=== PATIENT | female | born 1960 | race Caucasian/White ===

== ENCOUNTER 2019-04-17 13:27 | Inpatient (IN) | payer MEDICARE, OTHER ==
[~2019-04-17] VITALS: Ht 165.1 cm; Wt 76.2 kg
[2019-04-17] MEDS ORDERED: AMITRIPTYLIN (13:36)
[2019-04-17] MEDS ORDERED: HYDROCHLOROT 25 MG (13:36)
[2019-04-17] MEDS ORDERED: GABAPENTIN CAP 300MG (13:36)
[2019-04-17] MEDS ORDERED: QUINAPRIL 10 MG (13:36)
[2019-04-17] MEDS ORDERED: METFORMIN TAB 500MG (13:36)
[2019-04-17 14:04] LABS: HEMATOCRIT 46 % (35-52); HEMOGLOBIN 15.1 G/DL (11.5-16.0); MEAN CORPUSCULAR HEMOGLOBIN 29 PG (25-34); MEAN CORPUSCULAR HGB CONC 33 G/DL (32-36); MEAN CORPUSCULAR VOLUME 89 FL (80-99); MEAN PLATELET VOLUME 11.1 FL (7.4-10.4); PLATELET COUNT 241 10^3/uL (130-400); WHITE BLOOD COUNT 20.3 10^3/uL (4.3-11.0)
[2019-04-17 14:05] LABS: BASOPHILS # (AUTO) 0.1 10^3/uL (0.0-0.1); BASOPHILS % (AUTO) 0 % (0-10); EOSINOPHILS % (AUTO) 0 % (0-10); LYMPHOCYTES # (AUTO) 2.7 X 10^3 (1.0-4.0); LYMPHOCYTES % (AUTO) 13 % (12-44); MONOCYTES # (AUTO) 2.3 X 10^3 (0.0-1.0); MONOCYTES % (AUTO) 11 % (0-12); NEUTROPHILS # (AUTO) 15.2 X 10^3 (1.8-7.8); NEUTROPHILS % (AUTO) 75 % (42-75)
--- NOTE | 2019-04-17 14:11 | NUR ---
Dr. Brewer to room at this time
--- NOTE | 2019-04-17 14:20 | Diagnostic Imaging Report ---
INDICATION: Chest pain, generalized not feeling well.. TECHNIQUE: Single view chest 1:49 PM. CORRELATION STUDY: None FINDINGS: Heart size enlarged and there is a component of central vascular congestion. Increased density left lung base is noted. This may be attributed to a cardiac enlargement with possibly superimposed infiltrate and/or atelectasis not excluded. Suspect for trace effusions. IMPRESSION: 1. Cardiac enlargement with component of pulmonary vasculature congestion and perihilar edema. 2. Superimposed infiltrate, edema at the left lung base with a small left pleural effusion suspect. Dictated by: Dictated on workstation # [id number]
[2019-04-17 14:26] LABS: POTASSIUM 3.7 MMOL/L (3.6-5.0); SODIUM 139 MMOL/L (135-145)
[2019-04-17 14:27] LABS: ALANINE AMINOTRANSFERASE 13 U/L (0-55); ALKALINE PHOSPHATASE 96 U/L (40-136); BILIRUBIN,TOTAL 0.5 MG/DL (0.1-1.0); BUN/CREATININE RATIO 13; CALCIUM 10.2 MG/DL (8.5-10.1); CARBON DIOXIDE 29 MMOL/L (21-32); CHLORIDE 95 MMOL/L (98-107); CREATININE SERUM 0.83 MG/DL (0.60-1.30); GFR ESTIMATED > 60; GLUCOSE 121 MG/DL (70-105)
[2019-04-17 14:28] LABS: ALBUMIN 4.3 GM/DL (3.2-4.5); TOTAL PROTEIN 8.3 GM/DL (6.4-8.2)
[2019-04-17] MEDS ORDERED: ASPIRIN 81 MG CHEW (CHILDREN'S ASA) ONE (14:30)
--- NOTE | 2019-04-17 14:30 | NUR ---
Troponin of 0.3 noticed on lab, Dr. Brewer notified at this time
--- NOTE | 2019-04-17 14:30 | ED Chest Pain ---
General Chief Complaint: Chest Pain Stated Complaint: CHEST PAIN Nursing Triage Note: Patient reports waking up and not feeling well this morning. patient states that it has progressed to get worse throughout the day. patient c/o R jaw and shoulder pain. denies n/v or SOA. patient c/o having generalized weakness and fatigue Nursing Sepsis Screen: No Definite Risk Source: patient Exam Limitations: no limitations History of Present Illness Date Seen by Provider: Apr 17, 2019 Time Seen by Provider: 14:25 Initial Comments The patient is a 59-year-old white female. She apparently awakened this morning and experienced chest pressure as well as pain radiating to her jaw and shoulders. She had not had a pain like this before. It seemed to come and go. She had not been physically active when this came on. She later needed to go to the drug store to mixing picker tender her pharmacy refills. Her linotype operator stated that he waited in the car while she went in. When she came out her head was down in rather hang dog. He questioned her and found that she was having chest pain and insisted that they come in for medical evaluation. She is a smoker since age 11 and smokes 2-2 and half packs of cigarettes daily. Timing/Duration: 4-6 hours Severity/Quality: mild, moderate Location: substernal, shoulder Radiation: jaw, other (also describes related facial swelling) Activities at Onset: none Prior CP/Workup: no prior chest pain Allergies and Home Medications Allergies Coded Allergies: No Known Drug Allergies (Unverified , 04/17/19) Patient Home Medication List Home Medication List Reviewed: Yes Review of Systems Review of Systems Constitutional: see HPI EENTM: No Symptoms Reported Respiratory: No Symptoms Reported Cardiovascular: See HPI Gastrointestinal: No Symptoms Reported Genitourinary: No Symptoms Reported Musculoskeletal: no symptoms reported Skin: no symptoms reported Psychiatric/Neurological: No Symptoms Reported Endocrine: No Symptoms Reported Hematologic/Lymphatic: No Symptoms Reported Past Ledzufk-Hbxjry-Jzibgy Hx Patient Social History Alcohol Use: Denies Use Recreational Drug Use: No Smoking Status: Current Everyday Smoker Type Used: Cigars, Cigarettes Recent Foreign Travel: No Contact w/Someone Who Travel: No Recent Infectious Disease Expo: No Recent Hopitalizations: No Past Medical History Respiratory: Yes COPD Cardiac: No Neurological: No Genitourinary: No Gastrointestinal: No Musculoskeletal: No Endocrine: Yes Diabetes, Non-Insulin dep HEENT: No Cancer: No Psychosocial: No Integumentary: No Physical Exam Vital Signs Vital Signs - First Documented 04/17/19 04/17/19 13:31 13:38 Temp 97.5 Pulse 102 Resp 14 B/P (MAP) 104/59 (74) Pulse Ox 88 O2 Delivery Room Air O2 Flow Rate 4.0 Capillary Refill : Less Than 3 Seconds Height, Weight, BMI Height: 5'5.00" Weight: 160lbs. oz. 72.678560mb; BMI Method:Stated General Appearance: Mild Distress HEENT: Normal ENT Inspection Neck: Normal Inspection Respiratory: Chest Non Tender, Lungs Clear, Normal Breath Sounds, No Accessory Muscle Use, No Respiratory Distress Cardiovascular: Tachycardia Gastrointestinal: Normal Bowel Sounds, No Organomegaly, No Pulsatile Mass, Non Tender Extremity: Normal Capillary Refill, Normal Inspection, Normal Range of Motion, Non Tender, No Calf Tenderness, No Pedal Edema Progress/Results/Core Measures Results/Orders Lab Results Laboratory Tests Test 04/17/19 13:35 Range/Units White Blood Count 20.3 H 4.3-11.0 10^3/uL Red Blood Count 5.22 4.35-5.85 10^6/uL Hemoglobin 15.1 11.5-16.0 G/DL Hematocrit 46 35-52 % Mean Corpuscular Volume 89 80-99 FL Mean Corpuscular Hemoglobin 29 25-34 PG Mean Corpuscular Hemoglobin Concent 33 32-36 G/DL Red Cell Distribution Width 15.0 H 10.0-14.5 % Platelet Count 241 130-400 10^3/uL Mean Platelet Volume 11.1 H 7.4-10.4 FL Neutrophils (%) (Auto) 75 42-75 % Lymphocytes (%) (Auto) 13 12-44 % Monocytes (%) (Auto) 11 0-12 % Eosinophils (%) (Auto) 0 0-10 % Basophils (%) (Auto) 0 0-10 % Neutrophils # (Auto) 15.2 H 1.8-7.8 X 10^3 Lymphocytes # (Auto) 2.7 1.0-4.0 X 10^3 Monocytes # (Auto) 2.3 H 0.0-1.0 X 10^3 Eosinophils # (Auto) 0.0 0.0-0.3 10^3/uL Basophils # (Auto) 0.1 0.0-0.1 10^3/uL Sodium Level 139 135-145 MMOL/L Potassium Level 3.7 3.6-5.0 MMOL/L Chloride Level 95 L 98-107 MMOL/L Carbon Dioxide Level 29 21-32 MMOL/L Anion Gap 15 H 5-14 MMOL/L Blood Urea Nitrogen 11 7-18 MG/DL Creatinine 0.83 0.60-1.30 MG/DL Estimat Glomerular Filtration Rate > 60 BUN/Creatinine Ratio 13 Glucose Level 121 H 70-105 MG/DL Calcium Level 10.2 H 8.5-10.1 MG/DL Corrected Calcium 10.0 8.5-10.1 MG/DL Total Bilirubin 0.5 0.1-1.0 MG/DL Aspartate Amino Transf (AST/SGOT) 15 5-34 U/L Alanine Aminotransferase (ALT/SGPT) 13 0-55 U/L Alkaline Phosphatase 96 40-136 U/L Troponin I < 0.300 *H <0.028 NG/ML Total Protein 8.3 H 6.4-8.2 GM/DL Albumin 4.3 3.2-4.5 GM/DL My Orders Orders - CRISTINA VARMA MD Ekg Tracing (04/17/19 13:46) Chest 1 View Ap/Pa Only (04/17/19 13:46) Cbc With Automated Diff (04/17/19 13:46) Comprehensive Metabolic Panel (04/17/19 13:46) Troponin I (04/17/19 13:46) Manual Differential (04/17/19 13:35) Aspirin Chewable Tablet (Baby Aspirin Ch (04/17/19 14:30) Medications Given in ED Current Medications Medications Dose Ordered Sig/Ulises Route Start Time Stop Time Status Last Admin Dose Admin Aspirin 81 mg STK-MED ONCE .ROUTE 04/17/19 14:30 04/17/19 14:36 DC 04/17/19 14:38 324 MG Vital Signs/I&O 04/17/19 04/17/19 13:31 13:38 Temp 97.5 Pulse 102 Resp 14 B/P (MAP) 104/59 (74) Pulse Ox 88 O2 Delivery Room Air Nasal Cannula O2 Flow Rate 4.0 Blood Pressure Mean: 74 Departure Communication (Admissions) Electrocardiogram shows a rather diffuse nonspecific ST abnormality with upward concavity of the ST segment. The tracing also meets the criteria for left atrial enlargement and left ventricular hypertrophy. Her troponin returned positive at 0.3 and accordingly I spoke to Drs. Reynoso and Vandana at via [facility] for transfer. Impression Primary Impression: chest pain/N STEMI Disposition: XFER SHT-TRM HOSP Condition: Stable/Unchanged Admissions Decision to Admit Reason: Admit from ER (General) Decision to Admit/Date: Apr 17, 2019 Transfer Time Spoke to Accepting Phy: 15:08 CRISTINA VARMA MD Apr 17, 2019 14:30
[2019-04-17] MEDS ORDERED: meTOprolol 5 MG/5 ML (LOPRESSOR) VIAL ONE (14:57)
[2019-04-17] MEDS ORDERED: TICAGRELOR 90 MG TABLET (BRILINTA) PO ONE ×2 (14:58→15:00)
[2019-04-17] MEDS ORDERED: meTOprolol 5 MG/5 ML (LOPRESSOR) VIAL IV ONE (15:00)
[2019-04-17 15:10] LABS: BAND NEUTROPHILS 4 %; BASOPHILS % (MANUAL) 0 %; EOSINOPHILS % (MANUAL) 0 %; LYMPHOCYTES % (MANUAL) 14 %; METAMYELOCYTES % 0 %; MONOCYTES % (MANUAL) 8 %; MYELOCYTES % 3 %; NEUTROPHILS % (MANUAL) 71 %
[2019-04-17] MEDS ORDERED: NS IV 1000 ML 1,000 ML ONE (16:39)
[2019-04-17 16:45] VITALS: BP 142/85
[2019-04-17] MEDS ORDERED: CATHETER FLUSH 10 ML SYR IV PRN (17:00)
[2019-04-17] MEDS: NS IV 1000 ML 1,000 ML IV SCH (17:27)
[2019-04-17] MEDS: morphine INJ 4 MG/ML 1 ML (VIAL/SYRINGE) IV PRN ×2 (17:41→22:06)
[2019-04-17] MEDS ORDERED: HEParin 1000 UNIT/ML (10ML VIAL) FOR BOLUS IV SCH (18:15)
[2019-04-17] MEDS ORDERED: HEParin DRIP 25000 UNIT/500ML 500 ML IV SCH (18:29)
[2019-04-17 18:41] LABS: BASOPHILS % (AUTO) 0 % (0-10); EOSINOPHILS % (AUTO) 0 % (0-10); HEMATOCRIT 47 % (35-52); HEMOGLOBIN 15.4 G/DL (11.5-16.0); LYMPHOCYTES # (AUTO) 0.9 X 10^3 (1.0-4.0); LYMPHOCYTES % (AUTO) 4 % (12-44); MEAN CORPUSCULAR HEMOGLOBIN 28 PG (25-34); MEAN CORPUSCULAR HGB CONC 33 G/DL (32-36); MEAN CORPUSCULAR VOLUME 87 FL (80-99); MEAN PLATELET VOLUME 11.2 FL (7.4-10.4); MONOCYTES # (AUTO) 2.9 X 10^3 (0.0-1.0); MONOCYTES % (AUTO) 11 % (0-12); NEUTROPHILS % (AUTO) 85 % (42-75); PLATELET COUNT 204 10^3/uL (130-400); RED CELL DISTRIBUTION WIDTH 15.5 % (10.0-14.5); WHITE BLOOD COUNT 25.9 10^3/uL (4.3-11.0)
[2019-04-17] MEDS: HEParin 1000 UNIT/ML (10ML VIAL) FOR BOLUS IV SCH (18:58)
[2019-04-17 19:00] VITALS: BP 136/71
[2019-04-17 19:46] LABS: BAND NEUTROPHILS 6 %; BASOPHILS % (MANUAL) 0 %; EOSINOPHILS % (MANUAL) 0 %; LYMPHOCYTES % (MANUAL) 3 %; MONOCYTES % (MANUAL) 4 %; NEUTROPHILS % (MANUAL) 87 %
[2019-04-17 19:47] LABS: ANISOCYTOSIS SLIGHT
[2019-04-17 20:00] VITALS: BP 131/80
--- NOTE | 2019-04-17 20:12 | NUR ---
Called Dr. Ross to notify of continuing chest pain 11/16, tachycardic in 120's, diaphoretic and SOB. New orders received at this time.
[2019-04-17] MEDS ORDERED: meTOprolol 5 MG/5 ML (LOPRESSOR) VIAL IV NR (20:15)
[2019-04-17] MEDS: NITROGLYCERIN 0.4 MG SL TABS BTL 25'S SL PRN ×3 (20:29→21:03)
[2019-04-17 21:00] VITALS: BP 116/80
[2019-04-17] MEDS ORDERED: ATORVASTATIN 40 MG (LIPITOR) TABLET PO SCH (21:00)
--- OUTSIDE RECORDS SUMMARY | 2019-04-17 21:28 | XMS REPORT | Continuity of Care Document ---
Author Organization Unknown Address Unknown Allergies There is no data. Medications There is no data. Problems There is no data. Procedures There is no data. Results Test Result Range SPECIMEN INTEGRITY COMPROMISED - 12/18/18 09:52 SPECIMEN INTEGRITY COMPROMISED NRG MICROALBUMIN/CREATININE RATIO, URINE - 03/23/19 12:38 CREATININE, RANDOM URINE 40 mg/dL 20-275 MICROALBUMIN 5.1 mg/dL See Note: MICROALBUMIN/CREATININE RATIO, RANDOM URINE 128 mcg/mg creat <30 A1C - 03/23/19 12:38 HEMOGLOBIN A1c 5.4 % of total Hgb <5.7 Encounters ACCT No. Visit Date/Time Discharge Status Pt. Type Provider Facility Loc./Unit Complaint [id number] 03/23/2019 10:45:00 03/23/2019 23:59:59 CLS Outpatient VINAY CARRILLO [facility] [id number] 03/23/2019 10:45:00 Document Registration [id number] 12/18/2018 08:40:00 Document Registration
--- OUTSIDE RECORDS SUMMARY | 2019-04-17 21:46 | XMS REPORT | Continuity of Care Document ---
[...] Status Pt. Type Provider Facility Loc./Unit Complaint [id number] 03/23/2019 10:45:00 03/23/2019 23:59:59 CLS Outpatient VINAY CARRILLO [facility] [id number] 03/23/2019 10:45:00 Document Registration [id number] 12/18/2018 08:40:00 Document Registration
[2019-04-17 22:00] VITALS: BP 135/79
[2019-04-17] MEDS: ATORVASTATIN 80 MG (LIPITOR) TABLET PO SCH (22:05)
[2019-04-17] MEDS ORDERED: BENZONATATE 100 MG (TESSALON) CAPSULE PO ONE (22:45)
[2019-04-17 23:00] VITALS: BP 136/70
[2019-04-17] MEDS: guaiFENesin/DM (ROBITUSSIN DM) 10 ML UDC PO PRN (23:15)
[2019-04-18] VITALS (24 sets, daily range): BP systolic 106–156; BP diastolic 59–94
[2019-04-18] MEDS: HEParin 1000 UNIT/ML (10ML VIAL) FOR BOLUS IV SCH
[2019-04-18] MEDS: morphine INJ 4 MG/ML 1 ML (VIAL/SYRINGE) IV PRN (00:21)
[2019-04-18 04:01] LABS: BASOPHILS % (AUTO) 0 % (0-10); EOSINOPHILS % (AUTO) 0 % (0-10); HEMATOCRIT 46 % (35-52); HEMOGLOBIN 14.8 G/DL (11.5-16.0); LYMPHOCYTES # (AUTO) 2.9 X 10^3 (1.0-4.0); LYMPHOCYTES % (AUTO) 13 % (12-44); MEAN CORPUSCULAR HEMOGLOBIN 28 PG (25-34); MEAN CORPUSCULAR HGB CONC 32 G/DL (32-36); MEAN CORPUSCULAR VOLUME 88 FL (80-99); MEAN PLATELET VOLUME 11.4 FL (7.4-10.4); MONOCYTES # (AUTO) 2.9 X 10^3 (0.0-1.0); MONOCYTES % (AUTO) 13 % (0-12); NEUTROPHILS # (AUTO) 16.6 X 10^3 (1.8-7.8); NEUTROPHILS % (AUTO) 74 % (42-75); PLATELET COUNT 200 10^3/uL (130-400); RED CELL DISTRIBUTION WIDTH 15.4 % (10.0-14.5); WHITE BLOOD COUNT 22.4 10^3/uL (4.3-11.0)
[2019-04-18 04:21] LABS: BUN/CREATININE RATIO 17; CALCIUM 10.1 MG/DL (8.5-10.1); CARBON DIOXIDE 28 MMOL/L (21-32); CHLORIDE 95 MMOL/L (98-107); CREATININE SERUM 0.86 MG/DL (0.60-1.30); GFR ESTIMATED > 60; GLUCOSE 132 MG/DL (70-105); MAGNESIUM 1.5 MG/DL (1.8-2.4); PHOSPHORUS 3.9 MG/DL (2.3-4.7); POTASSIUM 3.8 MMOL/L (3.6-5.0); SODIUM 137 MMOL/L (135-145)
[2019-04-18] MEDS ORDERED: MAGNESIUM 1 GM/100 ML IVPB 200 ML IV ONE (04:54)
[2019-04-18] MEDS: MAGNESIUM 1 GM/100 ML IVPB 100 ML IV SCH ×2 (05:03→06:00)
--- NOTE | 2019-04-18 05:21 | Pulmonary Consultation ---
History of Present Illness History of Present Illness Date of Consultation 04/18/19 05:15 Time Seen by Provider: 05:15 Date of Admission History of Present Illness 59yo with hx of tobacco use since age 11 presented to ED secondary to radiating Chest pain to jaw and shoulders, nonproductive cough, no fevers. Pt does not use oxygen at home however is now requiring 3 liters NC. Pt denies hx of CAD, COPD, and she does not use oxygen at home. I am consulted for pulmonary management. Allergies and Home Medications Allergies Coded Allergies: No Known Drug Allergies (Unverified , 04/17/19) Home Medications Amitriptyline HCl 100 Mg Tablet, 100 MG PO HS, (Reported) Aspirin 81 Mg Tablet.dr, 81 MG PO DAILY Prescribed by: CE HOBBS on 04/21/19 09 Atorvastatin Calcium 10 Mg Tablet, 10 MG PO DAILY, (Reported) Cefdinir 300 Mg Capsule, 300 MG PO BID Prescribed by: CE HOBBS on 04/21/19 09 Gabapentin 300 Mg Capsule, 300 MG PO TID, (Reported) Glyburide 1.25 Mg Tablet, 1.25 MG PO DAILY Prescribed by: CE HOBBS on 04/21/19 09 Ipratropium/Albuterol Sulfate 3 Ml Ampul.neb, 3 ML INH RTQID Prescribed by: CE HOBBS on 04/21/19 09 Metformin HCl 500 Mg Tablet, 1,000 MG PO BID, (Reported) TAKES 2 (500MG) TABLETS Metoprolol Tartrate 25 Mg Tablet, 25 MG PO BID Prescribed by: CE HOBBS on 04/21/19 09 Mv-Mn/Folic Acid/Calcium/Vit K 1 Each Tablet, 1 TAB PO DAILY, (Reported) Past Qvkjsbd-Rrdipk-Swxkzw Hx Patient Social History Alcohol Use: Denies Use Recreational Drug Use: No Smoking Status: Current Everyday Smoker Type Used: Cigars, Cigarettes Recent Foreign Travel: No Contact w/Someone Who Travel: No Recent Infectious Disease Expo: No Recent Hopitalizations: No Physical Abuse: No Sexual Abuse: No Mistreated: No Fear: No Immunizations Up To Date Date of Pneumonia Vaccine: Apr 17, 2016 Past Medical History Respiratory: Yes COPD Cardiac: No Neurological: No Genitourinary: No Gastrointestinal: No Musculoskeletal: No Endocrine: Yes Diabetes, Non-Insulin dep HEENT: No Cancer: No Psychosocial: No Integumentary: No Review of Systems Time Seen by Provider: 09:45 Sepsis Event Evaluation Height, Weight, BMI Height: 5'5.00" Weight: 173lbs. 1.0oz. 78.100707bq; 28.8 BMI Method:Stated Exam Exam Vital Signs Date Time Temp Pulse Resp B/P (MAP) Pulse Ox O2 Delivery O2 Flow Rate FiO2 04/18/19 05:00 106 26 156/85 (108) 94 Nasal Cannula 3.00 04/18/19 04:00 103 19 112/73 (86) 94 Nasal Cannula 3.00 04/18/19 03:44 97.4 04/18/19 03:00 107 22 123/75 (91) 96 Nasal Cannula 3.00 04/18/19 02:00 98 16 124/68 (86) 95 Nasal Cannula 3.00 04/18/19 01:00 95 04/18/19 01:00 91 19 128/67 (87) 95 Nasal Cannula 3.00 04/18/19 00:00 97.0 04/18/19 00:00 96 28 120/86 (97) 94 Nasal Cannula 3.00 04/17/19 23:41 Nasal Cannula 3.00 04/17/19 23:00 112 31 136/70 (92) 95 Nasal Cannula 3.00 04/17/19 22:00 123 27 135/79 (97) 95 Nasal Cannula 3.00 04/17/19 21:00 86 24 116/80 (92) 94 Nasal Cannula 3.00 04/17/19 20:59 90 Nasal Cannula 3.00 04/17/19 20:00 94 Nasal Cannula 2.00 04/17/19 20:00 112 19 131/80 (97) 94 Nasal Cannula 2.00 04/17/19 19:00 122 04/17/19 19:00 97.2 116 136/71 (92) 93 Nasal Cannula 2.00 04/17/19 17:16 Nasal Cannula 2.00 04/17/19 16:45 106 27 142/85 (104) 93 Nasal Cannula 2.00 04/17/19 16:38 87 04/17/19 15:41 104 16 108/63 (78) 97 OxyMask 4.00 04/17/19 13:38 Nasal Cannula 4.0 04/17/19 13:31 97.5 102 14 104/59 (64) 88 Room Air I & O 04/18/19 07:00 Intake Total 50 ml Output Total 700 ml Balance -650 ml Height & Weight Height: 5'5.00" Weight: 173lbs. 1.0oz. 78.892465nj; 28.8 BMI Method:Stated General Appearance: Mild Distress HEENT: Normal ENT Inspection Neck: Normal Inspection Respiratory: Chest Non Tender, Lungs Clear, Normal Breath Sounds, No Accessory Muscle Use, No Respiratory Distress Cardiovascular: Tachycardia Capillary Refill: Less Than 3 Seconds Extremity: Normal Capillary Refill, Normal Inspection, Normal Range of Motion, Non Tender, No Calf Tenderness, No Pedal Edema Neurologic/Psychiatric: Alert, Oriented x3 Skin: Normal Color, Warm/Dry Results Lab Laboratory Tests 04/17/19 13:35 04/17/19 18:35 04/18/19 03:51 Assessment/Plan Assessment/Plan SOB with hypoxia -Check CTA of chest if D Dimer is elevated Chest pain -Cardiology consulted -Probable heart cath today Leukocytosis with probable PNA -Start Zosyn -Jarvis cultures Tobacco use with probable COPD -Pt will probably need home oxygen -Education Hypomag -replace MISTY GUZMAN DO Apr 18, 2019 05:21
[2019-04-18] MEDS ORDERED: KCL 20 MEQ TAB (K-DUR) PO SCH (06:00)
[2019-04-18] MEDS ORDERED: POTASSIUM CL 10MEQ/50ML IVPB 50 ML IV SCH (06:00)
[2019-04-18] MEDS ORDERED: MAGNESIUM 1 GM/100 ML IVPB 100 ML IV SCH (06:00)
[2019-04-18] MEDS: guaiFENesin/DM (ROBITUSSIN DM) 10 ML UDC PO PRN ×2 (06:51→21:01)
[2019-04-18] MEDS: NS IV 1000 ML 1,000 ML IV SCH ×4 (06:52→21:07)
[2019-04-18 07:19] LABS: BILIRUBIN,URINE NEGATIVE (NEGATIVE); CLARITY,URINE CLEAR; COLOR,URINE YELLOW; GLUCOSE, URINE (UA) NEGATIVE (NEGATIVE); KETONES,URINE NEGATIVE (NEGATIVE); LEUKOCYTE ESTERASE ,URINE NEGATIVE (NEGATIVE); NITRITE,URINE POSITIVE (NEGATIVE); PH,URINE 6 (5-9); PROTEIN,URINE 1+ (NEGATIVE); UROBILINOGEN,URINE NORMAL (NORMAL)
[2019-04-18 07:20] LABS: ABG BASE EXCESS 4.8 MMOL/L (-2.5-2.5); ABG OXYGEN SATURATION 92 % (94-100); ABG PCO2 52 MMHG (35-45); ABG PH 7.38 (7.37-7.43); ABG PO2 62 MMHG (79-93); ABG TCO2 31.6 MMOL/L (21.0-31.0)
[2019-04-18 07:21] LABS: ALLENS TEST YES-POS; INSPIRED O2 3 L; PATIENT TEMP 97.2; VENTILATOR NO
[2019-04-18 07:32] LABS: BACTERIA,URINE TRACE /HPF
[2019-04-18] MEDS: PIPERACILLIN/TAZOBACTAM (BULK) 4.5 GM in NS (IVPB) 100 ML IV SCH ×3 (08:41→21:01)
--- NOTE | 2019-04-18 09:36 | Diagnostic Imaging Report ---
INDICATION: Shortness of breath Portable chest 3:38 AM Heart size is upper limits of normal. Pulmonary vascularity is normal. Lungs are clear. There are no effusions or pneumothoraces. IMPRESSION: No acute abnormalities in the chest Dictated by: Dictated on workstation # [id number]
[2019-04-18] MEDS ORDERED: LIDOCAINE 1% INJ 20 ML 20 ML VIAL ONE (11:06)
[2019-04-18] MEDS ORDERED: HEParin (CATH LAB) 2,000 ML IV ONE (11:06)
[2019-04-18] MEDS ORDERED: MIDAZOLAM 5 MG/5 ML (VERSED) VIAL ONE (11:15)
[2019-04-18] MEDS ORDERED: fentaNYL INJECTION 100 MCG/2 ML AMP ONE (11:15)
--- NOTE | 2019-04-18 11:39 | Consultation-Cardiology ---
HPI-Cardiology Cardiology Consultation: Date of Consultation 04/18/19 Date of Admission Attending Physician Nancy Herrera MD Admitting Physician Jose Meek MD Consulting Physician Ava ROSS MD HPI: Time Seen by a Provider: 11:39 Chief Complaint: chest pain, shortness of breath this is a 59-year-old lady who has history of active smoking, hypertension and possible hyperlipidemia. She denies family history of premature CAD. She denies diabetes. She presented with a prolonged episode of chest pain with radiated to her neck as well there was associated shortness of breath. Moderate to severe intensity. Radiation to the neck. No exacerbating or relieving factors. There was some improvement with nitroglycerin however she continued to have intermittent chest pain. Review of Systems-Cardiology Review of Systems Constitutional: As described under HPI; No As described under HPI, No no symptoms reported, No chills, No fever, No lightheadedness Eyes: No As described under HPI, No no symptoms reported, No blindness, No blurred vision, No contact lenses, No drainage, No decreased acuity, No foreign body sensation, No pain, No vision change Ears/Nose/Throat: No As described under HPI, No no symptoms reported, No chronic hearing loss, No ear discharge, No ear pain, No nasal drainage, No ulcerations Respiratory: No no symptoms reported; As described under HPI; No As described under HPI, No cough, No orthopnea; shortness of breath; No SOB with excertion Cardiovascular: No no symptoms reported; As described under HPI; No As described under HPI; chest pain; No edema, No irregular heart rate, No lightheadedness, No palpitations Gastrointestinal: No no symptoms reported, No As described under HPI, No abdomen distended, No abdominal pain, No blood streaked bowels, No constipation, No diarrhea, No nausea, No vomiting, No stool coloration changes Genitourinary: No As described under HPI, No burning, No dysuria, No discharge, No frequency, No flank pain, No hematuria, No urgency : Yes : No Skin: No rash, No skin related problems, No ulcerations Psychiatric/Neurological: No anxiety, No depression, No seizure, No focal weakness, No syncope Hematologic: No bleeding abnormalities OKQ-Lrsydr-Kssrgx Hx Patient Social History Alcohol Use: Denies Use Recreational Drug Use: No Smoking Status: Current Everyday Smoker Type Used: Cigars, Cigarettes Recent Foreign Travel: No Recent Infectious Disease Expo: No Hospitalization with Isolation: Denies Immunizations Up To Date Date of Pneumonia Vaccine: Apr 17, 2016 Past Medical History PMH As described under Assessment. Allergies and Home Medications Allergies Coded Allergies: No Known Drug Allergies (Unverified , 04/17/19) Patient Home Medication List Home Medication List Reviewed: Yes Physical Exam-Cardiology Physical Exam Vital Signs/I&O 04/18/19 04/18/19 04/18/19 04/18/19 02:00 03:00 03:44 04:00 Temp 97.4 Pulse 98 107 103 Resp 16 22 19 B/P (MAP) 124/68 (86) 123/75 (91) 112/73 (86) Pulse Ox 95 96 94 O2 Delivery Nasal Cannula Nasal Cannula Nasal Cannula O2 Flow Rate 3.00 3.00 3.00 04/18/19 04/18/19 04/18/19 04/18/19 04:00 05:00 06:00 07:00 Pulse 106 105 105 Resp 26 18 B/P (MAP) 156/85 (108) 143/86 (105) Pulse Ox 94 94 93 O2 Delivery Nasal Cannula Nasal Cannula Nasal Cannula O2 Flow Rate 2.00 3.00 3.00 04/18/19 04/18/19 04/18/19 04/18/19 07:00 08:00 08:00 08:00 Temp 98.6 Pulse 118 107 Resp 29 13 B/P (MAP) 130/94 (106) 139/83 (101) Pulse Ox 91 93 93 O2 Delivery Nasal Cannula Nasal Cannula Nasal Cannula O2 Flow Rate 3.00 3.00 3.00 04/18/19 04/18/19 04/18/19 04/18/19 08:31 09:00 10:00 11:00 Pulse 105 111 110 Resp 18 24 23 B/P (MAP) 118/62 (80) 127/68 (87) 123/72 (89) Pulse Ox 93 95 95 O2 Delivery Nasal Cannula Nasal Cannula Nasal Cannula Nasal Cannula O2 Flow Rate 3.00 3.00 3.00 3.00 04/18/19 12:37 Pulse 110 04/18/19 00:00 Intake Total 50 ml Output Total 400 ml Balance -350 ml Capillary Refill : Less Than 3 Seconds Constitutional: appears stated age, AAO x 3, apparent distress, well-developed, well-nourished HEENT: PERRL; No discharge; hearing is well preserved, oral hygience is good; No ulceration, No xanthelasmas are seen Neck: No carotid bruit; carotid pulses are 2 + bilaterally Respiratory: chest is bilaterally symmetric, lungs clear to auscultation Cardiovascular: regular rate-rhythm, tachycardia, S1 and S2 Gastrointestinal: No tender, No soft, No round, No distended, No pulsatile mass, No organomegaly, No guarding, No rebound, No tenderness, No hernia, No mass, No audible bowel sounds, No abnormal bowel sounds, No abdominal bruits, No spleenomegaly, No other Rectal: deferred Extremities: No normal range of motion, No non-tender, No normal inspection, No pedal edema, No calf tenderness, No normal capillary refill, No pelvis stable, No calf tenderness, No inflammation, No pedal edema, No slow capillary refill, No swelling, No other, No abrasion, No clubbing, No cyanosis, No ecchymosis, No laceration, No no lower extremity edema bilateral, No significant edema, No tenderness, No wound Neurologic/Psychiatric: no motor/sensory deficits, alert, normal mood/affect, oriented x 3, power is 5/5 both on sides Skin: No normal color, No warm/dry, No cyanosis, No cool, No diaphoresis, No damp, No ecchymosis, No jaundice, No mottled, No pallor, No rash, No tattoos/piercings, No ulcerations, No rash on exposed areas, No ulcerations on exposed areas, No other Data Review Labs Laboratory Tests 04/17/19 13:35: White Blood Count 20.3H, Red Blood Count 5.22, Hemoglobin 15.1, Hematocrit 46, Mean Corpuscular Volume 89, Mean Corpuscular Hemoglobin 29, Mean Corpuscular Hemoglobin Concent 33, Red Cell Distribution Width 15.0H, Platelet Count 241, Mean Platelet Volume 11.1H, Neutrophils (%) (Auto) 75, Lymphocytes (%) (Auto) 13, Monocytes (%) (Auto) 11, Eosinophils (%) (Auto) 0, Basophils (%) (Auto) 0, Neutrophils # (Auto) 15.2H, Lymphocytes # (Auto) 2.7, Monocytes # (Auto) 2.3H, Eosinophils # (Auto) 0.0, Basophils # (Auto) 0.1, Neutrophils % (Manual) 71, Lymphocytes % (Manual) 14, Monocytes % (Manual) 8, Eosinophils % (Manual) 0, Basophils % (Manual) 0, Metamyelocytes % 0, Myelocytes % 3, Band Neutrophils 4, Sodium Level 139, Potassium Level 3.7, Chloride Level 95L, Carbon Dioxide Level 29, Anion Gap 15H, Blood Urea Nitrogen 11, Creatinine 0.83, Estimat Glomerular Filtration Rate > 60, BUN/Creatinine Ratio 13, Glucose Level 121H, Calcium Level 10.2H, Corrected Calcium 10.0, Total Bilirubin 0.5, Aspartate Amino Transf (AST/SGOT) 15, Alanine Aminotransferase (ALT/SGPT) 13, Alkaline Phosphatase 96, Troponin I < 0.300*H, Total Protein 8.3H, Albumin 4.3 04/17/19 18:16: Troponin I < 0.028 04/17/19 18:35: White Blood Count 25.9H, Red Blood Count 5.42, Hemoglobin 15.4, Hematocrit 47, Mean Corpuscular Volume 87, Mean Corpuscular Hemoglobin 28, Mean Corpuscular Hemoglobin Concent 33, Red Cell Distribution Width 15.5H, Platelet Count 204, Mean Platelet Volume 11.2H, Neutrophils (%) (Auto) 85H, Lymphocytes (%) (Auto) 4L, Monocytes (%) (Auto) 11, Eosinophils (%) (Auto) 0, Basophils (%) (Auto) 0, Neutrophils # (Auto) 22.0H, Lymphocytes # (Auto) 0.9L, Monocytes # (Auto) 2.9H, Eosinophils # (Auto) 0.0, Basophils # (Auto) 0.0, Neutrophils % (Manual) 87, Lymphocytes % (Manual) 3, Monocytes % (Manual) 4, Eosinophils % (Manual) 0, Basophils % (Manual) 0, Band Neutrophils 6, Anisocytosis SLIGHT, Prothrombin Time 13.0, INR Comment 1.0, Activated Partial Thromboplast Time 31 04/17/19 23:04: Troponin I < 0.028, Activated Partial Thromboplast Time 44H 04/18/19 03:51: White Blood Count 22.4H, Red Blood Count 5.27, Hemoglobin 14.8, Hematocrit 46, Mean Corpuscular Volume 88, Mean Corpuscular Hemoglobin 28, Mean Corpuscular Hemoglobin Concent 32, Red Cell Distribution Width 15.4H, Platelet Count 200, Mean Platelet Volume 11.4H, Neutrophils (%) (Auto) 74, Lymphocytes (%) (Auto) 13, Monocytes (%) (Auto) 13H, Eosinophils (%) (Auto) 0, Basophils (%) (Auto) 0, Neutrophils # (Auto) 16.6H, Lymphocytes # (Auto) 2.9, Monocytes # (Auto) 2.9H, Eosinophils # (Auto) 0.0, Basophils # (Auto) 0.0, Activated Partial Thromboplast Time 103H, D-Dimer 1.31H, Sodium Level 137, Potassium Level 3.8, Chloride Level 95L, Carbon Dioxide Level 28, Anion Gap 14, Blood Urea Nitrogen 15, Creatinine 0.86, Estimat Glomerular Filtration Rate > 60, BUN/Creatinine Ratio 17, Glucose Level 132H, Calcium Level 10.1, Phosphorus Level 3.9, Magnesium Level 1.5L, Troponin I 0.028, B-Type Natriuretic Peptide 186.7H 04/18/19 06:32: Lactic Acid Level 0.60 04/18/19 06:55: Urine Color YELLOW, Urine Clarity CLEAR, Urine pH 6, Urine Specific [place] 1.010L, Urine Protein 1+H, Urine Glucose (UA) NEGATIVE, Urine Ketones NEGATIVE, Urine Nitrite POSITIVEH, Urine Bilirubin NEGATIVE, Urine Urobilinogen NORMAL, Urine Leukocyte Esterase NEGATIVE, Urine RBC (Auto) 2+H, Urine RBC NONE, Urine WBC NONE, Urine Crystals NONE, Urine Bacteria TRACE, Urine Casts NONE, Urine Mucus NEGATIVE, Urine Culture Indicated YES, Blood Gas Puncture Site RT RAD, Blood Gas Patient Temperature 97.2, Arterial Blood pH 7.38, Arterial Blood Partial Pressure CO2 52H, Arterial Blood Partial Pressure O2 62L, Arterial Blood HCO3 30H, Arterial Blood Total CO2 31.6H, Arterial Blood Oxygen Saturation 92L, Arterial Blood Base Excess 4.8H, Александр Test YES-POS, Blood Gas Ventilator Setting NO, Blood Gas Inspired Oxygen 3 L 04/18/19 09:22: Activated Partial Thromboplast Time 63H ECG Impression ECG Initial ECG Rhythm: S.Tach A/P-Cardiology Assessment/Admission Diagnosis chest pain, positive troponin, Sinus tachycardia, Positive D dimer, Active smoking, Hypertension, Leukocytosis, Hypercapnic respiratory failure, Acute diastolic congestive heart failure. Plan chest pain, positive troponin, aspirin, Brilinta, IV heparin, coronary angiography today. Sinus tachycardia, consider pulmonary embolism. Positive D dimer,consider pulmonary embolism. I will request chest CTA. Active smoking,cessation was strongly recommended. Hypertension, Leukocytosis,likely COPD exacerbation/pneumonia. Hypercapnic respiratory failure,defer to Dr. Castillo. Acute diastolic congestive heart failure. mildly elevated BNP. May require low- dose Lasix. Thank you for your consultation. Please call me if you have any questions. Lucius Ross MD, FACP, FACC, FSCAI, FHRS, CCDS Interventional Cardiology Cardiac Electrophysiology Vascular Medicine and Endovascular Interventions Clinical Quality Measures AMI/AHF: ASA po Prior to arrival: No DVT/VTE Risk/Contraindication: Risk Factor Score Per Nursin RFS Level Per Nursing on Admit: 3=High Ava ROSS MD Apr 18, 2019 11:39
--- NOTE | 2019-04-18 12:50 | Cardiac Procedure Note-CS/ASA ---
Pre-Procedure Note Pre-Op Procedure Note H&P Reviewed The H&P was reviewed, patient examined and no changes noted. Date H&P Reviewed: Apr 18, 2019 Time H&P Reviewed: 11:30 Conscious Sedation Pre-Proced Time 11:30 ASA Score 3 For ASA 3 and 4: Consider anesthesia and medical clearance. Also, for patients with a history of failed moderate sedation consider anesthesia. Airway Lungs Heart ASA score ASA 1: a normal healthy patient ASA 2: a patient with a mild systemic disease (mid diabetes, controlled hypertension, obesity ASA 3: a patient with a severe systemic disease that limits activity (angina, COPD, prior Myocardial infarction) ASA 4: a patient with an incapacitating disease that is a constant threat to life (CHF, renal failure) ASA 5: a moribund patient not expected to survive 24 hrs. (ruptured aneurysm) ASA 6: a declared brain- patient whose organs are being harvested. For emergent operations, add the letter E after the classification Mallampati Classification Grade 1 Sedation Plan Analgesia, Amnesia, Plan communicated to team members, Discussed options with patient/fam, Discussed risks with patient/fam The patient is an appropriate candidate to undergo the planned procedure, sedation, and anesthesia. The patient immediately re-assessed prior to indication. Ava GIFFORD MD Apr 18, 2019 12:50
[2019-04-18] MEDS ORDERED: PATIENT MAY USE OWN MEDS, ALL PO SCH (13:00)
--- NOTE | 2019-04-18 13:02 | Coronary Angiography Report ---
Coronary Angiography Report DATE OF PROCEDURE: 04/18/19 INDICATION: chest pain, positive troponin, shortness of breath, tachycardia. PREOPERATIVE DIAGNOSIS: chest pain, positive troponin, shortness of breath, tachycardia. POSTOPERATIVE DIAGNOSIS: mild CAD, elevated LVEDP HISTORY: this is a 59-year-old lady with prolonged episode of chest pain and positive troponin. She also has history of active smoking with likely COPD. She also has leukocytosis, hypoxia and sinus tachycardia with positive d- dimer.Therefore, the patient was scheduled for coronary angiography. PROCEDURES PERFORMED: 1.Coronary angiography. 2.Left heart catheterization. 3. Aortic arch angiogram done to rule out aneurysm or aortic dissection as an etiology of prolonged chest pain. COMPLICATIONS: None. SPECIMENS: None. ESTIMATED BLOOD LOSS: 10 mL ANESTHESIA: Conscious sedation ANTICOAGULATION: IV heparin CONTRAST: 80 mL. FLUOROSCOPY: 1.7 minutes. FLOUROSCOPY DOSE: 476 mgy. PROCEDURE DETAILS: The patient is a 59 female and was brought to the recyclable materials collector after informed consent was taken. All the risks and complications were explained in detail; this included the risk of bleeding, vascular damage, stroke, LA and even . The patient was draped and prepped in the usual sterile fashion. Access was gained in the right femoral artery with a 5 Faroese sheath. coronary angiography was done with a JR4 and JL4 catheter. Left heart catheterization and aortic arch angiogram was done with a JR4 catheter. FINDINGS: 1.Left main: patent. 2.LAD: mild disease in the midsegment. Mild calcification noted. 3.Left circumflex artery: patent. 4.RCA: dominant artery with no significant disease. 5.Left heart catheterization: LV pressure 103/17 mmHg, aortic pressure 107/66 mmHg LVEDP 25 mmHg. Normal LV function with no wall motion abnormalities. No gradient across the aortic valve. 6. Aortic arch angiogram: Medical necessity was to rule out aortic dissection/aneurysm as a cause of chest pain in a patient with no significant CAD. No thoracic ascending aneurysm or dissection noted. Patent proximal segments of the great arteries. CONCLUSIONS: 1. Mild CAD. Continue aspirin and statin. 2. Positive D dimer, hypoxia, sinus tachycardia. I will recommend ruling out pulmonary embolism. I will talk to Dr. Castillo as well. Lucius Ross MD, FACP, FACC, [facility] Interventional Cardiology Ava ROSS MD Apr 18, 2019 13:02
[2019-04-18] MEDS ORDERED: HOLD METFORMIN - RECEIVED CONTRAST 20 ML VIAL IV SCH (13:30)
[2019-04-18] MEDS ORDERED: IOHEXOL 350 MG/ML 100 ML (OMNIPAQUE 350) VIAL IV ONE (13:30)
[2019-04-18] MEDS ORDERED: NS 100 ML (IVPB) BAG IV ONE (13:30)
--- NOTE | 2019-04-18 13:43 | NUR ---
pt down to ct, heparin turned off at 1240. Heparin restarted at 1340 at increased 3mL than prior dose.
--- NOTE | 2019-04-18 13:52 | Diagnostic Imaging Report ---
PROCEDURE: CT angiography of the chest with contrast. TECHNIQUE: Multiple contiguous axial images were obtained through the chest after uneventful bolus administration of intravenous contrast. 2D reconstructed CTA MIP acquisitions were also performed. Auto Exposure Controls were utilized during the CT exam to meet ALARA standards for radiation dose reduction. INDICATION: Shortness of breath. COMPARISON: Chest x-ray from the same day FINDINGS: The pulmonary arteries are diagnostic to the proximal segmental level. There is mild motion artifact. No filling defects are seen to indicate a pulmonary embolus. The heart is moderately large. There is a small pericardial effusion. No mediastinal adenopathy is seen. The aorta demonstrates no evidence of dissection or aneurysm. There is dependent atelectasis in the lungs bilaterally. There is moderate emphysematous change in the lung apices. There is a trace left pleural effusion. No pneumothorax is seen. Motion artifact is again seen. No acute osseous abnormality is seen. Imaged portions of the upper abdomen demonstrate no acute abnormality. IMPRESSION: 1. Suboptimal examination due to motion artifact. 2. No pulmonary embolus is seen. 3. Cardiomegaly with a small pericardial effusion. 4. Trace left pleural effusion with dependent atelectasis bilaterally. 5. Moderate emphysematous changes in the lungs. Dictated by: Dictated on workstation # [id number]
[2019-04-18 15:02] LABS: AMPHETAMINE SCREEN, URINE NEGATIVE (NEGATIVE); BARBITURATE SCREEN URINE NEGATIVE (NEGATIVE); BENZODIAZEPINES SCREEN URINE NEGATIVE (NEGATIVE); CANNABINOID SCREEN, URINE NEGATIVE (NEGATIVE); COCAINE SCREEN URINE NEGATIVE (NEGATIVE); METHADONE STAT NEGATIVE (NEGATIVE); METHAMPHETAMINE SCREEN URINE S NEGATIVE (NEGATIVE); OPIATE SCREEN URINE POSITIVE (NEGATIVE); OXYCODONE STAT NEGATIVE (NEGATIVE); PROPOXYPHENE STAT NEGATIVE (NEGATIVE); TRICYCLIC ANTIDEPRESSANTS SCRE POSITIVE (NEGATIVE)
[2019-04-18] MEDS: ATORVASTATIN 80 MG (LIPITOR) TABLET PO SCH (21:01)
[2019-04-19] VITALS (11 sets, daily range): BP systolic 112–161; BP diastolic 56–82
[2019-04-19 03:51] LABS: BASOPHILS % (AUTO) 0 % (0-10); EOSINOPHILS # (AUTO) 0.1 10^3/uL (0.0-0.3); EOSINOPHILS % (AUTO) 1 % (0-10); HEMATOCRIT 43 % (35-52); HEMOGLOBIN 13.2 G/DL (11.5-16.0); LYMPHOCYTES # (AUTO) 1.5 X 10^3 (1.0-4.0); LYMPHOCYTES % (AUTO) 10 % (12-44); MEAN CORPUSCULAR HEMOGLOBIN 28 PG (25-34); MEAN CORPUSCULAR HGB CONC 31 G/DL (32-36); MEAN CORPUSCULAR VOLUME 89 FL (80-99); MEAN PLATELET VOLUME 11.3 FL (7.4-10.4); MONOCYTES # (AUTO) 1.8 X 10^3 (0.0-1.0); MONOCYTES % (AUTO) 11 % (0-12); NEUTROPHILS % (AUTO) 78 % (42-75); PLATELET COUNT 196 10^3/uL (130-400); RED CELL DISTRIBUTION WIDTH 15.7 % (10.0-14.5); WHITE BLOOD COUNT 15.3 10^3/uL (4.3-11.0)
[2019-04-19 04:14] LABS: BUN/CREATININE RATIO 16; CALCIUM 9.4 MG/DL (8.5-10.1); CARBON DIOXIDE 22 MMOL/L (21-32); CHLORIDE 102 MMOL/L (98-107); CREATININE SERUM 0.75 MG/DL (0.60-1.30); GFR ESTIMATED > 60; GLUCOSE 127 MG/DL (70-105); MAGNESIUM 1.6 MG/DL (1.8-2.4); PHOSPHORUS 2.9 MG/DL (2.3-4.7); SODIUM 138 MMOL/L (135-145)
[2019-04-19] MEDS: MAGNESIUM 1 GM/100 ML IVPB 100 ML IV SCH ×4 (04:47→07:44)
--- NOTE | 2019-04-19 06:13 | Pulmonary Progress Note ---
Subjective Time Seen by a Provider: 08:41 Subjective/Events-last exam Complains of SOB. Sepsis Event Evaluation Height, Weight, BMI Height: 5'5.00" Weight: 168lbs. 8.0oz. 76.927236bj; 28.8 BMI Method:Stated Focused Exam Lactate Level 04/18/19 06:32: Lactic Acid Level 0.60 Exam Exam Vital Signs Date Time Temp Pulse Resp B/P (MAP) Pulse Ox O2 Delivery O2 Flow Rate FiO2 04/19/19 06:04 117 28 161/79 (106) 90 Nasal Cannula 4.00 04/19/19 05:00 118 25 147/81 (103) 92 Nasal Cannula 4.00 04/19/19 04:00 118 18 148/82 (104) 91 Nasal Cannula 3.00 04/19/19 04:00 97.1 04/19/19 04:00 92 Nasal Cannula 3.00 04/19/19 03:00 117 21 140/81 (100) 91 Nasal Cannula 3.00 04/19/19 02:00 109 21 120/72 (88) 93 Nasal Cannula 3.00 04/19/19 01:00 105 30 126/80 (95) 94 Nasal Cannula 3.00 04/19/19 01:00 107 04/19/19 00:00 92 Nasal Cannula 3.00 04/19/19 00:00 97.2 Nasal Cannula 3.00 04/19/19 00:00 110 25 116/56 (76) 91 Nasal Cannula 3.00 04/18/19 23:00 102 22 113/65 (81) 91 Nasal Cannula 3.00 04/18/19 22:00 115 14 137/76 (96) 95 Nasal Cannula 3.00 04/18/19 21:00 110 16 120/78 (92) 91 Nasal Cannula 3.00 04/18/19 20:00 Nasal Cannula 3.00 04/18/19 20:00 92 Nasal Cannula 3.00 04/18/19 20:00 97.1 112 20 132/66 (88) 92 Nasal Cannula 3.00 04/18/19 19:00 117 16 92 Nasal Cannula 3.00 04/18/19 19:00 122 04/18/19 18:00 111 30 126/59 (81) 91 Nasal Cannula 3.00 04/18/19 17:00 97 26 136/70 (92) 92 Nasal Cannula 3.00 04/18/19 16:00 93 Nasal Cannula 3.00 04/18/19 16:00 98.2 04/18/19 16:00 114 13 139/77 (97) 95 Nasal Cannula 3.00 04/18/19 15:00 111 22 142/77 (98) 93 Nasal Cannula 3.00 04/18/19 14:15 107 28 121/71 (88) 94 Nasal Cannula 3.00 04/18/19 14:00 106 6 140/86 (104) 94 Nasal Cannula 3.00 04/18/19 13:45 103 12 118/74 (89) 93 Nasal Cannula 3.00 04/18/19 13:35 105 14 118/74 (89) Nasal Cannula 3.00 04/18/19 12:37 110 04/18/19 12:00 93 Nasal Cannula 3.00 04/18/19 12:00 97.9 04/18/19 11:00 110 23 123/72 (89) 95 Nasal Cannula 3.00 04/18/19 10:00 111 24 127/68 (87) 95 Nasal Cannula 3.00 04/18/19 09:00 105 18 118/62 (80) 93 Nasal Cannula 3.00 04/18/19 08:31 Nasal Cannula 3.00 04/18/19 08:00 107 13 139/83 (101) 93 Nasal Cannula 3.00 04/18/19 08:00 93 Nasal Cannula 3.00 04/18/19 08:00 98.6 04/18/19 07:00 118 29 130/94 (106) 91 Nasal Cannula 3.00 04/18/19 07:00 105 I & O 04/19/19 07:00 Intake Total 1270 ml Output Total 1375 ml Balance -105 ml Height & Weight Height: 5'5.00" Weight: 168lbs. 8.0oz. 76.982688iz; 28.8 BMI Method:Stated General Appearance: Mild Distress HEENT: Normal ENT Inspection Neck: Normal Inspection Respiratory: Chest Non Tender, Lungs Clear, Normal Breath Sounds, No Accessory Muscle Use, No Respiratory Distress Cardiovascular: Tachycardia Capillary Refill: Less Than 3 Seconds Extremity: Normal Capillary Refill, Normal Inspection, Normal Range of Motion, Non Tender, No Calf Tenderness, No Pedal Edema Neurologic/Psychiatric: Alert, Oriented x3 Skin: Normal Color, Warm/Dry Results Lab Laboratory Tests 04/17/19 13:35 04/17/19 18:35 04/18/19 03:51 04/19/19 03:40 Assessment/Plan Assessment/Plan SOB with hypoxia -Check CTA-- Neg for PE RLL lung mass 1.9 x 1.6cm - possible rounded atelectasis -Will need repeat CT scan in 2-3 mo HTN with Sinus tach -Will add Lopressor PO BID Chest pain -Cardiology consulted -Probable heart cath today Leukocytosis with probable PNA -Start Zosyn -Jarvis cultures Tobacco use with COPD -Pt will probably need home oxygen -Education Hypomag -replace MISTY GUZMAN DO Apr 19, 2019 06:13
[2019-04-19] MEDS: PIPERACILLIN/TAZOBACTAM (BULK) 4.5 GM in NS (IVPB) 100 ML IV SCH ×3 (06:24→21:45)
[2019-04-19] MEDS: guaiFENesin/DM (ROBITUSSIN DM) 10 ML UDC PO PRN (06:53)
[2019-04-19] MEDS: meTOprolol TARTRATE 25 MG (LOPRESSOR) TABLET PO SCH ×2 (08:56→20:33)
[2019-04-19] MEDS: ASPIRIN E.C. 81 MG (ECOTRIN) TAB PO SCH (08:56)
--- NOTE | 2019-04-19 10:33 | History & Physical ---
HPI History of Present Illness: 59 yo F that presented to ER with shortness of breath, chest pain and jaw pain. States that she was having some mild jaw pain for 2 days and it got worse as time went on. She is always short of breath but in the last 24hrs it was much worse and she was coughing more. Patient has smoked since age 12 but denies any significant medical history. Source: patient Exam Limitations: no limitations Date seen by provider: Apr 19, 2019 Time Seen by Provider: 08:00 Attending Physician Nancy Herrera MD PCP Vinay Carrillo MD Consult Date of Admission Apr 17, 2019 at 15:00 Home Medications Home Medications Reviewed patient Home Medication Reconciliation performed by pharmacy medication reconciliations clinical office technician and/or nursing. Patients Allergies have been reviewed. Allergies Coded Allergies: No Known Drug Allergies (Unverified , 04/17/19) MBB-Lmyqhp-Vedomt Hx Patient Social History Alcohol Use: Denies Use Recreational Drug Use: No Smoking Status: Current Everyday Smoker Type Used: Cigars, Cigarettes Recent Foreign Travel: No Contact w/other who traveled: No Recent Hopitalizations: No Recent Infectious Disease Expo: No Immunizations Up To Date Date of Pneumonia Vaccine: Apr 17, 2016 Past Medical History HTN Tobacco Use since age 12 Obesity Family Medical History Significant Family History: No Pertinent Family Hx Review of Systems ([facility]) Constitutional: No chills; diaphoresis; No fever; malaise EENTM: other (Jaw pain) Respiratory: cough, dyspnea on exertion; No orthopnea; short of breath Cardiovascular: chest pain (resolved now); No edema, No palpitations Gastrointestinal: no symptoms reported; No abdominal pain, No constipation, No diarrhea, No nausea, No vomiting Genitourinary: no symptoms reported; No dysuria, No frequency, No hematuria : No Musculoskeletal: no symptoms reported Skin: no symptoms reported Psychiatric/Neurological: No Symptoms Reported Reviewed Test Results Reviewed Test Results Lab Laboratory Tests Test 04/18/19 14:10 04/19/19 03:40 Range/Units Activated Partial Thromboplast Time 47 H 24-35 SEC White Blood Count 15.3 H 4.3-11.0 10^3/uL Red Blood Count 4.77 4.35-5.85 10^6/uL Hemoglobin 13.2 11.5-16.0 G/DL Hematocrit 43 35-52 % Mean Corpuscular Volume 89 80-99 FL Mean Corpuscular Hemoglobin 28 25-34 PG Mean Corpuscular Hemoglobin Concent 31 L 32-36 G/DL Red Cell Distribution Width 15.7 H 10.0-14.5 % Platelet Count 196 130-400 10^3/uL Mean Platelet Volume 11.3 H 7.4-10.4 FL Neutrophils (%) (Auto) 78 H 42-75 % Lymphocytes (%) (Auto) 10 L 12-44 % Monocytes (%) (Auto) 11 0-12 % Eosinophils (%) (Auto) 1 0-10 % Basophils (%) (Auto) 0 0-10 % Neutrophils # (Auto) 12.0 H 1.8-7.8 X 10^3 Lymphocytes # (Auto) 1.5 1.0-4.0 X 10^3 Monocytes # (Auto) 1.8 H 0.0-1.0 X 10^3 Eosinophils # (Auto) 0.1 0.0-0.3 10^3/uL Basophils # (Auto) 0.0 0.0-0.1 10^3/uL Sodium Level 138 135-145 MMOL/L Potassium Level 4.0 3.6-5.0 MMOL/L Chloride Level 102 98-107 MMOL/L Carbon Dioxide Level 22 21-32 MMOL/L Anion Gap 14 5-14 MMOL/L Blood Urea Nitrogen 12 7-18 MG/DL Creatinine 0.75 0.60-1.30 MG/DL Estimat Glomerular Filtration Rate > 60 BUN/Creatinine Ratio 16 Glucose Level 127 H 70-105 MG/DL Calcium Level 9.4 8.5-10.1 MG/DL Phosphorus Level 2.9 2.3-4.7 MG/DL Magnesium Level 1.6 L 1.8-2.4 MG/DL Physical Exam-(CHC) Physical Exam Vital Signs VS - Last 72 Hours, by Label 04/17/19 04/17/19 04/17/19 04/17/19 13:31 13:38 15:41 16:38 Temp 97.5 Pulse 102 104 87 Resp 14 16 B/P (MAP) 104/59 (74) 108/63 (78) Pulse Ox 88 97 O2 Delivery Room Air Nasal Cannula OxyMask O2 Flow Rate 4.0 4.00 04/17/19 04/17/19 04/17/19 04/17/19 16:45 17:16 19:00 19:00 Temp 97.2 Pulse 106 116 122 Resp 27 B/P (MAP) 142/85 (104) 136/71 (92) Pulse Ox 93 93 O2 Delivery Nasal Cannula Nasal Cannula Nasal Cannula O2 Flow Rate 2.00 2.00 2.00 04/17/19 04/17/19 04/17/19 04/17/19 20:00 20:00 20:59 21:00 Pulse 112 86 Resp 19 24 B/P (MAP) 131/80 (97) 116/80 (92) Pulse Ox 94 94 90 94 O2 Delivery Nasal Cannula Nasal Cannula Nasal Cannula Nasal Cannula O2 Flow Rate 2.00 2.00 3.00 3.00 04/17/19 04/17/19 04/17/19 04/18/19 22:00 23:00 23:41 00:00 Pulse 123 112 96 Resp 27 31 28 B/P (MAP) 135/79 (97) 136/70 (92) 120/86 (97) Pulse Ox 95 95 94 O2 Delivery Nasal Cannula Nasal Cannula Nasal Cannula Nasal Cannula O2 Flow Rate 3.00 3.00 3.00 3.00 04/18/19 04/18/19 04/18/19 04/18/19 00:00 00:00 01:00 01:00 Temp 97.0 Pulse 91 95 Resp 19 B/P (MAP) 128/67 (87) Pulse Ox 94 95 O2 Delivery Nasal Cannula Nasal Cannula O2 Flow Rate 2.00 3.00 04/18/19 04/18/19 04/18/19 04/18/19 02:00 03:00 03:44 04:00 Temp 97.4 Pulse 98 107 103 Resp 16 19 B/P (MAP) 124/68 (86) 123/75 (91) 112/73 (86) Pulse Ox 95 96 94 O2 Delivery Nasal Cannula Nasal Cannula Nasal Cannula O2 Flow Rate 3.00 3.00 3.00 04/18/19 04/18/19 04/18/19 04/18/19 04:00 05:00 06:00 07:00 Pulse 106 105 105 Resp 18 B/P (MAP) 156/85 (108) 143/86 (105) Pulse Ox 94 94 93 O2 Delivery Nasal Cannula Nasal Cannula Nasal Cannula O2 Flow Rate 2.00 3.00 3.00 04/18/19 04/18/19 04/18/19 04/18/19 07:00 08:00 08:00 08:00 Temp 98.6 Pulse 118 107 Resp 29 13 B/P (MAP) 130/94 (106) 139/83 (101) Pulse Ox 91 93 93 O2 Delivery Nasal Cannula Nasal Cannula Nasal Cannula O2 Flow Rate 3.00 3.00 3.00 04/18/19 04/18/19 04/18/19 04/18/19 08:31 09:00 10:00 11:00 Pulse 105 111 110 Resp 18 24 23 B/P (MAP) 118/62 (80) 127/68 (87) 123/72 (89) Pulse Ox 93 95 95 O2 Delivery Nasal Cannula Nasal Cannula Nasal Cannula Nasal Cannula O2 Flow Rate 3.00 3.00 3.00 3.00 04/18/19 04/18/19 04/18/19 04/18/19 12:00 12:00 12:37 13:35 Temp 97.9 Pulse 110 105 Resp 14 B/P (MAP) 118/74 (89) Pulse Ox 93 O2 Delivery Nasal Cannula Nasal Cannula O2 Flow Rate 3.00 3.00 04/18/19 04/18/19 04/18/19 04/18/19 13:45 14:00 14:15 15:00 Pulse 103 106 107 111 Resp 12 6 28 22 B/P (MAP) 118/74 (89) 140/86 (104) 121/71 (88) 142/77 (98) Pulse Ox 93 94 94 93 O2 Delivery Nasal Cannula Nasal Cannula Nasal Cannula Nasal Cannula O2 Flow Rate 3.00 3.00 3.00 3.00 04/18/19 04/18/19 04/18/19 04/18/19 16:00 16:00 16:00 17:00 Temp 98.2 Pulse 114 97 Resp 13 26 B/P (MAP) 139/77 (97) 136/70 (92) Pulse Ox 95 93 92 O2 Delivery Nasal Cannula Nasal Cannula Nasal Cannula O2 Flow Rate 3.00 3.00 3.00 04/18/19 04/18/19 04/18/19 04/18/19 18:00 19:00 19:00 20:00 Temp 97.1 Pulse 111 122 117 112 Resp 30 16 20 B/P (MAP) 126/59 (81) 132/66 (88) Pulse Ox 91 92 92 O2 Delivery Nasal Cannula Nasal Cannula Nasal Cannula O2 Flow Rate 3.00 3.00 3.00 04/18/19 04/18/19 04/18/19 04/18/19 20:00 20:00 21:00 22:00 Pulse 110 115 Resp 16 14 B/P (MAP) 120/78 (92) 137/76 (96) Pulse Ox 92 91 95 O2 Delivery Nasal Cannula Nasal Cannula Nasal Cannula Nasal Cannula O2 Flow Rate 3.00 3.00 3.00 3.00 04/18/19 04/19/19 04/19/19 04/19/19 23:00 00:00 00:00 00:00 Temp 97.2 Pulse 102 110 Resp 22 25 B/P (MAP) 113/65 (81) 116/56 (76) Pulse Ox 91 91 92 O2 Delivery Nasal Cannula Nasal Cannula Nasal Cannula Nasal Cannula O2 Flow Rate 3.00 3.00 3.00 3.00 04/19/19 04/19/19 04/19/19 04/19/19 01:00 01:00 02:00 03:00 Pulse 107 105 109 117 Resp 30 21 21 B/P (MAP) 126/80 (95) 120/72 (88) 140/81 (100) Pulse Ox 94 93 91 O2 Delivery Nasal Cannula Nasal Cannula Nasal Cannula O2 Flow Rate 3.00 3.00 3.00 04/19/19 04/19/19 04/19/19 04/19/19 04:00 04:00 04:00 05:00 Temp 97.1 Pulse 118 118 Resp 18 25 B/P (MAP) 148/82 (104) 147/81 (103) Pulse Ox 92 91 92 O2 Delivery Nasal Cannula Nasal Cannula Nasal Cannula O2 Flow Rate 3.00 3.00 4.00 04/19/19 04/19/19 04/19/19 04/19/19 06:04 07:00 07:49 08:00 Temp 96.4 Pulse 117 116 109 Resp 28 B/P (MAP) 161/79 (106) Pulse Ox 90 94 O2 Delivery Nasal Cannula Nasal Cannula O2 Flow Rate 4.00 5.00 04/19/19 04/19/19 04/19/19 08:00 09:00 10:00 Pulse 109 83 Resp 7 B/P (MAP) 112/77 (89) Pulse Ox 94 88 96 O2 Delivery Nasal Cannula Nasal Cannula Nasal Cannula O2 Flow Rate 5.00 5.00 5.00 Capillary Refill : Less Than 3 Seconds General Appearance: mild distress (with minimal activity) Neck: non-tender, full range of motion, supple Respiratory: chest non-tender, respiratory distress, wheezing Cardiovascular: regular rate, rhythm, no edema, no murmur Gastrointestinal: normal bowel sounds, non tender, soft, no organomegaly Back: no CVA tenderness, no vertebral tenderness Extremities: normal range of motion, no calf tenderness, normal capillary refill, other (trace edema) Neurologic/Psychiatric: dye house hand II-XII nml as tested, no motor/sensory deficits, alert, normal mood/affect, oriented x 3 Skin: normal color, warm/dry Lymphatic: no adenopathy Assessment/Plan Assessment/Plan Admission Status: Inpatient Order (span 2 midnights) Reason for Inpatient Admission: Patient needing oxygen and close monitoring (1) Atypical chest pain Status: Acute Assessment & Plan: - Patient seen by Cardiology, normal cath, will maximize medical management (2) Hypoxia Status: Acute Assessment & Plan: - Dr Castillo consulted, patient has not previous diagnosis of COPD and shows emphysematous changes on CT, Will long smoking h/o patient likely has COPD (3) HTN (hypertension) Status: Chronic Qualifiers: Qualified Codes: I10 - Essential (primary) hypertension (4) COPD (chronic obstructive pulmonary disease) Status: Chronic Assessment & Plan: - Will likely need outpatient PFTs, will need started on inhalers Qualifiers: Qualified Codes: J43.1 - Panlobular emphysema (5) Mass of lower lobe of left lung Status: Acute Assessment & Plan: - Dr Castillo monitoring (6) DVT prophylaxis Status: Acute Assessment & Plan: Lovenox Clinical Quality Measures AMI/AHF: ASA po Prior to arrival: No DVT/VTE Risk/Contraindication: Risk Factor Score Per Nursin RFS Level Per Nursing on Admit: 3=High Copy Copies To 1: VINAY CARRILLO MD, HOLLY R MD Apr 19, 2019 10:33
--- NOTE | 2019-04-19 10:48 | Diagnostic Imaging Report ---
INDICATION: Dyspnea FINDINGS: Portable chest shows cardiomegaly with mild vascular congestion. No infiltrates or effusions are seen. IMPRESSION: Stable cardiomegaly. The pulmonary vascularity has increased only slightly since 04/18/2019. Dictated by: Dictated on workstation # [id number]
[2019-04-19] MEDS: RT-ALBUTEROL/IPRATROPIUM 3 ML (DUONEB) VIAL INH SCH ×3 (11:11→19:47)
[2019-04-19] MEDS: methylPREDNISolone 40 MG/ML (Solu-MEDROL) VIAL IV SCH ×3 (11:25→23:13)
[2019-04-19] MEDS: NS IV 1000 ML 1,000 ML IV SCH (12:37)
--- NOTE | 2019-04-19 12:49 | NUR ---
OK TO TRANSFER PT TO [address]TH [address]LO[address] PER DR GUZMAN. REPORT GIVEN TO MEGHAN CHAND/ ASHLEY CHAND. PT TRANSFERRED TO [facility] VIA W/ STAFF/PERSONAL BELONGINGS.
--- NOTE | 2019-04-19 13:12 | NUR ---
Patient arrived on floor at 1255.
--- NOTE | 2019-04-19 15:19 | Cardiology Progress Note ---
Cardiology SOAP Progress Note Subjective: No further chest pain. Objective: I&O/Vital Signs 04/19/19 04/19/19 04/19/19 04/19/19 04:00 04:00 04:00 05:00 Temp 97.1 Pulse 118 118 Resp 18 25 B/P (MAP) 148/82 (104) 147/81 (103) Pulse Ox 92 91 92 O2 Delivery Nasal Cannula Nasal Cannula Nasal Cannula O2 Flow Rate 3.00 3.00 4.00 04/19/19 04/19/19 04/19/19 04/19/19 06:04 07:00 07:49 08:00 Temp 96.4 Pulse 117 116 109 Resp 28 B/P (MAP) 161/79 (106) Pulse Ox 90 94 O2 Delivery Nasal Cannula Nasal Cannula O2 Flow Rate 4.00 5.00 04/19/19 04/19/19 04/19/19 04/19/19 08:00 09:00 10:00 11:00 Pulse 109 83 92 Resp 7 28 B/P (MAP) 112/77 (89) 123/75 (91) Pulse Ox 94 88 96 98 O2 Delivery Nasal Cannula Nasal Cannula Nasal Cannula Nasal Cannula O2 Flow Rate 5.00 5.00 5.00 5.00 04/19/19 04/19/19 04/19/19 04/19/19 11:10 11:38 11:51 12:31 Temp 96.4 Pulse 105 Pulse Ox 93 95 O2 Delivery Nasal Cannula Nasal Cannula O2 Flow Rate 5.00 5.00 04/19/19 00:00 Intake Total 1120 ml Output Total 150 ml Balance 970 ml Weight (Pounds): 168 Weight (Ounces): 8.0 Weight (Calculated Kilograms): 76.257567 Constitutional: appears stated age, AAO x 3, apparent distress, well-developed, well-nourished Respiratory: chest is bilaterally symmetric, lungs clear to auscultation Cardiovascular: regular rate-rhythm, tachycardia, S1 and S2 Gastrointestional: No tender, No soft, No round, No distended, No pulsatile mass, No organomegaly, No guarding, No rebound, No tenderness, No hernia, No mass, No audible bowel sounds, No abnormal bowel sounds, No abdominal bruits, No spleenomegaly, No other Extremities: No normal range of motion, No non-tender, No normal inspection, No pedal edema, No calf tenderness, No normal capillary refill, No pelvis stable, No calf tenderness, No inflammation, No pedal edema, No slow capillary refill, No swelling, No other, No abrasion, No clubbing, No cyanosis, No ecchymosis, No laceration, No no lower extremity edema bilateral, No significant edema, No tenderness, No wound Neurologic/Psychiatric: no motor/sensory deficits, alert, normal mood/affect, oriented x 3, power is 5/5 both on sides Skin: No normal color, No warm/dry, No cyanosis, No cool, No diaphoresis, No damp, No ecchymosis, No jaundice, No mottled, No pallor, No rash, No tattoos/piercings, No ulcerations, No rash on exposed areas, No ulcerations on exposed areas, No other Results/Procedures: Labs Laboratory Tests 04/19/19 03:40: White Blood Count 15.3H, Red Blood Count 4.77, Hemoglobin 13.2, Hematocrit 43, Mean Corpuscular Volume 89, Mean Corpuscular Hemoglobin 28, Mean Corpuscular Hemoglobin Concent 31L, Red Cell Distribution Width 15.7H, Platelet Count 196, Mean Platelet Volume 11.3H, Neutrophils (%) (Auto) 78H, Lymphocytes (%) (Auto) 10L, Monocytes (%) (Auto) 11, Eosinophils (%) (Auto) 1, Basophils (%) (Auto) 0, Neutrophils # (Auto) 12.0H, Lymphocytes # (Auto) 1.5, Monocytes # (Auto) 1.8H, Eosinophils # (Auto) 0.1, Basophils # (Auto) 0.0, Sodium Level 138, Potassium Level 4.0, Chloride Level 102, Carbon Dioxide Level 22, Anion Gap 14, Blood Urea Nitrogen 12, Creatinine 0.75, Estimat Glomerular Filtration Rate > 60, BUN/Creatinine Ratio 16, Glucose Level 127H, Calcium Level 9.4, Phosphorus Level 2.9, Magnesium Level 1.6L Microbiology 04/17/19 MRSA Screen - Final, Complete MRSA not isolated A/P: Assessment/Dx: chest pain, positive troponin, Sinus tachycardia, Positive D dimer, Active smoking, Hypertension, Leukocytosis, Hypercapnic respiratory failure, Acute diastolic congestive heart failure. Plan: chest pain, positive troponin, coronary angiography did not show any obstructive CAD. DC Brilinta and IV heparin. Sinus tachycardia, consider pulmonary embolism. Positive D dimer,consider pulmonary embolism. Chest CTA did not show pulmonary embolism. Active smoking,cessation was strongly recommended. Hypertension, Leukocytosis,likely COPD exacerbation/pneumonia. Hypercapnic respiratory failure,defer to Dr. Castillo. Acute diastolic congestive heart failure. mildly elevated BNP. May require low- dose Lasix. Thank you for your consultation. Please call me if you have any questions. Lucius Ross MD, FACP, FACC, FSCAI, FHRS, CCDS Interventional Cardiology Cardiac Electrophysiology Vascular Medicine and Endovascular Interventions Focused Exam Lactate Level 04/18/19 06:32: Lactic Acid Level 0.60 Clinical Quality Measures AMI/AHF: ASA po Prior to arrival: Ava Scott MD Apr 19, 2019 3:19 pm
[2019-04-19] MEDS: ATORVASTATIN 80 MG (LIPITOR) TABLET PO SCH (20:33)
[2019-04-20 00:45] VITALS: BP 124/62
[2019-04-20 04:00] VITALS: BP 121/62
[2019-04-20] MEDS: methylPREDNISolone 40 MG/ML (Solu-MEDROL) VIAL IV SCH ×3 (05:00→18:20)
[2019-04-20] MEDS: guaiFENesin/DM (ROBITUSSIN DM) 10 ML UDC PO PRN ×2 (05:00→22:59)
[2019-04-20] MEDS: PIPERACILLIN/TAZOBACTAM (BULK) 4.5 GM in NS (IVPB) 100 ML IV SCH ×3 (05:01→21:52)
--- NOTE | 2019-04-20 05:01 | NUR ---
pt requesting prn Robitussin-pt reports that walking to the restroom has caused her to start coughing again prn Robitussin given
[2019-04-20 05:48] LABS: BASOPHILS % (AUTO) 0 % (0-10); EOSINOPHILS % (AUTO) 0 % (0-10); HEMATOCRIT 42 % (35-52); LYMPHOCYTES # (AUTO) 0.6 X 10^3 (1.0-4.0); LYMPHOCYTES % (AUTO) 4 % (12-44); MEAN CORPUSCULAR HEMOGLOBIN 28 PG (25-34); MEAN CORPUSCULAR HGB CONC 31 G/DL (32-36); MEAN CORPUSCULAR VOLUME 90 FL (80-99); MEAN PLATELET VOLUME 11.6 FL (7.4-10.4); MONOCYTES # (AUTO) 0.5 X 10^3 (0.0-1.0); MONOCYTES % (AUTO) 3 % (0-12); NEUTROPHILS # (AUTO) 15.3 X 10^3 (1.8-7.8); NEUTROPHILS % (AUTO) 93 % (42-75); PLATELET COUNT 201 10^3/uL (130-400); RED CELL DISTRIBUTION WIDTH 15.2 % (10.0-14.5); WHITE BLOOD COUNT 16.3 10^3/uL (4.3-11.0)
[2019-04-20 06:12] LABS: BUN/CREATININE RATIO 19; CALCIUM 9.9 MG/DL (8.5-10.1); CARBON DIOXIDE 24 MMOL/L (21-32); CHLORIDE 101 MMOL/L (98-107); CREATININE SERUM 0.85 MG/DL (0.60-1.30); GFR ESTIMATED > 60; GLUCOSE 268 MG/DL (70-105); PHOSPHORUS 2.7 MG/DL (2.3-4.7); POTASSIUM 3.8 MMOL/L (3.6-5.0); SODIUM 138 MMOL/L (135-145)
--- NOTE | 2019-04-20 06:26 | Diagnostic Imaging Report ---
INDICATION: Dyspnea Upright portable AP view of the chest is obtained with comparison made to the study of 04/19/2019. There is mild cardiomegaly and pulmonary venous congestion. There does appear to be mild increase in left pleural fluid. Mixed interstitial and alveolar densities in both lungs are similar. IMPRESSION: Cardiomegaly and borderline pulmonary venous congestion with increasing left pleural fluid. Findings may represent congestive heart failure although developing pneumonia or pulmonary infarct is not excluded. Dictated by: Dictated on workstation # [id number]
--- NOTE | 2019-04-20 06:57 | NUR ---
0648-this rn received call from engine monitor [employer] stating pt had a run of 9 beats of SVT but pt is back in SR. 0657-this rn called dr. marshall to inform him of this run of SVT. no new orders at this time.
[2019-04-20 08:00] VITALS: BP 122/67
[2019-04-20] MEDS: RT-ALBUTEROL/IPRATROPIUM 3 ML (DUONEB) VIAL INH SCH ×3 (08:00→19:25)
--- NOTE | 2019-04-20 08:10 | Pulmonary Progress Note ---
Subjective Time Seen by a Provider: 08:52 Subjective/Events-last exam persistent SOB Sepsis Event Evaluation Height, Weight, BMI Height: 5'5.00" Weight: 163lbs. 14.0oz. 74.136895tb; 28.8 BMI Method:Stated Focused Exam Lactate Level 04/18/19 06:32: Lactic Acid Level 0.60 Exam Exam Vital Signs Date Time Temp Pulse Resp B/P (MAP) Pulse Ox O2 Delivery O2 Flow Rate FiO2 04/20/19 06:46 120 04/20/19 06:46 120 04/20/19 05:00 97.8 04/20/19 04:00 96.2 100 21 121/62 (81) 94 Nasal Cannula 4.00 04/20/19 01:00 100 04/20/19 00:45 97.3 106 21 124/62 (82) 91 Nasal Cannula 4.00 04/19/19 20:00 Nasal Cannula 5.00 04/19/19 19:58 96.7 113 22 134/70 (91) 91 Nasal Cannula 4.00 04/19/19 19:47 90 Nasal Cannula 5.00 04/19/19 19:00 115 04/19/19 16:00 95.2 108 20 138/70 (92) 93 Nasal Cannula 4.00 04/19/19 12:31 105 04/19/19 11:51 96.4 04/19/19 11:38 95 Nasal Cannula 5.00 04/19/19 11:10 93 Nasal Cannula 5.00 04/19/19 11:00 92 28 123/75 (91) 98 Nasal Cannula 5.00 04/19/19 10:00 83 7 112/77 (89) 96 Nasal Cannula 5.00 04/19/19 09:00 109 88 Nasal Cannula 5.00 I & O 04/20/19 07:00 Intake Total 3730 ml Output Total 450 ml Balance 3280 ml Height & Weight Height: 5'5.00" Weight: 163lbs. 14.0oz. 74.422124sy; 28.8 BMI Method:Stated General Appearance: Mild Distress HEENT: Normal ENT Inspection Neck: Normal Inspection Respiratory: Chest Non Tender, Lungs Clear, Normal Breath Sounds, No Accessory Muscle Use, No Respiratory Distress Cardiovascular: Tachycardia Capillary Refill: Less Than 3 Seconds Gastrointestinal: normal bowel sounds, non tender, soft, no organomegaly Extremity: Normal Capillary Refill, Normal Inspection, Normal Range of Motion, Non Tender, No Calf Tenderness, No Pedal Edema Neurologic/Psychiatric: Alert, Oriented x3 Skin: Normal Color, Warm/Dry Results Lab Laboratory Tests 04/19/19 03:40 04/20/19 05:35 Assessment/Plan Assessment/Plan SOB with hypoxia -Check CTA-- Neg for PE Diastolic CHF --give lasix 40mg x 1 -Hep lock IVF RLL lung mass 1.9 x 1.6cm - possible rounded atelectasis -Will need repeat CT scan in 2-3 mo HTN with Sinus tach -Will add Lopressor PO BID Chest pain -Cardiology consulted -Probable heart cath today Leukocytosis with probable PNA -Zosyn -Jarvis cultures Tobacco use with COPD -Pt will probably need home oxygen -Education MISTY GUZMAN DO Apr 20, 2019 08:10
[2019-04-20] MEDS ORDERED: FUROSEMIDE 40 MG/4 ML INJ (LASIX) IVP NR (08:15)
[2019-04-20] MEDS ORDERED: KCL 20 MEQ TAB (K-DUR) PO NR (08:15)
[2019-04-20] MEDS: meTOprolol TARTRATE 25 MG (LOPRESSOR) TABLET PO SCH ×2 (08:58→19:55)
[2019-04-20] MEDS: ASPIRIN E.C. 81 MG (ECOTRIN) TAB PO SCH (08:58)
[2019-04-20] MEDS ORDERED: MELO15TA39 PO (09:14)
[2019-04-20] MEDS ORDERED: QUIN10TA14 PO (09:14)
[2019-04-20] MEDS ORDERED: HYDR25TA4 PO (09:14)
[2019-04-20] MEDS ORDERED: METF-397 PO (09:14)
[2019-04-20] MEDS ORDERED: GABA-488 PO (09:14)
[2019-04-20] MEDS ORDERED: AMIT100T2 PO (09:14)
[2019-04-20] MEDS ORDERED: ATOR10TA66 PO (09:14)
[2019-04-20] MEDS ORDERED: MV-M1TAB57 PO (09:14)
[2019-04-20] MEDS ORDERED: IBUP1TAB14 PO (09:14)
--- NOTE | 2019-04-20 09:16 | NUR ---
SPOKE WITH THE PATIENT ABOUT HER MEDICATIONS. WE WENT OVER THE EXT MED HX AND SHE VERIFIED HOW SHE TAKES THEM. SHE FILLED QUINAPRIL 10MG #90 FOR 90 DAYS 03-01-19 HOWEVER SHE STATES SHE IS NOW ONLY TAKING IT EVERY OTHER DAY. SHE FILLED GLIPIZIDE ER 2.5MG #90 02-11-19 HOWEVER SHE STATES THIS HAS BEEN DISCONTINUED. SHE TAKES A MTV DAILY AND 2 ADVIL PM HS OTC.
--- NOTE | 2019-04-20 10:45 | Progress Note - Hospitalist ---
Subjective HPI/CC On Admission Date Seen by Provider: Apr 20, 2019 Time Seen by Provider: 09:30 Subjective/Events-last exam Pt doing much better. Reviewed cardiac cath report. PT and OT will be ordered. Bowels are moving. Had a run of SVT for 9 beats so likely will require a loop recorder placement. She used to work at [employer] in [place] before Will evaluate the need for home O2 also Conferred with RN Reviewed cardiology notes Reviewed labs Review of Systems General: Fatigue Pulmonary: Dyspnea Focused Exam Lactate Level 04/18/19 06:32: Lactic Acid Level 0.60 Objective Exam Vital Signs Vital Signs Date Time Temp Pulse Resp B/P (MAP) Pulse Ox O2 Delivery O2 Flow Rate FiO2 04/20/19 19:25 86 Room Air 04/20/19 16:00 98.3 108 20 119/58 (78) 5.00 Capillary Refill : Less Than 3 Seconds General Appearance: No Apparent Distress, WD/WN, Chronically ill HEENT: PERRL/EOMI, Normal ENT Inspection Neck: Full Range of Motion, Normal Inspection, Non Tender, Supple Respiratory: Chest Non Tender, Lungs Clear, Normal Breath Sounds, No Accessory Muscle Use, No Respiratory Distress Cardiovascular: Regular Rate, Rhythm, No Edema, No Gallop, Tachycardia Gastrointestinal: Normal Bowel Sounds, No Organomegaly, No Pulsatile Mass, Non Tender Extremity: Normal Capillary Refill, Normal Inspection, Normal Range of Motion, Non Tender, No Calf Tenderness, No Pedal Edema Neurologic/Psychiatric: Alert, Oriented x3 Skin: Normal Color, Warm/Dry Results/Procedures Lab Laboratory Tests 04/20/19 05:35 Patient resulted labs reviewed. Assessment/Plan Assessment and Plan Assess & Plan/Chief Complaint Assessment: (1) Atypical chest pain (2) Hypoxia (3) HTN (hypertension) (4) COPD (chronic obstructive pulmonary disease) (5) Mass of lower lobe of left lung (6) DVT prophylaxis Plan: PT/OT Loop recorder? Home O2 eval Diagnosis/Problems Diagnosis/Problems (1) Hypoxia Status: Acute (2) Atypical chest pain Status: Acute (3) COPD (chronic obstructive pulmonary disease) Status: Chronic Qualifiers: COPD type: emphysema Emphysema type: panlobular Qualified Codes: J43.1 - Panlobular emphysema (4) HTN (hypertension) Status: Chronic Qualifiers: Hypertension type: essential hypertension Qualified Codes: I10 - Essential (primary) hypertension (5) Mass of lower lobe of left lung Status: Acute Clinical Quality Measures AMI/AHF: ASA po Prior to arrival: No DVT/VTE Risk/Contraindication: Risk Factor Score Per Nursin RFS Level Per Nursing on Admit: 3=High CE HOBBS DO Apr 20, 2019 10:45
[2019-04-20 12:00] VITALS: BP 130/69
--- NOTE | 2019-04-20 13:34 | Occupational Therapy Eval ---
OT Evaluation-General/PLF Medical Diagnosis Admission Date Apr 19, 2019 at 14:39 Medical Diagnosis: SOB with hypoxia Onset Date: Apr 20, 2019 Therapy Diagnosis Therapy Diagnosis: impaired ADLs and mobility Height/Weight Height (Feet): 5 Height (Inches): 5.00 Weight (Pounds): 163 Weight (Ounces): 14.0 Precautions Precautions/Isolations: Standard Precautions Safety Interventions: None Weight Bear Status Weight Bearing Restriction: Weight Bearing/Tolerated Referral Referral Reason: Self Care, Evaluation/Treatment, Strengthening/ROM Medical History Pertinent Medical History: Arthritis, HTN Additional Medical History HTN Tobacco Use since age 12 Obesity Current History 59 yo F that presented to ER with shortness of breath, chest pain and jaw pain. States that she was having some mild jaw pain for 2 days and it got worse as time went on. She is always short of breath but in the last 24hrs it was much worse and she was coughing more. Patient has smoked since age 12 but denies any significant medical history. Reviewed History: Yes Social History Home: Single Level Current Living Status: Other Family (brother) Entry Into Home: Stairs With Railing Steps Into Home: 4 ADL-Prior Level of Function Therapy Code Descriptions/Definitions Functional [place] Measure: 0=Not Assessed/NA 4=Minimal Assistance 1=Total Assistance 5=Supervision or Setup 2=Maximal Assistance 6=Modified [place] 3=Moderate Assistance 7=Complete [place] Therapy Quality Codes: 6 Independent with activity with or without an assistive device 5 Patient requires set up or clean up by helper. Patient completes activity by themselves 4 Supervision or touching assist (CGA). [place] provide cues , steadying assist 3 The helper provides less than half the effort to complete the activity 2 The helper provides more than half the effort to complete the activity 1 Dependent. The helper does all the effort to complete an activity 7 Patient refused to complete or attempt activity 9 The patient did not perform the activity before the current illness or injury 88 Not attempted due to Medical conditions or safety concerns Functional Abilities and Goals: Independent: Patient completed the activities by him/herself, with or without an assistive device, with no assistance from a helper. Needed Some Help: Patient needed partial assistance from another person to complete activities. Dependent: A helper completed the activities for the patient. Unknown: Not Applicable: Self Care: Independent Functional Cognition: Independent DME/Equipment: Bath Chair, Tub/Shower Drive Self: Yes OT Current Status Subjective pt laying in bed upon OT arrival. pt agreed to OT TX eval session. pt reports no pain Pain Numeric Pain Scale: 0-No Pain Mental Status/Objective Patient Orientation: Person, Place, Time, Situation, Normal For Age Attachments: IV, Oxygen (2L NC pt stated she did not wear O2 at home. ) Current Glasses/Contacts: Yes Hearing Aids: No Dentures/Partials: Yes Hand Dominance: Right Upper Extremity ROM WNL Upper Extremity Coordination WNL finger to nose and opposition test Upper Extremity Sensation WNL Upper Extremity Strength 4+/5 MMT ADL-Treatment Therapy Code Descriptions/Definitions Functional [place] Measure: 0=Not Assessed/NA 4=Minimal Assistance 1=Total Assistance 5=Supervision or Setup 2=Maximal Assistance 6=Modified [place] 3=Moderate Assistance 7=Complete [place] Therapy Quality Codes: 6 Independent with activity with or without an assistive device 5 Patient requires set up or clean up by helper. Patient completes activity by themselves 4 Supervision or touching assist (CGA). [place] provide cues , steadying assist 3 The helper provides less than half the effort to complete the activity 2 The helper provides more than half the effort to complete the activity 1 Dependent. The helper does all the effort to complete an activity 7 Patient refused to complete or attempt activity 9 The patient did not perform the activity before the current illness or injury 88 Not attempted due to Medical conditions or safety concerns pt demo independence with ADLS (grooming, LB dressing toileting, and dry shower transfer. pt also demo ability to perform functional mobility approx 100 ft MOD I using no AD with safety concerns for O2 levels. noted no signs of distress or fatigue. O2 saturation decrease to 94% during functional mobility. upon return to room O2 saturations quickly increased to 91% upon seated and pursed lip breathing. NSG is made aware of O2 saturation. pt ;laying in bed post OT session with call light within reach, all needs met. OT Short Term Goals Short Term Goals 1=Demonstrate adherence to instructed precautions during ADL tasks. 2=Patient will verbalize/demonstrate understanding of assistive devices/modifications for ADL. 3=Patient will improve strength/tolerance for activity to enable patient to perform ADL's. 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 2=Patient will verbalize/demonstrate understanding of assistive devices/modifications for ADL. 3=Patient will improve strength/tolerance for activity to enable patient to perform ADL's. OT Education/Plan Problem List/Assessment Assessment: No Skilled OT Needs ID'd pt demo independence with ADLs and functional transfers using no AD. noted safety concerns secondary to O2 saturations decreasing to 84% upon functional mobility with no signs of fatigue or SOB. NSG is made aware. OT services not ind icate secondary to pt functioning at [facility]. pt agreed she does not need OT services. Discharge Recommendations Plan/Recommendations: Discharge/Goals Met Therapy D/C Recommendations: Home w/ Family Support Treatment Plan/Plan of Care Treatment,Training & Education: Yes Treatment Duration: Apr 20, 2019 Frequency: 1 time per week (eval only) Estimated Hrs Per Day: Other (eval only) Agreement: Yes Rehab Potential: Good Time/GCodes Start Time: 13:05 Stop Time: 13:30 Billed Treatment Time EVL 25 minutes RANDI DOVE OT Apr 20, 2019 13:34
--- NOTE | 2019-04-20 14:15 | Physical Therapy Evaluation ---
PT Evaluation-General Medical Diagnosis Admission Date Apr 19, 2019 at 14:39 Medical Diagnosis: CP/Nstemi Onset Date: Apr 19, 2019 Therapy Diagnosis Therapy Diagnosis: debility Height/Weight Height (Feet): 5 Height (Inches): 5.00 Weight (Pounds): 163 Weight (Ounces): 14.0 Precautions Precautions/Isolations: Standard Precautions Referral Physician: Ramone Reason for Referral: Evaluation/Treatment Medical History Pertinent Medical History: Arthritis, HTN, Smoking (2 1/2 packs/day) Current History ER secondary to waking up and not feeling well with c/o jaw pain and shoulder pain Reviewed History: Yes Social History Home: Single Level Current Living Status: Other Family (brother) Entry Into Home: Stairs With Railing PT Steps Into Home: 4 Prior/Core FIM Prior Level of Function Therapy Code Descriptions/Definitions Functional [place] Measure: 0=Not Assessed/NA 4=Minimal Assistance 1=Total Assistance 5=Supervision or Setup 2=Maximal Assistance 6=Modified [place] 3=Moderate Assistance 7=Complete [place] Therapy Quality Codes: 6 Independent with activity with or without an assistive device 5 Patient requires set up or clean up by helper. Patient completes activity by themselves 4 Supervision or touching assist (CGA). [place] provide cues , steadying assist 3 The helper provides less than half the effort to complete the activity 2 The helper provides more than half the effort to complete the activity 1 Dependent. The helper does all the effort to complete an activity 7 Patient refused to complete or attempt activity 9 The patient did not perform the activity before the current illness or injury 88 Not attempted due to Medical conditions or safety concerns Functional Abilities and Goals: Independent: Patient completed the activities by him/herself, with or without an assistive device, with no assistance from a helper. Needed Some Help: Patient needed partial assistance from another person to complete activities. Dependent: A helper completed the activities for the patient. Unknown: Not Applicable: Bed Mobility: 7 Transfers (B,C,W/C) (FIM): 7 Gait: 7 Stairs: 7 Indoor Mobility (Ambulation): Independent Stairs: Independent Prior Devices Use: None PT Evaluation-Current Subjective Patient agrees to PT. Objective Patient Orientation: Normal For Age Problem Solving: Good Attachments: Oxygen (2L NC), IV ROM/Strength ROM Lower Extremities bilateral LE WFL Strength Lower Extremities 4/5 grossly bilaterally Integumentary/Posture Integumentary refer to nursing notes Bowel Incontinence: No Bladder Incontinence: No Posture WFL Neuromuscular (Tone, Coordination, Reflexes) grossly intact Sensory Vision: Functional Hearing: Functional Hand Dominance: Right Sensation Right Lower Extremit: Impaired Sensation Left Lower Extremity: Impaired Transfers Therapy Code Descriptions/Definitions Functional [place] Measure: 0=Not Assessed/NA 4=Minimal Assistance 1=Total Assistance 5=Supervision or Setup 2=Maximal Assistance 6=Modified [place] 3=Moderate Assistance 7=Complete [place] Transfers (B, C, W/C) (FIM): 7 Scootin Supine to/from Sit: 7 Sit to/from Stand: 7 Gait Mode of Locomotion: Walk Anticipated Mode of Locomotion: Walk Gait (FIM): 6 Distance (FIM): 1=up to 49 ft (450') Distance: 450' Gait Level of Assist: 6 Gait Assistive Device: FWW Comments/Gait Description FWW for energy conservation/O2 increased to 3L NC during activity with O2 maintaining >90% Balance Sitting Static: Normal Sitting Dynamic: Normal Standing Static: Normal Standing Dynamic: Normal Assessment/Needs 59 y.o. female, is currently at [facility] with all gross motor skills and does not require skilled therapy intervention. Thank you for this referral. Rehab Potential: Fair PT Plan Treatment/Plan Treatment Plan: Discontinue PT, goals met Treatment Plan: Other Treatment Duration: Apr 20, 2019 Frequency: 1 time per week Estimated Hrs Per Day: .5 hour per day Patient and/or Family Agrees t: Yes Discharge Recommendations Therapy D/C Recommendations: Home w/ Family Support, Home Independently Time/GCodes Time In: 1340 Time Out: 1358 Total Billed Treatment Time: 18 Total Billed Treatment 1 visit [facility] 18 min SHAMAR GREGORIO PT Apr 20, 2019 14:15
--- NOTE | 2019-04-20 14:53 | NUR ---
Home O2 qualification Intervention. Addendum: 04/21/19 at 1052 by ROBERT RAMIREZ RT Resting spo2 92% on 2lpm nasal cannula pt placed on room air for 30 minutes, spo2 87% pt placed on 1lpm nasal cannula and spo2 89%, increase O2 to 2lpm nc and spo2 increases to 90% after 1 minute. Pt ambulated previously with P.T. and Spo2 drops to 84% on 2lpm nc and spo2 increased to 3lpm and spo2 increases to 90%.
[2019-04-20 16:00] VITALS: BP 119/58
--- NOTE | 2019-04-20 16:34 | Diagnostic Imaging Report ---
INDICATION: Bilateral lower extremity swelling. COMPARISON: None. TECHNIQUE: Duplex, murphy-scale and color-flow imaging of the bilateral lower extremity venous system was performed. FINDINGS: The common femoral vein, superficial femoral vein, profunda femoris, and popliteal veins are normal. These vessels show normal compressibility, color flow, and Doppler augmentation. The deep calf veins, although not very well seen, demonstrate no distinct intraluminal thrombus. IMPRESSION: Negative venous Doppler of the bilateral lower extremities. Dictated by: Dictated on workstation # [id number]
--- NOTE | 2019-04-20 18:03 | Cardiology Progress Note ---
Cardiology SOAP Progress Note Subjective: 9 beat run of SVT overnight. Objective: I&O/Vital Signs 04/20/19 04/20/19 04/20/19 04/20/19 06:46 06:46 07:00 08:00 Temp 98.0 Pulse 120 120 112 111 Resp 20 B/P (MAP) 122/67 (85) Pulse Ox 94 O2 Delivery Nasal Cannula O2 Flow Rate 4.00 04/20/19 04/20/19 04/20/19 04/20/19 08:00 08:08 12:00 13:00 Temp 97.4 Pulse 102 104 Resp 20 B/P (MAP) 130/69 (89) Pulse Ox 98 92 O2 Delivery Nasal Cannula Nasal Cannula Nasal Cannula O2 Flow Rate 5.00 5.00 4.00 04/20/19 04/20/19 04/20/19 13:57 15:00 16:00 Temp 98.3 Pulse 108 Resp 20 B/P (MAP) 119/58 (78) Pulse Ox 93 92 93 O2 Delivery Nasal Cannula Nasal Cannula O2 Flow Rate 3.00 5.00 04/20/19 00:00 Intake Total 2420 ml Output Total 200 ml Balance 2220 ml Weight (Pounds): 163 Weight (Ounces): 14.0 Weight (Calculated Kilograms): 74.346518 Constitutional: appears stated age, AAO x 3, apparent distress, well-developed, well-nourished Respiratory: chest is bilaterally symmetric, lungs clear to auscultation Cardiovascular: regular rate-rhythm, tachycardia, S1 and S2 Gastrointestional: No tender, No soft, No round, No distended, No pulsatile mass, No organomegaly, No guarding, No rebound, No tenderness, No hernia, No mass, No audible bowel sounds, No abnormal bowel sounds, No abdominal bruits, No spleenomegaly, No other Extremities: No normal range of motion, No non-tender, No normal inspection, No pedal edema, No calf tenderness, No normal capillary refill, No pelvis stable, No calf tenderness, No inflammation, No pedal edema, No slow capillary refill, No swelling, No other, No abrasion, No clubbing, No cyanosis, No ecchymosis, No laceration, No no lower extremity edema bilateral, No significant edema, No tenderness, No wound Neurologic/Psychiatric: no motor/sensory deficits, alert, normal mood/affect, oriented x 3, power is 5/5 both on sides Skin: No normal color, No warm/dry, No cyanosis, No cool, No diaphoresis, No damp, No ecchymosis, No jaundice, No mottled, No pallor, No rash, No tattoos/piercings, No ulcerations, No rash on exposed areas, No ulcerations on exposed areas, No other Results/Procedures: Labs Laboratory Tests 04/20/19 05:35: White Blood Count 16.3H, Red Blood Count 4.62, Hemoglobin 13.0, Hematocrit 42, Mean Corpuscular Volume 90, Mean Corpuscular Hemoglobin 28, Mean Corpuscular Hemoglobin Concent 31L, Red Cell Distribution Width 15.2H, Platelet Count 201, Mean Platelet Volume 11.6H, Neutrophils (%) (Auto) 93H, Lymphocytes (%) (Auto) 4L, Monocytes (%) (Auto) 3, Eosinophils (%) (Auto) 0, Basophils (%) (Auto) 0, Neutrophils # (Auto) 15.3H, Lymphocytes # (Auto) 0.6L, Monocytes # (Auto) 0.5, Eosinophils # (Auto) 0.0, Basophils # (Auto) 0.0, Sodium Level 138, Potassium Level 3.8, Chloride Level 101, Carbon Dioxide Level 24, Anion Gap 13, Blood Urea Nitrogen 16, Creatinine 0.85, Estimat Glomerular Filtration Rate > 60, BUN/Creatinine Ratio 19, Glucose Level 268H, Calcium Level 9.9, Phosphorus Level 2.7, Magnesium Level 2.0 Microbiology 04/18/19 Blood Culture - Preliminary, Resulted No growth 04/17/19 MRSA Screen - Final, Complete MRSA not isolated 04/18/19 Gram Stain - Final, Complete 04/18/19 Sputum Culture - Final, Complete Usual upper respiratory zi 04/18/19 Urine Culture - Preliminary, Resulted Escherichia coli A/P: Assessment/Dx: chest pain, positive troponin, PSVT Sinus tachycardia, Positive D dimer, Active smoking, Hypertension, Leukocytosis, Hypercapnic respiratory failure, Acute diastolic congestive heart failure. Plan: chest pain, positive troponin, coronary angiography did not show any obstructive CAD. DC Brilinta and IV heparin. Short run of PSVT/atrial fibrillation. 30 day event monitor will be required as an outpatient. Sinus tachycardia, Positive D dimer,consider pulmonary embolism. Chest CTA did not show pulmonary embolism. Active smoking,cessation was strongly recommended. Hypertension, Leukocytosis,likely COPD exacerbation/pneumonia. Hypercapnic respiratory failure,defer to Dr. Castillo. Acute diastolic congestive heart failure. mildly elevated BNP. May require low- dose Lasix. Thank you for your consultation. Please call me if you have any questions. Lucius Ross MD, FACP, FACC, FSCAI, FHRS, CCDS Interventional Cardiology Cardiac Electrophysiology Vascular Medicine and Endovascular Interventions Focused Exam Lactate Level 04/18/19 06:32: Lactic Acid Level 0.60 Clinical Quality Measures AMI/AHF: ASA po Prior to arrival: Ava Scott MD Apr 20, 2019 6:03 pm
[2019-04-20] MEDS: ATORVASTATIN 80 MG (LIPITOR) TABLET PO SCH (19:55)
[2019-04-20 20:00] VITALS: BP 129/65
[2019-04-20] MEDS ORDERED: MELATONIN 3 MG TABLET PO PRN (20:15)
[2019-04-20] MEDS ORDERED: ONDANSETRON 4 MG/2 ML (SDV) Z0FRAN IVP PRN (20:15)
[2019-04-20] MEDS ORDERED: ONDANSETRON 4 MG (ZOFRAN) ORAL DISSOLVE TAB PO PRN (20:15)
[2019-04-20] MEDS ORDERED: ACETAMINOPHEN 500 MG TAB (TYLENOL) PO PRN (20:15)
[2019-04-20] MEDS ORDERED: LOPERAMIDE 2 MG (IMODIUM) TABLET PO PRN (20:15)
[2019-04-20] MEDS ORDERED: CALCIUM CARBONATE 500 MG (TUMS) TAB.CHEW PO PRN (20:15)
[2019-04-20] MEDS ORDERED: HYDROcodone/APAP 5 MG/325 MG (LORTAB) TAB PO PRN (20:15)
[2019-04-20] MEDS ORDERED: DOCUSATE SODIUM 100 MG (COLACE) CAP PO PRN (20:15)
[2019-04-20] MEDS ORDERED: ALPRAZolam 0.25 MG (XANAX) TAB PO PRN (20:15)
[2019-04-20] MEDS: SENNA W/DOCUSATE (SENOKOT S) TABLET PO SCH (21:55)
[2019-04-21] MEDS: methylPREDNISolone 40 MG/ML (Solu-MEDROL) VIAL IV SCH ×3 (00:06→12:51)
[2019-04-21 00:09] VITALS: BP 121/72
[2019-04-21 04:00] VITALS: BP 139/80
[2019-04-21 05:52] LABS: BASOPHILS % (AUTO) 0 % (0-10); EOSINOPHILS % (AUTO) 0 % (0-10); HEMATOCRIT 42 % (35-52); HEMOGLOBIN 12.7 G/DL (11.5-16.0); LYMPHOCYTES # (AUTO) 0.7 X 10^3 (1.0-4.0); LYMPHOCYTES % (AUTO) 4 % (12-44); MEAN CORPUSCULAR HEMOGLOBIN 27 PG (25-34); MEAN CORPUSCULAR HGB CONC 31 G/DL (32-36); MEAN CORPUSCULAR VOLUME 89 FL (80-99); MEAN PLATELET VOLUME 11.6 FL (7.4-10.4); MONOCYTES # (AUTO) 0.8 X 10^3 (0.0-1.0); MONOCYTES % (AUTO) 4 % (0-12); NEUTROPHILS # (AUTO) 17.9 X 10^3 (1.8-7.8); NEUTROPHILS % (AUTO) 92 % (42-75); PLATELET COUNT 241 10^3/uL (130-400); RED CELL DISTRIBUTION WIDTH 15.2 % (10.0-14.5); WHITE BLOOD COUNT 19.4 10^3/uL (4.3-11.0)
[2019-04-21] MEDS: PIPERACILLIN/TAZOBACTAM (BULK) 4.5 GM in NS (IVPB) 100 ML IV SCH (06:08)
[2019-04-21 06:09] LABS: ALBUMIN 3.9 GM/DL (3.2-4.5); BILIRUBIN,TOTAL 0.4 MG/DL (0.1-1.0); CALCIUM 10.1 MG/DL (8.5-10.1); POTASSIUM 5.1 MMOL/L (3.6-5.0); TOTAL PROTEIN 7.6 GM/DL (6.4-8.2)
[2019-04-21] MEDS: RT-ALBUTEROL/IPRATROPIUM 3 ML (DUONEB) VIAL INH SCH ×2 (06:29→10:43)
[2019-04-21 08:00] VITALS: BP 111/65
--- NOTE | 2019-04-21 08:26 | Pulmonary Progress Note ---
Subjective Time Seen by a Provider: 08:26 Sepsis Event Evaluation Height, Weight, BMI Height: 5'5.00" Weight: 168lbs. 14.0oz. [id number]; 28.8 BMI Method:Stated Exam Exam Vital Signs Date Time Temp Pulse Resp B/P (MAP) Pulse Ox O2 Delivery O2 Flow Rate FiO2 04/21/19 06:29 94 Nasal Cannula 3.00 04/21/19 04:00 97.0 116 20 139/80 (99) 94 Nasal Cannula 3.00 04/21/19 01:00 105 04/21/19 00:09 97.3 104 20 121/72 (88) 94 Nasal Cannula 3.00 04/20/19 20:00 98.0 113 20 129/65 (86) 93 Nasal Cannula 5.00 04/20/19 20:00 Nasal Cannula 3.00 04/20/19 19:25 86 Room Air 04/20/19 19:00 115 04/20/19 16:00 98.3 108 20 119/58 (78) 93 Nasal Cannula 5.00 04/20/19 15:00 92 04/20/19 13:57 93 Nasal Cannula 3.00 04/20/19 13:00 104 04/20/19 12:00 97.4 102 20 130/69 (89) 92 Nasal Cannula 4.00 I & O 04/21/19 07:00 Intake Total 2712 ml Balance 2712 ml Height & Weight Height: 5'5.00" Weight: 168lbs. 14.0oz. 76.690755kn; 28.8 BMI Method:Stated General Appearance: No Apparent Distress, WD/WN, Chronically ill HEENT: PERRL/EOMI, Normal ENT Inspection Neck: Full Range of Motion, Normal Inspection, Non Tender, Supple Respiratory: Chest Non Tender, Lungs Clear, Normal Breath Sounds, No Accessory Muscle Use, No Respiratory Distress Cardiovascular: Regular Rate, Rhythm, No Edema, No Gallop, Tachycardia Capillary Refill: Less Than 3 Seconds Gastrointestinal: normal bowel sounds, non tender, soft, no organomegaly Extremity: Normal Capillary Refill, Normal Inspection, Normal Range of Motion, Non Tender, No Calf Tenderness, No Pedal Edema Neurologic/Psychiatric: Alert, Oriented x3 Skin: Normal Color, Warm/Dry Results Lab Laboratory Tests 04/20/19 05:35 04/21/19 05:25 Assessment/Plan Assessment/Plan SOB with hypoxia - CTA-- Neg for PE Diastolic CHF RLL lung mass 1.9 x 1.6cm - possible rounded atelectasis -Will need repeat CT scan in 2-3 mo HTN with Sinus tach -Will add Lopressor PO BID Chest pain -Cardiology consulted -Probable heart cath today Leukocytosis with probable PNA -Zosyn -Jarvis cultures Tobacco use with COPD -Pt will probably need home oxygen -Education MISTY GUZMAN DO Apr 21, 2019 08:26
[2019-04-21] MEDS: ASPIRIN E.C. 81 MG (ECOTRIN) TAB PO SCH (08:31)
[2019-04-21] MEDS: meTOprolol TARTRATE 25 MG (LOPRESSOR) TABLET PO SCH (08:31)
[2019-04-21] MEDS: SENNA W/DOCUSATE (SENOKOT S) TABLET PO SCH (08:31)
[2019-04-21] MEDS ORDERED: METO-333 PO (09:56)
[2019-04-21] MEDS ORDERED: ASPI-983 PO (09:56)
[2019-04-21] MEDS ORDERED: IPRA3AMP31 INH (09:56)
[2019-04-21] MEDS ORDERED: CEFD300C3 PO (09:56)
[2019-04-21] MEDS ORDERED: GLYB1.253 PO (09:56)
--- NOTE | 2019-04-21 10:01 | Discharge Summary ---
Diagnosis/Chief Complaint Date of Admission Apr 19, 2019 at 14:39 Date of Discharge Discharge Date: Apr 21, 2019 Discharge Diagnosis (1) Hypoxia Status: Acute (2) Atypical chest pain Status: Acute (3) COPD (chronic obstructive pulmonary disease) Status: Chronic (4) HTN (hypertension) Status: Chronic (5) Mass of lower lobe of left lung Status: Acute (6) UTI (urinary tract infection) Status: Acute (7) Oxygen dependent Status: Acute (8) CAD (coronary artery disease) Status: Chronic (9) S/P cardiac catheterization Status: Acute Discharge Summary Discharge Physical Exam Allergies: Coded Allergies: No Known Drug Allergies (Unverified , 04/17/19) Vitals & I&Os Vital Signs Date Time Temp Pulse Resp B/P (MAP) Pulse Ox O2 Delivery O2 Flow Rate FiO2 04/21/19 13:45 110 18 119/62 94 Nasal Cannula 3.00 04/21/19 12:00 98.2 General Appearance: No Apparent Distress, WD/WN Respiratory: Chest Non Tender, Lungs Clear, Normal Breath Sounds, No Accessory Muscle Use, No Respiratory Distress Cardiovascular: Regular Rate, Rhythm, No Edema, No Gallop, No JVD, No Murmur, Normal Peripheral Pulses Neurologic/Psychiatric: Alert, Oriented x3, No Motor/Sensory Deficits, Normal Mood/Affect Hospital Course Was the Problem List Reviewed?: Yes Hospital course: Pt had an uneventful hospital course after she was admitted for chest pain. Cardiology was consulted and Dr. Castillo was consulted also. Pt underwent cardiac risk stratification by Dr. Ross and underwent cardiac catheterization without intervention. 30-day monitor will likely be required but that will be up to Dr. Ross. Pt met criteria for oxygen at 2 Liters continuous, and a nebulizer machine, all those ordered were placed. Overall she felt well enough to be discharged in stable condition and she was able to ambulate around and social work will check for other needs prior to discharge. Labs (last 24 hrs) Laboratory Tests 04/21/19 05:25: White Blood Count 19.4H, Red Blood Count 4.65, Hemoglobin 12.7, Hematocrit 42, Mean Corpuscular Volume 89, Mean Corpuscular Hemoglobin 27, Mean Corpuscular Hemoglobin Concent 31L, Red Cell Distribution Width 15.2H, Platelet Count 241, Mean Platelet Volume 11.6H, Neutrophils (%) (Auto) 92H, Lymphocytes (%) (Auto) 4L, Monocytes (%) (Auto) 4, Eosinophils (%) (Auto) 0, Basophils (%) (Auto) 0, Neutrophils # (Auto) 17.9H, Lymphocytes # (Auto) 0.7L, Monocytes # (Auto) 0.8, Eosinophils # (Auto) 0.0, Basophils # (Auto) 0.0, Sodium Level 139, Potassium Level 5.1H, Chloride Level 98, Carbon Dioxide Level 31, Anion Gap 10, Blood Urea Nitrogen 20H, Creatinine 1.00, Estimat Glomerular Filtration Rate 56, BUN/Creatinine Ratio 20, Glucose Level 282H, Calcium Level 10.1, Corrected Calcium 10.2H, Total Bilirubin 0.4, Aspartate Amino Transf (AST/SGOT) 41H, Alanine Aminotransferase (ALT/SGPT) 53, Alkaline Phosphatase 118, Total Protein 7.6, Albumin 3.9 Microbiology 04/18/19 Blood Culture - Preliminary, Resulted No growth 04/17/19 MRSA Screen - Final, Complete MRSA not isolated 04/18/19 Gram Stain - Final, Complete 04/18/19 Sputum Culture - Final, Complete Usual upper respiratory zi 04/18/19 Urine Culture - Preliminary, Resulted Escherichia coli Patient resulted labs reviewed. Pending Labs Discussion & Recommendations Discharge Planning: <30 minutes discharge planning Discharge Home Medications: Active Scripts Active Cefdinir 300 Mg Capsule 300 Mg PO BID Glyburide 1.25 Mg Tablet 1.25 Mg PO DAILY Aspirin EC (Aspirin) 81 Mg Tablet.dr 81 Mg PO DAILY Metoprolol Tartrate 25 Mg Tablet 25 Mg PO BID Iprat-Albut 0.5-3(2.5) mg/3 ml (Ipratropium/Albuterol Sulfate) 3 Ml Ampul.neb 3 Ml INH RTQID Reported Women's 50 Plus Multivit Tab (Mv-Mn/Folic Acid/Calcium/Vit K) 1 Each Tablet 1 Tab PO DAILY Atorvastatin Calcium 10 Mg Tablet 10 Mg PO DAILY Amitriptyline HCl 100 Mg Tablet 100 Mg PO HS Gabapentin 300 Mg Capsule 300 Mg PO TID Metformin HCl 500 Mg Tablet 1,000 Mg PO BID TAKES 2 (500MG) TABLETS Instructions to patient/family Please see electronic discharge instructions given to patient. Clinical Quality Measures AMI/AHF: ASA po Prior to arrival: No DVT/VTE Risk/Contraindication: Risk Factor Score Per Nursin RFS Level Per Nursing on Admit: 3=High Problem Qualifiers (1) COPD (chronic obstructive pulmonary disease): COPD type: emphysema Emphysema type: panlobular Qualified Codes: J43.1 - Pa nlobular emphysema (2) HTN (hypertension): Hypertension type: essential hypertension Qualified Codes: I10 - Essential (primary) hypertension (3) CAD (coronary artery disease): Coronary Disease-Associated Artery/Lesion type: grindstone artery [place] vs. transplanted heart: grindstone heart Associated angina: without angina Qualified Codes: I25.10 - Atherosclerotic heart disease of grindstone coronary artery without angina pectoris CE HOBBS DO Apr 21, 2019 10:01
--- NOTE | 2019-04-21 11:05 | NUR ---
CM/SS patient has a new oxygen need for discharge. Patient preference for [facility] in [facility]. The necessary information was faxed for oxygen and nebulizer. They will deliver portable oxygen this day. Patient's brother will be transportation home.
--- NOTE | 2019-04-21 11:07 | D/C HH Face to Face Order ---
D/C Face to Face Orders Instructions for Patient [facility], Patient Instructions/FollowUp: [facility] as scheduled Physician to follow Patient: [facility] Discharge Diet for Home: Cardiac Diet Patient Problems: COPD Patient Data-Allergies,Ht & Wt Patient Allergies: Coded Allergies: No Known Drug Allergies (Unverified , 04/17/19) Height (Feet): 5 Height (Inches): 5.00 Weight (Pounds): 168 Weight (Ounces): 14.0 Home Health Need/Face to Face Date of Face to Face: Apr 21, 2019 Clinical Findings: Shortness of breath I have seen Pt [id number]: Yes Discharged To: Home Diagnosis/Conditions: New O2 dependence COPD Patient is Homebound due to: Muscle weakness, Shortness of breath/distress Homebound Status Due to the above stated illness, injury or surgical procedure (medical condition or diagnosis) and associated clinical findings, the patient is homebound because of his/her inability to leave home except with aid of a supportive device and/or person AND leaving the home requires a considerable and taxing effort or is medically contraindicated. Pt req the following assistanc: Aid of another person Home Health Nursing Orders Home Health Services Order: Nursing Services, Janitorial Maintenance Worker-Evaluate & Treat, Physical Therapy-Evaluate & Treat Certify Stmt I certify that this patient is under my care and that I, a nurse practitioner or a physician; a desk assistant working with me, had a face to face encounter that - meets the physician face to face encounter requirements with this patient as dated. CE HOBBS DO Apr 21, 2019 11:07
[2019-04-21 12:00] VITALS: BP 119/62
[2019-04-21 13:45] VITALS: BP 119/62
--- NOTE | 2019-04-21 15:50 | Cardiology Progress Note ---
Cardiology SOAP Progress Note Subjective: No cardiac complaints. Objective: I&O/Vital Signs 04/21/19 04/21/19 04/21/19 04/21/19 04:00 06:29 07:00 08:00 Temp 97.0 98.7 Pulse 116 115 112 Resp 20 18 B/P (MAP) 139/80 (99) 111/65 (80) Pulse Ox 94 94 91 O2 Delivery Nasal Cannula Nasal Cannula Nasal Cannula O2 Flow Rate 3.00 3.00 3.00 04/21/19 04/21/19 04/21/19 04/21/19 08:49 10:44 12:00 13:45 Temp 98.2 Pulse 110 110 Resp 18 18 B/P (MAP) 119/62 (81) 119/62 Pulse Ox 95 94 94 O2 Delivery Nasal Cannula Nasal Cannula Nasal Cannula Nasal Cannula O2 Flow Rate 3.00 3.00 3.00 3.00 04/21/19 00:00 Intake Total 2252 ml Balance 2252 ml Weight (Pounds): 168 Weight (Ounces): 14.0 Weight (Calculated Kilograms): 76.049485 Constitutional: appears stated age, AAO x 3, apparent distress, well-developed, well-nourished Respiratory: chest is bilaterally symmetric, lungs clear to auscultation Cardiovascular: regular rate-rhythm, tachycardia, S1 and S2 Gastrointestional: No tender, No soft, No round, No distended, No pulsatile mass, No organomegaly, No guarding, No rebound, No tenderness, No hernia, No mass, No audible bowel sounds, No abnormal bowel sounds, No abdominal bruits, No spleenomegaly, No other Extremities: No normal range of motion, No non-tender, No normal inspection, No pedal edema, No calf tenderness, No normal capillary refill, No pelvis stable, No calf tenderness, No inflammation, No pedal edema, No slow capillary refill, No swelling, No other, No abrasion, No clubbing, No cyanosis, No ecchymosis, No laceration, No no lower extremity edema bilateral, No significant edema, No tenderness, No wound Neurologic/Psychiatric: no motor/sensory deficits, alert, normal mood/affect, oriented x 3, power is 5/5 both on sides Skin: No normal color, No warm/dry, No cyanosis, No cool, No diaphoresis, No damp, No ecchymosis, No jaundice, No mottled, No pallor, No rash, No tattoos/piercings, No ulcerations, No rash on exposed areas, No ulcerations on exposed areas, No other Results/Procedures: Labs Laboratory Tests 04/21/19 05:25: White Blood Count 19.4H, Red Blood Count 4.65, Hemoglobin 12.7, Hematocrit 42, Mean Corpuscular Volume 89, Mean Corpuscular Hemoglobin 27, Mean Corpuscular Hemoglobin Concent 31L, Red Cell Distribution Width 15.2H, Platelet Count 241, Mean Platelet Volume 11.6H, Neutrophils (%) (Auto) 92H, Lymphocytes (%) (Auto) 4L, Monocytes (%) (Auto) 4, Eosinophils (%) (Auto) 0, Basophils (%) (Auto) 0, Neutrophils # (Auto) 17.9H, Lymphocytes # (Auto) 0.7L, Monocytes # (Auto) 0.8, Eosinophils # (Auto) 0.0, Basophils # (Auto) 0.0, Sodium Level 139, Potassium Level 5.1H, Chloride Level 98, Carbon Dioxide Level 31, Anion Gap 10, Blood Urea Nitrogen 20H, Creatinine 1.00, Estimat Glomerular Filtration Rate 56, BUN/Creatinine Ratio 20, Glucose Level 282H, Calcium Level 10.1, Corrected Calcium 10.2H, Total Bilirubin 0.4, Aspartate Amino Transf (AST/SGOT) 41H, Alanine Aminotransferase (ALT/SGPT) 53, Alkaline Phosphatase 118, Total Protein 7.6, Albumin 3.9 Microbiology 04/18/19 Blood Culture - Preliminary, Resulted No growth 04/17/19 MRSA Screen - Final, Complete MRSA not isolated 04/18/19 Gram Stain - Final, Complete 04/18/19 Sputum Culture - Final, Complete Usual upper respiratory zi 04/18/19 Urine Culture - Preliminary, Resulted Escherichia coli A/P: Assessment/Dx: chest pain, positive troponin, PSVT Sinus tachycardia, Positive D dimer, Active smoking, Hypertension, Leukocytosis, Hypercapnic respiratory failure, Acute diastolic congestive heart failure. Plan: chest pain, positive troponin, coronary angiography did not show any obstructive CAD. DC Brilinta and IV heparin. Short run of PSVT/atrial fibrillation. 30 day event monitor will be required as an outpatient. Sinus tachycardia, Positive D dimer,consider pulmonary embolism. Chest CTA did not show pulmonary embolism. Active smoking,cessation was strongly recommended. Hypertension, Leukocytosis,likely COPD exacerbation/pneumonia. Hypercapnic respiratory failure,defer to Dr. Castillo. Acute diastolic congestive heart failure. mildly elevated BNP. May require low- dose Lasix. Follow-up in the office for cardiology visit with either me or her outpatient clam sorter. Thank you for your consultation. Please call me if you have any questions. Lucius Ross MD, FACP, FACC, FSCAI, FHRS, CCDS Interventional Cardiology Cardiac Electrophysiology Vascular Medicine and Endovascular Interventions Clinical Quality Measures AMI/AHF: ASA po Prior to arrival: Ava Scott MD Apr 21, 2019 15:50
--- NOTE | 2019-04-24 15:24 | Physician Query Clarification ---
PQ-Further Specificity Admission/Discharge Admission Date: Apr 19, 2019 at 14:39 Discharge Date: Apr 21, 2019 at 14:00 The medical record reflects the following clinical scenario: History/Risk Factors: CAD, Emphysema, smoking, HTN Clinical Findings: Troponin 0.300, radiating rt jaw and shoulder pain, EKG - diffuse nonspecific ST abnormality with upward concavity of the ST segment. LT atrial enlargement and LT venticular hypertrophy Treatment: Asprin, Lopressor, IV solumedrol, IV Lasix Question: Can you further specify the cause of the elevated troponin and chest pain per the clinical indicators above? Please document a response in the Progress Notes or Discharge Summary. 1. NSTEMI 2. Troponin type 2 (please specify the condition causing the Type 2 DE) 3. Other, with explanation of the clinical findings. 4. Clinically undetermined, no explanation for the clinical findings. PHYSICIAN RESPONSE Can you specify per above: 2 Explanation/Clinical Findings Coronary angiography showed non-obstructive disease - therefore very likely Type II myocardial infarction. Please remember a lack of response to the above will prompt a phone page by CDI/Coding staff. In responding to this query, please exercise your independent professional judg ment. The purpose of this communication is to more accurately reflect the complexity of your patients condition. The fact that a question is asked does not imply that any particular answer is desired or expected. Thank you for your timely response to this clarification. Requestors name: Evaristo THIS PHYSICIAN QUERY FORM IS A PERMANENT PART OF THE MEDICAL RECORD EVARISTO KING Apr 24, 2019 15:24 Ava GIFFORD MD Apr 26, 2019 18:25
--- OUTSIDE RECORDS SUMMARY | 2019-04-25 03:14 | XMS REPORT | Continuity of Care Document ---
[...] Status Pt. Type Provider Facility Loc./Unit Complaint [id number] 03/23/2019 10:45:00 03/23/2019 23:59:59 [facility] Outpatient VINAY CARRILLO [facility] [id number] 03/23/2019 10:45:00 Document Registration [id number] 12/18/2018 08:40:00 Document Registration
== END 2019-04-21 14:00 | disposition home or self-care (01) | DRG 280 ==
LOC: EDUNIT# 13:27 → ER FS 13:28 → UNDOADMOB 15:00 → ICU 15:00 → UNDOADMOB 16:34 → ICU 16:34 → 4TH 04-19 12:55 → ICU 04-19 12:55 → OBSVTOIN 04-19 14:39 → INTOOBSV 04-19 14:39 → UNDODISIN 04-21 14:00
PROVIDERS: ADMIT Family Medicine; ATTEND Family Medicine
PROC: 4A023N7 Measurement of Cardiac Sampling and Pressure, Left Heart, Percutaneous Approach (ICD-10-PCS; principal; 2019-04-18)
PROC: B2111ZZ Fluoroscopy of Multiple Coronary Arteries using Low Osmolar Contrast (ICD-10-PCS; 2019-04-18)
PROC: B2151ZZ Fluoroscopy of Left Heart using Low Osmolar Contrast (ICD-10-PCS; 2019-04-18)
PROC: B3101ZZ Fluoroscopy of Thoracic Aorta using Low Osmolar Contrast (ICD-10-PCS; 2019-04-18)
DX: I21.A1 Myocardial infarction type 2 (principal); I25.10 Atherosclerotic heart disease of native coronary artery without angina pectoris; J18.9 Pneumonia, unspecified organism; R09.02 Hypoxemia; R00.0 Tachycardia, unspecified; J43.1 Panlobular emphysema; F17.210 Nicotine dependence, cigarettes, uncomplicated; F17.290 Nicotine dependence, other tobacco product, uncomplicated; E11.9 Type 2 diabetes mellitus without complications; R91.8 Other nonspecific abnormal finding of lung field; I10 Essential (primary) hypertension; E83.42 Hypomagnesemia
CPT/HCPCS: 36221; 36415; 71045; 71275; 80048; 80053; 80306; 81000; 82805; 83605; 83735; 83880; 84100; 84484; 85007; 85025; 85027; 85379; 85610; 85730; 87040; 87070; 87077; 87081; 87088; 87184; 87205; 93306; 93458; 93970; 94640; 94760; 96374; G0378

== ENCOUNTER 2019-05-12 15:27 | Inpatient (IN) | payer MEDICARE ==
[~2019-05-12] VITALS: Ht 165.1 cm; Wt 71.7 kg
[~2019-05-12 15:27] MED LIST: AMIT100T2 PO; AMITRIPTYLIN; ASPI-983 PO; ATOR10TA66 PO; CEFD300C3 PO; GABA-488 PO; GABAPENTIN CAP 300MG; GLYB1.253 PO; HYDR25TA4 PO; HYDROCHLOROT 25 MG; IBUP1TAB14 PO; IPRA3AMP31 INH; MELO15TA39 PO; METF-397 PO; METFORMIN TAB 500MG; METO-333 PO; MV-M1TAB57 PO; QUIN10TA14 PO; QUINAPRIL 10 MG
--- OUTSIDE RECORDS SUMMARY | 2019-05-12 15:31 | XMS REPORT | Continuity of Care Document ---
Author Organization Unknown Address Unknown Phone Unavailable Allergies There is no data. Medications There [...] A1c 5.4 % of total Hgb <5.7 CULTURE, URINE - 04/27/19 11:10 CULTURE, URINE, ROUTINE SEE NOTE NRG Encounters ACCT No. Visit Date/Time Discharge Status Pt. Type Provider Facility Loc./Unit Complaint [id number] 04/27/2019 10:30:00 04/27/2019 23:59:59 [facility] Outpatient VINAY CARRILLO [facility] [id number] 04/27/2019 10:30:00 Document Registration [id number] 03/23/2019 10:45:00 Document Registration [id number] 12/18/2018 08:40:00 Document Registration
--- NOTE | 2019-05-12 15:56 | ED Dyspnea ---
General Stated Complaint: SOA Source of Information: Patient, Old Records, RN Notes Reviewed Exam Limitations: No Limitations History of Present Illness Date Seen by Provider: May 12, 2019 Time Seen by Provider: 15:55 Allergies and Home Medications Allergies Coded Allergies: No Known Drug Allergies (Unverified , 04/17/19) Home Medications Amitriptyline HCl 100 Mg Tablet, 100 MG PO HS, (Reported) Aspirin 81 Mg Tablet.dr, 81 MG PO DAILY Prescribed by: CE HOBBS on 04/21/19 09 Atorvastatin Calcium 10 Mg Tablet, 10 MG PO DAILY, (Reported) Cefdinir 300 Mg Capsule, 300 MG PO BID Prescribed by: CE HOBBS on 04/21/19 09 Gabapentin 300 Mg Capsule, 300 MG PO TID, (Reported) Glyburide 1.25 Mg Tablet, 1.25 MG PO DAILY Prescribed by: CE HOBBS on 04/21/19 09 Ipratropium/Albuterol Sulfate 3 Ml Ampul.neb, 3 ML INH RTQID Prescribed by: CE HOBBS on 04/21/19 09 Metformin HCl 500 Mg Tablet, 1,000 MG PO BID, (Reported) TAKES 2 (500MG) TABLETS Metoprolol Tartrate 25 Mg Tablet, 25 MG PO BID Prescribed by: CE HOBBS on 04/21/19 09 Mv-Mn/Folic Acid/Calcium/Vit K 1 Each Tablet, 1 TAB PO DAILY, (Reported) Past Wrfvsgp-[id number]-Sppite Hx Patient Social History Type Used: Cigars, Cigarettes Recent Hopitalizations: No Immunizations Up To Date Date of Pneumonia Vaccine: Apr 17, 2016 Past Medical History Respiratory: Yes COPD Cardiac: No Neurological: No Genitourinary: No Gastrointestinal: No Musculoskeletal: No Endocrine: Yes Diabetes, Non-Insulin dep HEENT: No Cancer: No Psychosocial: No Integumentary: No Family Medical History No Pertinent Family Hx Physical Exam Vital Signs Capillary Refill : Height, Weight, BMI Height: 5'5.00" Weight: 168lbs. 14.0oz. 76.975042lq; 28.8 BMI Method:Stated Progress/Results/Core Measures Results/Orders My Orders Orders - NILSON ARNOLD DO Ed Iv/Invasive Line Start (05/12/19 15:57) Ekg Tracing (05/12/19 15:57) Arterial Blood Gas (05/12/19 15:57) Cbc With Automated Diff (05/12/19 15:57) Comprehensive Metabolic Panel (05/12/19 15:57) Lactic Acid Analyzer (05/12/19 15:57) Lipase (05/12/19 15:57) Magnesium (05/12/19 15:57) Protime With Inr (05/12/19 15:57) Partial Thromboplastin Time (05/12/19 15:57) Blood Culture (05/12/19 15:57) Probnp Fs (05/12/19 15:57) Chest 1 View Ap/Pa Only (05/12/19 15:57) Initial ECG Impression Date: May 12, 2019 Initial ECG Impression Time: 15:57 Initial ECG Rate: 116 Initial ECG Rhythm: S.Tach Initial ECG Impression: Nonspecific Changes (LAE) Departure Departure-Patient Inst. Referrals: VINAY CARRILLO MD (PCP/Family) Primary Care Physician NILSON ARNOLD DO May 12, 2019 15:56
[2019-05-12 16:19] LABS: HEMATOCRIT 42 % (35-52); HEMOGLOBIN 13.1 G/DL (11.5-16.0); MEAN CORPUSCULAR HEMOGLOBIN 28 PG (25-34); MEAN CORPUSCULAR HGB CONC 32 G/DL (32-36); MEAN CORPUSCULAR VOLUME 88 FL (80-99); PLATELET COUNT 405 10^3/uL (130-400); RED CELL DISTRIBUTION WIDTH 15.4 % (10.0-14.5)
[2019-05-12 16:20] LABS: BASOPHILS # (AUTO) 0.1 10^3/uL (0.0-0.1); BASOPHILS % (AUTO) 0 % (0-10); EOSINOPHILS % (AUTO) 0 % (0-10); LYMPHOCYTES # (AUTO) 1.4 X 10^3 (1.0-4.0); LYMPHOCYTES % (AUTO) 6 % (12-44); MEAN PLATELET VOLUME 10.4 FL (7.4-10.4); MONOCYTES # (AUTO) 1.5 X 10^3 (0.0-1.0); MONOCYTES % (AUTO) 7 % (0-12); NEUTROPHILS # (AUTO) 18.8 X 10^3 (1.8-7.8); NEUTROPHILS % (AUTO) 85 % (42-75)
[2019-05-12 16:22] LABS: ABG PCO2 58 MMHG (35-45); ABG PH 7.39 (7.37-7.43)
[2019-05-12 16:23] LABS: ABG BASE EXCESS 8.3 MMOL/L (-2.5-2.5); ABG TCO2 36.9 MMOL/L (21.0-31.0)
--- NOTE | 2019-05-12 16:28 | Diagnostic Imaging Report ---
INDICATION: Shortness of breath. TIME OF EXAM: 04:09 p.m. Correlation is made with prior study from 04/20/2019. FINDINGS: The heart is enlarged. There are bibasilar pulmonary infiltrates and likely bilateral effusions. There is central congestion. Upper lung masterson appear to be clear. There is no pneumothorax. IMPRESSION: Central congestion with bibasilar infiltrates and bilateral effusions, left greater. Dictated by: Dictated on workstation # [id number]
[2019-05-12 16:29] LABS: ABG OXYGEN SATURATION 90 % (94-100); ABG PO2 60 MMHG (79-93)
[2019-05-12 16:30] LABS: INSPIRED O2 7 L 02; PATIENT TEMP 100.2; VENTILATOR NO
[2019-05-12 16:39] LABS: BAND NEUTROPHILS 0 %; BASOPHILS % (MANUAL) 0 %; EOSINOPHILS % (MANUAL) 0 %; LYMPHOCYTES % (MANUAL) 12 %; MONOCYTES % (MANUAL) 2 %; NEUTROPHILS % (MANUAL) 86 %; RBC MORPH NORMAL
[2019-05-12] MEDS ORDERED: FUROSEMIDE 40 MG/4 ML INJ (LASIX) IVP ONE (16:45)
[2019-05-12 16:52] LABS: POTASSIUM 4.1 MMOL/L (3.6-5.0); SODIUM 138 MMOL/L (135-145)
[2019-05-12 16:53] LABS: ALANINE AMINOTRANSFERASE 18 U/L (0-55); ALBUMIN 3.6 GM/DL (3.2-4.5); ALKALINE PHOSPHATASE 148 U/L (40-136); BILIRUBIN,TOTAL 0.4 MG/DL (0.1-1.0); BUN/CREATININE RATIO 14; CALCIUM 9.7 MG/DL (8.5-10.1); CARBON DIOXIDE 28 MMOL/L (21-32); CHLORIDE 94 MMOL/L (98-107); CREATININE SERUM 0.73 MG/DL (0.60-1.30); GFR ESTIMATED > 60; GLUCOSE 103 MG/DL (70-105); LIPASE 19 U/L (8-78); MAGNESIUM 1.2 MG/DL (1.8-2.4); TOTAL PROTEIN 8.1 GM/DL (6.4-8.2)
[2019-05-12 17:07] LABS: COLOR,URINE YELLOW
[2019-05-12 17:08] LABS: BACTERIA,URINE FEW /HPF; BILIRUBIN,URINE NEGATIVE (NEGATIVE); CLARITY,URINE CLEAR; GLUCOSE, URINE (UA) NEGATIVE (NEGATIVE); KETONES,URINE NEGATIVE (NEGATIVE); LEUKOCYTE ESTERASE ,URINE NEGATIVE (NEGATIVE); NITRITE,URINE NEGATIVE (NEGATIVE); PROTEIN,URINE TRACE (NEGATIVE); UROBILINOGEN,URINE 0.2 MG/DL (NORMAL); WBC,URINE 0-2 /HPF
[2019-05-12] MEDS ORDERED: PIPERACILLIN/TAZO 4.5 GM VIAL (ZOSYN) IV ONE (17:26)
[2019-05-12] MEDS ORDERED: NS (IVPB) 100 ML ONE (17:29)
[2019-05-12] MEDS ORDERED: PIPERACILLIN/TAZOBACTAM (BULK) 4.5 GM in NS (IVPB) 100 ML IV ONE (17:30)
[2019-05-12 17:51] LABS: INR 1.1 (0.8-1.4); PROTHROMBIN TIME PATIENT 14.3 SEC (12.2-14.7)
--- OUTSIDE RECORDS SUMMARY | 2019-05-12 18:16 | XMS REPORT | Continuity of Care Document ---
[...] Status Pt. Type Provider Facility Loc./Unit Complaint [id number] 04/27/2019 10:30:00 04/27/2019 23:59:59 [facility] Outpatient VINAY CARRILLO [facility] [id number] 04/27/2019 10:30:00 Document Registration [id number] 03/23/2019 10:45:00 Document Registration [id number] 12/18/2018 08:40:00 Document Registration
[2019-05-12] MEDS: MAGNESIUM 1 GM/100 ML IVPB 100 ML IV SCH ×2 (18:46→20:00)
--- NOTE | 2019-05-12 19:40 | NUR ---
KALEB STACK admitted to room 415-1, with an admitting diagnosis of dyspnea, chf, suspected pneumonia, and copd, on 05/12/19 from [facility] via cart , accompanied by [facility]. KALEB STACK introduced to surroundings, call light, bed controls, phone, TV, temperature control, lights, meal times, smoking policy, visitor policy, side rail policy, bathrooms and showers. Patient Rights given to patient in the handbook. KALEB STACK verbalizes understanding that [facility] is not responsible for the loss or damage to any personal effects or valuables that are kept in the patients posession during their hospitalization. The patient's plan of care was discussed with the patient. Patient denies any questions or concerns and agrees with the plan. KALEB STACK verbalizes understanding of Interdisciplinary Patient Education. Patient and/or family were informed about the Rapid Response Team and its purpose.
[2019-05-12 19:44] VITALS: BP 113/58
[2019-05-12] MEDS: RT-ALBUTEROL/IPRATROPIUM 3 ML (DUONEB) VIAL INH SCH ×2 (19:55→23:40)
[2019-05-12] MEDS ORDERED: LEVOFLOXACIN 750 MG TAB (LEVAQUIN) PO SCH (20:07)
[2019-05-12] MEDS ORDERED: CATHETER FLUSH 10 ML SYR IV PRN (20:15)
[2019-05-12] MEDS ORDERED: RT-ALBUTEROL/IPRATROPIUM 3 ML (DUONEB) VIAL INH SCH (21:00)
--- NOTE | 2019-05-12 21:11 | NUR ---
PT SATS ON HIFLO NC 5L-SATING 87-88% THIS RN CALLED DR. FREEDMAN TO INFORM HER OF THIS SITUATION. DR. FREEDMAN AGREED TO VAPOTHERM RT TO MANAGE MAY PLACE PT ON BIPAP, RT MANAGE, IF OXYGEN NEEDS ARE NOT MET WITH VAPOTHERM. KEEP SATS GREATER THAN 90%
[2019-05-12] MEDS: CATHETER FLUSH 10 ML SYR IV SCH (22:31)
[2019-05-12] MEDS ORDERED: LEVOFLOXACIN 750 MG/D5W 150 ML PRE-MIX IV SCH (22:45)
[2019-05-12 23:40] VITALS: BP 113/58
[2019-05-13] VITALS (28 sets, daily range): BP systolic 61–141; BP diastolic 37–76
[2019-05-13] MEDS: PIPERACILLIN/TAZO 4.5 GM/NS 100 ML IV SCH ×6 (01:37→16:39)
[2019-05-13] MEDS: RT-ALBUTEROL/IPRATROPIUM 3 ML (DUONEB) VIAL INH SCH ×11 (03:34→21:52)
--- NOTE | 2019-05-13 03:55 | NUR ---
NOTIFIED DR. FREEDMAN OF PT CONDITION. BIPAP AND BREATHING TREATMENTS X3 TOTAL YIELD LITTLE CHANGES. PT STILL SATING AT 92%. NEW ORDERS RECEIVED.
[2019-05-13 04:50] LABS: ABG BASE EXCESS 8.5 MMOL/L (-2.5-2.5); ABG OXYGEN SATURATION 91 % (94-100); ABG PCO2 58 MMHG (35-45); ABG PH 7.38 (7.37-7.43); ABG PO2 66 MMHG (79-93); ABG TCO2 35.7 MMOL/L (21.0-31.0); ALLENS TEST POSITIVE
[2019-05-13 04:51] LABS: INSPIRED O2 100%; PATIENT TEMP 97.2; VENTILATOR NO
--- NOTE | 2019-05-13 06:00 | NUR ---
PT TRANSFERED ON BIPAP FROM 4TH FLOOR TO ICU. NO COMPLICATIONS.
--- NOTE | 2019-05-13 06:17 | NUR ---
0450- DR. GUZMAN NOTIFIED OF CONSULT. 9142- RECEIVED ORDERS FROM DR. GUZMAN TO TRANSFER PATIENT TO ICU. 0610- PT TRANSFER TO ICU-10. REPORT GIVEN TO MANNIE REYES. 6608- DR. FREEDMAN INFORMED OF PT TRANSFER TO ICU.
--- NOTE | 2019-05-13 06:59 | Diagnostic Imaging Report ---
INDICATION: Short of air. FINDINGS: Upright portable chest shows cardiomegaly with normal vascularity. There is bibasilar atelectasis with bilateral pleural effusions. IMPRESSION: Since 05/12/2019, the vascularity has decreased slightly with no significant change in the bibasilar atelectasis and effusions. Dictated by: Dictated on workstation # [id number]
[2019-05-13 07:01] LABS: BASOPHILS % (AUTO) 0 % (0-10); EOSINOPHILS # (AUTO) 0.1 10^3/uL (0.0-0.3); EOSINOPHILS % (AUTO) 0 % (0-10); HEMATOCRIT 41 % (35-52); HEMOGLOBIN 12.3 G/DL (11.5-16.0); LYMPHOCYTES # (AUTO) 1.4 X 10^3 (1.0-4.0); LYMPHOCYTES % (AUTO) 8 % (12-44); MEAN CORPUSCULAR HEMOGLOBIN 27 PG (25-34); MEAN CORPUSCULAR HGB CONC 30 G/DL (32-36); MEAN CORPUSCULAR VOLUME 89 FL (80-99); MEAN PLATELET VOLUME 10.7 FL (7.4-10.4); MONOCYTES # (AUTO) 1.7 X 10^3 (0.0-1.0); MONOCYTES % (AUTO) 10 % (0-12); NEUTROPHILS # (AUTO) 13.6 X 10^3 (1.8-7.8); NEUTROPHILS % (AUTO) 81 % (42-75); PLATELET COUNT 384 10^3/uL (130-400); WHITE BLOOD COUNT 16.8 10^3/uL (4.3-11.0)
[2019-05-13] MEDS: FUROSEMIDE 40 MG/4 ML INJ (LASIX) IVP SCH ×2 (07:05→17:23)
--- NOTE | 2019-05-13 07:05 | Pulmonary Consultation ---
History of Present Illness History of Present Illness Date of Consultation 05/13/19 07:00 Time Seen by Provider: 07:19 Date of Admission History of Present Illness 59 y/o female with hx of COPD and multiple hospitalizations presented ER secondary to worsening shortness of breath over the last 2wks. recently hospitalized last month for COPD exacerbation and UTI. I am consulted for pulmonary/CC management. Allergies and Home Medications Allergies Coded Allergies: No Known Drug Allergies (Unverified , 05/13/19) Home Medications Albuterol Sulfate 2.5 Mg/3 Ml Vial.neb, 2.5 MG NEB TID PRN for SHORTNESS OF BREATH, (Reported) Amitriptyline HCl 100 Mg Tablet, 100 MG PO HS, (Reported) Aspirin 81 Mg Tablet.dr, 81 MG PO DAILY, (Reported) Atorvastatin Calcium 10 Mg Tablet, 10 MG PO DAILY, (Reported) Fluconazole 100 Mg Tablet, 100 MG PO DAILY Prescribed by: CE HOBBS on 06/01/19 1022 Furosemide 20 Mg Tablet, 20 MG PO DAILY, (Reported) Gabapentin 300 Mg Capsule, 300 MG PO TID, (Reported) Glyburide 1.25 Mg Tablet, 1.25 MG PO DAILY, (Reported) Lisinopril 5 Mg Tablet, 5 MG PO DAILY, (Reported) Metformin HCl 500 Mg Tablet, 1,000 MG PO BID, (Reported) TAKES 2 (500MG) TABLETS Metoprolol Tartrate 50 Mg Tablet, 50 MG PO BID, (Reported) Mv-Mn/Folic Acid/Calcium/Vit K 1 Each Tablet, 1 TAB PO DAILY, (Reported) Omeprazole 20 Mg Capsule.dr, 20 MG PO DAILY, (Reported) Prednisone 10 Mg Tab.ds.pk, 10 MG PO DAILY Take 4 tabs(40mg)daily,decrease by 1 tab(10mg)every other day. Prescribed by: CE HOBBS on 06/01/19 1022 Past Jrpzeyl-Wwzydd-Ysvlps Hx Patient Social History Alcohol Use: Denies Use Recreational Drug Use: No Smoking Status: Former Smoker Type Used: Cigars, Cigarettes Former Smoker, Quit: Apr 17, 2019 Recent Foreign Travel: No Contact w/Someone Who Travel: No Recent Infectious Disease Expo: No Recent Hopitalizations: No Physical Abuse: No Sexual Abuse: No Mistreated: No Fear: No Immunizations Up To Date Date of Pneumonia Vaccine: May 13, 2017 Seasonal Allergies Seasonal Allergies: No Past Medical History Surgeries: No Respiratory: Yes COPD Cardiac: Yes Chronic Edema/Swelling Neurological: No Genitourinary: No Gastrointestinal: No Musculoskeletal: No Endocrine: Yes Diabetes, Non-Insulin dep HEENT: No Cancer: No Psychosocial: No Integumentary: No Family Medical History Bone cancer 19 MOTHER Diabetes mellitus G8 BROTHER G8 BROTHER FH: lung cancer 19 FATHER No Pertinent Family Hx Review of Systems Time Seen by Provider: 07:20 Sepsis Event Evaluation Height, Weight, BMI Height: 5'5.00" Weight: 174lbs. 3.2oz. 79.355368bi; 28.3 BMI Method:Stated Exam Exam Vital Signs Date Time Temp Pulse Resp B/P (MAP) Pulse Ox O2 Delivery O2 Flow Rate FiO2 05/13/19 06:30 114 20 101/63 (76) 93 NIV Bilevel 100.00 05/13/19 06:19 112 24 106/54 (71) 93 NIV Bilevel 100.00 05/13/19 06:10 112 05/13/19 06:06 114 25 111/69 (83) 93 NIV Bilevel 100.00 05/13/19 05:33 100 22 94 100.00 05/13/19 04:52 100 24 93 100.00 05/13/19 03:46 97.6 102 22 104/60 (75) 92 Vapotherm 05/13/19 03:34 100 24 92 100.00 05/13/19 01:15 106 86 100 05/13/19 01:00 99 05/13/19 00:00 97.3 102 20 108/59 (75) 93 Vapotherm 70.00 40.00 05/12/19 23:40 101 21 86 100.00 05/12/19 22:14 106 05/12/19 21:58 86 Vapotherm 40.00 70 05/12/19 19:55 85 Nasal Cannula 4.00 05/12/19 19:44 97.7 120 26 113/58 86 High Flow N/C 4.00 15.00 05/12/19 19:40 Non Rebreather 15.00 05/12/19 18:59 99.8 117 30 104/68 (80) 92 Non Rebreather 15.00 05/12/19 15:30 100.2 117 33 124/81 (95) 89 Nasal Cannula 3.50 I & O 8/7/19 07:00 Intake Total 652 ml Output Total 550 ml Balance 102 ml Height & Weight Height: 5'5.00" Weight: 174lbs. 3.2oz. 79.527345un; 28.3 BMI Method:Stated General Appearance: WD/WN, Anxious, Chronically ill, Moderate Distress, Thin HEENT: PERRL/EOMI, Pharynx Normal Neck: Non Tender, Supple Respiratory: Accessory Muscle Use, Crackles, Decreased Breath Sounds Cardiovascular: Regular Rate, Rhythm Capillary Refill: Less Than 3 Seconds Gastrointestinal: non tender, soft Extremity: Normal Capillary Refill, Pedal Edema Neurologic/Psychiatric: Alert Skin: Normal Color, Warm/Dry Lymphatic: No Adenopathy Results Lab Laboratory Tests 05/12/19 15:50 Assessment/Plan Assessment/Plan Acute respiratory failure -Currently requiring noninvasive ventilation -ABG shows C02 of 58 -Transfer to ICU -Check stat ABG, labs, and CXR -Pt is currently a full code. May need intubation Sepsis with Pneumonia -Continue Zosyn, Stop Levaquin -Check hendrickson cultures -MRSA nasal swab Diastolic CHF -BNP is 2540 on admission -Continue Lasix for now -Check Echo MISTY GUZMAN DO May 13, 2019 07:05
[2019-05-13] MEDS: CATHETER FLUSH 10 ML SYR IV SCH ×3 (07:07→22:16)
[2019-05-13 07:20] LABS: CALCIUM 9.8 MG/DL (8.5-10.1); CREATININE SERUM 0.97 MG/DL (0.60-1.30); MAGNESIUM 1.6 MG/DL (1.8-2.4); PHOSPHORUS 4.9 MG/DL (2.3-4.7); POTASSIUM 3.8 MMOL/L (3.6-5.0)
[2019-05-13] MEDS ORDERED: MAGNESIUM 1 GM/100 ML IVPB 200 ML IV ONE (08:00)
[2019-05-13] MEDS: MAGNESIUM 1 GM/100 ML IVPB 100 ML IV SCH ×2 (08:07→12:03)
[2019-05-13 08:51] LABS: ABG BASE EXCESS 9.6 MMOL/L (-2.5-2.5); ABG OXYGEN SATURATION 88 % (94-100); ABG PCO2 60 MMHG (35-45); ABG PH 7.38 (7.37-7.43); ABG PO2 60 MMHG (79-93); ABG TCO2 36.7 MMOL/L (21.0-31.0)
[2019-05-13 08:53] LABS: ALLENS TEST YES-POS; INSPIRED O2 100%; PATIENT TEMP 98.6; VENTILATOR NO
[2019-05-13] MEDS ORDERED: NS IV 1000 ML 2,000 ML ONE (09:09)
[2019-05-13] MEDS ORDERED: proPOfol 200 MG/20 ML (DIPRIVAN) VIAL IV ONE (09:10)
[2019-05-13] MEDS: NS IV 1000 ML 1,000 ML IV SCH ×2 (10:00→12:06)
[2019-05-13] MEDS ORDERED: NS IV 1000 ML 1,000 ML ONE (10:22)
--- NOTE | 2019-05-13 10:32 | Diagnostic Imaging Report ---
INDICATION: Respiratory failure. EXAMINATION: Portable chest at 10:18 AM. FINDINGS: An ET tube projects over the trachea. An NG tube enters the stomach. A right IJ central line tip projects over the SVC. There are bilateral pleural effusions. The heart is enlarged. The pulmonary vasculature is normal. There is an apical bulla at the right lung apex. IMPRESSION: Bilateral pleural effusions. The support tubes and catheters project over appropriate structures. Dictated by: Dictated on workstation # [id number]
[2019-05-13] MEDS ORDERED: LISI-556 PO (10:57)
[2019-05-13] MEDS ORDERED: METO50TA15 PO (10:57)
[2019-05-13] MEDS ORDERED: OMEP20CA13 PO (10:57)
[2019-05-13] MEDS ORDERED: GLYB1.253 PO (10:57)
[2019-05-13] MEDS ORDERED: FURO20TA4 PO (10:57)
[2019-05-13] MEDS ORDERED: ALBU2.5V4 NEB (10:57)
--- NOTE | 2019-05-13 11:00 | NUR ---
Intubation and procedure note 0915 Dr. Castillo and 2 medical students at bedside with 3 RT 0920 20g IV started in R wrist by Laury, RN 0924 4mg Versed admin 0926 5mg propofol admin by Dr. Vu Castillo [address] Castillo with 8.0 ET tube, secured at 24 at lip, 80 of succs admin 0950 Dr. Castillo and med students at bedside for central line placement, 0955 50mg Rocc admin 0957 4mg Versed admin 1000 R triple lumen IJ inserted 1020 Levophed drip started 1025 Imaging at bedside for CXR 1050 Anesthesia at bedside, art line placed to R radius
--- NOTE | 2019-05-13 11:01 | Anesthesia-Procedure Note ---
Procedures/Interventions Procedure Start/Stop/Diagnosis Date of Procedure: May 13, 2019 Start Time: 10:35 Stop Time: 10:45 Arterial Line Arterial Line Catheter: 20G Type: Radial Location: Right Procedure: prepped, draped in sterile fashion, good wave-form was obtained, patient tolerated procedure well, no immediate complications, post procedure area cleaned, post procedure dressing applied RAHUL CARTER CRNA May 13, 2019 11:01
[2019-05-13 11:24] LABS: ABG BASE EXCESS 5.2 MMOL/L (-2.5-2.5); ABG OXYGEN SATURATION 97 % (94-100); ABG PCO2 62 MMHG (35-45); ABG PO2 107 MMHG (79-93); ABG TCO2 32.7 MMOL/L (21.0-31.0)
[2019-05-13 11:28] LABS: ABG PH 7.32 (7.37-7.43); ALLENS TEST ARTLINE; PATIENT TEMP 98.9; VENTILATOR YES
[2019-05-13 11:29] LABS: INSPIRED O2 100%
[2019-05-13] MEDS ORDERED: DEXMEDETOMIDINE INJECTION 200 MCG in NS (IVPB) 50 ML IV SCH (11:30)
--- NOTE | 2019-05-13 11:57 | NUR ---
Pt intubated, no family present., will continue to monitor.
[2019-05-13] MEDS: NOREPINEPHRINE 4 MG in NS (IVPB) 250 ML IV SCH ×2 (12:05→21:06)
[2019-05-13] MEDS ORDERED: LACTATED RINGERS 1,000 ML IV ONE (12:08)
[2019-05-13] MEDS ORDERED: PROPOFOL DRIP (ICU) 100 ML IV SCH (12:15)
[2019-05-13] MEDS: LACTATED RINGERS 1,000 ML IV SCH (12:15)
[2019-05-13] MEDS ORDERED: proPOfol (DIPRIVAN) 1000 MG/100 ML VIAL (ICU) IV ONE (12:30)
[2019-05-13] MEDS ORDERED: ASPI-983 PO (12:38)
--- NOTE | 2019-05-13 12:47 | NUR ---
UNABLE TO SPEAK WITH THE PATIENT AT THIS TIME HOWEVER HER BROTHER HAD A DETAILED LIST OF HER MEDICATIONS. HE STATES SHE NORMALLY HANDLES ALL OF HER MEDS. I COMPARED THAT LIST WITH THE EXT MED HX WELL WHAT WAS REPORTED AND CHANGED AT HER LAST ADMISSION AND DISCHARGE. HER LIST STATES SHE WAS TO STOP TAKING HCTZ, MELOXICAM, QUINAPRIL, AND ADVIL PM WHICH WERE ALL DISCONTINUED AT HER LAST DISCHARGE. I LEFT THEM ALL OFF THE MED REC. HER LIST HAD GLIPIZIDE ER 2.5MG DAILY ON IT HOWEVER AT HER LAST ADMISSION SHE REPORTED SHE WAS NO LONGER TAKING IT. IT WAS LAST FILLED 02-11-19 #90. I CALLED TO DOUBLE CHECK WITH DR. CARRILLO'S OFFICE AND THEY ALSO REPORT SHE IS NOT TAKING THE GLIPIZIDE BUT SHE IS SUPPOSED TO BE TAKING THE GLYBURIDE 1.25MG DAILY. I LEFT THE GLIPIZIDE OFF THE MED REC AND PASSED INFORMATION ONTO HER BROTHER FOR CLARIFICATION OF HER LIST WHEN SHE GOES HOME. ALSO HER LIST STATES DUONEB NEBULIZER SOLUTION WHICH WAS PRESCRIBED AT HER DISCHARGE IN APRIL TO [facility] IN [place]. HOWEVER [facility] HAS ALSO FILLED PLAIN ALBUTEROL NEBULIZER SOLUTION 04-27-19 AND AGAIN 05-11-19 - HER BROTHER STATES SHE WAS USING THE NEBULIZER FROM [facility] SO I REMOVED THE DUONEB AT THIS TIME AND UPDATED THE MED REC TO ALBUTEROL.
--- NOTE | 2019-05-13 12:59 | Occ Therapy Progress Note ---
Therapy Progress Note pt on vent and not appropriate for OT services at this time. OT will attempt to see patient 05/14/19 RANDI DOVE OT May 13, 2019 12:59
[2019-05-13] MEDS: PROPOFOL DRIP (ICU) 100 ML IV SCH ×3 (13:00→22:37)
--- NOTE | 2019-05-13 13:42 | History & Physical ---
CHARAN RODARTE MED STUDENT 05/13/19 1342: HPI History of Present Illness: The patient is a 59 y/o female who presented to the [facility] with a chief complaint of shortness of breath. She reports that she was hospitalized last month for COPD exacerbation and UTI. She states that she had been feeling better until 05/12 when she became increasingly short of breath and was brought to the ER. Imaging showed bibasilar atelectasis and effusions. This morning she is alert and oriented, reporting that her shortness of breath has neither improved or gotten worse. Her HCO3 was elevated and the teacher of gifted students advised that she may need to be intubated. She understood the risks versus benefits and was agreeable to intubation. Source: patient Time Seen by Provider: 08:10 Attending Physician Nestor Freedman MD PCP Jose Meek MD Consult Date of Admission May 12, 2019 at 18:07 Home Medications Home Medications Reviewed patient Home Medication Reconciliation performed by pharmacy medication reconciliations geology technician and/or nursing. Patients Allergies have been reviewed. Allergies Coded Allergies: No Known Drug Allergies (Unverified , 05/13/19) QZS-Ykridg-Hmjyty Hx Patient Social History Alcohol Use: Denies Use Recreational Drug Use: No Smoking Status: Former Smoker Type Used: Cigars, Cigarettes Recent Foreign Travel: No Contact w/other who traveled: No Recent Hopitalizations: No Recent Infectious Disease Expo: No Immunizations Up To Date Date of Pneumonia Vaccine: May 13, 2017 Past Medical History HTN Tobacco Use since age 12 Obesity Family Medical History Significant Family History: No Pertinent Family Hx Family History: Bone cancer 19 MOTHER Diabetes mellitus G8 BROTHER G8 BROTHER FH: lung cancer 19 FATHER Review of Systems ([facility]) Constitutional: no symptoms reported Respiratory: short of breath Cardiovascular: no symptoms reported Genitourinary: no symptoms reported Musculoskeletal: no symptoms reported Skin: no symptoms reported Psychiatric/Neurological: No Symptoms Reported Physical Exam-([facility]) Physical Exam Vital Signs VS - Last 72 Hours, by Label 05/12/19 05/12/19 05/12/19 05/12/19 15:30 18:59 19:40 19:44 Temp 100.2 99.8 97.7 Pulse 117 117 120 Resp 33 30 26 B/P (MAP) 124/81 (95) 104/68 (80) 113/58 Pulse Ox 89 92 86 O2 Delivery Nasal Cannula Non Rebreather Non Rebreather High Flow N/C O2 Flow Rate 3.50 15.00 15.00 4.00 15.00 05/12/19 05/12/19 05/12/19 05/12/19 19:55 21:58 22:14 23:40 Pulse 106 101 Resp 21 Pulse Ox 85 86 86 O2 Delivery Nasal Cannula Vapotherm O2 Flow Rate 4.00 40.00 100.00 FiO2 70 05/13/19 05/13/19 05/13/19 05/13/19 00:00 01:00 01:15 03:34 Temp 97.3 Pulse 102 99 106 100 Resp 20 24 B/P (MAP) 108/59 (75) Pulse Ox 93 86 92 O2 Delivery Vapotherm O2 Flow Rate 70.00 100.00 40.00 FiO2 100 05/13/19 05/13/19 05/13/19 05/13/19 03:46 04:52 05:33 06:06 Temp 97.6 Pulse 102 100 100 114 Resp 22 24 22 25 B/P (MAP) 104/60 (75) 111/69 (83) Pulse Ox 92 93 94 93 O2 Delivery Vapotherm NIV Bilevel O2 Flow Rate 100.00 100.00 100.00 05/13/19 05/13/19 05/13/19 05/13/19 06:10 06:15 06:19 06:30 Pulse 112 112 114 Resp 24 20 B/P (MAP) 106/54 (71) 101/63 (76) Pulse Ox 93 93 O2 Delivery NIV Bilevel NIV Bilevel NIV Bilevel O2 Flow Rate 100.00 100.00 05/13/19 05/13/19 05/13/19 05/13/19 07:00 07:00 07:05 08:00 Pulse 114 108 111 Resp 24 30 B/P (MAP) 128/76 (93) Pulse Ox 98 97 O2 Delivery NIV Bilevel NIV Bilevel O2 Flow Rate 100.00 100.00 FiO2 100 05/13/19 05/13/19 05/13/19 05/13/19 08:00 08:00 09:00 10:00 Temp 98.6 Pulse 120 118 108 Resp 26 21 17 B/P (MAP) 113/67 (82) 109/60 (76) 64/41 (49) Pulse Ox 94 93 90 O2 Delivery NIV Bilevel NIV Bilevel Mechanical Ventilator O2 Flow Rate 100.00 100.00 100.00 05/13/19 05/13/19 05/13/19 05/13/19 10:21 11:00 11:45 12:00 Pulse 109 116 114 Resp 18 29 17 B/P (MAP) 117/64 (81) 99/53 (68) Pulse Ox 95 98 95 O2 Delivery Mechanical Ventilator Mechanical Ventilator Mechanical Ventilator O2 Flow Rate 100.00 90.00 90.00 FiO2 100 05/13/19 05/13/19 05/13/19 12:00 12:18 13:00 Temp 98.1 B/P (MAP) 120/52 112/49 Capillary Refill : Less Than 3 Seconds General Appearance: moderate distress HEENT: PERRL/EOMI Cardiovascular: regular rate, rhythm, no murmur Neurologic/Psychiatric: alert, normal mood/affect, oriented x 3 Skin: normal color, warm/dry Assessment/Plan Assessment/Plan Admission Dx COPD exacerbation Admission Status: Inpatient Order (span 2 midnights) Reason for Inpatient Admission: Respiratory support Assessment & Plan Assessment: 1) Respiratory failure -elevated CO2 2) Pneumonia -pulomonary infiltrate on imaging 3) CHF -elevated BNP Plan: 1) Pulmonary consultation -intubate and monitor in ICU 2) Empiric antibiotic coverage Clinical Quality Measures DVT/VTE Risk/Contraindication: Risk Factor Score Per Nursin RFS Level Per Nursing on Admit: 4+=Very High Copy Copies To 1: NESTOR Wright MD 05/13/19 1439: HPI History of Present Illness: Agree with above HPI done by CHERELLE Lima in addition Unable to get HPI or ROS due to patient condition, info gathered from medical record and ER records Source: RN/MD, old records Exam Limitations: clinical condition Date seen by provider: May 13, 2019 Home Medications Allergies Coded Allergies: No Known Drug Allergies (Unverified , 05/13/19) KXX-Mrokkx-Pailwo Hx Past Medical History COPD Diastolic CHF Non Insulin Dependent DM Family Medical History Significant Family History: No Pertinent Family Hx Family History: Bone cancer 19 MOTHER Diabetes mellitus G8 BROTHER G8 BROTHER FH: lung cancer 19 FATHER Review of Systems ([facility]) Constitutional: other (Unable to get ROS due to intubation) Physical Exam-([facility]) Physical Exam General Appearance: other (Intubated, Moderate distress) Respiratory: accessory muscle use, crackles, wheezing Cardiovascular: normal peripheral pulses, regular rate, rhythm, no murmur Gastrointestinal: soft; No guarding, No rebound Neurologic/Psychiatric: other (Intubated) Skin: normal color, warm/dry Lymphatic: no adenopathy Assessment/Plan Assessment/Plan (1) Acute and chronic respiratory failure with hypoxia Status: Acute Assessment & Plan: - Intubated this AM, Dr Castillo consulted and managing (2) Severe sepsis Status: Acute Assessment & Plan: - Continue broad spectrum antibiotics, cultures pending, currently on pressors (3) PNA (pneumonia) Status: Acute Qualifiers: Qualified Codes: J18.9 - Pneumonia, unspecified organism (4) Acute combined systolic (congestive) and diastolic (congestive) heart failure Status: Acute Assessment & Plan: - Cardiology managing (5) DVT prophylaxis Status: Acute Assessment & Plan: - CHARAN Kang STUDENT May 13, 2019 13:42 NESTOR FREEDMAN MD May 13, 2019 14:39
[2019-05-13] MEDS ORDERED: ENOXAPARIN 40 MG/0.4 ML (LOVENOX) SYR SQ SCH (14:30)
--- NOTE | 2019-05-13 14:37 | Physical Therapy Progress Note ---
Therapy Progress Note PT orders received but patient is currently intubated and not able to participate in PT. Will check back tomorrow. LEIGH RABAGO PT May 13, 2019 14:37
[2019-05-13] MEDS ORDERED: SUCCINYLCHOLINE INJ 100 MG/5 ML SYR INJ ONE (14:38)
[2019-05-13] MEDS ORDERED: ROCURONIUM 10 MG/ML 5 ML SYRINGE IV ONE (14:38)
[2019-05-13] MEDS ORDERED: MIDAZOLAM 5 MG/5 ML (VERSED) VIAL IJ ONE (14:38)
[2019-05-13 15:59] LABS: ABG BASE EXCESS 5.3 MMOL/L (-2.5-2.5); ABG OXYGEN SATURATION 93 % (94-100); ABG PCO2 63 MMHG (35-45); ABG PO2 72 MMHG (79-93); ABG TCO2 33.2 MMOL/L (21.0-31.0)
[2019-05-13 16:01] LABS: ABG PH 7.31 (7.37-7.43); ALLENS TEST POSITIVE
[2019-05-13 16:02] LABS: INSPIRED O2 65%; PATIENT TEMP 98; VENTILATOR YES
[2019-05-13] MEDS: DEXMEDETOMIDINE 1,000 MCG/NS 250 ML IV SCH ×2 (17:06)
[2019-05-13 17:36] LABS: ABG BASE EXCESS 5.6 MMOL/L (-2.5-2.5); ABG OXYGEN SATURATION 92 % (94-100); ABG PCO2 55 MMHG (35-45); ABG PH 7.37 (7.37-7.43); ABG PO2 65 MMHG (79-93); ABG TCO2 32.4 MMOL/L (21.0-31.0); ALLENS TEST POSITIVE; INSPIRED O2 65%; VENTILATOR YES
[2019-05-13 17:37] LABS: PATIENT TEMP 98.2
[2019-05-13] MEDS: inSUlin ASPART (NovoLOG) 1 UNIT/0.01 ML (CHARGE PER UNIT) SQ SCH (18:19)
[2019-05-14] VITALS (31 sets, daily range): BP systolic 89–138; BP diastolic 42–101
[2019-05-14] MEDS: PIPERACILLIN/TAZO 4.5 GM/NS 100 ML IV SCH ×8 (01:00→23:45)
[2019-05-14] MEDS: LACTATED RINGERS 1,000 ML IV SCH ×2 (01:39→14:31)
[2019-05-14] MEDS: RT-ALBUTEROL/IPRATROPIUM 3 ML (DUONEB) VIAL INH SCH ×8 (02:34→22:38)
[2019-05-14 03:49] LABS: ABG BASE EXCESS 6.7 MMOL/L (-2.5-2.5); ABG OXYGEN SATURATION 95 % (94-100); ABG PCO2 50 MMHG (35-45); ABG PH 7.41 (7.37-7.43); ABG PO2 74 MMHG (79-93)
[2019-05-14 03:49] LABS: BASOPHILS % (AUTO) 0 % (0-10); EOSINOPHILS # (AUTO) 0.1 10^3/uL (0.0-0.3); EOSINOPHILS % (AUTO) 0 % (0-10); HEMATOCRIT 38 % (35-52); HEMOGLOBIN 11.9 G/DL (11.5-16.0); LYMPHOCYTES # (AUTO) 2.1 X 10^3 (1.0-4.0); LYMPHOCYTES % (AUTO) 11 % (12-44); MEAN CORPUSCULAR HEMOGLOBIN 28 PG (25-34); MEAN CORPUSCULAR HGB CONC 32 G/DL (32-36); MEAN CORPUSCULAR VOLUME 88 FL (80-99); MEAN PLATELET VOLUME 10.4 FL (7.4-10.4); MONOCYTES # (AUTO) 1.4 X 10^3 (0.0-1.0); MONOCYTES % (AUTO) 7 % (0-12); NEUTROPHILS # (AUTO) 15.2 X 10^3 (1.8-7.8); NEUTROPHILS % (AUTO) 81 % (42-75); PLATELET COUNT 342 10^3/uL (130-400); RED CELL DISTRIBUTION WIDTH 15.7 % (10.0-14.5); WHITE BLOOD COUNT 18.8 10^3/uL (4.3-11.0)
[2019-05-14 03:50] LABS: ALLENS TEST ART LINE
[2019-05-14 03:51] LABS: INSPIRED O2 65%; PATIENT TEMP 97.1; VENTILATOR YES
[2019-05-14] MEDS: inSUlin ASPART (NovoLOG) 1 UNIT/0.01 ML (CHARGE PER UNIT) SQ SCH ×5 (03:56→23:54)
[2019-05-14] MEDS: PROPOFOL DRIP (ICU) 100 ML IV SCH ×4 (03:57→23:42)
[2019-05-14 04:10] LABS: BUN/CREATININE RATIO 16; CALCIUM 9.1 MG/DL (8.5-10.1); CARBON DIOXIDE 26 MMOL/L (21-32); CHLORIDE 99 MMOL/L (98-107); CREATININE SERUM 0.81 MG/DL (0.60-1.30); GFR ESTIMATED > 60; GLUCOSE 127 MG/DL (70-105); MAGNESIUM 1.2 MG/DL (1.8-2.4); PHOSPHORUS 3.5 MG/DL (2.3-4.7); POTASSIUM 3.6 MMOL/L (3.6-5.0); SODIUM 139 MMOL/L (135-145)
[2019-05-14] MEDS: MAGNESIUM 1 GM/100 ML IVPB 100 ML IV SCH ×5 (05:35→08:53)
[2019-05-14] MEDS: CATHETER FLUSH 10 ML SYR IV SCH ×3 (06:00→22:29)
[2019-05-14] MEDS ORDERED: NS IV 1000 ML 1,000 ML IV SCH (06:15)
--- NOTE | 2019-05-14 06:30 | Diagnostic Imaging Report ---
INDICATION: Shortness of breath. Portable chest 4:09 AM FINDINGS: There is an ET tube projecting over the trachea. Right IJ central line tip projects over the SVC. Heart is moderately enlarged. There is increased density at the lung bases which may be from pleural effusions layering out. IMPRESSION: Suspected bilateral pleural effusions. No appreciable change from previous day. Dictated by: Dictated on workstation # [id number]
[2019-05-14] MEDS: POTASSIUM CL 10MEQ/50ML IVPB 50 ML IV SCH ×6 (06:39→09:55)
[2019-05-14] MEDS: KCL 20 MEQ TAB (K-DUR) PO SCH ×2 (06:40)
--- NOTE | 2019-05-14 07:26 | Pulmonary Progress Note ---
Subjective Time Seen by a Provider: 05:34 Subjective/Events-last exam PT sedated on vent. Sepsis Event Evaluation Height, Weight, BMI Height: 5'5.00" Weight: 173lbs. 3.0oz. 78.332364hb; 28.3 BMI Method:Stated Focused Exam Lactate Level 05/12/19 15:50: Lactic Acid Level 1.51 Exam Exam Vital Signs Date Time Temp Pulse Resp B/P (MAP) Pulse Ox O2 Delivery O2 Flow Rate FiO2 05/14/19 06:44 95 24 93 60 05/14/19 06:00 97 24 117/50 (72) 95 Mechanical Ventilator 65.00 05/14/19 05:00 98 24 117/49 (71) 95 Mechanical Ventilator 65.00 05/14/19 04:00 Mechanical Ventilator 93 05/14/19 04:00 99 24 117/52 (73) 95 Mechanical Ventilator 65.00 05/14/19 03:57 116/52 05/14/19 03:00 112 24 94/44 (61) 94 Mechanical Ventilator 65.00 05/14/19 02:34 96 38 96 65 05/14/19 02:00 103 24 111/53 (72) 95 Mechanical Ventilator 65.00 05/14/19 01:00 105 23 109/52 (71) 95 Mechanical Ventilator 65.00 05/14/19 01:00 105 05/14/19 00:00 108 23 119/50 (73) 95 Mechanical Ventilator 65.00 05/14/19 00:00 Mechanical Ventilator 93 05/14/19 00:00 96.9 05/13/19 23:00 112 24 123/51 (75) 95 Mechanical Ventilator 65.00 05/13/19 22:37 123/51 05/13/19 22:00 112 23 110/47 (68) 94 Mechanical Ventilator 65.00 05/13/19 21:52 112 28 94 65 05/13/19 21:00 114 23 141/57 (85) 95 Mechanical Ventilator 65.00 05/13/19 20:20 89/42 05/13/19 20:00 97.9 05/13/19 20:00 Mechanical Ventilator 93 05/13/19 20:00 112 23 117/51 (73) 94 Mechanical Ventilator 65.00 05/13/19 19:30 122/64 05/13/19 19:00 112 23 103/44 (63) 93 Mechanical Ventilator 65.00 05/13/19 19:00 112 05/13/19 18:29 112 24 93 65 05/13/19 18:00 112 24 96/42 (60) 92 Mechanical Ventilator 65.00 05/13/19 17:06 112/47 05/13/19 17:00 110 23 108/46 (66) 93 Mechanical Ventilator 65.00 05/13/19 16:00 Mechanical Ventilator 90 05/13/19 16:00 111 24 95/43 (60) 94 Mechanical Ventilator 65.00 05/13/19 15:41 Mechanical Ventilator 65.00 05/13/19 15:37 111 18 94 65 05/13/19 15:00 112 17 105/59 (74) 94 Mechanical Ventilator 90.00 05/13/19 14:32 112 18 94 70 05/13/19 14:30 Mechanical Ventilator 70.00 05/13/19 14:00 107 18 83/37 (52) 94 Mechanical Ventilator 90.00 05/13/19 13:00 112 19 104/48 (66) 95 Mechanical Ventilator 90.00 05/13/19 13:00 112/49 05/13/19 13:00 112 05/13/19 12:18 120/52 05/13/19 12:00 Mechanical Ventilator 90 05/13/19 12:00 98.1 05/13/19 12:00 114 17 99/53 (68) 95 Mechanical Ventilator 90.00 05/13/19 11:45 Mechanical Ventilator 90.00 05/13/19 11:00 116 29 117/64 (81) 98 Mechanical Ventilator 100.00 05/13/19 10:21 109 18 95 100 05/13/19 10:00 108 17 64/41 (49) 90 Mechanical Ventilator 100.00 05/13/19 09:00 118 21 109/60 (76) 93 NIV Bilevel 100.00 05/13/19 08:00 98.6 05/13/19 08:00 120 26 113/67 (82) 94 NIV Bilevel 100.00 05/13/19 08:00 NIV Bilevel 100 I & O 05/14/19 07:00 Intake Total 4194 ml Output Total 3150 ml Balance 1044 ml Height & Weight Height: 5'5.00" Weight: 173lbs. 3.0oz. 78.553025cj; 28.3 BMI Method:Stated General Appearance: No Apparent Distress, WD/WN, Other (Sedated on vent) HEENT: PERRL/EOMI, Normal ENT Inspection, Pharynx Normal Neck: Non Tender, Supple Respiratory: No Accessory Muscle Use, No Respiratory Distress, Decreased Breath Sounds Cardiovascular: Regular Rate, Rhythm, No Edema Capillary Refill: Less Than 3 Seconds Gastrointestinal: soft; No guarding, No rebound Extremity: Normal Capillary Refill, Normal Inspection, No Pedal Edema Skin: Normal Color, Warm/Dry Lymphatic: No Adenopathy Results Lab Laboratory Tests 05/12/19 15:50 05/13/19 05:47 05/14/19 03:39 Assessment/Plan Assessment/Plan Acute respiratory failure -Pt on ventilator. Not ready for weaning yet -Pt is currently a full code. Sepsis with Pneumonia -Continue Zosyn, -Check hendrickson cultures -MRSA nasal swab pending Hypotension -Still requiring Levophed -Add Solucortef Diastolic CHF EF 35% -BNP is 2540 on admission -Continue Lasix for now Hypokalemia, hypomag -replace MISTY GUZMAN DO May 14, 2019 07:26
[2019-05-14] MEDS: DEXMEDETOMIDINE 1,000 MCG/NS 250 ML IV SCH ×4 (07:28→15:29)
[2019-05-14] MEDS ORDERED: SODIUM PHOSPHATE INJ 30 MM in NS (IVPB) 250 ML IV NR (07:30)
[2019-05-14] MEDS: PANTOPRAZOLE 40 MG (PROTONIX) VIAL IV SCH (08:18)
--- NOTE | 2019-05-14 08:19 | Physical Therapy Progress Note ---
Therapy Progress Note Patient is currently on mechanical ventilator. PT to assess patient when medically stable and able to actively participate with skilled therapy. SHAMAR GREGORIO PT May 14, 2019 08:19
--- NOTE | 2019-05-14 12:53 | Occ Therapy Progress Note ---
Therapy Progress Note Pt. continues on vent and sedation. Will continue to monitor pt. 1253 TRISTIN PANIAGUA OT May 14, 2019 12:53
[2019-05-14] MEDS: ENOXAPARIN 40 MG/0.4 ML (LOVENOX) SYR SQ SCH (14:22)
[2019-05-14] MEDS: HYDROCORTISONE 100 MG/2 ML (Solu-CORTEF) VIAL IV SCH ×2 (14:22→23:45)
[2019-05-14] MEDS: NOREPINEPHRINE 4 MG in NS (IVPB) 250 ML IV SCH (16:47)
--- NOTE | 2019-05-14 19:58 | Progress Note ---
Subjective Subjective/Events-last exam Alert on the Vent. Answering simple questions appropriately Review of Systems Denies pain, unable to complete due to vent Focused Exam Lactate Level 05/12/19 15:50: Lactic Acid Level 1.51 Objective Exam Last Set of Vital Signs Vital Signs Date Time Temp Pulse Resp B/P (MAP) Pulse Ox O2 Delivery O2 Flow Rate FiO2 05/14/19 18:37 94 24 93 40 05/14/19 18:00 133/59 (83) Mechanical Ventilator 50.00 05/14/19 16:00 97.8 Capillary Refill : Less Than 3 Seconds I&O Intake and Output 05/14/19 00:00 Intake Total 3304 ml Output Total 2950 ml Balance 354 ml Intake Oral 60 ml IV Total 3244 ml Output Urine Total 2950 ml General: Other (Vent) HEENT: Mucous Memb Moist/[place] Lungs: Other (crackles throughout lung masterson, breathing over the vent) Heart: Regular Rate, No Murmurs Abdomen: Normal Bowel Sounds, Soft, No Tenderness, No Masses Extremities: Other (2+ pitting edema bilaterally) Skin: No Rashes, No Breakdown Results/Procedures Lab Laboratory Tests 05/14/19 01:52: Glucometer 114H 05/14/19 03:39: White Blood Count 18.8H, Red Blood Count 4.30L, Hemoglobin 11.9, Hematocrit 38, Mean Corpuscular Volume 88, Mean Corpuscular Hemoglobin 28, Mean Corpuscular Hemoglobin Concent 32, Red Cell Distribution Width 15.7H, Platelet Count 342, Mean Platelet Volume 10.4, Neutrophils (%) (Auto) 81H, Lymphocytes (%) (Auto) 11L, Monocytes (%) (Auto) 7, Eosinophils (%) (Auto) 0, Basophils (%) (Auto) 0, Neutrophils # (Auto) 15.2H, Lymphocytes # (Auto) 2.1, Monocytes # (Auto) 1.4H, Eosinophils # (Auto) 0.1, Basophils # (Auto) 0.0, Sodium Level 139, Potassium Level 3.6, Chloride Level 99, Carbon Dioxide Level 26, Anion Gap 14, Blood Urea Nitrogen 13, Creatinine 0.81, Estimat Glomerular Filtration Rate > 60, BUN/Creatinine Ratio 16, Glucose Level 127H, Calcium Level 9.1, Phosphorus Level 3.5, Magnesium Level 1.2L 05/14/19 03:41: Blood Gas Puncture Site Swetha MONIQUE, Blood Gas Patient Temperature 97.1, Arterial Blood pH 7.41, Arterial Blood Partial Pressure CO2 50H, Arterial Blood Partial Pressure O2 74L, Arterial Blood HCO3 31H, Arterial Blood Total CO2 33.0H , Arterial Blood Oxygen Saturation 95, Arterial Blood Base Excess 6.7H, Александр Test ART LINE, Blood Gas Ventilator Setting YES, Blood Gas Inspired Oxygen 65% 05/14/19 11:24: Glucometer 127H 05/14/19 18:20: Glucometer 149H Microbiology 05/12/19 Blood Culture - Preliminary, Resulted No growth 05/13/19 Gram Stain - Final, Resulted 05/13/19 Sputum Culture - Preliminary, Resulted Culture In Progress Assessment/Plan Assessment/Plan Assessment & Plan Assessment: 1) Respiratory failure -elevated CO2 2) Pneumonia -pulomonary infiltrate on imaging 3) CHF -elevated BNP Plan: 1) Pulmonary consultation -intubate and monitor in ICU 2) Empiric antibiotic coverage (1) Acute and chronic respiratory failure with hypoxia Status: Acute Assessment & Plan: - Intubated this AM, Dr Castillo consulted and managing 05/14: Breathing over vent, No improvement in CXR, Continue antibiotics and steroids (2) Severe sepsis Status: Acute Assessment & Plan: - Continue broad spectrum antibiotics, cultures pending, currently on pressors 05/14: Goal to titrate pressors as tolerated today (3) PNA (pneumonia) Status: Acute Qualifiers: Qualified Codes: J18.9 - Pneumonia, unspecified organism (4) Acute combined systolic (congestive) and diastolic (congestive) heart failure Status: Acute Assessment & Plan: - Cardiology managing (5) DVT prophylaxis Status: Acute Assessment & Plan: - lovenox Clinical Quality Measures DVT/VTE Risk/Contraindication: Risk Factor Score Per Nursin RFS Level Per Nursing on Admit: 4+=Very High NESTOR FREEDMAN MD May 14, 2019 19:58
[2019-05-15] VITALS (30 sets, daily range): BP systolic 16–146; BP diastolic 36–55
[2019-05-15] MEDS: DEXMEDETOMIDINE 1,000 MCG/NS 250 ML IV SCH ×6 (01:22→21:24)
[2019-05-15] MEDS: RT-ALBUTEROL/IPRATROPIUM 3 ML (DUONEB) VIAL INH SCH ×9 (02:33→23:18)
[2019-05-15 02:58] LABS: ABG BASE EXCESS 2.2 MMOL/L (-2.5-2.5); ABG OXYGEN SATURATION 89 % (94-100); ABG PCO2 37 MMHG (35-45); ABG PH 7.45 (7.37-7.43); ABG PO2 57 MMHG (79-93); ABG TCO2 27.2 MMOL/L (21.0-31.0); BASOPHILS % (AUTO) 0 % (0-10); EOSINOPHILS % (AUTO) 0 % (0-10); HEMATOCRIT 37 % (35-52); HEMOGLOBIN 11.7 G/DL (11.5-16.0); LYMPHOCYTES # (AUTO) 0.6 X 10^3 (1.0-4.0); LYMPHOCYTES % (AUTO) 4 % (12-44); MEAN CORPUSCULAR HEMOGLOBIN 27 PG (25-34); MEAN CORPUSCULAR HGB CONC 32 G/DL (32-36); MEAN CORPUSCULAR VOLUME 86 FL (80-99); MEAN PLATELET VOLUME 10.1 FL (7.4-10.4); MONOCYTES # (AUTO) 0.4 X 10^3 (0.0-1.0); MONOCYTES % (AUTO) 2 % (0-12); NEUTROPHILS # (AUTO) 15.4 X 10^3 (1.8-7.8); NEUTROPHILS % (AUTO) 94 % (42-75); PLATELET COUNT 373 10^3/uL (130-400); RED CELL DISTRIBUTION WIDTH 15.7 % (10.0-14.5); WHITE BLOOD COUNT 16.5 10^3/uL (4.3-11.0)
[2019-05-15 03:02] LABS: ALLENS TEST YES-POS; INSPIRED O2 40%; PATIENT TEMP 97.2; VENTILATOR YES
[2019-05-15 03:15] LABS: BUN/CREATININE RATIO 18; CALCIUM 9.6 MG/DL (8.5-10.1); CARBON DIOXIDE 23 MMOL/L (21-32); CHLORIDE 103 MMOL/L (98-107); CREATININE SERUM 0.74 MG/DL (0.60-1.30); GFR ESTIMATED > 60; GLUCOSE 171 MG/DL (70-105); MAGNESIUM 1.5 MG/DL (1.8-2.4); PHOSPHORUS 3.4 MG/DL (2.3-4.7); SODIUM 140 MMOL/L (135-145); TRIGLYCERIDES 128 MG/DL (<150)
[2019-05-15] MEDS: POTASSIUM CL 10MEQ/50ML IVPB 50 ML IV SCH ×2 (03:28)
[2019-05-15] MEDS: MAGNESIUM 1 GM/100 ML IVPB 100 ML IV SCH ×6 (03:50→07:49)
[2019-05-15] MEDS: LACTATED RINGERS 1,000 ML IV SCH (03:50)
[2019-05-15] MEDS: KCL 20 MEQ TAB (K-DUR) PO SCH ×2 (03:51)
[2019-05-15] MEDS: CATHETER FLUSH 10 ML SYR IV SCH ×3 (03:51→21:23)
[2019-05-15] MEDS: PROPOFOL DRIP (ICU) 100 ML IV SCH ×4 (04:40→21:25)
[2019-05-15] MEDS: HYDROCORTISONE 100 MG/2 ML (Solu-CORTEF) VIAL IV SCH ×3 (05:07→21:23)
[2019-05-15] MEDS: inSUlin ASPART (NovoLOG) 1 UNIT/0.01 ML (CHARGE PER UNIT) SQ SCH ×3 (05:08→17:39)
--- NOTE | 2019-05-15 05:42 | Pulmonary Progress Note ---
Subjective Time Seen by a Provider: 05:41 Subjective/Events-last exam PT is sedated on vent. Sepsis Event Evaluation Height, Weight, BMI Height: 5'5.00" Weight: 173lbs. 3.0oz. 78.983445gf; 28.3 BMI Method:Stated Focused Exam Lactate Level 05/12/19 15:50: Lactic Acid Level 1.51 Exam Exam Vital Signs Date Time Temp Pulse Resp B/P (MAP) Pulse Ox O2 Delivery O2 Flow Rate FiO2 05/15/19 04:53 Mechanical Ventilator 50.00 05/15/19 04:40 97.2 101 24 146/55 92 Mechanical Ventilator 40.00 05/15/19 04:00 92 Mechanical Ventilator 40 05/15/19 04:00 97.2 101 24 146/55 (85) 93 Mechanical Ventilator 40.00 05/15/19 03:00 96 23 140/53 (82) 92 Mechanical Ventilator 40.00 05/15/19 02:34 98 24 90 40 05/15/19 02:00 97 24 127/52 (77) 91 Mechanical Ventilator 50.00 05/15/19 01:00 101 05/15/19 01:00 101 24 124/47 (72) 90 Mechanical Ventilator 50.00 05/15/19 00:00 97.8 98 23 135/54 (81) 92 Mechanical Ventilator 50.00 05/15/19 00:00 Mechanical Ventilator 40 05/14/19 23:42 97 24 124/41 98 Mechanical Ventilator 40.00 05/14/19 23:00 95 23 132/60 (84) 93 Mechanical Ventilator 50.00 05/14/19 22:38 96 24 93 40 05/14/19 22:00 90 23 132/59 (83) 93 Mechanical Ventilator 50.00 05/14/19 21:00 96 23 138/60 (86) 92 Mechanical Ventilator 50.00 05/14/19 20:34 96.5 Mechanical Ventilator 40.00 05/14/19 20:00 Mechanical Ventilator 40 05/14/19 20:00 92 23 133/59 (83) 93 Mechanical Ventilator 50.00 05/14/19 19:00 98 23 129/61 (83) 93 Mechanical Ventilator 50.00 05/14/19 19:00 98 05/14/19 18:37 94 24 93 40 05/14/19 18:00 96 23 133/59 (83) 94 Mechanical Ventilator 50.00 05/14/19 17:00 101 23 125/57 (79) 96 Mechanical Ventilator 50.00 05/14/19 16:49 97 24 96 40 05/14/19 16:47 95 126/57 05/14/19 16:00 101 15 122/54 (76) 95 Mechanical Ventilator 50.00 05/14/19 16:00 96 Mechanical Ventilator 40 05/14/19 16:00 97.8 05/14/19 15:00 104 24 115/51 (72) 94 Mechanical Ventilator 50.00 05/14/19 14:00 101 23 105/46 (65) 94 Mechanical Ventilator 50.00 05/14/19 13:00 101 23 93/101 (98) 93 Mechanical Ventilator 50.00 05/14/19 13:00 101 05/14/19 12:00 94 Mechanical Ventilator 40 05/14/19 12:00 101 23 116/50 (72) 94 Mechanical Ventilator 50.00 05/14/19 11:00 98 23 110/52 (71) 97 Mechanical Ventilator 50.00 05/14/19 10:58 98 24 97 50 05/14/19 10:50 96 05/14/19 10:00 92 24 89/45 (60) 93 Mechanical Ventilator 50.00 05/14/19 09:00 104 24 97/49 (65) 92 Mechanical Ventilator 50.00 05/14/19 08:53 98 24 92 50 05/14/19 08:00 91 Mechanical Ventilator 50 05/14/19 08:00 92 24 117/50 (72) 91 Mechanical Ventilator 50.00 05/14/19 07:00 96 23 103/44 (63) 93 Mechanical Ventilator 50.00 05/14/19 07:00 96 05/14/19 07:00 97.3 05/14/19 06:44 95 24 93 60 05/14/19 06:00 97 24 117/50 (72) 95 Mechanical Ventilator 65.00 I & O 05/15/19 07:00 Intake Total 4570 ml Output Total 870 ml Balance 3700 ml Height & Weight Height: 5'5.00" Weight: 173lbs. 3.0oz. 78.279422fv; 28.3 BMI Method:Stated General Appearance: No Apparent Distress, WD/WN, Other (Sedated on vent) HEENT: PERRL/EOMI, Normal ENT Inspection, Pharynx Normal Neck: Non Tender, Supple Respiratory: No Accessory Muscle Use, No Respiratory Distress, Decreased Breath Sounds Cardiovascular: Regular Rate, Rhythm, No Edema Capillary Refill: Less Than 3 Seconds Gastrointestinal: soft; No guarding, No rebound Extremity: Normal Capillary Refill, Normal Inspection, No Pedal Edema Skin: Normal Color, Warm/Dry Lymphatic: No Adenopathy Results Lab Laboratory Tests 05/13/19 05:47 05/14/19 03:39 05/15/19 02:45 Assessment/Plan Assessment/Plan Acute respiratory failure -Pt on ventilator. Not ready for weaning yet -Decrease RR to 20 and repeat ABG in 1hr Sepsis with Pneumonia -Continue Zosyn, -Check hendrickson cultures -MRSA nasal swab pending Hypotension -D/C Levophed -Add Solucortef CHF EF 35% with acute pulmonary edema -Decrease IVF to 30cc/hr -Start Lasix 20mg IV BID Hypokalemia, hypomag -replace MISTY GUZMAN DO May 15, 2019 05:42
[2019-05-15 06:50] LABS: ABG BASE EXCESS 2.9 MMOL/L (-2.5-2.5); ABG OXYGEN SATURATION 87 % (94-100); ABG PCO2 41 MMHG (35-45); ABG PH 7.43 (7.37-7.43); ABG PO2 56 MMHG (79-93); ABG TCO2 28.2 MMOL/L (21.0-31.0)
[2019-05-15 06:55] LABS: INSPIRED O2 50%; VENTILATOR YES
[2019-05-15] MEDS: PANTOPRAZOLE 40 MG (PROTONIX) VIAL IV SCH ×2 (07:49→21:23)
[2019-05-15] MEDS: PIPERACILLIN/TAZO 4.5 GM/NS 100 ML IV SCH ×4 (07:49→14:30)
--- NOTE | 2019-05-15 07:49 | Diagnostic Imaging Report ---
INDICATION: Dyspnea. TECHNIQUE: Single frontal view of the chest. COMPARISON: 05/14/2019 FINDINGS: The endotracheal tube appears to be stable, below the clavicles and above the garcía. Enteric tube tip projects over the stomach. The right-sided jugular line tip projects over the upper SVC. There are bilateral airspace opacities and bilateral pleural effusions with decreased aeration compared to the prior exam. No pneumothorax is seen. The cardiac silhouette is large but stable in size. IMPRESSION: 1. Bilateral pleural effusions and airspace opacities with decreased aeration compared to prior exam. 2. Tubes and line appear stable. 3. Stable cardiomegaly. Dictated by: Dictated on workstation # [id number]
[2019-05-15] MEDS: FUROSEMIDE 40 MG/4 ML INJ (LASIX) IVP SCH ×2 (07:50→21:23)
--- NOTE | 2019-05-15 07:50 | NUR ---
MORNING DOSE OF LASIX HELD PER DR GUZMAN.
[2019-05-15] MEDS: POTASSIUM CHLORIDE INJ 20 MEQ in LACTATED RINGERS 1,000 ML IV SCH (08:01)
--- NOTE | 2019-05-15 08:09 | Physical Therapy Progress Note ---
Therapy Progress Note Patient remains on mechanical ventilator sedated. PT will assess patient when medically stable and able to actively participate with skilled therapy. SHAMAR GREGORIO PT May 15, 2019 08:09
[2019-05-15] MEDS: ONDANSETRON 4 MG/2 ML (SDV) Z0FRAN IVP PRN (09:47)
--- NOTE | 2019-05-15 13:25 | Progress Note ---
Subjective Subjective/Events-last exam Easy to arouse on vent. Breathing comfortably on vent. Titrating pressors. Review of Systems Denies pain, unable to complete due to vent Focused Exam Lactate Level 05/12/19 15:50: Lactic Acid Level 1.51 Objective Exam Last Set of Vital Signs Vital Signs Date Time Temp Pulse Resp B/P (MAP) Pulse Ox O2 Delivery O2 Flow Rate FiO2 05/15/19 12:00 91 Mechanical Ventilator 50 05/15/19 12:00 82 19 108/45 (66) 50.00 05/15/19 11:04 98.1 Capillary Refill : Less Than 3 Seconds I&O Intake and Output 05/15/19 00:00 Intake Total 4640 ml Output Total 1280 ml Balance 3360 ml Intake Oral 0 ml IV Total 4640 ml Output Urine Total 1280 ml General: Alert Lungs: Clear to Auscultation, Normal Air Movement Heart: Regular Rate, No Murmurs Abdomen: Normal Bowel Sounds, Soft, No Tenderness Extremities: No Edema, No Tenderness/Swelling Results/Procedures Lab Laboratory Tests 05/14/19 18:20: Glucometer 149H 05/14/19 23:52: Glucometer 142H 05/15/19 02:45: White Blood Count 16.5H, Red Blood Count 4.30L, Hemoglobin 11.7, Hematocrit 37, Mean Corpuscular Volume 86, Mean Corpuscular Hemoglobin 27, Mean Corpuscular Hemoglobin Concent 32, Red Cell Distribution Width 15.7H, Platelet Count 373, Mean Platelet Volume 10.1, Neutrophils (%) (Auto) 94H, Lymphocytes (%) (Auto) 4L , Monocytes (%) (Auto) 2, Eosinophils (%) (Auto) 0, Basophils (%) (Auto) 0, Neutrophils # (Auto) 15.4H, Lymphocytes # (Auto) 0.6L, Monocytes # (Auto) 0.4, Eosinophils # (Auto) 0.0, Basophils # (Auto) 0.0, Blood Gas Puncture Site RIGHT RADIAL, Blood Gas Patient Temperature 97.2, Arterial Blood pH 7.45H, Arterial Blood Partial Pressure CO2 37, Arterial Blood Partial Pressure O2 57L, Arterial Blood HCO3 26, Arterial Blood Total CO2 27.2, Arterial Blood Oxygen Saturation 89L, Arterial Blood Base Excess 2.2, Александр Test YES-POS, Blood Gas Ventilator Setting YES, Blood Gas Inspired Oxygen 40%, Sodium Level 140, Potassium Level 4.0, Chloride Level 103, Carbon Dioxide Level 23, Anion Gap 14, Blood Urea Nitrogen 13, Creatinine 0.74, Estimat Glomerular Filtration Rate > 60, BUN/Creatinine Ratio 18, Glucose Level 171H, Calcium Level 9.6, Phosphorus Level 3.4, Magnesium Level 1.5L, B-Type Natriuretic Peptide 694.8H, Triglycerides Level 128 05/15/19 06:40: Blood Gas Puncture Site RIGHT ART LINE, Blood Gas Patient Temperature 98.0, Arterial Blood pH 7.43, Arterial Blood Partial Pressure CO2 41, Arterial Blood Partial Pressure O2 56L, Arterial Blood HCO3 27, Arterial Blood Total CO2 28.2, Arterial Blood Oxygen Saturation 87L, Arterial Blood Base Excess 2.9H, Александр Test NA, Blood Gas Ventilator Setting YES, Blood Gas Inspired Oxygen 50% 05/15/19 11:04: Glucometer 202H Microbiology 05/12/19 Blood Culture - Preliminary, Resulted No growth 05/13/19 MRSA Screen - Final, Complete MRSA not isolated Assessment/Plan Assessment/Plan Assessment & Plan Assessment: 1) Respiratory failure -elevated CO2 2) Pneumonia -pulomonary infiltrate on imaging 3) CHF -elevated BNP Plan: 1) Pulmonary consultation -intubate and monitor in ICU 2) Empiric antibiotic coverage (1) Acute and chronic respiratory failure with hypoxia Status: Acute Assessment & Plan: - Intubated this AM, Dr Castillo consulted and managing 05/14: Breathing over vent, No improvement in CXR, Continue antibiotics and steroids 05/15: Wean per Dr Castillo (2) Severe sepsis Status: Acute Assessment & Plan: - Continue broad spectrum antibiotics, cultures pending, currently on pressors 05/14: Goal to titrate pressors as tolerated today 05/15: Cultures NGTD (3) PNA (pneumonia) Status: Acute Qualifiers: Qualified Codes: J18.9 - Pneumonia, unspecified organism (4) Acute combined systolic (congestive) and diastolic (congestive) heart failure Status: Acute Assessment & Plan: - Cardiology managing (5) DVT prophylaxis Status: Acute Assessment & Plan: - lovenox Clinical Quality Measures DVT/VTE Risk/Contraindication: Risk Factor Score Per Nursin RFS Level Per Nursing on Admit: 4+=Very High NESTOR FREEDMAN MD May 15, 2019 13:25
[2019-05-15] MEDS: ENOXAPARIN 40 MG/0.4 ML (LOVENOX) SYR SQ SCH (14:27)
--- NOTE | 2019-05-15 14:36 | Occ Therapy Progress Note ---
Therapy Progress Note Patient remains on mechanical ventilator sedated. OT will continue to monitor patient. RANDI DOVE OT May 15, 2019 14:36
[2019-05-16] VITALS (30 sets, daily range): BP systolic 112–143; BP diastolic 50–58
[2019-05-16] MEDS: PIPERACILLIN/TAZO 4.5 GM/NS 100 ML IV SCH ×8 (00:06→23:26)
[2019-05-16] MEDS: PROPOFOL DRIP (ICU) 100 ML IV SCH ×6 (00:15→21:03)
[2019-05-16] MEDS: inSUlin ASPART (NovoLOG) 1 UNIT/0.01 ML (CHARGE PER UNIT) SQ SCH ×4 (00:17→17:04)
[2019-05-16] MEDS: RT-ALBUTEROL/IPRATROPIUM 3 ML (DUONEB) VIAL INH SCH ×6 (02:32→22:30)
[2019-05-16 03:19] LABS: ABG BASE EXCESS 3.2 MMOL/L (-2.5-2.5); ABG OXYGEN SATURATION 90 % (94-100); ABG PCO2 44 MMHG (35-45); ABG PH 7.41 (7.37-7.43); ABG PO2 59 MMHG (79-93)
[2019-05-16 03:20] LABS: BASOPHILS % (AUTO) 0 % (0-10); EOSINOPHILS % (AUTO) 0 % (0-10); HEMATOCRIT 34 % (35-52); HEMOGLOBIN 10.7 G/DL (11.5-16.0); LYMPHOCYTES # (AUTO) 1.1 X 10^3 (1.0-4.0); LYMPHOCYTES % (AUTO) 9 % (12-44); MEAN CORPUSCULAR HEMOGLOBIN 27 PG (25-34); MEAN CORPUSCULAR HGB CONC 32 G/DL (32-36); MEAN CORPUSCULAR VOLUME 87 FL (80-99); MEAN PLATELET VOLUME 10.8 FL (7.4-10.4); MONOCYTES # (AUTO) 0.5 X 10^3 (0.0-1.0); MONOCYTES % (AUTO) 4 % (0-12); NEUTROPHILS # (AUTO) 10.7 X 10^3 (1.8-7.8); NEUTROPHILS % (AUTO) 87 % (42-75); PLATELET COUNT 326 10^3/uL (130-400); RED CELL DISTRIBUTION WIDTH 15.5 % (10.0-14.5); WHITE BLOOD COUNT 12.3 10^3/uL (4.3-11.0)
[2019-05-16 03:22] LABS: ALLENS TEST ART LINE
[2019-05-16 03:23] LABS: INSPIRED O2 50%; PATIENT TEMP 97.1; VENTILATOR YES
[2019-05-16 03:37] LABS: BUN/CREATININE RATIO 18; CALCIUM 9.4 MG/DL (8.5-10.1); CARBON DIOXIDE 25 MMOL/L (21-32); CHLORIDE 105 MMOL/L (98-107); CREATININE SERUM 0.82 MG/DL (0.60-1.30); GFR ESTIMATED > 60; GLUCOSE 146 MG/DL (70-105); MAGNESIUM 1.5 MG/DL (1.8-2.4); PHOSPHORUS 4.4 MG/DL (2.3-4.7); POTASSIUM 3.5 MMOL/L (3.6-5.0); SODIUM 143 MMOL/L (135-145)
[2019-05-16] MEDS ORDERED: POTASSIUM CL 10MEQ/50ML IVPB 50 ML IV ONE (04:00)
[2019-05-16] MEDS ORDERED: MAGNESIUM 1 GM/100 ML IVPB 100 ML IV ONE (04:00)
[2019-05-16] MEDS: MAGNESIUM 1 GM/100 ML IVPB 100 ML IV SCH ×2 (04:07→04:08)
[2019-05-16] MEDS: POTASSIUM CL 10MEQ/50ML IVPB 50 ML IV SCH ×5 (04:07→09:51)
[2019-05-16] MEDS: DEXMEDETOMIDINE 1,000 MCG/NS 250 ML IV SCH ×6 (04:23→23:26)
--- NOTE | 2019-05-16 06:51 | Pulmonary Progress Note ---
Subjective Time Seen by a Provider: 07:19 Subjective/Events-last exam Pt sedated on vent. Sepsis Event Evaluation Height, Weight, BMI Height: 5'5.00" Weight: 176lbs. 8.0oz. 80.583105ew; 28.3 BMI Method:Stated Exam Exam Vital Signs Date Time Temp Pulse Resp B/P (MAP) Pulse Ox O2 Delivery O2 Flow Rate FiO2 05/16/19 06:25 86 21 96 50 05/16/19 06:24 86 21 129/51 97 Mechanical Ventilator 50.00 05/16/19 06:00 98 25 136/58 (84) 97 Mechanical Ventilator 50.00 05/16/19 05:00 80 20 127/52 (77) 95 Mechanical Ventilator 50.00 05/16/19 04:49 97.1 05/16/19 04:26 93 Mechanical Ventilator 50 05/16/19 04:22 84 20 125/50 Mechanical Ventilator 50.00 05/16/19 04:00 84 20 143/54 (83) 95 Mechanical Ventilator 50.00 05/16/19 03:00 81 19 133/52 (79) 95 Mechanical Ventilator 50.00 05/16/19 02:32 77 20 97 50 05/16/19 02:00 80 20 134/55 (81) 96 Mechanical Ventilator 50.00 05/16/19 01:00 82 05/16/19 01:00 81 20 131/53 (79) 94 Mechanical Ventilator 50.00 05/16/19 00:44 93 Mechanical Ventilator 50 05/16/19 00:20 97.3 05/16/19 00:15 96.5 80 20 129/50 91 Mechanical Ventilator 50.00 05/16/19 00:00 81 19 130/53 (78) 91 Mechanical Ventilator 50.00 05/15/19 23:19 79 20 92 50 05/15/19 23:00 79 20 128/51 (76) 93 Mechanical Ventilator 50.00 05/15/19 22:00 78 20 121/50 (73) 93 Mechanical Ventilator 50.00 05/15/19 21:25 97.3 80 20 121/51 93 Mechanical Ventilator 50.00 05/15/19 21:00 80 20 122/52 (75) 94 Mechanical Ventilator 50.00 05/15/19 20:20 93 Mechanical Ventilator 50 05/15/19 20:02 96.3 05/15/19 20:00 82 20 120/48 (72) 92 Mechanical Ventilator 50.00 05/15/19 19:26 81 20 92 50 05/15/19 19:00 82 20 122/53 (76) 92 Mechanical Ventilator 50.00 05/15/19 19:00 83 05/15/19 18:00 98.6 84 20 111/47 (68) 91 Mechanical Ventilator 50.00 05/15/19 17:00 85 20 126/49 (74) 90 Mechanical Ventilator 50.00 05/15/19 16:00 87 20 118/48 (71) 90 Mechanical Ventilator 50.00 05/15/19 15:33 98.1 05/15/19 15:15 91 Mechanical Ventilator 50 05/15/19 15:00 115/42 05/15/19 15:00 89 12 112/45 (67) 92 Mechanical Ventilator 50.00 05/15/19 14:35 90 21 91 50 05/15/19 14:00 89 21 106/46 (66) 90 Mechanical Ventilator 50.00 05/15/19 13:00 83 20 112/44 (66) 91 Mechanical Ventilator 50.00 05/15/19 13:00 83 05/15/19 12:00 91 Mechanical Ventilator 50 05/15/19 12:00 82 19 108/45 (66) 93 Mechanical Ventilator 50.00 05/15/19 11:04 98.1 05/15/19 11:00 93 20 118/49 (72) 92 Mechanical Ventilator 50.00 05/15/19 10:25 80 20 92 50 05/15/19 10:00 85 19 116/47 (70) 91 Mechanical Ventilator 50.00 05/15/19 09:00 92 19 119/47 (71) 91 Mechanical Ventilator 50.00 05/15/19 08:39 83 114/44 05/15/19 08:27 96.8 05/15/19 08:00 84 21 112/42 (65) 91 Mechanical Ventilator 50.00 05/15/19 08:00 91 Mechanical Ventilator 50 05/15/19 07:00 88 22 110/37 (61) 90 Mechanical Ventilator 50.00 05/15/19 07:00 88 I & O 05/16/19 07:00 Intake Total 2022 ml Output Total 2200 ml Balance -178 ml Height & Weight Height: 5'5.00" Weight: 176lbs. 8.0oz. 80.885963oh; 28.3 BMI Method:Stated General Appearance: No Apparent Distress, WD/WN, Other (Sedated on vent) HEENT: PERRL/EOMI, Normal ENT Inspection, Pharynx Normal Neck: Non Tender, Supple Respiratory: No Accessory Muscle Use, No Respiratory Distress, Decreased Breath Sounds Cardiovascular: Regular Rate, Rhythm, No Edema Capillary Refill: Less Than 3 Seconds Gastrointestinal: soft; No guarding, No rebound Extremity: Normal Capillary Refill, Normal Inspection, No Pedal Edema Skin: Normal Color, Warm/Dry Lymphatic: No Adenopathy Results Lab Laboratory Tests 05/15/19 02:45 05/16/19 03:08 Assessment/Plan Assessment/Plan Acute respiratory failure -Pt on ventilator. Not ready for weaning yet -Decrease RR to 16 and repeat ABG in 1hr Sepsis with Pneumonia -Continue Zosyn, -Check hendrickson cultures -MRSA nasal swab pending Hypotension - resolved -D/C Levophed -Add Solucortef CHF EF 35% with acute pulmonary edema -Decrease IVF to 30cc/hr -Bumex 1mg IV BID Hypokalemia, hypomag -replace MISTY GUZMAN DO May 16, 2019 06:51
[2019-05-16] MEDS: CATHETER FLUSH 10 ML SYR IV SCH ×3 (07:28→22:00)
[2019-05-16] MEDS: KCL 20 MEQ TAB (K-DUR) PO SCH ×2 (07:29)
[2019-05-16] MEDS: PANTOPRAZOLE 40 MG (PROTONIX) VIAL IV SCH ×2 (07:52→21:02)
[2019-05-16] MEDS: HYDROCORTISONE 100 MG/2 ML (Solu-CORTEF) VIAL IV SCH ×3 (07:53→22:00)
[2019-05-16] MEDS: BUMETANIDE 1 MG/4 ML (BUMEX) VIAL IV SCH ×2 (07:53→21:02)
[2019-05-16] MEDS: POTASSIUM CHLORIDE INJ 20 MEQ in LACTATED RINGERS 1,000 ML IV SCH (07:53)
[2019-05-16 08:18] LABS: ABG BASE EXCESS 3.8 MMOL/L (-2.5-2.5); ABG OXYGEN SATURATION 91 % (94-100); ABG PCO2 46 MMHG (35-45); ABG PO2 64 MMHG (79-93); ABG TCO2 29.9 MMOL/L (21.0-31.0); ALLENS TEST ARTLINE; PATIENT TEMP 97.7; VENTILATOR YES
[2019-05-16 08:19] LABS: INSPIRED O2 40%
--- NOTE | 2019-05-16 08:19 | Diagnostic Imaging Report ---
INDICATION: Dyspnea. TECHNIQUE: Single view chest 3:37 AM. CORRELATION STUDY: 05/15/2019 FINDINGS: Endotracheal tube projects over the trachea with tip above the level of the garcía. Gastric tube passes below the left hemidiaphragm. Right IJ sheath tip over the SVC. Additional hair cleft type density superimposed over the superior mid chest. Heart size enlarged. There is pulmonary vascular congestion and perihilar edema but overall appears improved. Scattered combination of infiltrates and effusions at the lung masterson, right greater than left, generally stable. IMPRESSION: 1. Stable support lines and tubes. 2. Severity of pulmonary vascular congestion appears somewhat diminished and improved. Extensive combination of infiltrate along with effusions at the lung bases persisting. Dictated by: Dictated on workstation # [id number]
--- NOTE | 2019-05-16 08:29 | NUR ---
abg results given to dr morrow. no new orders received.
[2019-05-16] MEDS ORDERED: BUMETANIDE 1 MG/4 ML (BUMEX) VIAL IV SCH (09:00)
--- NOTE | 2019-05-16 09:37 | Progress Note - Hospitalist ---
Subjective HPI/CC On Admission Date Seen by Provider: May 16, 2019 Time Seen by Provider: 09:00 Subjective/Events-last exam patient is sedated on propofol and intubated. FiO2 was decreased to 40 percent this morning. Son was present this morning and all of his questions were answered. The patient is moving her feet spontaneously, but is not following commands, but is sedated Review of Systems Neurological: Other (sedated) Objective Exam Vital Signs Vital Signs Date Time Temp Pulse Resp B/P (MAP) Pulse Ox O2 Delivery O2 Flow Rate FiO2 05/16/19 09:00 79 15 117/52 (73) 100 Mechanical Ventilator 40.00 05/16/19 07:27 97.1 05/16/19 06:25 50 Capillary Refill : Less Than 3 Seconds General Appearance: Chronically ill, Obese Neck: Limited Range of Motion Respiratory: Lungs Clear, Normal Breath Sounds, No Accessory Muscle Use, No Respiratory Distress Cardiovascular: Regular Rate, Rhythm, No Gallop Gastrointestinal: Abnormal Bowel Sounds, Distended Extremity: Pedal Edema Neurologic/Psychiatric: Other Skin: Warm/Dry, Pallor Results/Procedures Lab Laboratory Tests 05/16/19 03:08 Patient resulted labs reviewed. Imaging: Reviewed Imaging Report Assessment/Plan Assessment and Plan Assess & Plan/Chief Complaint 1. Acute on chronic respiratory failure currently intubated with decreasing FiO2 not ready to wean, on Zosyn 2. Congestive heart failure with an ejection fraction of 35 percent on Bumex 3. Anemia 4. Fibro-myalgia by history 5. Hypomagnesemia-replace Diagnosis/Problems Diagnosis/Problems (1) RESPIRATORY FAILURE, UNSP, UNSP W HYPOXIA OR HYPERCAPNIA (2) CHF (congestive heart failure) Status: Chronic Qualifiers: Heart failure type: systolic (3) Pneumonia Status: Acute (4) COPD (chronic obstructive pulmonary disease) Status: Chronic Clinical Quality Measures DVT/VTE Risk/Contraindication: Risk Factor Score Per Nursin RFS Level Per Nursing on Admit: 4+=Very High PARESH CHERRY MD May 16, 2019 09:37
--- NOTE | 2019-05-16 09:44 | Physical Therapy Progress Note ---
Therapy Progress Note Patient continues to be intubated and sedated, will check back on Saturday. LEIGH RABAGO PT May 16, 2019 09:44
[2019-05-16] MEDS: ENOXAPARIN 40 MG/0.4 ML (LOVENOX) SYR SQ SCH (13:45)
[2019-05-17] VITALS (30 sets, daily range): BP systolic 93–159; BP diastolic 44–63
[2019-05-17] MEDS: inSUlin ASPART (NovoLOG) 1 UNIT/0.01 ML (CHARGE PER UNIT) SQ SCH ×5 (00:52→23:48)
[2019-05-17] MEDS: PROPOFOL DRIP (ICU) 100 ML IV SCH ×6 (01:31→20:58)
[2019-05-17] MEDS: RT-ALBUTEROL/IPRATROPIUM 3 ML (DUONEB) VIAL INH SCH ×6 (02:15→23:27)
[2019-05-17 03:14] LABS: BASOPHILS % (AUTO) 0 % (0-10); EOSINOPHILS % (AUTO) 0 % (0-10); HEMATOCRIT 34 % (35-52); HEMOGLOBIN 10.5 G/DL (11.5-16.0); LYMPHOCYTES # (AUTO) 2.8 X 10^3 (1.0-4.0); LYMPHOCYTES % (AUTO) 24 % (12-44); MEAN CORPUSCULAR HEMOGLOBIN 27 PG (25-34); MEAN CORPUSCULAR HGB CONC 31 G/DL (32-36); MEAN CORPUSCULAR VOLUME 87 FL (80-99); MEAN PLATELET VOLUME 10.2 FL (7.4-10.4); MONOCYTES % (AUTO) 8 % (0-12); NEUTROPHILS # (AUTO) 8.1 X 10^3 (1.8-7.8); NEUTROPHILS % (AUTO) 68 % (42-75); PLATELET COUNT 315 10^3/uL (130-400); RED CELL DISTRIBUTION WIDTH 15.9 % (10.0-14.5); WHITE BLOOD COUNT 11.9 10^3/uL (4.3-11.0)
[2019-05-17 03:15] LABS: ABG BASE EXCESS 4.3 MMOL/L (-2.5-2.5); ABG OXYGEN SATURATION 91 % (94-100); ABG PCO2 45 MMHG (35-45); ABG PH 7.42 (7.37-7.43); ABG PO2 60 MMHG (79-93)
[2019-05-17 03:16] LABS: ALLENS TEST ART LINE; INSPIRED O2 25%; PATIENT TEMP 98.1; VENTILATOR YES
[2019-05-17 03:37] LABS: BUN/CREATININE RATIO 25; CALCIUM 9.4 MG/DL (8.5-10.1); CARBON DIOXIDE 22 MMOL/L (21-32); CHLORIDE 107 MMOL/L (98-107); CREATININE SERUM 0.81 MG/DL (0.60-1.30); GFR ESTIMATED > 60; GLUCOSE 119 MG/DL (70-105); MAGNESIUM 1.3 MG/DL (1.8-2.4); PHOSPHORUS 2.9 MG/DL (2.3-4.7); POTASSIUM 3.7 MMOL/L (3.6-5.0); SODIUM 144 MMOL/L (135-145)
[2019-05-17] MEDS: POTASSIUM CL 10MEQ/50ML IVPB 50 ML IV SCH (04:08)
[2019-05-17] MEDS: KCL 20 MEQ TAB (K-DUR) PO SCH (04:09)
[2019-05-17] MEDS: MAGNESIUM 1 GM/100 ML IVPB 100 ML IV SCH ×5 (04:09→06:05)
[2019-05-17] MEDS: HYDROCORTISONE 100 MG/2 ML (Solu-CORTEF) VIAL IV SCH ×3 (05:53→20:58)
[2019-05-17] MEDS: POTASSIUM CHLORIDE INJ 20 MEQ in LACTATED RINGERS 1,000 ML IV SCH (05:53)
[2019-05-17] MEDS: CATHETER FLUSH 10 ML SYR IV SCH ×3 (06:05→20:58)
[2019-05-17] MEDS: PIPERACILLIN/TAZO 4.5 GM/NS 100 ML IV SCH ×6 (06:06→23:40)
--- NOTE | 2019-05-17 06:36 | Pulmonary Progress Note ---
Subjective Time Seen by a Provider: 06:36 Subjective/Events-last exam Pt is sedated on vent. Sepsis Event Evaluation Height, Weight, BMI Height: 5'5.00" Weight: 177lbs. 8.0oz. 80.025853vj; 28.3 BMI Method:Stated Exam Exam Vital Signs Date Time Temp Pulse Resp B/P (MAP) Pulse Ox O2 Delivery O2 Flow Rate FiO2 05/17/19 06:06 80 05/17/19 06:00 81 15 133/48 (76) 96 Mechanical Ventilator 25.00 05/17/19 05:00 86 19 137/47 (77) 94 Mechanical Ventilator 25.00 05/17/19 04:00 89 22 141/51 (81) 94 Mechanical Ventilator 25.00 05/17/19 04:00 Mechanical Ventilator 25 05/17/19 04:00 98.4 05/17/19 03:00 81 17 141/54 (83) 97 Mechanical Ventilator 25.00 05/17/19 02:15 79 17 98 25 05/17/19 02:00 80 15 138/56 (83) 98 Mechanical Ventilator 25.00 05/17/19 01:31 89 05/17/19 01:00 81 17 138/55 (82) 97 Mechanical Ventilator 25.00 05/17/19 01:00 82 05/17/19 00:00 97.9 05/17/19 00:00 80 23 139/53 (81) 96 Mechanical Ventilator 25.00 05/17/19 00:00 Mechanical Ventilator 25 05/16/19 23:00 80 24 128/53 (78) 97 Mechanical Ventilator 25.00 05/16/19 22:30 78 16 97 25 05/16/19 22:00 79 19 136/53 (80) 97 Mechanical Ventilator 25.00 05/16/19 21:03 80 117/50 05/16/19 21:00 82 22 119/50 (73) 96 Mechanical Ventilator 25.00 05/16/19 20:00 Mechanical Ventilator 25 05/16/19 20:00 97.4 05/16/19 20:00 84 22 133/52 (79) 96 Mechanical Ventilator 25.00 05/16/19 19:16 Mechanical Ventilator 25.00 05/16/19 19:00 84 19 134/54 (80) 97 Mechanical Ventilator 30.00 05/16/19 19:00 84 05/16/19 18:55 84 17 97 30 05/16/19 18:00 85 19 135/55 (81) 98 Mechanical Ventilator 30.00 05/16/19 17:00 84 18 126/51 (76) 96 Mechanical Ventilator 30.00 05/16/19 16:15 131/53 05/16/19 16:00 86 22 135/53 (80) 96 Mechanical Ventilator 30.00 05/16/19 15:12 98.4 05/16/19 15:03 Mechanical Ventilator 30 05/16/19 15:00 90 21 136/54 (81) 96 Mechanical Ventilator 30.00 05/16/19 14:00 85 20 130/51 (77) 95 Mechanical Ventilator 30.00 05/16/19 13:52 82 21 100 40 05/16/19 13:00 85 24 133/55 (81) 98 Mechanical Ventilator 40.00 05/16/19 12:41 82 05/16/19 12:14 95 Mechanical Ventilator 40 05/16/19 12:07 135/56 05/16/19 12:00 85 27 135/56 (82) 98 Mechanical Ventilator 40.00 05/16/19 11:37 97.7 05/16/19 11:00 86 21 130/55 (80) 97 Mechanical Ventilator 40.00 05/16/19 10:13 81 19 97 40 05/16/19 10:00 80 17 118/54 (75) 100 Mechanical Ventilator 40.00 05/16/19 09:00 79 15 117/52 (73) 100 Mechanical Ventilator 40.00 05/16/19 08:00 80 16 122/51 (74) 99 Mechanical Ventilator 40.00 05/16/19 08:00 95 Mechanical Ventilator 40 05/16/19 07:27 97.1 05/16/19 07:00 82 05/16/19 07:00 84 17 133/53 (79) 97 Mechanical Ventilator 50.00 I & O 05/17/19 07:00 Intake Total 1690 ml Output Total 2950 ml Balance -1260 ml Height & Weight Height: 5'5.00" Weight: 177lbs. 8.0oz. 80.788632lr; 28.3 BMI Method:Stated General Appearance: Chronically ill, Obese HEENT: PERRL/EOMI, Normal ENT Inspection, Pharynx Normal Neck: Limited Range of Motion Respiratory: Lungs Clear, Normal Breath Sounds, No Accessory Muscle Use, No Respiratory Distress Cardiovascular: Regular Rate, Rhythm, No Gallop Capillary Refill: Less Than 3 Seconds Gastrointestinal: soft; No guarding, No rebound Extremity: Pedal Edema Neurologic/Psychiatric: Other Skin: Warm/Dry, Pallor Lymphatic: No Adenopathy Results Lab Laboratory Tests 05/16/19 03:08 05/17/19 03:05 Assessment/Plan Assessment/Plan Acute respiratory failure -Pt on ventilator. Will start weaning tomorrow -RR to 16 and repeat ABG in 1hr -Decrease Peep to 5 Sepsis with Pneumonia -Continue Zosyn, -Check hendrickson cultures -MRSA nasal swab pending Hypotension - resolved -D/C Levophed CHF EF 35% with acute pulmonary edema -Decrease IVF to 30cc/hr -Bumex 1mg IV -- Change to Lasix 40mg daily. Hypokalemia, hypomag -replace MISTY GUZMAN DO May 17, 2019 06:36
[2019-05-17] MEDS: PANTOPRAZOLE 40 MG (PROTONIX) VIAL IV SCH ×2 (08:05→20:58)
[2019-05-17] MEDS: DEXMEDETOMIDINE 1,000 MCG/NS 250 ML IV SCH ×4 (08:13→17:54)
--- NOTE | 2019-05-17 08:49 | Diagnostic Imaging Report ---
EXAMINATION: Portable erect AP chest. INDICATION: Dyspnea The cardiomegaly, pulmonary congestion and bibasilar pneumonia/atelectasis and bilateral pleural effusions seen on the prior exam of 05/16/19 are again visualized and essentially no different. The upper lungs remain relatively clear. The mediastinum is not widened. The osseous structures are intact. The supportive tubes and lines seems similar in position to the prior exam. IMPRESSION: Stable chest. There has been no adverse change since the prior exam. A followup study would be recommended for continued evaluation. Dictated by: Dictated on workstation # [id number]
[2019-05-17] MEDS ORDERED: FUROSEMIDE 40 MG/4 ML INJ (LASIX) IVP SCH (09:00)
--- NOTE | 2019-05-17 09:42 | Progress Note - Hospitalist ---
Subjective HPI/CC On Admission Date Seen by Provider: May 17, 2019 Time Seen by Provider: 09:30 Subjective/Events-last exam patient is sedated and intubated. FiO2 is down to 25 percent. PEEP is down to 5. Heart rate is in the 80s, oxygen saturation is 94 percent on current settings- labs are all reviewed. Dr. Castillo's note indicates beginning of weaning starting tomorrow. Objective Exam Vital Signs Vital Signs Date Time Temp Pulse Resp B/P (MAP) Pulse Ox O2 Delivery O2 Flow Rate FiO2 05/17/19 09:00 85 20 123/44 (70) 92 Mechanical Ventilator 25.00 05/17/19 07:57 25 05/17/19 07:06 98.4 Capillary Refill : Less Than 3 Seconds General Appearance: Chronically ill Neck: Limited Range of Motion Respiratory: Chest Non Tender, Lungs Clear, Normal Breath Sounds, No Accessory Muscle Use, No Respiratory Distress Cardiovascular: Regular Rate, Rhythm, No Gallop, No JVD, No Murmur, Normal Peripheral Pulses Gastrointestinal: Normal Bowel Sounds, Soft Extremity: No Pedal Edema Neurologic/Psychiatric: Other (sedated) Skin: Normal Color, Warm/Dry Results/Procedures Lab Laboratory Tests 05/17/19 03:05 Patient resulted labs reviewed. Imaging: Reviewed Imaging Report Assessment/Plan Assessment and Plan Assess & Plan/Chief Complaint 1. Acute on chronic respiratory failure currently intubated with decreasing FiO2 weaning trials to begin tomorrow on Zosyn 2. Congestive heart failure with an ejection fraction of 35 percent - changed to Lasix by Dr. Castillo 3. Anemia 4. Fibro-myalgia by history 5. Hypomagnesemia-replace Diagnosis/Problems Diagnosis/Problems (1) RESPIRATORY FAILURE, UNSP, UNSP W HYPOXIA OR HYPERCAPNIA (2) CHF (congestive heart failure) Status: Chronic Qualifiers: Heart failure type: systolic (3) Pneumonia Status: Acute (4) COPD (chronic obstructive pulmonary disease) Status: Chronic Clinical Quality Measures DVT/VTE Risk/Contraindication: Risk Factor Score Per Nursin RFS Level Per Nursing on Admit: 4+=Very High PARESH CHERRY MD May 17, 2019 09:42
[2019-05-17] MEDS: ENOXAPARIN 40 MG/0.4 ML (LOVENOX) SYR SQ SCH (13:28)
--- NOTE | 2019-05-17 16:30 | NUR ---
REPORT GIVEN TO ALBERT CHAND WHO ASSUMES CARE OF PT FOR REMAINDER OF SHIFT.
[2019-05-18] VITALS (28 sets, daily range): BP systolic 89–204; BP diastolic 42–154
--- NOTE | 2019-05-18 01:14 | NUR ---
NOTIFIED [facility] OF ELEVATED SBP >170'S.
[2019-05-18] MEDS ORDERED: fentaNYL INJECTION 100 MCG/2 ML AMP ONE (01:51)
[2019-05-18] MEDS ORDERED: fentaNYL INJECTION 100 MCG/2 ML AMP IVP PRN (02:15)
[2019-05-18] MEDS: RT-ALBUTEROL/IPRATROPIUM 3 ML (DUONEB) VIAL INH SCH ×6 (02:45→22:34)
[2019-05-18] MEDS: DEXMEDETOMIDINE 1,000 MCG/NS 250 ML IV SCH ×4 (03:11→15:46)
[2019-05-18] MEDS: PROPOFOL DRIP (ICU) 100 ML IV SCH ×4 (03:12→22:26)
[2019-05-18 03:18] LABS: BASOPHILS % (AUTO) 0 % (0-10); EOSINOPHILS % (AUTO) 0 % (0-10); HEMATOCRIT 35 % (35-52); HEMOGLOBIN 11.1 G/DL (11.5-16.0); LYMPHOCYTES # (AUTO) 1.2 X 10^3 (1.0-4.0); LYMPHOCYTES % (AUTO) 10 % (12-44); MEAN CORPUSCULAR HEMOGLOBIN 27 PG (25-34); MEAN CORPUSCULAR HGB CONC 32 G/DL (32-36); MEAN CORPUSCULAR VOLUME 86 FL (80-99); MEAN PLATELET VOLUME 10.3 FL (7.4-10.4); MONOCYTES # (AUTO) 0.5 X 10^3 (0.0-1.0); MONOCYTES % (AUTO) 4 % (0-12); NEUTROPHILS # (AUTO) 10.7 X 10^3 (1.8-7.8); NEUTROPHILS % (AUTO) 86 % (42-75); PLATELET COUNT 300 10^3/uL (130-400); RED CELL DISTRIBUTION WIDTH 15.7 % (10.0-14.5); WHITE BLOOD COUNT 12.4 10^3/uL (4.3-11.0)
[2019-05-18 03:24] LABS: ABG BASE EXCESS 5.5 MMOL/L (-2.5-2.5); ABG OXYGEN SATURATION 89 % (94-100); ABG PCO2 47 MMHG (35-45); ABG PH 7.42 (7.37-7.43); ABG PO2 56 MMHG (79-93); ABG TCO2 31.5 MMOL/L (21.0-31.0)
[2019-05-18 03:30] LABS: ALLENS TEST ART LINE; INSPIRED O2 30%; PATIENT TEMP 97.1; VENTILATOR YES
[2019-05-18 03:40] LABS: MAGNESIUM 1.6 MG/DL (1.8-2.4)
[2019-05-18 03:41] LABS: BUN/CREATININE RATIO 31; CALCIUM 9.2 MG/DL (8.5-10.1); CARBON DIOXIDE 26 MMOL/L (21-32); CHLORIDE 104 MMOL/L (98-107); CREATININE SERUM 0.75 MG/DL (0.60-1.30); GFR ESTIMATED > 60; GLUCOSE 138 MG/DL (70-105); POTASSIUM 3.3 MMOL/L (3.6-5.0); SODIUM 144 MMOL/L (135-145)
--- NOTE | 2019-05-18 04:26 | NUR ---
NOTIFIED [facility] OF MORNING LAB RESULTS- POTASSIUM 3.3 AND MAGNESIUM 1.6 UNABLE TO REPLACE PER PROTOCOL DUE TO URINE OUTPUT OF 35 MLS/HR.
[2019-05-18] MEDS: POTASSIUM CL 10 MEQ/50 ML IVPB (PRE-MIX) IV SCH ×5 (05:13→10:36)
[2019-05-18] MEDS: MAGNESIUM 1 GM/100 ML IVPB IV SCH ×4 (05:14→07:00)
[2019-05-18] MEDS: HYDROCORTISONE 100 MG/2 ML (Solu-CORTEF) VIAL IV SCH ×3 (05:26→22:24)
[2019-05-18] MEDS: CATHETER FLUSH 10 ML SYR IV SCH ×3 (05:27→22:43)
[2019-05-18] MEDS: KCL 20 MEQ TAB (K-DUR) PO SCH (05:41)
[2019-05-18] MEDS: inSUlin ASPART (NovoLOG) 1 UNIT/0.01 ML (CHARGE PER UNIT) SQ SCH ×4 (05:41→23:40)
[2019-05-18] MEDS: MAGNESIUM 1 GM/100 ML IVPB 100 ML IV SCH (05:41)
[2019-05-18] MEDS: POTASSIUM CL 10MEQ/50ML IVPB 50 ML IV SCH (05:41)
[2019-05-18] MEDS: POTASSIUM CHLORIDE INJ 20 MEQ in LACTATED RINGERS 1,000 ML IV SCH ×2 (06:12→15:26)
--- NOTE | 2019-05-18 08:04 | Pulmonary Progress Note ---
Subjective Time Seen by a Provider: 08:03 Subjective/Events-last exam Pt is sedated on vent. Sepsis Event Evaluation Height, Weight, BMI Height: 5'5.00" Weight: 177lbs. 8.0oz. 80.731273yt; 28.3 BMI Method:Stated Exam Exam Vital Signs Date Time Temp Pulse Resp B/P (MAP) Pulse Ox O2 Delivery O2 Flow Rate FiO2 05/18/19 06:55 79 19 94 30 05/18/19 06:12 156/58 05/18/19 06:00 80 19 160/57 (91) 96 Mechanical Ventilator 30.00 05/18/19 05:00 75 18 159/59 (92) 97 Mechanical Ventilator 30.00 05/18/19 04:00 Mechanical Ventilator 30 05/18/19 04:00 97.1 05/18/19 04:00 77 19 165/60 (95) 97 Mechanical Ventilator 30.00 05/18/19 03:12 162/58 05/18/19 03:00 89 16 164/58 (93) 96 Mechanical Ventilator 30.00 05/18/19 02:45 78 17 95 30 05/18/19 02:00 80 16 173/60 (97) 95 Mechanical Ventilator 30.00 05/18/19 01:00 80 05/18/19 01:00 80 18 173/63 (99) 96 Mechanical Ventilator 30.00 05/18/19 00:00 Mechanical Ventilator 30 05/18/19 00:00 81 19 89/60 (70) 94 Mechanical Ventilator 30.00 05/17/19 23:44 97.4 05/17/19 23:27 80 17 92 30 05/17/19 23:00 80 18 96/62 (73) 95 Mechanical Ventilator 30.00 05/17/19 22:00 80 19 104/61 (75) 94 Mechanical Ventilator 30.00 05/17/19 21:00 83 20 137/50 (79) 93 Mechanical Ventilator 30.00 05/17/19 20:58 145/52 05/17/19 20:00 Mechanical Ventilator 30 05/17/19 20:00 81 21 159/56 (90) 92 Mechanical Ventilator 30.00 05/17/19 20:00 97.4 05/17/19 19:41 80 19 92 30 05/17/19 19:00 80 22 157/55 (89) 92 Mechanical Ventilator 30.00 05/17/19 19:00 81 05/17/19 18:00 80 19 158/55 (89) 92 Mechanical Ventilator 30.00 05/17/19 17:54 81 05/17/19 17:00 84 20 152/56 (88) 92 Mechanical Ventilator 30.00 05/17/19 16:14 Mechanical Ventilator 30 05/17/19 16:00 82 22 152/55 (87) 92 Mechanical Ventilator 30.00 05/17/19 15:00 80 17 150/54 (86) 90 Mechanical Ventilator 30.00 05/17/19 14:33 Mechanical Ventilator 30.00 05/17/19 14:27 79 20 90 30 05/17/19 14:13 137/49 05/17/19 14:00 79 17 129/46 (73) 91 Mechanical Ventilator 25.00 05/17/19 13:00 78 19 128/46 (73) 91 Mechanical Ventilator 25.00 05/17/19 12:43 77 05/17/19 12:00 79 20 130/49 (76) 93 Mechanical Ventilator 25.00 05/17/19 11:31 Mechanical Ventilator 25 05/17/19 11:05 98.0 05/17/19 11:00 80 18 124/48 (73) 93 Mechanical Ventilator 25.00 05/17/19 10:04 130/52 05/17/19 10:01 81 19 91 25 05/17/19 10:00 81 19 131/52 (78) 92 Mechanical Ventilator 25.00 05/17/19 09:00 85 20 123/44 (70) 92 Mechanical Ventilator 25.00 05/17/19 08:00 78 31 128/49 (75) 93 Mechanical Ventilator 25.00 I & O 05/18/19 07:00 Intake Total 2160 ml Output Total 3720 ml Balance -1560 ml Height & Weight Height: 5'5.00" Weight: 177lbs. 8.0oz. 80.979402kb; 28.3 BMI Method:Stated General Appearance: Chronically ill, Other (Sedated on vent) HEENT: PERRL/EOMI, Normal ENT Inspection, Pharynx Normal Neck: Limited Range of Motion Respiratory: Chest Non Tender, Lungs Clear, Normal Breath Sounds, No Accessory Muscle Use, No Respiratory Distress Cardiovascular: Regular Rate, Rhythm, No Gallop, No JVD, No Murmur, Normal Peripheral Pulses Capillary Refill: Less Than 3 Seconds Gastrointestinal: soft; No guarding, No rebound Extremity: No Pedal Edema Neurologic/Psychiatric: Other (sedated) Skin: Normal Color, Warm/Dry Lymphatic: No Adenopathy Results Lab Laboratory Tests 05/17/19 03:05 05/18/19 02:56 Assessment/Plan Assessment/Plan Acute respiratory failure -Pt on ventilator. Will start weaning vent today -D/C sedation -Repeat BNP Sepsis with Pneumonia -Continue Zosyn, -Check hendrickson cultures -MRSA nasal swab pending Hypotension - resolved -D/C Levophed CHF EF 35% with acute pulmonary edema -Decrease IVF to 30cc/hr - Lasix 40mg daily. Hypokalemia, hypomag -replace MISTY GUZMAN DO May 18, 2019 08:04
[2019-05-18] MEDS: PIPERACILLIN/TAZO 4.5 GM/NS 100 ML IV SCH ×6 (08:06→23:35)
[2019-05-18] MEDS: PANTOPRAZOLE 40 MG (PROTONIX) VIAL IV SCH ×2 (08:06→20:15)
[2019-05-18] MEDS: FUROSEMIDE 40 MG/4 ML INJ (LASIX) IVP SCH ×2 (08:07→20:15)
--- NOTE | 2019-05-18 08:18 | Physical Therapy Progress Note ---
Therapy Progress Note Patient remains on mechanical ventilator. PT will continue to monitor patient status. SHAMAR GREGORIO PT May 18, 2019 08:18
[2019-05-18 08:21] LABS: ABG BASE EXCESS 5.3 MMOL/L (-2.5-2.5); ABG OXYGEN SATURATION 83 % (94-100); ABG PCO2 47 MMHG (35-45); ABG PH 7.42 (7.37-7.43); ABG PO2 50 MMHG (79-93); ABG TCO2 31.2 MMOL/L (21.0-31.0)
[2019-05-18 08:25] LABS: ALLENS TEST POSITIVE; INSPIRED O2 30%; PATIENT TEMP 98.2; VENTILATOR YES
--- NOTE | 2019-05-18 09:00 | Diagnostic Imaging Report ---
INDICATION: Dyspnea. Comparison made with prior examination from 05/17/19. FINDINGS: There's cardiomegaly. There is mild congestive failure. There are bibasal infiltrates and bilateral pleural effusions. There is no pneumothorax. Lines and tubes are in satisfactory position. IMPRESSION: Bibasilar infiltrates and bilateral pleural effusions. Cardiomegaly and moderate congestive failure. Dictated by: Dictated on workstation # [id number]
--- NOTE | 2019-05-18 09:18 | NUR ---
PT EXTUBATED AT 0909 BY RT. PT ON 4L NC, HR 120. PT TOLERATED WELL.
--- NOTE | 2019-05-18 09:44 | Progress Note - Hospitalist ---
Subjective HPI/CC On Admission Date Seen by Provider: May 18, 2019 Time Seen by Provider: 09:15 Subjective/Events-last exam Extubated is planned for today Pt unable to find any details because of intubation status May very well require inpatient rehab or some other type of therapy in order to get back to baseline because she was critically ill and has been intubated of several days Objective Exam Vital Signs Vital Signs Date Time Temp Pulse Resp B/P (MAP) Pulse Ox O2 Delivery O2 Flow Rate FiO2 05/18/19 20:00 98.4 82 22 142/44 (76) 91 Mechanical Ventilator 50.00 05/18/19 18:18 50 Capillary Refill : Less Than 3 Seconds General Appearance: No Apparent Distress, WD/WN, Chronically ill Respiratory: Chest Non Tender, Lungs Clear, No Accessory Muscle Use, No Respiratory Distress, Decreased Breath Sounds Cardiovascular: Regular Rate, Rhythm, No Edema, No Gallop, No JVD, No Murmur, Normal Peripheral Pulses Neurologic/Psychiatric: Alert Results/Procedures Lab Laboratory Tests 05/18/19 02:56 05/18/19 10:45 Patient resulted labs reviewed. Imaging: Reviewed Imaging Report Assessment/Plan Assessment and Plan Assess & Plan/Chief Complaint Assessment: VDRF AECOPD CHF Pneumonia Plan: Extubate per DR Castillo PT/OT IRF? Diagnosis/Problems Diagnosis/Problems (1) PNA (pneumonia) Status: Acute Qualifiers: Pneumonia type: due to unspecified organism Laterality: unspecified laterality Lung location: unspecified part of lung Qualified Codes: J18.9 - Pneumonia, unspecified organism (2) CHF (congestive heart failure) Status: Chronic Qualifiers: Heart failure type: systolic (3) COPD (chronic obstructive pulmonary disease) Status: Chronic Qualifiers: COPD type: unspecified COPD Qualified Codes: J44.9 - Chronic obstructive pulmonary disease, unspecified (4) Acute and chronic respiratory failure with hypoxia Status: Acute Clinical Quality Measures DVT/VTE Risk/Contraindication: Risk Factor Score Per Nursin RFS Level Per Nursing on Admit: 4+=Very High CE HOBBS DO May 18, 2019 09:44
--- NOTE | 2019-05-18 10:05 | NUR ---
NOTIFIED BY INTEGRATION SPECIALIST THAT PT HEART RATE WAS IN 130'S-140'S BY MONITOR AND WOULD THIS NURSE PLEASE CHECK ON PT. WHEN THIS RN ARRIVED IN ROOM PT APPEARED SHORT OF AIR HOWEVER SHE DID DENY VERBALLY THAT SHE WAS SOA. BLOOD PRESSURE BY ART LINE AT THIS TIME WAS ABOVE 210 SYSTOLIC AND LOW 100'S DIASTOLIC WITH HEART RATE IN THE 150'S. PRECEDEX WAS RESTARTED TO CALM PT AND TRY TO DECREASE HEART RATE. FENTANYL WAS BROUGHT TO ROOM TO BE GIVEN BUT WHEN THIS NURSE RETURNED TO GIVE THE MED PT WAS STILL TACHYCARDIC AND BP WAS STILL IN 200'S HER EYES WHERE GLAZED AND SHE WAS LESS RESPONSIVE. DR GUZMAN WAS NOTIFIED AND ARRIVED TO INTUBATE PT. SHE WAS INTUBATED AND TAKEN TO CT.
--- NOTE | 2019-05-18 10:10 | NUR ---
DR GUZMAN HERE TO RE INTUBATE PT. 1015 4 VERSED GIVEN FOR INTUBATION 1017 8 MG ZOFRAN GIVEN 1018- 30 MG PROP GIVEN 1019- 30 MG PROP GIVEN AND 1 LITER BOLUS STARTED 1019- 8.[address] AT 24 AT UPPER LIP PLACEMENT CONFIRMED WITH CO2 DETECTOR. HR 124- RR-19- [place] [address] 1022 REPEAT LABS ORDERED 1020- OG IN AND CHEST XRAY ORDERED FOR PLACEMENT.
[2019-05-18] MEDS ORDERED: NS IV 1000 ML 1,000 ML ONE ×2 (10:11→10:26)
--- NOTE | 2019-05-18 10:28 | Speech Therapy Progress Note ---
Therapy Progress Note ST attempted to complete Bedside Dysphagia Evaluation this am after receiving orders. The patient's status had declined with a crash cart in use and reported to be intubated again. ST will follow-up tomorrow. NAKUL SANTAMARIA May 18, 2019 10:28
--- NOTE | 2019-05-18 10:50 | Diagnostic Imaging Report ---
INDICATION: Endotracheal tube placement. TIME OF EXAMINATION: 10:36 AM. COMPARISON: Correlation is made with the prior chest from earlier this same day. FINDINGS: A right IJ line has its tip overlying the SVC. The ET tube and NG tube remain in place. The heart is enlarged. Bilateral infiltrates persist. No pneumothorax is seen. There may be small bilateral pleural effusions. IMPRESSION: Continued diffuse bilateral pulmonary infiltrates and bilateral effusions, similar to the examination from earlier this same day. Dictated by: Dictated on workstation # [id number]
--- NOTE | 2019-05-18 10:50 | NUR ---
Pastoral care visit.
[2019-05-18 11:05] LABS: BASOPHILS % (AUTO) 0 % (0-10); EOSINOPHILS % (AUTO) 0 % (0-10); HEMATOCRIT 34 % (35-52); HEMOGLOBIN 10.6 G/DL (11.5-16.0); LYMPHOCYTES # (AUTO) 0.9 X 10^3 (1.0-4.0); LYMPHOCYTES % (AUTO) 8 % (12-44); MEAN CORPUSCULAR HEMOGLOBIN 28 PG (25-34); MEAN CORPUSCULAR HGB CONC 32 G/DL (32-36); MEAN CORPUSCULAR VOLUME 87 FL (80-99); MEAN PLATELET VOLUME 10.3 FL (7.4-10.4); MONOCYTES # (AUTO) 0.8 X 10^3 (0.0-1.0); MONOCYTES % (AUTO) 7 % (0-12); NEUTROPHILS # (AUTO) 10.2 X 10^3 (1.8-7.8); NEUTROPHILS % (AUTO) 86 % (42-75); PLATELET COUNT 319 10^3/uL (130-400); RED CELL DISTRIBUTION WIDTH 15.8 % (10.0-14.5); WHITE BLOOD COUNT 11.9 10^3/uL (4.3-11.0)
[2019-05-18 11:33] LABS: ALANINE AMINOTRANSFERASE 15 U/L (0-55); ALBUMIN 2.9 GM/DL (3.2-4.5); ALKALINE PHOSPHATASE 90 U/L (40-136); BILIRUBIN,TOTAL 0.2 MG/DL (0.1-1.0); BUN/CREATININE RATIO 28; CALCIUM 8.2 MG/DL (8.5-10.1); CARBON DIOXIDE 29 MMOL/L (21-32); CHLORIDE 107 MMOL/L (98-107); CREATININE SERUM 0.71 MG/DL (0.60-1.30); GFR ESTIMATED > 60; GLUCOSE 139 MG/DL (70-105); MAGNESIUM 1.8 MG/DL (1.8-2.4); PHOSPHORUS 3.6 MG/DL (2.3-4.7); POTASSIUM 3.1 MMOL/L (3.6-5.0); SODIUM 146 MMOL/L (135-145); TOTAL PROTEIN 6.2 GM/DL (6.4-8.2)
[2019-05-18] MEDS: NS IV 1000 ML 1,000 ML IV SCH ×2 (11:33→11:34)
[2019-05-18 11:35] LABS: ANISOCYTOSIS SLIGHT; BAND NEUTROPHILS 8 %; BASOPHILS % (MANUAL) 1 %; EOSINOPHILS % (MANUAL) 0 %; LYMPHOCYTES % (MANUAL) 7 %; MONOCYTES % (MANUAL) 2 %; MYELOCYTES % 1 %; NEUTROPHILS % (MANUAL) 81 %
--- NOTE | 2019-05-18 12:42 | Diagnostic Imaging Report ---
PROCEDURE: CT head with and without contrast. TECHNIQUE: Multiple contiguous axial images were obtained through the brain before and after the administration of intravenous contrast. Auto Exposure Controls were utilized during the CT exam to meet ALARA standards for radiation dose reduction. INDICATION: Altered mental status post intubation. There is no intracranial hemorrhage. There is no hydrocephalus. There were no findings of focal or generalized rugal edema. No sulcal effacement, the murphy-white matter differentiations maintained. The basilar cisterns are patent. The orbits, sinuses and calvarium appeared within normal limits. Following IV contrast no abnormal parenchymal or meningeal enhancement is found. IMPRESSION: Unremarkable pre-and post IV contrast enhanced CT head. Dictated by: Dictated on workstation # [id number]
--- NOTE | 2019-05-18 12:49 | Diagnostic Imaging Report ---
Indication: Nausea and vomiting and leg swelling. Correlation is made with prior CT scan of the chest from 04/18/2019. CT angiogram chest: Patient is intubated. ET tube tip is above the garcía. NG tube passes into the stomach. Pulmonary arterial system is without thromboembolism. No definite filling defects are seen within central, lobar or segmental branches. The thoracic aorta is normal caliber. No dissection. No pericardial fluid. There are moderate-sized bilateral pleural effusions. Centrilobular emphysematous changes are noted. Areas of peripheral consolidation bilateral upper lobes as well as specific significant degree bilateral lower lobes with air bronchograms. Impression: 1. No evidence of pulmonary embolism or thoracic aortic dissection. 2. Moderate-sized bilateral pleural effusions with areas of parenchymal consolidation involving bilateral upper and lower lobes. CT abdomen and pelvis: Liver demonstrates generalized low density suggestive of hepatic steatosis. No discrete mass is seen. The gallbladder is unremarkable. No biliary ductal dilatation is seen. The pancreas and spleen are unremarkable. No adrenal mass is identified. There is mild nodular enlargement of the left adrenal gland. The kidneys are unremarkable. Aorta is calcified but non-aneurysmal. There is short segment of dissection involving left common iliac artery. Moderate stool in the right colon and transverse colon is seen. The bowel loops appear to be fairly normal in caliber. No obstruction is identified. There is a small amount of free fluid in the pelvis. Bladder is decompressed by a Martinez catheter. No definite inflammatory changes are seen. Impression: 1. Hepatic steatosis. 2. Mild pelvic ascites. 3. No acute feature in the outer pelvis is seen. 3. 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 Dictated by: Dictated on workstation # [id number]
--- NOTE | 2019-05-18 12:54 | Occ Therapy Progress Note ---
Therapy Progress Note pt extubated this AM, decline in medical status, pt reintubated this date. OT will continue to follow. RANDI DOVE OT May 18, 2019 12:54
--- NOTE | 2019-05-18 13:32 | Physical Therapy Progress Note ---
Therapy Progress Note New orders received to begin PT due to patient extubated in a.m. Patient unable to tolerate extubation and had to be reintubated. PT will continue to monitor patient status. SHAMAR GREGORIO PT May 18, 2019 13:32
[2019-05-18] MEDS: ENOXAPARIN 40 MG/0.4 ML (LOVENOX) SYR SQ SCH (14:49)
[2019-05-18 14:56] LABS: ABG BASE EXCESS 7.2 MMOL/L (-2.5-2.5); ABG OXYGEN SATURATION 92 % (94-100); ABG PCO2 45 MMHG (35-45); ABG PH 7.46 (7.37-7.43); ABG PO2 54 MMHG (79-93); ABG TCO2 32.8 MMOL/L (21.0-31.0); ALLENS TEST POSITIVE; INSPIRED O2 60%; PATIENT TEMP 97.6; VENTILATOR YES
[2019-05-18] MEDS ORDERED: LACTULOSE SYRUP 10GM/15ML (ENULOSE) 30ML UDC PO PRN (15:45)
[2019-05-18] MEDS ORDERED: MINERAL OIL ENEMA 133 ML BTL PR PRN (15:45)
[2019-05-18] MEDS: DOCUSATE SODIUM 100 MG (COLACE) CAP PO SCH (20:15)
[2019-05-19] VITALS (30 sets, daily range): BP systolic 106–170; BP diastolic 46–58
[2019-05-19 00:36] LABS: ALANINE AMINOTRANSFERASE 18 U/L (0-55); ALBUMIN 3.2 GM/DL (3.2-4.5); ALKALINE PHOSPHATASE 107 U/L (40-136); BILIRUBIN,TOTAL 0.3 MG/DL (0.1-1.0); BUN/CREATININE RATIO 22; CARBON DIOXIDE 28 MMOL/L (21-32); CHLORIDE 98 MMOL/L (98-107); CREATININE SERUM 0.72 MG/DL (0.60-1.30); GFR ESTIMATED > 60; GLUCOSE 147 MG/DL (70-105); SODIUM 143 MMOL/L (135-145); TOTAL PROTEIN 7.1 GM/DL (6.4-8.2)
[2019-05-19 00:37] LABS: POTASSIUM 2.4 MMOL/L (3.6-5.0)
[2019-05-19] MEDS: PROPOFOL DRIP (ICU) 100 ML IV SCH ×6 (01:08→23:34)
[2019-05-19] MEDS: KCL 20 MEQ POWDER FOR ORAL SOLUTION PO SCH ×3 (02:16→07:05)
[2019-05-19] MEDS: DEXMEDETOMIDINE 1,000 MCG/NS 250 ML IV SCH ×6 (02:16→21:11)
[2019-05-19] MEDS: RT-ALBUTEROL/IPRATROPIUM 3 ML (DUONEB) VIAL INH SCH ×6 (02:21→22:34)
[2019-05-19 04:18] LABS: ABG BASE EXCESS 10.5 MMOL/L (-2.5-2.5); ABG OXYGEN SATURATION 93 % (94-100); ABG PCO2 48 MMHG (35-45); ABG PH 7.47 (7.37-7.43); ABG PO2 61 MMHG (79-93); ABG TCO2 36.2 MMOL/L (21.0-31.0); BASOPHILS % (AUTO) 0 % (0-10); EOSINOPHILS % (AUTO) 0 % (0-10); HEMATOCRIT 36 % (35-52); HEMOGLOBIN 11.1 G/DL (11.5-16.0); LYMPHOCYTES # (AUTO) 1.5 X 10^3 (1.0-4.0); LYMPHOCYTES % (AUTO) 12 % (12-44); MEAN CORPUSCULAR HEMOGLOBIN 27 PG (25-34); MEAN CORPUSCULAR HGB CONC 31 G/DL (32-36); MEAN CORPUSCULAR VOLUME 86 FL (80-99); MEAN PLATELET VOLUME 9.8 FL (7.4-10.4); MONOCYTES # (AUTO) 0.5 X 10^3 (0.0-1.0); MONOCYTES % (AUTO) 4 % (0-12); NEUTROPHILS # (AUTO) 10.9 X 10^3 (1.8-7.8); NEUTROPHILS % (AUTO) 85 % (42-75); PLATELET COUNT 312 10^3/uL (130-400); RED CELL DISTRIBUTION WIDTH 15.9 % (10.0-14.5); WHITE BLOOD COUNT 12.9 10^3/uL (4.3-11.0)
[2019-05-19 04:22] LABS: ALLENS TEST YES-POS; INSPIRED O2 50%; PATIENT TEMP 98.4; VENTILATOR YES
[2019-05-19 04:36] LABS: BUN/CREATININE RATIO 21; CALCIUM 8.9 MG/DL (8.5-10.1); CARBON DIOXIDE 27 MMOL/L (21-32); CHLORIDE 100 MMOL/L (98-107); CREATININE SERUM 0.71 MG/DL (0.60-1.30); GFR ESTIMATED > 60; GLUCOSE 128 MG/DL (70-105); POTASSIUM 3.2 MMOL/L (3.6-5.0); SODIUM 144 MMOL/L (135-145)
[2019-05-19 05:07] LABS: MAGNESIUM 1.4 MG/DL (1.8-2.4)
[2019-05-19] MEDS: POTASSIUM CL 10MEQ/50ML IVPB 50 ML IV SCH ×7 (05:11→23:35)
[2019-05-19] MEDS: KCL 20 MEQ TAB (K-DUR) PO SCH (05:11)
[2019-05-19] MEDS: MAGNESIUM 1 GM/100 ML IVPB 100 ML IV SCH ×5 (05:11→23:34)
[2019-05-19] MEDS: inSUlin ASPART (NovoLOG) 1 UNIT/0.01 ML (CHARGE PER UNIT) SQ SCH ×4 (05:12→22:44)
[2019-05-19] MEDS ORDERED: MAGNESIUM 1 GM/100 ML IVPB 100 ML IV ONE (05:45)
[2019-05-19] MEDS: HYDROCORTISONE 100 MG/2 ML (Solu-CORTEF) VIAL IV SCH ×3 (06:13→22:37)
[2019-05-19] MEDS: CATHETER FLUSH 10 ML SYR IV SCH ×3 (06:15→22:38)
--- NOTE | 2019-05-19 06:42 | Pulmonary Progress Note ---
Subjective Time Seen by a Provider: 07:26 Subjective/Events-last exam Sedated on vent Sepsis Event Evaluation Height, Weight, BMI Height: 5'5.00" Weight: 180lbs. 0.0oz. 81.495009qj; 28.3 BMI Method:Stated Exam Exam Vital Signs Date Time Temp Pulse Resp B/P (MAP) Pulse Ox O2 Delivery O2 Flow Rate FiO2 05/19/19 06:19 143/51 05/19/19 06:00 75 22 144/49 (80) 95 Mechanical Ventilator 50.00 05/19/19 05:00 72 21 148/52 (84) 95 Mechanical Ventilator 50.00 05/19/19 04:00 Mechanical Ventilator 50 05/19/19 04:00 75 21 127/48 (74) 93 Mechanical Ventilator 50.00 05/19/19 03:50 154/53 05/19/19 03:35 97.5 05/19/19 03:00 76 25 154/51 (85) 94 Mechanical Ventilator 50.00 05/19/19 02:21 68 22 93 50 05/19/19 02:00 71 22 164/50 (88) 93 Mechanical Ventilator 50.00 05/19/19 01:13 97.6 05/19/19 01:08 168/54 05/19/19 01:00 68 24 170/55 (93) 93 Mechanical Ventilator 50.00 05/19/19 01:00 68 05/19/19 00:00 62 21 155/52 (86) 92 Mechanical Ventilator 50.00 05/19/19 00:00 Mechanical Ventilator 50 05/19/19 00:00 96.0 05/18/19 23:00 64 22 148/45 (79) 91 Mechanical Ventilator 50.00 05/18/19 22:34 66 22 92 50 05/18/19 22:26 166/55 05/18/19 22:00 60 21 155/49 (84) 94 Mechanical Ventilator 50.00 05/18/19 21:00 73 22 138/45 (76) 92 Mechanical Ventilator 50.00 05/18/19 20:00 98.4 82 22 142/44 (76) 91 Mechanical Ventilator 50.00 05/18/19 20:00 Mechanical Ventilator 50 05/18/19 19:00 80 22 153/46 (81) 90 Mechanical Ventilator 50.00 05/18/19 19:00 81 05/18/19 18:18 73 22 93 50 05/18/19 18:17 71 21 162/54 Mechanical Ventilator 50.00 05/18/19 18:00 73 22 166/55 (92) 93 Mechanical Ventilator 50.00 05/18/19 17:00 76 12 170/52 (91) 93 Mechanical Ventilator 50.00 05/18/19 16:00 93 Mechanical Ventilator 50 05/18/19 16:00 79 16 157/53 (87) 92 Mechanical Ventilator 50.00 05/18/19 15:47 Mechanical Ventilator 50.00 05/18/19 15:06 Mechanical Ventilator 40.00 05/18/19 15:00 65 22 96 60 05/18/19 15:00 65 21 124/42 (69) 96 Mechanical Ventilator 60.00 05/18/19 14:00 70 25 119/43 (68) 95 Mechanical Ventilator 60.00 05/18/19 13:00 68 05/18/19 13:00 68 22 137/48 (77) 93 Mechanical Ventilator 60.00 05/18/19 12:00 95 Mechanical Ventilator 60 05/18/19 11:00 76 21 115/43 (67) 94 Mechanical Ventilator 60.00 05/18/19 10:34 Mechanical Ventilator 60.00 05/18/19 10:19 90 22 96 60 05/18/19 10:15 204/85 (124) 05/18/19 10:00 130 34 93 Nasal Cannula 3.00 05/18/19 09:19 Nasal Cannula 3.00 05/18/19 09:09 97 Nasal Cannula 4.00 05/18/19 09:00 96 19 141/54 (83) 93 Mechanical Ventilator 30.00 05/18/19 08:00 100 30 154/57 (89) 94 Mechanical Ventilator 30.00 05/18/19 08:00 Mechanical Ventilator 30 05/18/19 07:00 85 21 152/52 (85) 93 Mechanical Ventilator 30.00 05/18/19 07:00 98.2 05/18/19 07:00 85 05/18/19 06:55 79 19 94 30 I & O 05/19/19 07:00 Intake Total 2970 ml Output Total 7875 ml Balance -4905 ml Height & Weight Height: 5'5.00" Weight: 180lbs. 0.0oz. 81.944328rd; 28.3 BMI Method:Stated General Appearance: No Apparent Distress, WD/WN, Chronically ill HEENT: PERRL/EOMI, Normal ENT Inspection, Pharynx Normal Neck: Limited Range of Motion Respiratory: Chest Non Tender, Lungs Clear, No Accessory Muscle Use, No Respiratory Distress, Decreased Breath Sounds Cardiovascular: Regular Rate, Rhythm, No Edema, No Gallop, No JVD, No Murmur, Normal Peripheral Pulses Capillary Refill: Less Than 3 Seconds Gastrointestinal: soft; No guarding, No rebound Extremity: No Pedal Edema Neurologic/Psychiatric: Alert Skin: Normal Color, Warm/Dry Lymphatic: No Adenopathy Results Lab Laboratory Tests 05/18/19 02:56 05/18/19 10:45 05/19/19 00:07 05/19/19 04:05 Assessment/Plan Assessment/Plan Acute respiratory failure -Pt on ventilator. Will start weaning vent today -D/C sedation Sepsis with Pneumonia -Zosyn started on 05/12 -Resolved leukocytosis -bronchoscopy from 05/18 shows GNR cultures still pending. Will restart Zosyn that auto stopped yesterday -Check hendrickson cultures -MRSA nasal swab pending Hypotension - resolved -D/C Levophed CHF EF 35% with acute pulmonary edema -Decrease IVF to 30cc/hr - Lasix 40mg BID -Increase spironolactone to 50mg daily Hypokalemia, hypomag -replace MISTY GUZMAN DO May 19, 2019 06:42
--- NOTE | 2019-05-19 06:56 | NUR ---
0650- Bronch started at bedside performed by Dr. Castillo. Maira GARCIA present at bedside. Patient tolerated well. Will continue to monitor.
[2019-05-19 07:27] LABS: AMYLASE 105 U/L (25-125); LIPASE 22 U/L (8-78)
--- NOTE | 2019-05-19 07:53 | Physical Therapy Progress Note ---
Therapy Progress Note Patient remains on mechanical ventilator. PT will assess patient when medically stable and able to actively participate with therapy. SHAMAR GREGORIO PT May 19, 2019 07:53
[2019-05-19] MEDS: PANTOPRAZOLE 40 MG (PROTONIX) VIAL IV SCH ×2 (08:41→20:28)
[2019-05-19] MEDS: FUROSEMIDE 40 MG/4 ML INJ (LASIX) IVP SCH ×2 (08:41→20:28)
[2019-05-19] MEDS: PIPERACILLIN/TAZO 4.5 GM/NS 100 ML IV SCH ×6 (08:41→23:10)
[2019-05-19] MEDS: DOCUSATE SODIUM 100 MG (COLACE) CAP PO SCH (08:41)
[2019-05-19] MEDS ORDERED: SPIRONOLACTONE 25 MG (ALDACTONE) TAB PO SCH (09:00)
--- NOTE | 2019-05-19 10:11 | Progress Note - Hospitalist ---
Subjective HPI/CC On Admission Date Seen by Provider: May 19, 2019 Time Seen by Provider: 09:30 Subjective/Events-last exam Remains intubated after extracted for one hour and failed and had to be re- intubated. Bronchoscopy showed mucous plugging. Fluid in abdomen and she will be receiving Lasix. Long recovery expected. Objective Exam Vital Signs Vital Signs Date Time Temp Pulse Resp B/P (MAP) Pulse Ox O2 Delivery O2 Flow Rate FiO2 05/19/19 19:12 97.8 71 22 161/46 (84) 92 Mechanical Ventilator 50.00 05/19/19 18:38 50 Capillary Refill : Less Than 3 Seconds General Appearance: No Apparent Distress, WD/WN, Chronically ill, Other (intubated) Respiratory: Chest Non Tender, Lungs Clear, Normal Breath Sounds, No Accessory Muscle Use, No Respiratory Distress Results/Procedures Lab Laboratory Tests 05/19/19 00:07 05/19/19 04:05 05/19/19 20:27 Patient resulted labs reviewed. Imaging: Reviewed Imaging Report Assessment/Plan Assessment and Plan Assess & Plan/Chief Complaint Assessment: VDRF AECOPD CHF Pneumonia Plan: VDRF PT/OT IRF after recovered Diagnosis/Problems Diagnosis/Problems (1) PNA (pneumonia) Status: Acute Qualifiers: Pneumonia type: due to unspecified organism Laterality: unspecified laterality Lung location: unspecified part of lung Qualified Codes: J18.9 - Pneumonia, unspecified organism (2) CHF (congestive heart failure) Status: Chronic Qualifiers: Heart failure type: systolic (3) COPD (chronic obstructive pulmonary disease) Status: Chronic Qualifiers: COPD type: unspecified COPD Qualified Codes: J44.9 - Chronic obstructive pulmonary disease, unspecified (4) Acute and chronic respiratory failure with hypoxia Status: Acute Clinical Quality Measures DVT/VTE Risk/Contraindication: Risk Factor Score Per Nursin RFS Level Per Nursing on Admit: 4+=Very High CE HOBBS DO May 19, 2019 10:11
[2019-05-19] MEDS ORDERED: LIDOCAINE PF 1% 2 ML VIAL IJ ONE (10:19)
--- NOTE | 2019-05-19 10:41 | Diagnostic Imaging Report ---
EXAMINATION: Portable erect AP chest at 0354 hours. INDICATION: Dyspnea. FINDINGS: The prior exam of 05/18/2019 noted cardiomegaly, diffuse bilateral pulmonary infiltrates, and bilateral pleural effusions. In the interval since the prior exam, the appearance of the chest has worsened as the density in both lung bases has increased. Most likely, this is due to greater involvement of each lower lobe by pneumonia/atelectasis and fluid. The lung apices are relatively well aerated. The mediastinum is not widened. The osseous structures are intact. The supportive tubes and lines seen previously are unchanged in position. IMPRESSION: The appearance of the chest has worsened since the prior study as there is greater involvement of both lungs by pneumonia/atelectasis and fluid. A followup study would be recommended for continued evaluation. Dictated by: Dictated on workstation # [id number]
--- NOTE | 2019-05-19 11:40 | Occ Therapy Progress Note ---
Therapy Progress Note Patient remains on mechanical ventilator. OT will assess patient when medically stable and able to actively participate with therapy. RANDI DOVE OT May 19, 2019 11:40
--- NOTE | 2019-05-19 13:09 | NUR ---
Palliative Care RN in to see patient. She has been reintubated yesterday after a brief extubation. Following due to this and just want t ohave an idea if she worsens in her medical course. No family in the room at the time.
[2019-05-19] MEDS: ENOXAPARIN 40 MG/0.4 ML (LOVENOX) SYR SQ SCH (15:04)
[2019-05-19] MEDS: DOCUSATE SODIUM 10 MG/ML 10 ML UDC (COLACE) PO SCH (20:28)
[2019-05-19 20:48] LABS: BASOPHILS % (AUTO) 0 % (0-10); EOSINOPHILS % (AUTO) 0 % (0-10); HEMATOCRIT 37 % (35-52); HEMOGLOBIN 11.5 G/DL (11.5-16.0); LYMPHOCYTES # (AUTO) 1.3 X 10^3 (1.0-4.0); LYMPHOCYTES % (AUTO) 12 % (12-44); MEAN CORPUSCULAR HEMOGLOBIN 27 PG (25-34); MEAN CORPUSCULAR HGB CONC 31 G/DL (32-36); MEAN CORPUSCULAR VOLUME 86 FL (80-99); MEAN PLATELET VOLUME 10.6 FL (7.4-10.4); MONOCYTES # (AUTO) 0.5 X 10^3 (0.0-1.0); MONOCYTES % (AUTO) 4 % (0-12); NEUTROPHILS # (AUTO) 8.8 X 10^3 (1.8-7.8); NEUTROPHILS % (AUTO) 83 % (42-75); PLATELET COUNT 297 10^3/uL (130-400); RED CELL DISTRIBUTION WIDTH 15.9 % (10.0-14.5); WHITE BLOOD COUNT 10.5 10^3/uL (4.3-11.0)
[2019-05-19 21:10] LABS: BUN/CREATININE RATIO 24; CALCIUM 8.7 MG/DL (8.5-10.1); CARBON DIOXIDE 29 MMOL/L (21-32); CHLORIDE 99 MMOL/L (98-107); CREATININE SERUM 0.76 MG/DL (0.60-1.30); GFR ESTIMATED > 60; GLUCOSE 144 MG/DL (70-105); MAGNESIUM 1.7 MG/DL (1.6-2.4); PHOSPHORUS 2.9 MG/DL (2.3-4.7); POTASSIUM 3.2 MMOL/L (3.6-5.0); SODIUM 142 MMOL/L (135-145)
[2019-05-19] MEDS: POTASSIUM CHLORIDE INJ 20 MEQ in LACTATED RINGERS 1,000 ML IV SCH (22:37)
[2019-05-20] VITALS (28 sets, daily range): BP systolic 106–195; BP diastolic 46–118
[2019-05-20] MEDS: POTASSIUM CL 10MEQ/50ML IVPB 50 ML IV SCH ×13 (00:15→21:19)
[2019-05-20] MEDS: RT-ALBUTEROL/IPRATROPIUM 3 ML (DUONEB) VIAL INH SCH ×6 (02:28→22:22)
[2019-05-20] MEDS: PROPOFOL DRIP (ICU) 100 ML IV SCH (03:03)
[2019-05-20 03:43] LABS: BASOPHILS % (AUTO) 0 % (0-10); EOSINOPHILS % (AUTO) 0 % (0-10); HEMATOCRIT 37 % (35-52); HEMOGLOBIN 11.7 G/DL (11.5-16.0); LYMPHOCYTES # (AUTO) 1.1 X 10^3 (1.0-4.0); LYMPHOCYTES % (AUTO) 10 % (12-44); MEAN CORPUSCULAR HEMOGLOBIN 27 PG (25-34); MEAN CORPUSCULAR HGB CONC 32 G/DL (32-36); MEAN CORPUSCULAR VOLUME 85 FL (80-99); MEAN PLATELET VOLUME 10.1 FL (7.4-10.4); MONOCYTES # (AUTO) 0.5 X 10^3 (0.0-1.0); MONOCYTES % (AUTO) 4 % (0-12); NEUTROPHILS # (AUTO) 9.1 X 10^3 (1.8-7.8); NEUTROPHILS % (AUTO) 85 % (42-75); PLATELET COUNT 306 10^3/uL (130-400); RED CELL DISTRIBUTION WIDTH 15.8 % (10.0-14.5); WHITE BLOOD COUNT 10.7 10^3/uL (4.3-11.0)
[2019-05-20 03:48] LABS: ABG BASE EXCESS 9.4 MMOL/L (-2.5-2.5); ABG OXYGEN SATURATION 90 % (94-100); ABG PCO2 39 MMHG (35-45); ABG PH 7.54 (7.37-7.43); ABG PO2 54 MMHG (79-93); ABG TCO2 34.1 MMOL/L (21.0-31.0)
[2019-05-20 03:53] LABS: ALLENS TEST ART LINE; INSPIRED O2 50%; PATIENT TEMP 97.5; VENTILATOR YES
[2019-05-20 03:59] LABS: BUN/CREATININE RATIO 25; CALCIUM 8.8 MG/DL (8.5-10.1); CARBON DIOXIDE 29 MMOL/L (21-32); CHLORIDE 98 MMOL/L (98-107); CREATININE SERUM 0.76 MG/DL (0.60-1.30); GFR ESTIMATED > 60; GLUCOSE 149 MG/DL (70-105); MAGNESIUM 1.9 MG/DL (1.6-2.4); PHOSPHORUS 2.9 MG/DL (2.3-4.7); SODIUM 141 MMOL/L (135-145)
[2019-05-20] MEDS: KCL 20 MEQ TAB (K-DUR) PO SCH (05:14)
[2019-05-20] MEDS: MAGNESIUM 1 GM/100 ML IVPB 100 ML IV SCH (05:14)
[2019-05-20] MEDS: inSUlin ASPART (NovoLOG) 1 UNIT/0.01 ML (CHARGE PER UNIT) SQ SCH ×4 (05:16→23:43)
[2019-05-20] MEDS ORDERED: SPIRONOLACTONE 100 MG (ALDACTONE) TABLET ONE (05:44)
[2019-05-20] MEDS ORDERED: PIPERACILLIN/TAZO 4.5 GM VIAL (ZOSYN) IV ONE (05:55)
[2019-05-20] MEDS: SPIRONOLACTONE 25 MG (ALDACTONE) TAB PO SCH (05:56)
[2019-05-20] MEDS: FUROSEMIDE 40 MG/4 ML INJ (LASIX) IVP SCH ×2 (05:56→21:18)
[2019-05-20] MEDS ORDERED: NS (IVPB) 100 ML ONE (05:56)
--- NOTE | 2019-05-20 06:00 | NUR ---
Propofol was discontinued at 0454. Pt is fully awake and obeying commands at this time, Richelle RT is at bedside and changed vent to spontaneous mode PS [address] Castillo. Pt vital signs stable. Will continue to monitor.
[2019-05-20] MEDS: HYDROCORTISONE 100 MG/2 ML (Solu-CORTEF) VIAL IV SCH ×3 (06:03→22:21)
[2019-05-20] MEDS: PIPERACILLIN/TAZOBACTAM (BULK) 4.5 GM in NS (IVPB) 100 ML IV SCH ×3 (06:04→21:19)
[2019-05-20] MEDS: CATHETER FLUSH 10 ML SYR IV SCH ×3 (06:04→21:56)
--- NOTE | 2019-05-20 06:22 | NUR ---
DR GUZMAN NOTIFIED OF WEANING PARAMETERS AT THIS TIME. NIF -20, VC 850ML-1100ML RSBI 53 RR 22 VT 400-450ML
[2019-05-20 07:10] LABS: ABG BASE EXCESS 9.6 MMOL/L (-2.5-2.5); ABG OXYGEN SATURATION 90 % (94-100); ABG PCO2 44 MMHG (35-45); ABG PH 7.49 (7.37-7.43); ABG PO2 56 MMHG (79-93)
[2019-05-20 07:11] LABS: ALLENS TEST YES-POS
[2019-05-20 07:12] LABS: INSPIRED O2 40%; PATIENT TEMP 97.8; VENTILATOR YES
--- NOTE | 2019-05-20 08:21 | Diagnostic Imaging Report ---
Indication: Dyspnea. Time of exam: 3:34 AM Correlation is made with prior study one day earlier. ET tube has tip above the garcía. NG tube passes below the diaphragm. Right IJ line has tip overlying the SVC. Bilateral infiltrates and effusions do show partial clearing but persist. Upper lung masterson are clear. No pneumothorax Impression: Overall improved appearance of chest with partial clearing of bilateral infiltrates and effusions since exam one day earlier. Dictated by: Dictated on workstation # [id number]
[2019-05-20] MEDS: PANTOPRAZOLE 40 MG (PROTONIX) VIAL IV SCH ×2 (08:46→21:18)
--- NOTE | 2019-05-20 08:48 | Physical Therapy Progress Note ---
Therapy Progress Note Nurse reports patient was just extubated and would like to hold the patient for now to see how she is going to do. PT will check back this afternoon and see if we can begin treatment. LEIGH RABAGO PT May 20, 2019 08:48
--- NOTE | 2019-05-20 10:57 | Progress Note - Hospitalist ---
Subjective HPI/CC On Admission Date Seen by Provider: May 20, 2019 Time Seen by Provider: 09:30 Subjective/Events-last exam Extubated at 8:15 this morning and doing very well. Maintain on Vapotherm. Replacing potassium of 3.0 per protocol. Needs to find her glasses in order to see the TV. She remembers me taking care of her in the past. Denies any pain. Lungs are much improved. Review of Systems General: Fatigue Pulmonary: Dyspnea Objective Exam Vital Signs Vital Signs Date Time Temp Pulse Resp B/P (MAP) Pulse Ox O2 Delivery O2 Flow Rate FiO2 05/20/19 18:55 101 27 96 40.00 05/20/19 18:15 166/84 (111) 05/20/19 18:00 NIV Bilevel 05/20/19 16:00 40 05/20/19 16:00 96.8 Capillary Refill : Less Than 3 Seconds General Appearance: No Apparent Distress, WD/WN, Anxious, Chronically ill Respiratory: Chest Non Tender, Lungs Clear, Normal Breath Sounds, No Accessory Muscle Use, No Respiratory Distress, Decreased Breath Sounds Cardiovascular: Regular Rate, Rhythm, No Edema, No Gallop, No JVD, No Murmur, Normal Peripheral Pulses Neurologic/Psychiatric: Alert, Oriented x3, No Motor/Sensory Deficits, Normal Mood/Affect Results/Procedures Lab Laboratory Tests 05/20/19 03:29 05/20/19 17:30 Patient resulted labs reviewed. Imaging: Reviewed Imaging Report Assessment/Plan Assessment and Plan Assess & Plan/Chief Complaint Assessment: VDRF s/p extubation AECOPD CHF Pneumonia Plan: Extubated PT/OT IRF after recovered Diagnosis/Problems Diagnosis/Problems (1) PNA (pneumonia) Status: Acute Qualifiers: Pneumonia type: due to unspecified organism Laterality: unspecified laterality Lung location: unspecified part of lung Qualified Codes: J18.9 - Pneumonia, unspecified organism (2) CHF (congestive heart failure) Status: Chronic Qualifiers: Heart failure type: systolic (3) COPD (chronic obstructive pulmonary disease) Status: Chronic Qualifiers: COPD type: unspecified COPD Qualified Codes: J44.9 - Chronic obstructive pulmonary disease, unspecified (4) Acute and chronic respiratory failure with hypoxia Status: Acute Clinical Quality Measures DVT/VTE Risk/Contraindication: Risk Factor Score Per Nursin RFS Level Per Nursing on Admit: 4+=Very High CE HOBBS DO May 20, 2019 10:57
--- NOTE | 2019-05-20 11:05 | NUR ---
Pastoral care visit.
[2019-05-20] MEDS: DOCUSATE SODIUM 10 MG/ML 10 ML UDC (COLACE) PO SCH ×2 (11:42→21:19)
--- NOTE | 2019-05-20 13:48 | Physical Therapy Evaluation ---
PT Evaluation-General Medical Diagnosis Admission Date May 12, 2019 at 18:07 Medical Diagnosis: pneumonia Onset Date: May 12, 2019 Therapy Diagnosis Therapy Diagnosis: impaired mobility, strength, endurance, balance Height/Weight Height (Feet): 5 Height (Inches): 5.00 Weight (Pounds): 166 Weight (Ounces): 9.0 Precautions Precautions/Isolations: Aspiration, Fall Prevention, Standard Precautions, Pressure Ulcer Weight Bear Status Right Lower Extremity: Right Weight Bearing/Tolerated Left Lower Extremity: Left Weight Bearing/Tolerated Referral Physician: Anna Reason for Referral: Evaluation/Treatment Medical History Pertinent Medical History: Arthritis, HTN, Smoking Reviewed History: Yes Social History Home: Single Level Current Living Status: Other Family PT Steps Into Home: 2 Patient's brother lives with her Prior/Core FIM Prior Level of Function Therapy Code Descriptions/Definitions Functional [place] Measure: 0=Not Assessed/NA 4=Minimal Assistance 1=Total Assistance 5=Supervision or Setup 2=Maximal Assistance 6=Modified [place] 3=Moderate Assistance 7=Complete [place] Therapy Quality Codes: 6 Independent with activity with or without an assistive device 5 Patient requires set up or clean up by helper. Patient completes activity by themselves 4 Supervision or touching assist (CGA). [place] provide cues , steadying assist 3 The helper provides less than half the effort to complete the activity 2 The helper provides more than half the effort to complete the activity 1 Dependent. The helper does all the effort to complete an activity 7 Patient refused to complete or attempt activity 9 The patient did not perform the activity before the current illness or injury 88 Not attempted due to Medical conditions or safety concerns Functional Abilities and Goals: Independent: Patient completed the activities by him/herself, with or without an assistive device, with no assistance from a helper. Needed Some Help: Patient needed partial assistance from another person to complete activities. Dependent: A helper completed the activities for the patient. Unknown: Not Applicable: Bed Mobility: 7 Transfers (B,C,W/C) (FIM): 7 Gait: 7 Stairs: 7 Indoor Mobility (Ambulation): Independent Stairs: Independent PT Evaluation-Current Subjective Patient in bed pre tx, agrees to PT, has no complaints of pain. Patient agrees to get out of bed and into recliner. Nurse and PT tech are here to assist with lines of which she has many. Pt/Family Goals to be independent at home Objective Patient Orientation: Person, Place, Situation Attachments: Oxygen, Martinez Catheter, IV vapotherm ROM/Strength ROM Lower Extremities WNL Strength Lower Extremities RLE (hip flexion 3+/5, knee flexion 4/5, knee extension 4/5, dorsiflexion 4/5), LLE (hip flexion 3+/5, knee flexion 4/5, knee extension 4/5, dorsiflexion 4/5) Sensory Hearing: Functional Sensation Right Lower Extremit: Intact Sensation Left Lower Extremity: Intact Transfers Therapy Code Descriptions/Definitions Functional [place] Measure: 0=Not Assessed/NA 4=Minimal Assistance 1=Total Assistance 5=Supervision or Setup 2=Maximal Assistance 6=Modified [place] 3=Moderate Assistance 7=Complete [place] Transfers (B, C, W/C) (FIM): 3 Scootin Rollin Supine to/from Sit: 3 Sit to/from Stand: 3 bed t/f WC(FIM only if WC use): 3 Patient needs mod assist for supine to sit, she is slightly retropulsive with sitting. Mod assist for sit to stand and stand pivot transfer, she is very retropulsive during the transfer. She is able to take a few steps toward the recliner during the transfer. Balance Sitting Static: Poor Sitting Dynamic: Poor Standing Static: Poor Standing Dynamic: Poor Treatment BLE seated exercises x15 (AP, LAQ) Assessment/Needs Patient has impaired mobility, strength, endurance, balance. She is retropulsive with sitting and standing. Patient in recliner post tx with nurse call, phone, tray, all needs met. Rehab Potential: Fair PT Short Term Goals Short Term Goals Time Frame: May 27, 2019 Transfers (B,C,W/C) (FIM): 4 Gait (FIM): 1 Gait Distance Comment: 20' Gait Level of Assist: 4 Gait Assistive Device: FWW PT Plan Problem List Problem List: Activity Tolerance, Functional Strength, Safety, Balance, Gait, Transfer, Bed Mobility, ROM Treatment/Plan Treatment Plan: Continue Plan of Care Treatment Plan: Bed Mobility, Education, Functional Activity Bryant, Functional Strength, Gait, Safety, Therapeutic Exercise, Transfers Treatment Duration: May 27, 2019 Frequency: 6 times per week Estimated Hrs Per Day: .25 hour per day Patient and/or Family Agrees t: Yes Safety Risks/Education Patient Education: Gait Training, Transfer Techniques, Correct Positioning, Safety Issues Teaching Recipient: Patient Teaching Methods: Demonstration, Discussion Response to Teaching: Reinforcement Needed Discharge Recommendations Plan Patient will perform bed mobility and transfer training, balance and endurance training, functional strengthening, gait training, and education, to improve functional mobility and independence at home. Therapy D/C Recommendations: Acute Rehab, Home w/ Family Support Time/GCodes Time In: 1313 Time Out: 1334 Total Billed Treatment Time: 21 Total Billed Treatment 1 visit PRETTY 21' LEIGH RABAGO PT May 20, 2019 13:47
--- NOTE | 2019-05-20 13:51 | Pulmonary Procedures ---
Pulmonary Procedures Date of Procedure Date of Service: May 18, 2019 (late note) Intubation Method: orotracheal Tube Size: 8 Medications: Fentanyl, Propofol, Versed Positive End Tide CO2: Yes Breath Sounds after Intubation: bilateral-equal Intubation Complications: no complications Post Intubation Xray: Yes MISTY GUZMAN DO May 20, 2019 13:51
--- NOTE | 2019-05-20 13:53 | Pulmonary Procedures ---
Pulmonary Procedures Date of Procedure Date of Service: May 19, 2019 (late note) Bronch Bronchoscopy with bilateral bronchial washes to clear mucous plugs. Preop DX ILD Postop DX: same Complications: none After informed consent obtained and formal time out pt was sedated using Fentanyl and Versed. Bronchoscope was advanced through the ET tube 1% lidocaine was used to anesthetize garcía, and left/right main stem bronchus. An anatomical tour was undertaken down to the segmental bronchi bilaterally. No endobronchial lesions noted. bilateral bronchial washes to clear mucous plugs were obtained. Pt tolerated procedure well. No complications noted. Stat CXR is pending. MISTY GUZMAN DO May 20, 2019 13:53
[2019-05-20] MEDS: meTOprolol TARTRATE 50 MG (LOPRESSOR) TAB PO SCH ×2 (14:09→21:19)
[2019-05-20] MEDS: lisINopril 5 MG (PRINIVIL) TABLET PO SCH (14:09)
--- NOTE | 2019-05-20 14:09 | Occupational Therapy Eval ---
OT Evaluation-General/PLF Medical Diagnosis Admission Date May 12, 2019 at 18:07 Medical Diagnosis: pneumonia Onset Date: May 12, 2019 Therapy Diagnosis Therapy Diagnosis: impaired ADLs and mobilty Height/Weight Height (Feet): 5 Height (Inches): 5.00 Weight (Pounds): 166 Weight (Ounces): 9.0 Precautions Precautions/Isolations: Aspiration, Fall Prevention, Standard Precautions, Pressure Ulcer Safety Interventions: Bed Exit Alarm, Reorient-PRN Weight Bear Status Weight Bearing Restriction: Weight Bearing/Tolerated Referral Physician: Anna Referral Reason: Activity Tolerance, Self Care, Evaluation/Treatment Medical History Pertinent Medical History: Arthritis, HTN, Smoking Current History per H&P 05/13/19: "The patient is a 59 y/o female who presented to the [facility] with a chief complaint of shortness of breath. She reports that she was hospitalized last month for COPD exacerbation and UTI. She states that she had been feeling better until 05/12 when she became increasingly short of breath and was brought to the ER. Imaging showed bibasilar atelectasis and effusions. This morning she is alert and oriented, reporting that her shortness of breath has neither improved or gotten worse. Her HCO3 was elevated and the tree trimmer advised that she may need to be intubated. She understood the risks versus benefits and was agreeable to intubation." Reviewed History: Yes Social History Home: Single Level Current Living Status: Other Family (brother) Entry Into Home: Stairs With Railing Steps Into Home: 4 ADL-Prior Level of Function Therapy Code Descriptions/Definitions Functional [place] Measure: 0=Not Assessed/NA 4=Minimal Assistance 1=Total Assistance 5=Supervision or Setup 2=Maximal Assistance 6=Modified [place] 3=Moderate Assistance 7=Complete [place] Therapy Quality Codes: 6 Independent with activity with or without an assistive device 5 Patient requires set up or clean up by helper. Patient completes activity by themselves 4 Supervision or touching assist (CGA). [place] provide cues , steadying assist 3 The helper provides less than half the effort to complete the activity 2 The helper provides more than half the effort to complete the activity 1 Dependent. The helper does all the effort to complete an activity 7 Patient refused to complete or attempt activity 9 The patient did not perform the activity before the current illness or injury 88 Not attempted due to Medical conditions or safety concerns Functional Abilities and Goals: Independent: Patient completed the activities by him/herself, with or without an assistive device, with no assistance from a helper. Needed Some Help: Patient needed partial assistance from another person to complete activities. Dependent: A helper completed the activities for the patient. Unknown: Not Applicable: ADL PLOF Comments pt reports indep PLOF using no AD Self Care: Independent Functional Cognition: Independent DME/Equipment: Tub/Shower Drive Self: Yes OT Current Status Subjective pt sitting in recliner chair upon OT arrival in no apparent distress. pt agreed to OT evaluation session. pt reports no pain. NSG stated pt may participate in OT session. Mental Status/Objective Patient Orientation: Person, Place, Time, Situation Attachments: Central Line, Martinez Catheter, IV, Oxygen, Telemetry Current Glasses/Contacts: Yes Hearing Aids: No Dentures/Partials: Yes Hand Dominance: Right Upper Extremity ROM increased timing to complete full range. WFL Upper Extremity Coordination decrease sarita UE opposition and finger to nose test Upper Extremity Sensation light touch: WNL Upper Extremity Strength 3+/5 MMT ADL-Treatment Therapy Code Descriptions/Definitions Functional [place] Measure: 0=Not Assessed/NA 4=Minimal Assistance 1=Total Assistance 5=Supervision or Setup 2=Maximal Assistance 6=Modified [place] 3=Moderate Assistance 7=Complete [place] Therapy Quality Codes: 6 Independent with activity with or without an assistive device 5 Patient requires set up or clean up by helper. Patient completes activity by themselves 4 Supervision or touching assist (CGA). [place] provide cues , steadying assist 3 The helper provides less than half the effort to complete the activity 2 The helper provides more than half the effort to complete the activity 1 Dependent. The helper does all the effort to complete an activity 7 Patient refused to complete or attempt activity 9 The patient did not perform the activity before the current illness or injury 88 Not attempted due to Medical conditions or safety concerns Grooming (FIM): 4 (required assist to comb back of hairable to wash sarita hands, wash face) Lower Body Dressing (FIM): 2 (doff left sock. required assist with right sock and donning sarita socks. ) Transfers (B, C, W/C) (FIM): 3 (use of RW ) noted decrease activity tolerance and increase HR throughout OT session. pt HR prior to OT arrival 121BPM's NSG stated OT may continue working with patient. noted HR increase to 135 BPM with activity. Education OT Patient Education: Energy conservation, Progress toward Goal/Update tx plan, Purpose of tx/functional activities Teaching Recipient: Patient Teaching Methods: Discussion Response to Teaching: Verbalize Understanding OT Short Term Goals Short Term Goals Time Frame: May 27, 2019 Grooming(FIM): 5 Bathing(FIM): 4 Lower Body Dressing(FIM): 5 Toileting(FIM): 5 Transfers (B,C,W/C) (FIM): 4 Toilet/Commode Transfer(FIM): 4 1=Demonstrate adherence to instructed precautions during ADL tasks. 2=Patient will verbalize/demonstrate understanding of assistive devices/modifications for ADL. 3=Patient will improve strength/tolerance for activity to enable patient to perf orm ADL's. OT Machine Turner Goals Machine Turner Goals Time Frame: Jun 03, 2019 Eating (FIM): 6 Grooming(FIM): 6 Bathing(FIM): 6 Bathing Location: L Arm, R Arm, L Upper Leg, R Upper Leg, L Lower Leg (including foot), R Lower Leg (including foot), Chest, Abdomen, Buttocks, Perineal Area Upper Body Dressing(FIM): 6 Lower Body Dressing(FIM): 6 Toileting(FIM): 6 Transfers (B,C,W/C) (FIM): 6 Toilet/Commode Transfer(FIM): 6 Additional Goals: 1-Demonstrate ADL Tasks, 2-Verbalize Understanding, 3-ImproveStrength/[place] 1=Demonstrate adherence to instructed precautions during ADL tasks. 2=Patient will verbalize/demonstrate understanding of assistive devices/modifications for ADL. 3=Patient will improve strength/tolerance for activity to enable patient to perform ADL's. OT Education/Plan Problem List/Assessment Assessment: Decreased Activ Tolerance, Decreased UE Strength, Impaired Bed Mobility, Impaired Coordination, Impaired Funct Balance, Impaired I ADL's, Impaired Self-Care Skills pt presents with functional limitations affecting areas of ADLS and functional transfers with the above mention deficits. pt would benefit from OT services to increase indep with ADLS/ functional transfers. recommend inpt rehab when medical stable to continue address deficits and for safe transition to home. Discharge Recommendations Plan/Recommendations: Continue POC Therapy D/C Recommendations: Acute Rehab Treatment Plan/Plan of Care Treatment,Training & Education: Yes Patient would benefit from OT for education, treatment and training to promote independence in ADL's, mobility, safety and/or upper extremity function for ADL's. Plan of Care: ADL Retraining, Functional Mobility, Group Exercise/Act as Ind, UE Funct Exercise/Act Treatment Duration: Jun 03, 2019 Frequency: 5 times per week Estimated Hrs Per Day: .25 hour per day Agreement: Yes Rehab Potential: Fair Time/GCodes Start Time: 13:50 Stop Time: 14:05 Billed Treatment Time EVM 15 minutes RANDI DOVE OT May 20, 2019 14:09
--- NOTE | 2019-05-20 14:29 | ST Dysphagia Evaluation ---
Speech Evaluation-General Medical Diagnosis pneumonia Onset Date: May 12, 2019 Therapy Diagnosis Therapy Diagnosis: Oropharyngeal Dysphagia Precautions Precautions: Aspiration Precautions/Isolations: Aspiration, Fall Prevention, Standard Precautions, Pressure Ulcer Referral Referring Physician: Dr. Casitllo Reason for Referral: Evaluation/Treatment Medical History Pertinent Medical History: Arthritis, HTN, Smoking Arthritis, HTN, smoking Current History Pneumonia Reviewed History: Yes Social History Home: Single Level Current Living Status: Other Family (brother) Speech PLF/Current-Dysphagia Prior Level of Function The patient lived with family and was independent for her daily needs. Subjective The patient was pleasant and compliant with Bedside Dysphagia Evaluation. Oral Motor Skills Dentition: Edentalous Ability to Follow Directions: Good Patient wears dentures, however she did not have them in at the time of evaluation. Voice Voice Phonatory-Based Quality: Hoarse Voice Pitch: Normal Voice Loudness: Mildly Soft/Quiet Oral-Facial Assessment Oral-Facial Dentition: Normal Labial Seal Description: Normal Smile: Normal Puff Cheeks: Reduced Strength Lingual Protrusion: Normal Lingual ROM: Normal Lingual Strength: Normal Pharynx Velopharyngeal Move.: Normal Volitional Dry Swallow: Yes Voluntary Cough: Yes Can Clear Throat Volitionally: Yes Dysphagia Evaluation Consistencies Presented: Thin Liquid, Mechanical Soft, Pureed Patient was not presented the regular texture due to edentulous state. Oral phase is within normal range of function. Pharyngeal phase is within normal range of function. Funct. Velo/Pharyngeal Symptom: Cough After Swallow Patient cough/clear x1 Dietary Recommendations: Mechanical Soft Liquid Recommendations: Thin Swallowing Precautions: Alternate Liquids/Solids, Liquids from Straw, Small Bites and Sips, Sitting Upright 90 Degrees, Sitting 90 Degrees 30 Post Intake Dysphagia Evaluation Summary The patient is a pleasant 59 year old female who was admitted to the ICU s/p pneumonia. The patient had initially been intubated with extubation on 05/18/2019. She was re-intubated with extubation on this date, 05/20/2019. She was evaluated with the BDE for resuming oral intake as appropriate. She was presented trials of thin liquid via 1/2 tsp x2 and small sips via straw x2 without difficulty. The patient was presented 1/2 tsp trials of puree and mechanical soft with patient clearing effectively after each presentation. She exhibited cough/clear on the mechanical soft x1. Patient was given compensatory strategy training on alternating food:drink of 2:1, small sips and bites and sitting up after intake with return demonstration. The patient will be on thin liquids and Dysphagia II diet level. This information was provided to her nurse and written on the white board in her room. Barriers to Learning Patient is recovering from a decreased medical state. Speech Short Term Goals Short Term Goals Short Term Goals 1) The patient will tolerate least restrictive diet level with 90% or greater without s/s of aspiration. 2) The patient will utilize compensatory strategies as trained with 90% or greater given minimal cues. Speech [place] Mixer Operator Goals Half-Way Goals The patient will maintain adequate nutrition/hydration via safe, effective swallow function. Speech-Plan Patient/Family Goals Patient/Family Goals: The patient plans on returning to her prior home situation upon hospital discharge. Treatment Plan Speech Therapy Treatment Plan: Continue Plan of Care The patient will receive skilled dysphagia therapy services. Treatment Duration: May 22, 2019 Frequency: 4 times per week Estimated Hrs Per Day: .25 hour per day Rehab Potential: Fair Barriers to Learning: Patient is recovering from a significant decreased medical status. Pt/Family Agrees to Plan: Yes Safety Risks/Education Teaching Recipient: Patient Teaching Methods: Demonstration, Discussion Response to Teaching: Verbalize Understanding, Return Demonstration Education Topics Provided: Safety of oral intake and diet level. Time Speech Therapy Time In: 13:36 Speech Therapy Time Out: 13:49 Total Billed Time: 13 Billed Treatment Time [address] May 20, 2019 14:29
[2019-05-20] MEDS: ENOXAPARIN 40 MG/0.4 ML (LOVENOX) SYR SQ SCH (14:38)
--- NOTE | 2019-05-20 17:00 | NUR ---
PT BACK TO BED WITH ASSIST X2, RT ALSO IN ROOM. PT HAVING INCREASED SHORTNESS OF AIR AND LOWERING OXYGEN SAT. PT PLACED ON BIPAP. PT TOLERATING WELL, WILL CONTINUE TO MONITOR.
--- NOTE | 2019-05-20 17:00 | NUR ---
1700 PT PLACED ON BIPAP AT 15/5 100%, FIO2 WEANED TO 60% PRIOR TO RT LEAVING ROOM. PT FAMILY MEMBER AT BEDSIDE AND PT AND VISITOR AGREE TO REINTUBATION IF NEEDED, MANNIE ODELL IN ROOM AT THIS TIME. [address] GUZMAN AND PROVIDED UPDATE ON CHANGE IN PT STATUS. ORDERS RECEIVED FOR BIPAP TONIGHT AND RE-ASSESS IN AM, TROPONIN Q6 X3,RN TO CONSULT CARDIOLOGY IF TROPONIN ELEVATED AND EKG.
[2019-05-20 18:26] LABS: BUN/CREATININE RATIO 27; CALCIUM 9.6 MG/DL (8.5-10.1); CARBON DIOXIDE 33 MMOL/L (21-32); CHLORIDE 101 MMOL/L (98-107); CREATININE SERUM 0.77 MG/DL (0.60-1.30); GFR ESTIMATED > 60; GLUCOSE 131 MG/DL (70-105); MAGNESIUM 1.7 MG/DL (1.6-2.4); PHOSPHORUS 2.8 MG/DL (2.3-4.7); POTASSIUM 2.9 MMOL/L (3.6-5.0); SODIUM 147 MMOL/L (135-145)
[2019-05-20] MEDS: KCL 20 MEQ POWDER FOR ORAL SOLUTION PO SCH (19:18)
--- NOTE | 2019-05-20 19:31 | NUR ---
DR DIAZ NOTIFIED OF CONSULT.
[2019-05-20] MEDS ORDERED: NS IV 1000 ML 1,000 ML ONE (23:35)
[2019-05-21] VITALS (26 sets, daily range): BP systolic 135–169; BP diastolic 55–109
[2019-05-21 00:04] LABS: MAGNESIUM 1.5 MG/DL (1.6-2.4); POTASSIUM 3.5 MMOL/L (3.6-5.0)
[2019-05-21] MEDS: MAGNESIUM 1 GM/100 ML IVPB 100 ML IV SCH ×3 (00:24→05:09)
[2019-05-21] MEDS: POTASSIUM CL 10MEQ/50ML IVPB 50 ML IV SCH ×10 (00:24→09:22)
[2019-05-21] MEDS: RT-ALBUTEROL/IPRATROPIUM 3 ML (DUONEB) VIAL INH SCH ×5 (01:40→21:42)
[2019-05-21 03:32] LABS: BASOPHILS % (AUTO) 0 % (0-10); EOSINOPHILS % (AUTO) 0 % (0-10); HEMATOCRIT 45 % (35-52); LYMPHOCYTES # (AUTO) 1.3 X 10^3 (1.0-4.0); LYMPHOCYTES % (AUTO) 7 % (12-44); MEAN CORPUSCULAR HEMOGLOBIN 27 PG (25-34); MEAN CORPUSCULAR HGB CONC 31 G/DL (32-36); MEAN CORPUSCULAR VOLUME 86 FL (80-99); MEAN PLATELET VOLUME 10.7 FL (7.4-10.4); MONOCYTES # (AUTO) 0.5 X 10^3 (0.0-1.0); MONOCYTES % (AUTO) 3 % (0-12); NEUTROPHILS # (AUTO) 16.2 X 10^3 (1.8-7.8); NEUTROPHILS % (AUTO) 90 % (42-75); PLATELET COUNT 450 10^3/uL (130-400); RED CELL DISTRIBUTION WIDTH 16.8 % (10.0-14.5); WHITE BLOOD COUNT 18.1 10^3/uL (4.3-11.0)
[2019-05-21 03:55] LABS: BUN/CREATININE RATIO 31; CALCIUM 9.6 MG/DL (8.5-10.1); CARBON DIOXIDE 28 MMOL/L (21-32); CHLORIDE 99 MMOL/L (98-107); CREATININE SERUM 0.78 MG/DL (0.60-1.30); GFR ESTIMATED > 60; GLUCOSE 130 MG/DL (70-105); MAGNESIUM 2.2 MG/DL (1.6-2.4); PHOSPHORUS 2.9 MG/DL (2.3-4.7); POTASSIUM 3.4 MMOL/L (3.6-5.0); SODIUM 145 MMOL/L (135-145)
[2019-05-21 04:55] LABS: ABG BASE EXCESS 11.1 MMOL/L (-2.5-2.5); ABG OXYGEN SATURATION 96 % (94-100); ABG PCO2 51 MMHG (35-45); ABG PH 7.46 (7.37-7.43); ABG PO2 74 MMHG (79-93); ABG TCO2 37.2 MMOL/L (21.0-31.0); ALLENS TEST ART LINE; INSPIRED O2 36%; VENTILATOR YES
[2019-05-21] MEDS: PIPERACILLIN/TAZOBACTAM (BULK) 4.5 GM in NS (IVPB) 100 ML IV SCH (05:08)
[2019-05-21] MEDS: POTASSIUM CHLORIDE INJ 20 MEQ in LACTATED RINGERS 1,000 ML IV SCH (05:09)
[2019-05-21] MEDS: inSUlin ASPART (NovoLOG) 1 UNIT/0.01 ML (CHARGE PER UNIT) SQ SCH ×3 (05:10→18:33)
[2019-05-21] MEDS: KCL 20 MEQ TAB (K-DUR) PO SCH (05:10)
[2019-05-21] MEDS: CATHETER FLUSH 10 ML SYR IV SCH ×3 (05:11→22:46)
[2019-05-21] MEDS: HYDROCORTISONE 100 MG/2 ML (Solu-CORTEF) VIAL IV SCH (05:21)
--- NOTE | 2019-05-21 05:53 | Pulmonary Progress Note ---
Subjective Date Seen by a Provider: May 20, 2019 (Late note) Time Seen by a Provider: 07:12 Subjective/Events-last exam PT appears to be doing better. Currently sedated on vent. Sepsis Event Evaluation Height, Weight, BMI Height: 5'5.00" Weight: 166lbs. 9.0oz. 75.878191cw; 28.3 BMI Method:Stated Exam Exam Vital Signs Date Time Temp Pulse Resp B/P (MAP) Pulse Ox O2 Delivery O2 Flow Rate FiO2 05/21/19 05:00 100 24 164/81 (108) 97 NIV Bilevel 40.00 05/21/19 04:00 99 26 161/77 (105) 97 NIV Bilevel 40.00 05/21/19 03:50 98 21 98 40.00 05/21/19 03:00 101 28 169/79 (109) 95 NIV Bilevel 40.00 05/21/19 02:00 96 19 160/80 (106) 97 NIV Bilevel 40.00 05/21/19 01:42 93 23 98 50.00 05/21/19 01:00 93 05/21/19 01:00 93 22 156/78 (104) 98 NIV Bilevel 40.00 05/21/19 00:10 NIV Bilevel 50 05/21/19 00:09 98.9 05/21/19 00:00 91 20 161/83 (109) 100 NIV Bilevel 40.00 05/20/19 23:00 89 24 155/86 (109) 100 NIV Bilevel 40.00 05/20/19 22:22 86 23 100 60.00 05/20/19 22:00 89 18 155/89 (111) 99 NIV Bilevel 40.00 05/20/19 21:00 106 26 169/84 (112) 98 NIV Bilevel 40.00 05/20/19 20:00 NIV Bilevel 60 05/20/19 20:00 103 26 173/88 (116) 97 NIV Bilevel 40.00 05/20/19 20:00 98.2 05/20/19 19:00 98 24 171/91 (117) 97 NIV Bilevel 40.00 05/20/19 19:00 98 05/20/19 18:55 101 27 96 40.00 05/20/19 18:15 166/84 (111) 05/20/19 18:00 99 23 180/58 (98) 98 NIV Bilevel 60.00 05/20/19 17:00 111 36 175/98 (123) 95 NIV Bilevel 60.00 05/20/19 17:00 130 40 94 100.00 05/20/19 16:00 Vapotherm 20.00 40 05/20/19 16:00 96.8 05/20/19 16:00 101 43 176/87 (116) 92 Vapotherm 40.00 20.00 05/20/19 15:00 101 33 131/118 (122) 96 Vapotherm 40.00 20.00 05/20/19 14:01 96 Vapotherm 20.00 40 05/20/19 14:00 131 29 96 Vapotherm 40.00 20.00 05/20/19 13:13 99.6 05/20/19 13:00 120 18 171/84 (113) 94 Vapotherm 40.00 20.00 05/20/19 12:41 113 05/20/19 12:00 Vapotherm 20.00 40 05/20/19 12:00 112 28 195/67 (109) 95 Vapotherm 40.00 20.00 05/20/19 11:00 108 32 190/63 (105) 93 Vapotherm 40.00 20.00 05/20/19 10:21 93 Vapotherm 20.00 40 05/20/19 10:00 106 28 189/65 (106) 92 Vapotherm 40.00 20.00 05/20/19 09:00 91 32 169/48 (88) 91 Vapotherm 40.00 20.00 05/20/19 08:15 93 Vapotherm 20.00 40 05/20/19 08:14 Vapotherm 40.00 20.00 05/20/19 08:00 Mechanical Ventilator 40 05/20/19 08:00 79 21 161/54 (89) 92 Mechanical Ventilator 50.00 05/20/19 08:00 99.0 05/20/19 07:00 73 05/20/19 07:00 74 27 162/59 (93) 95 Mechanical Ventilator 50.00 05/20/19 06:00 75 23 156/55 (88) 95 Mechanical Ventilator 50.00 05/20/19 05:59 75 22 96 40 I & O 05/21/19 07:00 Intake Total 1230 ml Output Total 6070 ml Balance -4840 ml Height & Weight Height: 5'5.00" Weight: 166lbs. 9.0oz. 75.226313il; 28.3 BMI Method:Stated General Appearance: No Apparent Distress, WD/WN, Anxious, Chronically ill HEENT: PERRL/EOMI, Normal ENT Inspection, Pharynx Normal Neck: Limited Range of Motion Respiratory: Chest Non Tender, Lungs Clear, Normal Breath Sounds, No Accessory Muscle Use, No Respiratory Distress, Decreased Breath Sounds Cardiovascular: Regular Rate, Rhythm, No Edema, No Gallop, No JVD, No Murmur, Normal Peripheral Pulses Capillary Refill: Less Than 3 Seconds Gastrointestinal: soft; No guarding, No rebound Extremity: No Pedal Edema Neurologic/Psychiatric: Alert, Oriented x3, No Motor/Sensory Deficits, Normal Mood/Affect Skin: Normal Color, Warm/Dry Lymphatic: No Adenopathy Results Lab Laboratory Tests 05/19/19 20:27 05/20/19 03:29 05/20/19 17:30 05/20/19 23:40 05/21/19 02:58 Assessment/Plan Assessment/Plan Acute respiratory failure -S/p vent -Will start weaning vent. -BiPAP QHS Sepsis with Pneumonia -Zosyn started on 05/12 -Resolved leukocytosis -bronchoscopy from 05/18 shows GNR cultures still pending. Continue Zosyn -Check hendrickson cultures -MRSA nasal swab pending Hypotension - resolved -D/C Levophed CHF EF 35% with acute pulmonary edema -Decrease IVF to 30cc/hr - Lasix 40mg BID -spironolactone to 50mg daily Hypokalemia, hypomag -replace MISTY GUZMAN DO May 21, 2019 05:53
--- NOTE | 2019-05-21 06:57 | NUR ---
DR GIFFORD NOTIFIED OF CONSULT
[2019-05-21] MEDS ORDERED: hydrALAZINE (APESOLINE) 20 MG/ML VIAL IV PRN (07:00)
--- NOTE | 2019-05-21 07:15 | Diagnostic Imaging Report ---
INDICATION: Shortness of breath Portable chest 3:21 AM Right IJ central line tip projects over the SVC. There are bilateral lower lung pulmonary infiltrates. On the left, it extends up into the left upper lung region. There could be small effusions. IMPRESSION: Large bilateral pulmonary infiltrates. No appreciable change from previous day. Dictated by: Dictated on workstation # [id number]
--- NOTE | 2019-05-21 07:15 | Pulmonary Progress Note ---
Subjective Time Seen by a Provider: 07:20 Subjective/Events-last exam Pt extubated yesterday. Currently on BiPAP. Will switch over to Vapotherm this AM. Sepsis Event Evaluation Height, Weight, BMI Height: 5'5.00" Weight: 167lbs. 0.7oz. 75.501117vb; 28.3 BMI Method:Stated Exam Exam Vital Signs Date Time Temp Pulse Resp B/P (MAP) Pulse Ox O2 Delivery O2 Flow Rate FiO2 05/21/19 06:18 102 17 162/84 (110) 97 NIV Bilevel 40.00 05/21/19 06:10 100 15 97 40.00 05/21/19 05:00 100 24 164/81 (108) 97 NIV Bilevel 40.00 05/21/19 04:00 NIV Bilevel 36 05/21/19 04:00 99 26 161/77 (105) 97 NIV Bilevel 40.00 05/21/19 03:50 98 21 98 40.00 05/21/19 03:00 101 28 169/79 (109) 95 NIV Bilevel 40.00 05/21/19 02:00 96 19 160/80 (106) 97 NIV Bilevel 40.00 05/21/19 01:42 93 23 98 50.00 05/21/19 01:00 93 05/21/19 01:00 93 22 156/78 (104) 98 NIV Bilevel 40.00 05/21/19 00:10 NIV Bilevel 50 05/21/19 00:09 98.9 05/21/19 00:00 91 20 161/83 (109) 100 NIV Bilevel 40.00 05/20/19 23:00 89 24 155/86 (109) 100 NIV Bilevel 40.00 05/20/19 22:22 86 23 100 60.00 05/20/19 22:00 89 18 155/89 (111) 99 NIV Bilevel 40.00 05/20/19 21:00 106 26 169/84 (112) 98 NIV Bilevel 40.00 05/20/19 20:00 NIV Bilevel 60 05/20/19 20:00 103 26 173/88 (116) 97 NIV Bilevel 40.00 05/20/19 20:00 98.2 05/20/19 19:00 98 24 171/91 (117) 97 NIV Bilevel 40.00 05/20/19 19:00 98 05/20/19 18:55 101 27 96 40.00 05/20/19 18:15 166/84 (111) 05/20/19 18:00 99 23 180/58 (98) 98 NIV Bilevel 60.00 05/20/19 17:00 111 36 175/98 (123) 95 NIV Bilevel 60.00 05/20/19 17:00 130 40 94 100.00 05/20/19 16:00 Vapotherm 20.00 40 05/20/19 16:00 96.8 05/20/19 16:00 101 43 176/87 (116) 92 Vapotherm 40.00 20.00 05/20/19 15:00 101 33 131/118 (122) 96 Vapotherm 40.00 20.00 05/20/19 14:01 96 Vapotherm 20.00 40 05/20/19 14:00 131 29 96 Vapotherm 40.00 20.00 05/20/19 13:13 99.6 05/20/19 13:00 120 18 171/84 (113) 94 Vapotherm 40.00 20.00 05/20/19 12:41 113 05/20/19 12:00 Vapotherm 20.00 40 05/20/19 12:00 112 28 195/67 (109) 95 Vapotherm 40.00 20.00 05/20/19 11:00 108 32 190/63 (105) 93 Vapotherm 40.00 20.00 05/20/19 10:21 93 Vapotherm 20.00 40 05/20/19 10:00 106 28 189/65 (106) 92 Vapotherm 40.00 20.00 05/20/19 09:00 91 32 169/48 (88) 91 Vapotherm 40.00 20.00 05/20/19 08:15 93 Vapotherm 20.00 40 05/20/19 08:14 Vapotherm 40.00 20.00 05/20/19 08:00 Mechanical Ventilator 40 05/20/19 08:00 79 21 161/54 (89) 92 Mechanical Ventilator 50.00 05/20/19 08:00 99.0 I & O 05/21/19 07:00 Intake Total 1230 ml Output Total 7320 ml Balance -6090 ml Height & Weight Height: 5'5.00" Weight: 167lbs. 0.7oz. 75.689494va; 28.3 BMI Method:Stated General Appearance: WD/WN, Anxious, Chronically ill, Mild Distress HEENT: PERRL/EOMI, Normal ENT Inspection, Pharynx Normal Neck: Limited Range of Motion Respiratory: Chest Non Tender, Lungs Clear, Normal Breath Sounds, No Accessory Muscle Use, No Respiratory Distress, Decreased Breath Sounds Cardiovascular: Regular Rate, Rhythm, No Edema, No Gallop, No JVD, No Murmur, Normal Peripheral Pulses Capillary Refill: Less Than 3 Seconds Gastrointestinal: soft; No guarding, No rebound Extremity: No Pedal Edema Neurologic/Psychiatric: Alert, Oriented x3, No Motor/Sensory Deficits, Normal Mood/Affect Skin: Normal Color, Warm/Dry Lymphatic: No Adenopathy Results Lab Laboratory Tests 05/19/19 20:27 05/20/19 03:29 05/20/19 17:30 05/20/19 23:40 05/21/19 02:58 Assessment/Plan Assessment/Plan Acute respiratory failure -S/p vent -Currently on BiPAP -BiPAP QHS Sepsis with Pneumonia -Zosyn started on 05/12 -Resolved leukocytosis -Sputum is showing Stenotrophomonas - will switch Abx to BCTM -Check hendrickson cultures -MRSA nasal swab pending Bilateral pleural effusions -Will US chest today and do thoracentesis if possible. CHF EF 35% with acute pulmonary edema -Repeat BNP - Lasix 40mg BID -spironolactone to 50mg daily Hypokalemia, hypomag -replace MISTY GUZMAN DO May 21, 2019 07:15
[2019-05-21] MEDS: lisINopril 5 MG (PRINIVIL) TABLET PO SCH (08:05)
[2019-05-21] MEDS: meTOprolol TARTRATE 50 MG (LOPRESSOR) TAB PO SCH ×2 (08:05→20:57)
[2019-05-21] MEDS: methylPREDNISolone 40 MG/ML (Solu-MEDROL) VIAL IV SCH ×2 (08:05→20:50)
[2019-05-21] MEDS: PANTOPRAZOLE 40 MG (PROTONIX) VIAL IV SCH ×2 (08:05→20:50)
[2019-05-21] MEDS: FUROSEMIDE 40 MG/4 ML INJ (LASIX) IVP SCH ×2 (08:05→20:50)
[2019-05-21] MEDS: DOCUSATE SODIUM 10 MG/ML 10 ML UDC (COLACE) PO SCH ×2 (08:06→20:57)
[2019-05-21] MEDS: TRIM/SULFAMETH 160/800 (SEPTRA DS) TAB PO SCH ×2 (08:06→17:42)
[2019-05-21] MEDS: SPIRONOLACTONE 25 MG (ALDACTONE) TAB PO SCH (08:06)
--- NOTE | 2019-05-21 09:43 | Physical Therapy Daily Note ---
PT Daily Note-Current Subjective Patient is alert and agrees to PT. Currently on vapotherm. Pain Numeric Pain Scale: 0-No Pain Location: No Pain Reported Mental Status Patient Orientation: Normal For Age Attachments: Oxygen (vapotherm), Martinez Catheter, IV Transfers Therapy Code Descriptions/Definitions Functional [place] Measure: 0=Not Assessed/NA 4=Minimal Assistance 1=Total Assistance 5=Supervision or Setup 2=Maximal Assistance 6=Modified [place] 3=Moderate Assistance 7=Complete [place] Therapy Quality Codes: 6 Independent with activity with or without an assistive device 5 Patient requires set up or clean up by helper. Patient completes activity by themselves 4 Supervision or touching assist (CGA). [place] provide cues , steadying assist 3 The helper provides less than half the effort to complete the activity 2 The helper provides more than half the effort to complete the activity 1 Dependent. The helper does all the effort to complete an activity 7 Patient refused to complete or attempt activity 9 The patient did not perform the activity before the current illness or injury 88 Not attempted due to Medical conditions or safety concerns Transfers (B, C, W/C) (FIM): 4 Scootin Rollin Supine to/from Sit: 5 Sit to/from Stand: 4 Bed to/from Chair: 4 slightly retropulsive with sit to stand and steps to recliner, however, self corrects Weight Bearing Right Lower Extremity: Right Weight Bearing/Tolerated Left Lower Extremity: Left Weight Bearing/Tolerated Gait Training Gait (FIM): 1 Distance (FIM): 1=up to 49 ft Distance: 3 steps Gait Level of Assist: 4 Gait Persons Needed: 1 Gait Assistive Device: FWW Exercises Supine Ex: Ankle pumps, Quad Set, Heel Slides Supine Reps: 15 Seated Therapy Exercises: Long arc quads Seated Reps: 15 Standing: Marching Standing Reps: 10 Assessment Patient progressing with treatment plan. Patient is more alert and able to actively participate with therapy. PT Short Term Goals Short Term Goals Time Frame: May 27, 2019 Transfers (B,C,W/C) (FIM): 4 Gait (FIM): 1 Gait Distance Comment: 20' Gait Level of Assist: 4 Gait Assistive Device: FWW PT Plan Treatment/Plan Treatment Plan: Continue Plan of Care Treatment Plan: Bed Mobility, Education, Functional Activity [place], Functional Strength, Gait, Safety, Therapeutic Exercise, Transfers Treatment Duration: May 27, 2019 Frequency: 6 times per week Estimated Hrs Per Day: .25 hour per day Patient and/or Family Agrees t: Yes Discharge Recommendations Therapy D/C Recommendations: Acute Rehab Time/GCodes Time In: 826 Time Out: 850 Total Billed Treatment Time: 24 Total Billed Treatment 1 visit EX 14 min FA 10 min SHAMAR GREGORIO PT May 21, 2019 09:43
--- NOTE | 2019-05-21 09:52 | Consultation-Cardiology ---
HPI-Cardiology Cardiology Consultation: Date of Consultation 05/21/19 Date of Admission Attending Physician Nancy Herrera MD Admitting Physician Jose Meek MD Consulting Physician Ava ROSS MD HPI: Time Seen by a Provider: 15:00 Chief Complaint: positive cardiac enzymes this is a 59-year-old lady who presented with shortness of breath and was found to have acute respiratory failure with pneumonia and sepsis. She was intubated and transferred to the ICU. She was given broad-spectrum antibiotics. She was also hypotensive and required inotropes. An echocardiogram showed moderate LV systolic dysfunction. Elevated BNP. The patient was extubated yesterday. Positive cardiac enzymes were found. She denies any chest pain. Review of Systems-Cardiology Review of Systems Constitutional: As described under HPI; No As described under HPI, No no symptoms reported, No chills, No fever, No lightheadedness Eyes: No As described under HPI, No no symptoms reported, No blindness, No blurred vision, No contact lenses, No drainage, No decreased acuity, No foreign body sensation, No pain, No vision change Ears/Nose/Throat: No As described under HPI, No no symptoms reported, No chronic hearing loss, No ear discharge, No ear pain, No nasal drainage, No u lcerations Respiratory: No no symptoms reported; As described under HPI; No As described under HPI, No cough, No orthopnea, No shortness of breath, No SOB with excertion Cardiovascular: No no symptoms reported; As described under HPI; No As described under HPI, No chest pain, No edema, No irregular heart rate, No lightheadedness, No palpitations Gastrointestinal: No no symptoms reported, No As described under HPI, No abdomen distended, No abdominal pain, No blood streaked bowels, No constipation, No diarrhea, No nausea, No vomiting, No stool coloration changes Genitourinary: No As described under HPI, No burning, No dysuria, No discharge, No frequency, No flank pain, No hematuria, No urgency : Yes : No Skin: No rash, No skin related problems, No ulcerations Psychiatric/Neurological: No anxiety, No depression, No seizure, No focal weakness, No syncope Hematologic: No bleeding abnormalities [id number] Hx Patient Social History Alcohol Use: Denies Use Recreational Drug Use: No Smoking Status: Former Smoker Type Used: Cigars, Cigarettes Recent Foreign Travel: No Recent Infectious Disease Expo: No Hospitalization with Isolation: Denies Immunizations Up To Date Date of Pneumonia Vaccine: May 13, 2017 Past Medical History PMH As described under Assessment. Family Medical History Family History: Bone cancer 19 MOTHER Diabetes mellitus G8 BROTHER G8 BROTHER FH: lung cancer 19 FATHER Allergies and Home Medications Allergies Coded Allergies: No Known Drug Allergies (Unverified , 05/13/19) Home Medications Albuterol Sulfate 2.5 Mg/3 Ml Vial.neb, 2.5 MG NEB TID PRN for SHORTNESS OF BREATH, (Reported) Amitriptyline HCl 100 Mg Tablet, 100 MG PO HS, (Reported) Aspirin 81 Mg Tablet.dr, 81 MG PO DAILY, (Reported) Atorvastatin Calcium 10 Mg Tablet, 10 MG PO DAILY, (Reported) Furosemide 20 Mg Tablet, 20 MG PO DAILY, (Reported) Gabapentin 300 Mg Capsule, 300 MG PO TID, (Reported) Glyburide 1.25 Mg Tablet, 1.25 MG PO DAILY, (Reported) Lisinopril 5 Mg Tablet, 5 MG PO DAILY, (Reported) Metformin HCl 500 Mg Tablet, 1,000 MG PO BID, (Reported) TAKES 2 (500MG) TABLETS Metoprolol Tartrate 50 Mg Tablet, 50 MG PO BID, (Reported) Mv-Mn/Folic Acid/Calcium/Vit K 1 Each Tablet, 1 TAB PO DAILY, (Reported) Omeprazole 20 Mg Capsule.dr, 20 MG PO DAILY, (Reported) Patient Home Medication List Home Medication List Reviewed: Yes Physical Exam-Cardiology Physical Exam Vital Signs/I&O 05/21/19 05/21/19 05/21/19 05/21/19 04:00 04:00 05:00 06:10 Pulse 99 100 100 Resp 26 24 15 B/P (MAP) 161/77 (105) 164/81 (108) Pulse Ox 97 97 97 O2 Delivery NIV Bilevel NIV Bilevel NIV Bilevel O2 Flow Rate 40.00 40.00 40.00 FiO2 36 05/21/19 05/21/19 05/21/19 05/21/19 06:18 07:00 07:00 07:41 Pulse 102 101 101 Resp 17 20 B/P (MAP) 162/84 (110) 168/82 (110) Pulse Ox 97 95 97 O2 Delivery NIV Bilevel NIV Bilevel Vapotherm O2 Flow Rate 40.00 40.00 25.00 FiO2 40 05/21/19 05/21/19 05/21/19 05/21/19 08:00 08:00 09:00 10:00 Temp 96.2 Pulse 110 109 98 Resp 20 28 24 B/P (MAP) 168/81 (110) 152/55 (87) 159/82 (107) Pulse Ox 98 100 O2 Delivery Vapotherm Vapotherm Vapotherm Vapotherm O2 Flow Rate 40.00 25.00 40.00 40.00 25.00 25.00 25.00 FiO2 40 05/21/19 05/21/19 05/21/19 05/21/19 10:04 11:00 12:00 12:00 Temp 97.0 Pulse 95 93 Resp 23 21 B/P (MAP) 155/83 (107) 149/82 (104) Pulse Ox 97 99 100 O2 Delivery Vapotherm Vapotherm O2 Flow Rate 25.00 40.00 40.00 25.00 25.00 FiO2 40 05/21/19 05/21/19 05/21/19 05/21/19 12:00 12:21 13:00 14:00 Pulse 96 96 98 Resp 24 19 B/P (MAP) 154/83 (106) 149/80 (103) Pulse Ox 99 98 O2 Delivery Vapotherm Vapotherm Vapotherm O2 Flow Rate 25.00 40.00 40.00 25.00 25.00 FiO2 40 05/21/19 05/21/19 05/21/19 14:20 14:58 15:00 Pulse 100 Resp 26 B/P (MAP) 150/76 (100) Pulse Ox 98 99 O2 Delivery Vapotherm Vapotherm O2 Flow Rate 25.00 35.00 35.00 25.00 25.00 FiO2 40 05/21/19 00:00 Intake Total 880 ml Output Total 3195 ml Balance -2315 ml Capillary Refill : Less Than 3 Seconds Constitutional: appears stated age, AAO x 3; No apparent distress; well- developed, well-nourished HEENT: PERRL; No normal ENT inspection, No TMs normal, No pharynx normal, No scleral icterus (R), No scleral icterus (L), No pale conjunctivae (R), No pale conjunctivae (L), No photophobia, No TM abnormal (R), No TM abnormal (L), No pharyngeal erythema, No tonsillar exudate, No other, No discharge, No EOMI; hearing is well preserved; No hard of hearing; oral hygience is good; No ulceration, No xanthelasmas are seen Neck: No non-tender, No full range of motion, No supple, No normal inspection, No carotid bruit, No limited range of motion, No lymphadenopathy (R), No lymphadenopathy (L), No tender lateral, No tender midline, No thyromegaly, No other; carotid pulses are 2 + bilaterally; No with good upstrokes Respiratory: chest is bilaterally symmetric, lungs clear to auscultation, rhonchi Cardiovascular: regular rate-rhythm; No irregularly irregular, No extra beats, No parasternal heave is noted, No JVD, No edema, No bradycardia, No tachycardia, No point of maximal impulse, No cardiac thrills are palpable; S1 and S2; No gallop/S3, No gallop/S4, No diastolic murmur, No systolic murmur, No friction rub, No click, No other Gastrointestinal: No tender, No soft, No round, No distended, No pulsatile mass, No organomegaly, No guarding, No rebound, No tenderness, No hernia, No mass, No audible bowel sounds, No abnormal bowel sounds, No abdominal bruits, No spleenomegaly, No other Rectal: deferred Extremities: No normal range of motion, No non-tender, No normal inspection, No pedal edema, No calf tenderness, No normal capillary refill, No pelvis stable, No calf tenderness, No inflammation, No pedal edema, No slow capillary refill, No swelling, No other, No abrasion, No clubbing, No cyanosis, No ecchymosis, No laceration, No no lower extremity edema bilateral, No significant edema, No tenderness, No wound Neurologic/Psychiatric: no motor/sensory deficits, alert, normal mood/affect, oriented x 3, power is 5/5 both on sides Skin: No normal color, No warm/dry, No cyanosis, No cool, No diaphoresis, No damp, No ecchymosis, No jaundice, No mottled, No pallor, No rash, No tattoos/piercings, No ulcerations, No rash on exposed areas, No ulcerations on exposed areas, No other Lymphatic: no adenopathy Data Review Labs Laboratory Tests 05/20/19 17:30: Sodium Level 147H, Potassium Level 2.9L, Chloride Level 101, Carbon Dioxide Level 33H, Anion Gap 13, Blood Urea Nitrogen 21H, Creatinine 0.77, Estimat Glomerular Filtration Rate > 60, BUN/Creatinine Ratio 27, Glucose Level 131H, Calcium Level 9.6, Phosphorus Level 2.8, Magnesium Level 1.7, Troponin I 0.038H 05/20/19 18:02: Glucometer 113H 05/20/19 23:35: Glucometer 111H 05/20/19 23:40: Potassium Level 3.5L, Magnesium Level 1.5L, Troponin I 0.038H 05/21/19 02:58: White Blood Count 18.1H, Red Blood Count 5.21, Hemoglobin 14.0, Hematocrit 45, Mean Corpuscular Volume 86, Mean Corpuscular Hemoglobin 27, Mean Corpuscular Hemoglobin Concent 31L, Red Cell Distribution Width 16.8H, Platelet Count 450H, Mean Platelet Volume 10.7H, Neutrophils (%) (Auto) 90H, Lymphocytes (%) (Auto) 7L, Monocytes (%) (Auto) 3, Eosinophils (%) (Auto) 0, Basophils (%) (Auto) 0, Neutrophils # (Auto) 16.2H, Lymphocytes # (Auto) 1.3, Monocytes # (Auto) 0.5, Eosinophils # (Auto) 0.0, Basophils # (Auto) 0.0, Sodium Level 145, Potassium Level 3.4L, Chloride Level 99, Carbon Dioxide Level 28, Anion Gap 18H, Blood Urea Nitrogen 24H, Creatinine 0.78, Estimat Glomerular Filtration Rate > 60, BUN/Creatinine Ratio 31, Glucose Level 130H, Calcium Level 9.6, Phosphorus Level 2.9, Magnesium Level 2.2, B-Type Natriuretic Peptide 1392.9H, Triglycerides Level 258H 05/21/19 04:50: Blood Gas Puncture Site Swetha MONIQUE Blood Gas Patient Temperature 98.0, Arterial Blood pH 7.46H, Arterial Blood Partial Pressure CO2 51H, Arterial Blood Partial Pressure O2 74L, Arterial Blood HCO3 36H, Arterial Blood Total CO2 37.2H, Arterial Blood Oxygen Saturation 96, Arterial Blood Base Excess 11.1H, Александр Test ART LINE, Blood Gas Ventilator Setting YES, Blood Gas Inspired Oxygen 36%, Troponin I 0.029H 05/21/19 11:49: Glucometer 172H Microbiology 05/12/19 Blood Culture - Final, Complete No growth 05/19/19 Mycobacterial Culture - Preliminary, Resulted See Comments ECG Impression ECG Initial ECG Impression Date: May 12, 2019 Initial ECG Rhythm: Normal Sinus Initial ECG Impression: Normal A/P-Cardiology Assessment/Admission Diagnosis acute respiratory failure, Severe sepsis, Acute systolic and diastolic congestive heart failure, Positive cardiac enzymes, Plan 1. Acute respiratory failure, extubated. Doing well. On Vapotherm. Defer to Dr. GUZMAN. 2. Sepsis, on broad spectrum antibiotics. Likely source is pneumonia. 3. Positive cardiac enzymes. Coronary angiography done within the last one month did not reveal obstructive CAD. Likely type II myocardial infarction due to severe respiratory failure, sepsis with septic shock. 4. Acute systolic and diastolic congestive heart failure. Continue Lasix and Aldactone. 5. Bilateral pleural effusions, thoracentesis being planned. Thank you for your consultation. Please call me if you have any questions. Lucius Ross MD, FACP, FACC, FSCAI, FHRS, CCDS Interventional Cardiology Cardiac Electrophysiology Vascular Medicine and Endovascular Interventions Clinical Quality Measures DVT/VTE Risk/Contraindication: Risk Factor Score Per Nursin RFS Level Per Nursing on Admit: 4+=Very High Ava ROSS MD May 21, 2019 09:52
[2019-05-21] MEDS: ONDANSETRON 4 MG/2 ML (SDV) Z0FRAN IVP PRN (10:00)
--- NOTE | 2019-05-21 10:30 | Progress Note - Hospitalist ---
Subjective HPI/CC On Admission Date Seen by Provider: May 21, 2019 Time Seen by Provider: 09:00 Subjective/Events-last exam Extubated and on vapo therm off BiPAP Overall feels pretty good Denies any pain Trying to eat some breakfast Appears to be very debilitated Review of Systems General: Fatigue Pulmonary: Dyspnea Objective Exam Vital Signs Vital Signs Date Time Temp Pulse Resp B/P (MAP) Pulse Ox O2 Delivery O2 Flow Rate FiO2 05/21/19 21:00 104 17 147/73 (97) 100 Vapotherm 35.00 25.00 05/21/19 20:00 97.0 05/21/19 16:00 35 Capillary Refill : Less Than 3 Seconds General Appearance: No Apparent Distress, WD/WN, Chronically ill Respiratory: Chest Non Tender, Lungs Clear, Normal Breath Sounds, No Accessory Muscle Use, No Respiratory Distress, Decreased Breath Sounds Cardiovascular: Regular Rate, Rhythm, No Edema, No Gallop, No JVD, No Murmur, Normal Peripheral Pulses Neurologic/Psychiatric: Alert, Oriented x3, No Motor/Sensory Deficits, Normal Mood/Affect Results/Procedures Lab Laboratory Tests 05/20/19 23:40 05/21/19 02:58 Patient resulted labs reviewed. Imaging: Reviewed Imaging Report Assessment/Plan Assessment and Plan Assess & Plan/Chief Complaint Assessment: VDRF s/p extubation AECOPD CHF Pneumonia Plan: Extubated PT/OT IRF after recovered Diagnosis/Problems Diagnosis/Problems (1) PNA (pneumonia) Status: Acute Qualifiers: Pneumonia type: due to unspecified organism Laterality: unspecified laterality Lung location: unspecified part of lung Qualified Codes: J18.9 - Pneumonia, unspecified organism (2) CHF (congestive heart failure) Status: Chronic Qualifiers: Heart failure type: systolic (3) COPD (chronic obstructive pulmonary disease) Status: Chronic Qualifiers: COPD type: unspecified COPD Qualified Codes: J44.9 - Chronic obstructive pulmonary disease, unspecified (4) Acute and chronic respiratory failure with hypoxia Status: Acute Clinical Quality Measures DVT/VTE Risk/Contraindication: Risk Factor Score Per Nursin RFS Level Per Nursing on Admit: 4+=Very High CE HOBBS DO May 21, 2019 10:29
--- NOTE | 2019-05-21 10:45 | NUR ---
Pastoral care visit.
--- NOTE | 2019-05-21 11:00 | NUR ---
PALLIATIVE CARE RN in to see patient this morning. She is up sitting in chair and is this morning on Vapotherm. She reports feeling better now that she is extubated. We discussed intubation and how she had to be reintubated immediately after her last extubation attempt...she remembered this as being painful. I asked her if she would ever want that again and she initially responded "NO". After discussing this a little further she admitted that it was hard to say yes or no to the question. I suggested that she consider this question talking about it with her loved ones. SHe agreed to do this. She reports being on Oxygen at home at 2 L NC. SHe has no needs at this time.
--- NOTE | 2019-05-21 11:14 | Occupational Ther Daily Note ---
OT Current Status-Daily Note Subjective pt sitting in recliner chair upon OT arrival. pt agreed to OT TX Session with focus on increasing independence with ADLS. pt reports no pain. NSG stated pt may participate in session Mental Status/Objective Therapy Code Descriptions/Definitions Functional [place] Measure: 0=Not Assessed/NA 4=Minimal Assistance 1=Total Assistance 5=Supervision or Setup 2=Maximal Assistance 6=Modified [place] 3=Moderate Assistance 7=Complete [place] Attachments: Central Line, Martinez Catheter, IV, Oxygen, Telemetry ADL-Treatment Grooming (FIM): 2 (brush hair, wash hair, wash hands, wash face. pt required assist secodary to limited activity tolernace. ) Bathing Location: L Arm, R Arm noted pt easily fatigue during session. pt did attempt each task asked but only able to tolerant task for short period of time. increase timing noted secondary to SOB. O2 saturations remained above 90% during session. post OT session, pt sitting in recliner chair, call light within reach, all needs met. NSG aware of pt progress and position. Education OT Patient Education: Modified ADL techniques, Progress toward Goal/Update tx plan, Purpose of tx/functional activities Teaching Recipient: Patient Teaching Methods: Demonstration, Discussion Response to Teaching: Verbalize Understanding, Return Demonstration OT Short Term Goals Short Term Goals Time Frame: May 27, 2019 Grooming(FIM): 5 Bathing(FIM): 4 Lower Body Dressing(FIM): 5 Toileting(FIM): 5 Transfers (B,C,W/C) (FIM): 4 Toilet/Commode Transfer(FIM): 4 1=Demonstrate adherence to instructed precautions during ADL tasks. 2=Patient will verbalize/demonstrate understanding of assistive devices/modifications for ADL. 3=Patient will improve strength/tolerance for activity to enable patient to perform ADL's. OT Longterm Goals Longterm Goals Time Frame: Jun 03, 2019 Eating (FIM): 6 Grooming(FIM): 6 Bathing(FIM): 6 Bathing Location: L Arm, R Arm, L Upper Leg, R Upper Leg, L Lower Leg (including foot), R Lower Leg (including foot), Chest, Abdomen, Buttocks, Perineal Area Upper Body Dressing(FIM): 6 Lower Body Dressing(FIM): 6 Toileting(FIM): 6 Transfers (B,C,W/C) (FIM): 6 Toilet/Commode Transfer(FIM): 6 Additional Goals: 1-Demonstrate ADL Tasks, 2-Verbalize Understanding, 3- ImproveStrength/[place] 1=Demonstrate adherence to instructed precautions during ADL tasks. 2=Patient will verbalize/demonstrate understanding of assistive devices/modifications for ADL. 3=Patient will improve strength/tolerance for activity to enable patient to perform ADL's. OT Education/Plan Problem List/Assessment Assessment: Decreased Activ Tolerance, Decreased Safety Aware, Decreased UE S trength, Impaired I ADL's, Impaired Self-Care Skills pt presents with functional limitations affecting areas of ADLS and functional transfers with the above mention deficits. pt would benefit from OT services to increase indep with ADLS/ functional transfers. recommend inpt rehab when medical stable to continue address deficits and for safe transition to home. Discharge Recommendations Plan/Recommendations: Continue POC Treatment Plan/Plan of Care Treatment,Training & Education: Yes Patient would benefit from OT for education, treatment and training to promote independence in ADL's, mobility, safety and/or upper extremity function for ADL's. Plan of Care: ADL Retraining, Functional Mobility, Group Exercise/Act as Ind, UE Funct Exercise/Act Treatment Duration: Jun 03, 2019 Frequency: 5 times per week Estimated Hrs Per Day: .25 hour per day Agreement: Yes Rehab Potential: Fair Time/GCodes Start Time: 10:44 Stop Time: 11:08 Billed Treatment Time ADL 24 minutes, 2 units RANDI DOVE OT May 21, 2019 11:14
[2019-05-21] MEDS: ENOXAPARIN 40 MG/0.4 ML (LOVENOX) SYR SQ SCH (15:53)
[2019-05-21] MEDS: KCL 20 MEQ POWDER FOR ORAL SOLUTION PO SCH (17:42)
[2019-05-22] VITALS (12 sets, daily range): BP systolic 130–154; BP diastolic 62–78
[2019-05-22] MEDS: inSUlin ASPART (NovoLOG) 1 UNIT/0.01 ML (CHARGE PER UNIT) SQ SCH ×5 (00:33→23:42)
[2019-05-22] MEDS: RT-ALBUTEROL/IPRATROPIUM 3 ML (DUONEB) VIAL INH SCH ×6 (02:46→22:26)
[2019-05-22 04:16] LABS: BASOPHILS % (AUTO) 0 % (0-10); EOSINOPHILS % (AUTO) 0 % (0-10); HEMATOCRIT 45 % (35-52); HEMOGLOBIN 13.5 G/DL (11.5-16.0); LYMPHOCYTES # (AUTO) 1.5 X 10^3 (1.0-4.0); LYMPHOCYTES % (AUTO) 9 % (12-44); MEAN CORPUSCULAR HEMOGLOBIN 27 PG (25-34); MEAN CORPUSCULAR HGB CONC 30 G/DL (32-36); MEAN CORPUSCULAR VOLUME 88 FL (80-99); MEAN PLATELET VOLUME 10.9 FL (7.4-10.4); MONOCYTES # (AUTO) 0.8 X 10^3 (0.0-1.0); MONOCYTES % (AUTO) 5 % (0-12); NEUTROPHILS # (AUTO) 13.8 X 10^3 (1.8-7.8); NEUTROPHILS % (AUTO) 86 % (42-75); PLATELET COUNT 343 10^3/uL (130-400); RED CELL DISTRIBUTION WIDTH 16.7 % (10.0-14.5)
[2019-05-22 04:34] LABS: BUN/CREATININE RATIO 41; CALCIUM 9.9 MG/DL (8.5-10.1); CARBON DIOXIDE 33 MMOL/L (21-32); CHLORIDE 97 MMOL/L (98-107); CREATININE SERUM 0.82 MG/DL (0.60-1.30); GFR ESTIMATED > 60; GLUCOSE 123 MG/DL (70-105); POTASSIUM 3.8 MMOL/L (3.6-5.0); SODIUM 145 MMOL/L (135-145)
[2019-05-22 04:44] LABS: ABG BASE EXCESS 13.4 MMOL/L (-2.5-2.5); ABG OXYGEN SATURATION 89 % (94-100); ABG PCO2 55 MMHG (35-45); ABG PH 7.45 (7.37-7.43); ABG PO2 56 MMHG (79-93); ABG TCO2 40.2 MMOL/L (21.0-31.0); ALLENS TEST ARTLINE; INSPIRED O2 32; PATIENT TEMP 96.8; VENTILATOR NO
--- NOTE | 2019-05-22 06:57 | Pulmonary Progress Note ---
Subjective Time Seen by a Provider: 07:50 Subjective/Events-last exam Pt is doing well off vent. Sepsis Event Evaluation Height, Weight, BMI Height: 5'5.00" Weight: 167lbs. 0.7oz. [id number]; 28.3 BMI Method:Stated Exam Exam Vital Signs Date Time Temp Pulse Resp B/P (MAP) Pulse Ox O2 Delivery O2 Flow Rate FiO2 05/22/19 06:00 96 20 138/65 (89) 92 Vapotherm 45.00 32.00 05/22/19 05:00 93 21 130/63 (85) 90 Vapotherm 45.00 32.00 05/22/19 04:00 96 20 133/62 (85) 91 Vapotherm 45.00 32.00 05/22/19 04:00 Vapotherm 32.00 45 05/22/19 03:00 94 15 139/70 (93) 92 Vapotherm 45.00 32.00 05/22/19 02:46 92 32.00 42 05/22/19 02:00 90 19 131/65 (87) 93 Vapotherm 42.00 32.00 05/22/19 01:06 Vapotherm 42.00 32.00 05/22/19 01:00 96 05/22/19 01:00 99 45 154/78 (103) 87 Vapotherm 30.00 25.00 05/22/19 00:31 96.9 05/22/19 00:00 Vapotherm 25.00 35 05/22/19 00:00 96 13 141/68 (92) 91 Vapotherm 30.00 25.00 05/21/19 23:00 88 20 135/66 (89) 95 Vapotherm 30.00 25.00 05/21/19 22:04 Vapotherm 30.00 25.00 05/21/19 22:00 86 22 136/64 (88) 95 Vapotherm 35.00 25.00 05/21/19 21:42 97 25.00 30 05/21/19 21:42 98 25.00 35 05/21/19 21:00 104 17 147/73 (97) 100 Vapotherm 35.00 25.00 05/21/19 20:00 97.0 05/21/19 20:00 Vapotherm 25.00 35 05/21/19 20:00 108 29 152/79 (103) 97 Vapotherm 35.00 25.00 05/21/19 19:00 105 21 149/81 (103) 98 Vapotherm 35.00 25.00 05/21/19 19:00 106 05/21/19 17:00 99 20 145/76 (99) 97 Vapotherm 35.00 25.00 05/21/19 16:00 100 36 152/85 (107) 98 Vapotherm 35.00 25.00 05/21/19 16:00 Vapotherm 25.00 35 05/21/19 16:00 97.0 05/21/19 15:00 100 26 150/76 (100) 99 Vapotherm 35.00 25.00 05/21/19 14:58 Vapotherm 35.00 25.00 05/21/19 14:20 98 25.00 40 05/21/19 14:00 98 19 149/80 (103) 98 Vapotherm 40.00 25.00 05/21/19 13:00 96 24 154/83 (106) 99 Vapotherm 40.00 25.00 05/21/19 12:21 96 05/21/19 12:00 Vapotherm 25.00 40 05/21/19 12:00 97.0 05/21/19 12:00 93 21 149/82 (104) 100 Vapotherm 40.00 25.00 05/21/19 11:00 95 23 155/83 (107) 99 Vapotherm 40.00 25.00 05/21/19 10:04 97 25.00 40 05/21/19 10:00 98 24 159/82 (107) 100 Vapotherm 40.00 25.00 05/21/19 09:00 109 28 152/55 (87) Vapotherm 40.00 25.00 05/21/19 08:00 Vapotherm 25.00 40 05/21/19 08:00 96.2 110 20 168/81 (110) 98 Vapotherm 40.00 25.00 05/21/19 07:41 97 Vapotherm 25.00 40 05/21/19 07:00 101 20 168/82 (110) 95 NIV Bilevel 40.00 05/21/19 07:00 101 I & O 05/22/19 07:00 Intake Total 828 ml Output Total 2700 ml Balance -1872 ml Height & Weight Height: 5'5.00" Weight: 167lbs. 0.7oz. 75.888970by; 28.3 BMI Method:Stated General Appearance: No Apparent Distress, WD/WN, Chronically ill HEENT: PERRL/EOMI, Normal ENT Inspection, Pharynx Normal Neck: Limited Range of Motion Respiratory: Chest Non Tender, Lungs Clear, Normal Breath Sounds, No Accessory Muscle Use, No Respiratory Distress, Decreased Breath Sounds Cardiovascular: Regular Rate, Rhythm, No Edema, No Gallop, No JVD, No Murmur, Normal Peripheral Pulses Capillary Refill: Less Than 3 Seconds Gastrointestinal: soft; No guarding, No rebound Extremity: Pedal Edema Neurologic/Psychiatric: Alert, Oriented x3, No Motor/Sensory Deficits, Normal Mood/Affect Skin: Warm/Dry, Pallor Lymphatic: No Adenopathy Results Lab Laboratory Tests 05/20/19 17:30 05/20/19 23:40 05/21/19 02:58 05/22/19 04:05 Assessment/Plan Assessment/Plan Acute respiratory failure -S/p vent -Currently on Vapotherm -BiPAP QHS Sepsis with Pneumonia -Zosyn started on 05/12 -Resolved leukocytosis -Sputum is showing Stenotrophomonas -BCTM -MRSA nasal swab Bilateral pleural effusions -US chest today and their is not enough fluid for thoracentesis -Will decrease Lasix to 40mg daily and Spironolactone to 25mg PO daily CHF EF 35% with acute pulmonary edema MISTY GUZMAN DO May 22, 2019 06:56
[2019-05-22] MEDS: POTASSIUM CL 10MEQ/50ML IVPB 50 ML IV SCH (07:06)
[2019-05-22] MEDS: CATHETER FLUSH 10 ML SYR IV SCH ×3 (07:06→20:50)
[2019-05-22] MEDS: MAGNESIUM 1 GM/100 ML IVPB 100 ML IV SCH ×4 (07:08→09:20)
[2019-05-22] MEDS: KCL 20 MEQ TAB (K-DUR) PO SCH (07:10)
[2019-05-22 07:20] LABS: MAGNESIUM 1.3 MG/DL (1.6-2.4); PHOSPHORUS 3.2 MG/DL (2.3-4.7)
[2019-05-22 07:42] LABS: BAND NEUTROPHILS 0 %; BASOPHILS % (MANUAL) 0 %; EOSINOPHILS % (MANUAL) 0 %; LYMPHOCYTES % (MANUAL) 13 %; MONOCYTES % (MANUAL) 4 %; NEUTROPHILS % (MANUAL) 83 %
[2019-05-22 07:43] LABS: RBC MORPH NORMAL
--- NOTE | 2019-05-22 07:45 | NUR ---
PATIENTS VAPOTHERM WAS DECREASED TO 30 L AND 40% BUT THEN SHE DESATTED TO 89% SO RT INCREASED O2 BACK UP TO PREVIOUS 45%
--- NOTE | 2019-05-22 08:05 | Diagnostic Imaging Report ---
INDICATION: Shortness of air, ICU care management. TECHNIQUE: Single view chest 3:14 AM. CORRELATION STUDY: 05/21/2019 FINDINGS: A right IJ central line unchanged. Heart size enlarged. There is presence of pulmonary vascular congestion, perihilar edema but overall appears slightly diminished and improved from prior study. Combination of effusions along with atelectasis or infiltrate both lung bases persisting but also appears slightly improved. Small bleb right lung apex. Old healed left posterior lateral rib fracture. Multiple overlying monitor leads are present. IMPRESSION: 1. Findings of congestive failure persisting but overall improved. 2. There has also been some improvement but continued bilateral pleural effusion along with atelectasis or infiltrate at both lung bases. Dictated by: Dictated on workstation # [id number]
[2019-05-22] MEDS: PANTOPRAZOLE 40 MG (PROTONIX) VIAL IV SCH (09:03)
[2019-05-22] MEDS: methylPREDNISolone 40 MG/ML (Solu-MEDROL) VIAL IV SCH ×2 (09:03→20:49)
[2019-05-22] MEDS: FUROSEMIDE 40 MG/4 ML INJ (LASIX) IVP SCH (09:03)
[2019-05-22] MEDS: meTOprolol TARTRATE 50 MG (LOPRESSOR) TAB PO SCH ×2 (09:04→20:49)
[2019-05-22] MEDS: lisINopril 5 MG (PRINIVIL) TABLET PO SCH (09:04)
[2019-05-22] MEDS: SPIRONOLACTONE 25 MG (ALDACTONE) TAB PO SCH (09:04)
[2019-05-22] MEDS: TRIM/SULFAMETH 160/800 (SEPTRA DS) TAB PO SCH ×2 (09:04→16:54)
--- NOTE | 2019-05-22 09:38 | Physical Therapy Daily Note ---
PT Daily Note-Current Subjective Patient agrees to PT. No c/o Pain Numeric Pain Scale: 0-No Pain Location: No Pain Reported Mental Status Patient Orientation: Normal For Age Attachments: Oxygen (vapotherm 30/45), Martinez Catheter Transfers Therapy Code Descriptions/Definitions Functional [place] Measure: 0=Not Assessed/NA 4=Minimal Assistance 1=Total Assistance 5=Supervision or Setup 2=Maximal Assistance 6=Modified [place] 3=Moderate Assistance 7=Complete [place] Therapy Quality Codes: 6 Independent with activity with or without an assistive device 5 Patient requires set up or clean up by helper. Patient completes activity by themselves 4 Supervision or touching assist (CGA). [place] provide cues , steadying assist 3 The helper provides less than half the effort to complete the activity 2 The helper provides more than half the effort to complete the activity 1 Dependent. The helper does all the effort to complete an activity 7 Patient refused to complete or attempt activity 9 The patient did not perform the activity before the current illness or injury 88 Not attempted due to Medical conditions or safety concerns Transfers (B, C, W/C) (FIM): 4 Scootin Rollin Supine to/from Sit: 5 Sit to/from Stand: 4 Bed to/from Chair: 4 CGA for safety Weight Bearing Right Lower Extremity: Right Weight Bearing/Tolerated Left Lower Extremity: Left Weight Bearing/Tolerated Exercises Supine Ex: Ankle pumps, Quad Set, Heel Slides, Straight leg raise Supine Reps: 10 Seated Therapy Exercises: Long arc quads Seated Reps: 15 Standing: Marching Standing Reps: 10 (2 sets) Assessment Patient SAO2 decreased to 84% on vapotherm 30/45 and fluctuated from 84%-88% x 10 min with deep breathing and coughing exercises. PT notified RN who contacted RT and increase vapotherm 40/50. SAO2 increased to 90% after 3 min. PT Short Term Goals Short Term Goals Time Frame: May 27, 2019 Transfers (B,C,W/C) (FIM): 4 Gait (FIM): 1 Gait Distance Comment: 20' Gait Level of Assist: 4 Gait Assistive Device: FWW PT Plan Treatment/Plan Treatment Plan: Continue Plan of Care Treatment Plan: Bed Mobility, Education, Functional Activity Bryant, Functional Strength, Gait, Safety, Therapeutic Exercise, Transfers Treatment Duration: May 27, 2019 Frequency: 6 times per week Estimated Hrs Per Day: .25 hour per day Patient and/or Family Agrees t: Yes Time/GCodes Time In: 820 Time Out: 843 Total Billed Treatment Time: 23 Total Billed Treatment 1 visit EX 15 min FA 8 min SHAMAR GREGORIO PT May 22, 2019 09:38
[2019-05-22] MEDS: DOCUSATE SODIUM 10 MG/ML 10 ML UDC (COLACE) PO SCH ×2 (09:48→20:50)
--- NOTE | 2019-05-22 09:54 | Cardiology Progress Note ---
Cardiology SOAP Progress Note Subjective: No chest pain. Objective: I&O/Vital Signs 05/21/19 05/21/19 05/21/19 05/22/19 22:00 22:04 23:00 00:00 Pulse 86 88 96 Resp 22 20 13 B/P (MAP) 136/64 (88) 135/66 (89) 141/68 (92) Pulse Ox 95 95 91 O2 Delivery Vapotherm Vapotherm Vapotherm Vapotherm O2 Flow Rate 35.00 30.00 30.00 30.00 25.00 25.00 25.00 25.00 05/22/19 05/22/19 05/22/19 05/22/19 00:00 00:31 01:00 01:00 Temp 96.9 Pulse 99 96 Resp 45 B/P (MAP) 154/78 (103) Pulse Ox 87 O2 Delivery Vapotherm Vapotherm O2 Flow Rate 25.00 30.00 25.00 FiO2 35 05/22/19 05/22/19 05/22/19 05/22/19 01:06 02:00 02:46 03:00 Pulse 90 94 Resp 19 15 B/P (MAP) 131/65 (87) 139/70 (93) Pulse Ox 93 92 92 O2 Delivery Vapotherm Vapotherm Vapotherm O2 Flow Rate 42.00 42.00 32.00 45.00 32.00 32.00 32.00 FiO2 42 05/22/19 05/22/19 05/22/19 05/22/19 04:00 04:00 05:00 06:00 Pulse 96 93 96 Resp 20 21 20 B/P (MAP) 133/62 (85) 130/63 (85) 138/65 (89) Pulse Ox 91 90 92 O2 Delivery Vapotherm Vapotherm Vapotherm Vapotherm O2 Flow Rate 32.00 45.00 45.00 45.00 32.00 32.00 32.00 FiO2 45 05/22/19 05/22/19 05/22/19 05/22/19 07:00 07:00 07:35 08:00 Pulse 98 98 Resp 16 B/P (MAP) 147/67 (93) Pulse Ox 91 92 O2 Delivery Vapotherm Vapotherm O2 Flow Rate 35.00 40.00 40.00 20.00 FiO2 45 50 05/22/19 05/22/19 05/22/19 08:00 08:51 09:00 Pulse 102 106 Resp 23 22 B/P (MAP) 153/62 (92) Pulse Ox 90 93 O2 Delivery Vapotherm Vapotherm Vapotherm O2 Flow Rate 35.00 50.00 50.00 20.00 40.00 40.00 05/22/19 00:00 Intake Total 658 ml Output Total 1600 ml Balance -942 ml Weight (Pounds): 150 Weight (Ounces): 4.0 Weight (Calculated Kilograms): 68.384531 Constitutional: appears stated age, AAO x 3; No apparent distress; well- developed, well-nourished Respiratory: chest is bilaterally symmetric, lungs clear to auscultation, rhonchi Cardiovascular: regular rate-rhythm; No irregularly irregular, No extra beats, No parasternal heave is noted, No JVD, No edema, No bradycardia, No tachycardia, No point of maximal impulse, No cardiac thrills are palpable; S1 and S2; No gallop/S3, No gallop/S4, No diastolic murmur, No systolic murmur, No friction rub, No click, No other Gastrointestional: No tender, No soft, No round, No distended, No pulsatile mass, No organomegaly, No guarding, No rebound, No tenderness, No hernia, No mass, No audible bowel sounds, No abnormal bowel sounds, No abdominal bruits, No spleenomegaly, No other Extremities: No normal range of motion, No non-tender, No normal inspection, No pedal edema, No calf tenderness, No normal capillary refill, No pelvis stable, No calf tenderness, No inflammation, No pedal edema, No slow capillary refill, No swelling, No other, No abrasion, No clubbing, No cyanosis, No ecchymosis, No laceration, No no lower extremity edema bilateral, No significant edema, No tenderness, No wound Neurologic/Psychiatric: no motor/sensory deficits, alert, normal mood/affect, oriented x 3, power is 5/5 both on sides Skin: No normal color, No warm/dry, No cyanosis, No cool, No diaphoresis, No damp, No ecchymosis, No jaundice, No mottled, No pallor, No rash, No tattoos/piercings, No ulcerations, No rash on exposed areas, No ulcerations on exposed areas, No other Results/Procedures: Labs Laboratory Tests 05/21/19 11:49: Glucometer 172H 05/21/19 17:57: Glucometer 111H 05/22/19 00:32: Glucometer 149H 05/22/19 04:05: White Blood Count 16.0H, Red Blood Count 5.06, Hemoglobin 13.5, Hematocrit 45, Mean Corpuscular Volume 88, Mean Corpuscular Hemoglobin 27, Mean Corpuscular Hemoglobin Concent 30L, Red Cell Distribution Width 16.7H, Platelet Count 343, Mean Platelet Volume 10.9H, Neutrophils (%) (Auto) 86H, Lymphocytes (%) (Auto) 9L, Monocytes (%) (Auto) 5, Eosinophils (%) (Auto) 0, Basophils (%) (Auto) 0, Neutrophils # (Auto) 13.8H, Lymphocytes # (Auto) 1.5, Monocytes # (Auto) 0.8, Eosinophils # (Auto) 0.0, Basophils # (Auto) 0.0, Neutrophils % (Manual) 83, Lymphocytes % (Manual) 13, Monocytes % (Manual) 4, Eosinophils % (Manual) 0, Basophils % (Manual) 0, Band Neutrophils 0, Blood Morphology Comment NORMAL, Sodium Level 145, Potassium Level 3.8, Chloride Level 97L, Carbon Dioxide Level 33H, Anion Gap 15H, Blood Urea Nitrogen 34H, Creatinine 0.82, Estimat Glomerular Filtration Rate > 60, BUN/Creatinine Ratio 41, Glucose Level 123H, Calcium Level 9.9, Phosphorus Level 3.2, Magnesium Level 1.3L, B-Type Natriuretic Peptide 457.5H 05/22/19 04:08: Blood Gas Puncture Site RIGHT RAD ART LINE, Blood Gas Patient Temperature 96.8, Arterial Blood pH 7.45H, Arterial Blood Partial Pressure CO2 55H, Arterial Blood Partial Pressure O2 56L, Arterial Blood HCO3 38H, Arterial Blood Total CO2 40.2H , Arterial Blood Oxygen Saturation 89L, Arterial Blood Base Excess 13.4H, Александр Test ARTLINE, Blood Gas Ventilator Setting NO, Blood Gas Inspired Oxygen 32 Microbiology 05/12/19 Blood Culture - Final, Complete No growth 05/19/19 Mycobacterial Culture - Preliminary, Resulted See Comments A/P: Assessment/Dx: acute respiratory failure, Severe sepsis, Acute systolic and diastolic congestive heart failure, Positive cardiac enzymes, Plan: 1. Acute respiratory failure, extubated. Doing well. On Vapotherm. Defer to Dr. GUZMNA. 2. Sepsis, on broad spectrum antibiotics. Likely source is pneumonia. 3. Positive cardiac enzymes. Coronary angiography done within the last one month did not reveal obstructive CAD. Likely type II myocardial infarction due to severe respiratory failure, sepsis with septic shock. No chest pain. Repeat EKG. No planned for either nuclear imaging or coronary angiography at this point in time. Once respiratory status improves, we will consider at that point in time. 4. Acute systolic and diastolic congestive heart failure. Continue Lasix and Aldactone. 5. Bilateral pleural effusions, thoracentesis being planned. Thank you for your consultation. Please call me if you have any questions. Lucius Ross MD, FACP, FACC, FSCAI, FHRS, CCDS Interventional Cardiology Cardiac Electrophysiology Vascular Medicine and Endovascular Interventions Ava ROSS MD May 22, 2019 9:54 am
--- NOTE | 2019-05-22 10:17 | Occupational Ther Daily Note ---
OT Current Status-Daily Note Subjective pt sitting in recliner chair upon OT arrival. pt agreed to OT TX session with focus on increasing indep with bathing. NSG stated pt is able to participate in TX session this date. Mental Status/Objective Therapy Code Descriptions/Definitions Functional [place] Measure: 0=Not Assessed/NA 4=Minimal Assistance 1=Total Assistance 5=Supervision or Setup 2=Maximal Assistance 6=Modified [place] 3=Moderate Assistance 7=Complete [place] Attachments: Martinez Catheter, IV, Oxygen (vapo), Telemetry ADL-Treatment Bathing (FIM): 3 (pt requried increase timing secodnary to limtated activity tolerance. ) Bathing Location: L Arm, R Arm, L Upper Leg, R Upper Leg, Chest, Abdomen pt required increase timing secondary to limited activity tolerance for bathing. vital monitor during session. pt O2 to 89% during standing while washing buttock. skilled cuing for energy conservation techniques during b athing. pt perform 1 sit to stand and maintain static standing balance with MIN A. noted slight retropulsive. pt education on pursed lip breathing. pt demo understanding and O2 increase to 94%. post OT session, pt sitting in recliner chair, call light within reach, all needs met. Education OT Patient Education: Energy conservation, Modified ADL techniques, Progress toward Goal/Update tx plan, Purpose of tx/functional activities Teaching Recipient: Patient Teaching Methods: Demonstration, Discussion Response to Teaching: Verbalize Understanding, Return Demonstration OT Short Term Goals Short Term Goals Time Frame: May 27, 2019 Grooming(FIM): 5 Bathing(FIM): 4 Lower Body Dressing(FIM): 5 Toileting(FIM): 5 Transfers (B,C,W/C) (FIM): 4 Toilet/Commode Transfer(FIM): 4 1=Demonstrate adherence to instructed precautions during ADL tasks. 2=Patient will verbalize/demonstrate understanding of assistive devices/modifications for ADL. 3=Patient will improve strength/tolerance for activity to enable patient to perform ADL's. OT Dairy Technician Goals Dairy Technician Goals Time Frame: Jun 03, 2019 Eating (FIM): 6 Grooming(FIM): 6 Bathing(FIM): 6 Bathing Location: L Arm, R Arm, L Upper Leg, R Upper Leg, L Lower Leg (including foot), R Lower Leg (including foot), Chest, Abdomen, Buttocks, Perineal Area Upper Body Dressing(FIM): 6 Lower Body Dressing(FIM): 6 Toileting(FIM): 6 Transfers (B,C,W/C) (FIM): 6 Toilet/Commode Transfer(FIM): 6 Additional Goals: 1-Demonstrate ADL Tasks, 2-Verbalize Understanding, 3-Im proveStrength/[place] 1=Demonstrate adherence to instructed precautions during ADL tasks. 2=Patient will verbalize/demonstrate understanding of assistive devices/modifications for ADL. 3=Patient will improve strength/tolerance for activity to enable patient to perform ADL's. OT Education/Plan Problem List/Assessment Assessment: Decreased Activ Tolerance, Decreased Safety Aware, Decreased UE Strength, Impaired Coordination, Impaired Funct Balance, Impaired I ADL's, Impaired Self-Care Skills pt presents with functional limitations affecting areas of ADLS and functional transfers with the above mention deficits. pt would benefit from OT services to increase indep with ADLS/ functional transfers. recommend inpt rehab when medical stable to continue address deficits and for safe transition to home. Discharge Recommendations Plan/Recommendations: Continue POC Treatment Plan/Plan of Care Treatment,Training & Education: Yes Patient would benefit from OT for education, treatment and training to promote independence in ADL's, mobility, safety and/or upper extremity function for ADL's. Plan of Care: ADL Retraining, Functional Mobility, Group Exercise/Act as Ind, UE Funct Exercise/Act Treatment Duration: Jun 03, 2019 Frequency: 5 times per week Estimated Hrs Per Day: .25 hour per day Agreement: Yes Rehab Potential: Fair Time/GCodes Start Time: 09:40 Stop Time: 10:05 Billed Treatment Time ADL 25 minutes, 2 units RANDI DOVE OT May 22, 2019 10:17
--- NOTE | 2019-05-22 10:27 | Progress Note - Hospitalist ---
Subjective HPI/CC On Admission Date Seen by Provider: May 22, 2019 Time Seen by Provider: 10:00 Subjective/Events-last exam Patient doing well since extubated 2 days ago Transferred to fourth floor Patient has a long recovery ahead of her May need inpatient rehab No bowel movement yet Check meds and labs Restarted most home medications Review of Systems General: Fatigue Pulmonary: Dyspnea Objective Exam Vital Signs Vital Signs Date Time Temp Pulse Resp B/P (MAP) Pulse Ox O2 Delivery O2 Flow Rate FiO2 05/22/19 16:15 98.5 89 22 133/77 (95) 92 NIV Bilevel 90.00 05/22/19 12:00 50 Capillary Refill : Less Than 3 Seconds General Appearance: No Apparent Distress, WD/WN, Chronically ill, Thin Respiratory: Chest Non Tender, Lungs Clear, No Accessory Muscle Use, No Respiratory Distress, Decreased Breath Sounds Cardiovascular: Regular Rate, Rhythm, No Edema, No Gallop, No JVD, No Murmur, Normal Peripheral Pulses Neurologic/Psychiatric: Alert, Oriented x3, No Motor/Sensory Deficits, Normal Mood/Affect Results/Procedures Lab Laboratory Tests 05/22/19 04:05 Patient resulted labs reviewed. Imaging: Reviewed Imaging Report Assessment/Plan Assessment and Plan Assess & Plan/Chief Complaint Assessment: VDRF s/p extubation AECOPD CHF Pneumonia Plan: Extubated PT/OT IRF after recovered Diagnosis/Problems Diagnosis/Problems (1) PNA (pneumonia) Status: Acute Qualifiers: Pneumonia type: due to unspecified organism Laterality: unspecified laterality Lung location: unspecified part of lung Qualified Codes: J18.9 - Pneumonia, unspecified organism (2) CHF (congestive heart failure) Status: Chronic Qualifiers: Heart failure type: systolic (3) COPD (chronic obstructive pulmonary disease) Status: Chronic Qualifiers: COPD type: unspecified COPD Qualified Codes: J44.9 - Chronic obstructive pulmonary disease, unspecified (4) Acute and chronic respiratory failure with hypoxia Status: Acute Clinical Quality Measures DVT/VTE Risk/Contraindication: Risk Factor Score Per Nursin RFS Level Per Nursing on Admit: 4+=Very High CE HOBBS DO May 22, 2019 10:27
--- NOTE | 2019-05-22 13:18 | NUR ---
THIS CALLED REPORT TO DANETTE ON 4TH FLOOR.
[2019-05-22] MEDS ORDERED: FUROSEMIDE 40 MG/4 ML INJ (LASIX) IVP ONE (14:15)
--- NOTE | 2019-05-22 14:20 | NUR ---
Patient transferred to [id number] per accompanied by RT AND ICU Gabriel. Patient and family notified and understand transfer. Personal belongings with patient. Report given to THIS RN FROM [facility] -- NOTE THAT RT PUT PT ON O2 PER VAPOR SATING 89% -- RT IS AWARE -- AND CALLED THEM AGAIN
--- NOTE | 2019-05-22 14:32 | Speech Therapy Daily Note ---
Speech Daily Progress Note Subjective Date Seen by Provider: May 22, 2019 Time Seen by Provider: 00:15 The patient has made good progress and is being prepared to transfer to the 4th floor. Objective Patient is utilizing compensatory strategies as trained for all oral intake at 80% with minimal cuing. Assessment Assessment Current Status: Good Progress Treatment Plan Continue Plan of Care Speech Short Term Goals Short Term Goals Short Term Goals 1) The patient will tolerate least restrictive diet level with 90% or greater without s/s of aspiration. 2) The patient will utilize compensatory strategies as trained with 90% or greater given minimal cues. Speech Human Resources Advisor Goals Human Resources Advisor Goals The patient will maintain adequate nutrition/hydration via safe, effective swallow function. Speech-Plan Patient/Family Goals Patient/Family Goals: The patient plans on returning home upon hospital discharge. Treatment Plan Speech Therapy Treatment Plan: Continue Plan of Care Patient is progressing well with skilled therapy. Treatment Duration: May 22, 2019 Frequency: 4 times per week Estimated Hrs Per Day: .25 hour per day Rehab Potential: Fair Barriers to Learning: The patient has had a complex medical status which is resolving. Pt/Family Agrees to Plan: Yes Safety Risks/Education Teaching Recipient: Patient Teaching Methods: Demonstration, Discussion Response to Teaching: Verbalize Understanding, Return Demonstration Education Topics Provided: Continued safety of oral intake. Time Speech Therapy Time In: 13:30 Speech Therapy Time Out: 13:45 Total Billed Time: 15 Billed Treatment Time 1ELE[address] May 22, 2019 14:32
--- NOTE | 2019-05-22 14:33 | NUR ---
SCANNER IN ROM NOT WORKING
[2019-05-22] MEDS: ENOXAPARIN 40 MG/0.4 ML (LOVENOX) SYR SQ SCH (14:47)
--- NOTE | 2019-05-22 15:30 | NUR ---
NOTE THAT SL IN L WRIST WAS OCCULTED AND WAS REMOVED DR HOBBS WAS CALLED AND SHE ORDERED THAT THE IJ C.L. STAY IN --
[2019-05-22] MEDS: KCL 20 MEQ POWDER FOR ORAL SOLUTION PO SCH (16:55)
[2019-05-22] MEDS: PANTOPRAZOLE 40 MG (PROTONIX) TAB PO SCH (20:49)
[2019-05-22] MEDS: ONDANSETRON 4 MG/2 ML (SDV) Z0FRAN IVP PRN (23:54)
[2019-05-23] VITALS (7 sets, daily range): BP systolic 119–143; BP diastolic 57–78
[2019-05-23] MEDS: RT-ALBUTEROL/IPRATROPIUM 3 ML (DUONEB) VIAL INH SCH ×6 (03:24→22:25)
[2019-05-23] MEDS: CATHETER FLUSH 10 ML SYR IV SCH ×3 (05:28→21:29)
[2019-05-23] MEDS: inSUlin ASPART (NovoLOG) 1 UNIT/0.01 ML (CHARGE PER UNIT) SQ SCH ×3 (05:29→18:07)
[2019-05-23] MEDS: MAGNESIUM 1 GM/100 ML IVPB 100 ML IV SCH (05:42)
[2019-05-23] MEDS: POTASSIUM CL 10MEQ/50ML IVPB 50 ML IV SCH (05:42)
[2019-05-23] MEDS: KCL 20 MEQ TAB (K-DUR) PO SCH (05:42)
[2019-05-23 05:52] LABS: BASOPHILS % (AUTO) 0 % (0-10); EOSINOPHILS % (AUTO) 0 % (0-10); HEMATOCRIT 44 % (35-52); HEMOGLOBIN 13.3 G/DL (11.5-16.0); LYMPHOCYTES # (AUTO) 1.3 X 10^3 (1.0-4.0); LYMPHOCYTES % (AUTO) 6 % (12-44); MEAN CORPUSCULAR HEMOGLOBIN 27 PG (25-34); MEAN CORPUSCULAR HGB CONC 30 G/DL (32-36); MEAN CORPUSCULAR VOLUME 89 FL (80-99); MEAN PLATELET VOLUME 11.5 FL (7.4-10.4); MONOCYTES # (AUTO) 0.8 X 10^3 (0.0-1.0); MONOCYTES % (AUTO) 3 % (0-12); NEUTROPHILS # (AUTO) 21.2 X 10^3 (1.8-7.8); NEUTROPHILS % (AUTO) 91 % (42-75); PLATELET COUNT 326 10^3/uL (130-400); RED CELL DISTRIBUTION WIDTH 17.1 % (10.0-14.5); WHITE BLOOD COUNT 23.3 10^3/uL (4.3-11.0)
[2019-05-23 06:13] LABS: BUN/CREATININE RATIO 47; CALCIUM 10.4 MG/DL (8.5-10.1); CARBON DIOXIDE 35 MMOL/L (21-32); CHLORIDE 98 MMOL/L (98-107); CREATININE SERUM 0.86 MG/DL (0.60-1.30); GFR ESTIMATED > 60; GLUCOSE 138 MG/DL (70-105); MAGNESIUM 1.7 MG/DL (1.6-2.4); PHOSPHORUS 3.8 MG/DL (2.3-4.7); POTASSIUM 4.3 MMOL/L (3.6-5.0); SODIUM 145 MMOL/L (135-145); TRIGLYCERIDES 251 MG/DL (<150)
[2019-05-23] MEDS: TRIM/SULFAMETH 160/800 (SEPTRA DS) TAB PO SCH ×2 (06:30→18:07)
[2019-05-23 07:00] LABS: LYMPHOCYTES % (MANUAL) 9 %; MONOCYTES % (MANUAL) 2 %; NEUTROPHILS % (MANUAL) 89 %
[2019-05-23] MEDS ORDERED: OMEPRAZOLE 20 MG (PriLOSEC) CAP NON-FORMULARY PO SCH (09:00)
[2019-05-23] MEDS ORDERED: BUMETANIDE 1 MG/4 ML (BUMEX) VIAL IV NR (09:15)
--- NOTE | 2019-05-23 09:26 | Pulmonary Progress Note ---
Subjective Time Seen by a Provider: 09:34 Subjective/Events-last exam PT is currently requiring 80% oxygen via Vapotherm. Sepsis Event Evaluation Height, Weight, BMI Height: 5'5.00" Weight: 150lbs. 4.0oz. 68.680750rl; 28.3 BMI Method:Stated Exam Exam Vital Signs Date Time Temp Pulse Resp B/P (MAP) Pulse Ox O2 Delivery O2 Flow Rate FiO2 05/23/19 08:00 96.0 104 20 126/59 (81) 94 Vapotherm 80.00 40.00 05/23/19 07:26 91 Vapotherm 40.00 80 05/23/19 04:00 96.8 88 20 121/78 (92) 98 NIV Bilevel 05/23/19 03:25 76 16 97 90.00 05/23/19 00:00 98.2 80 24 143/69 (93) NIV Bilevel 05/22/19 22:38 78 16 97 90.00 05/22/19 20:05 97.7 93 19 133/65 (87) 96 NIV Bilevel 90.00 05/22/19 20:00 NIV Bilevel 05/22/19 16:15 98.5 89 22 133/77 (95) 92 NIV Bilevel 90.00 05/22/19 15:38 NIV CPAP 05/22/19 14:57 92 21 94 100.00 05/22/19 14:00 97.6 94 18 149/71 (97) Vapotherm 75.00 40.00 05/22/19 13:00 98 05/22/19 12:38 Vapotherm 75.00 40.00 05/22/19 12:30 NIV Bilevel 60.00 05/22/19 12:00 Vapotherm 75.00 50 05/22/19 12:00 96.8 05/22/19 12:00 89 17 90 Vapotherm 50.00 40.00 05/22/19 10:45 92 40.00 50 I & O 05/23/19 07:00 Intake Total 1530 ml Output Total 3375 ml Balance -1845 ml Height & Weight Height: 5'5.00" Weight: 150lbs. 4.0oz. 68.514207ev; 28.3 BMI Method:Stated General Appearance: WD/WN, Chronically ill, Mild Distress, Thin HEENT: PERRL/EOMI, Normal ENT Inspection, Pharynx Normal Neck: Limited Range of Motion Respiratory: Chest Non Tender, Accessory Muscle Use, Crackles, Decreased Breath Sounds Cardiovascular: Regular Rate, Rhythm, No Edema, No Gallop, No JVD, No Murmur, Normal Peripheral Pulses Capillary Refill: Less Than 3 Seconds Gastrointestinal: soft; No guarding, No rebound Extremity: Pedal Edema Neurologic/Psychiatric: Alert, Oriented x3, No Motor/Sensory Deficits, Normal Mood/Affect Skin: Warm/Dry, Pallor Lymphatic: No Adenopathy Results Lab Laboratory Tests 05/22/19 04:05 05/23/19 05:20 Assessment/Plan Assessment/Plan Acute respiratory failure -Currently on Vapotherm -Will give 2mg of IV Bumex x 1 -BiPAP QHS Sepsis with Pneumonia -Sputum is showing Stenotrophomonas -BCTM -MRSA nasal swab Bilateral pleural effusions - Lasix to 40mg daily and Spironolactone to 25mg PO daily CHF EF 35% with acute pulmonary edema MISTY GUZMAN DO May 23, 2019 09:26
[2019-05-23] MEDS: FUROSEMIDE 40 MG/4 ML INJ (LASIX) IVP SCH ×2 (09:54→21:25)
[2019-05-23] MEDS: DOCUSATE SODIUM 10 MG/ML 10 ML UDC (COLACE) PO SCH ×2 (09:59→21:25)
[2019-05-23] MEDS: methylPREDNISolone 40 MG/ML (Solu-MEDROL) VIAL IV SCH ×2 (09:59→21:25)
[2019-05-23] MEDS: SPIRONOLACTONE 25 MG (ALDACTONE) TAB PO SCH (09:59)
[2019-05-23] MEDS: ASPIRIN E.C. 81 MG (ECOTRIN) TAB PO SCH (09:59)
[2019-05-23] MEDS: GABAPENTIN 300 MG (NEURONTIN) CAP PO SCH ×3 (10:00→21:25)
[2019-05-23] MEDS: PANTOPRAZOLE 40 MG (PROTONIX) TAB PO SCH ×2 (10:00→21:23)
[2019-05-23] MEDS: meTOprolol TARTRATE 50 MG (LOPRESSOR) TAB PO SCH ×2 (10:00→21:23)
[2019-05-23] MEDS: ATORVASTATIN 10 MG (LIPITOR) TABLET PO SCH (10:00)
[2019-05-23] MEDS: lisINopril 5 MG (PRINIVIL) TABLET PO SCH (10:01)
--- NOTE | 2019-05-23 11:20 | NUR ---
DR. GUZMAN NOTIFIED THAT RT HAD TO INCREASE VAPOTHERM TO 40L AND 85%. PT DENIES DISTRESS AND APPEARS COMFORTABLE. SATS 90%.
--- NOTE | 2019-05-23 11:32 | Progress Note - Hospitalist ---
Subjective HPI/CC On Admission Date Seen by Provider: May 23, 2019 Time Seen by Provider: 11:30 Subjective/Events-last exam Patient breathing is labored but not severe Dr Castillo gave Bumex in hopes of improved oxygenation but may very well need to move back upstairs and undergo repeat intubation Checked meds and labs BM+ Catheter in place but will remain for diuresis and patient with increased work of breathing Eating a bit more Small BM this morning WBC 20k Review of Systems General: Fatigue Pulmonary: Dyspnea Objective Exam Vital Signs Vital Signs Date Time Temp Pulse Resp B/P (MAP) Pulse Ox O2 Delivery O2 Flow Rate FiO2 05/23/19 14:37 90 Vapotherm 40.00 85 05/23/19 13:07 92 05/23/19 12:00 98.4 21 119/57 (77) Capillary Refill : Less Than 3 Seconds General Appearance: WD/WN, Anxious, Chronically ill, Moderate Distress Respiratory: Chest Non Tender, Accessory Muscle Use, Decreased Breath Sounds, Respiratory Distress, Wheezing Neurologic/Psychiatric: Alert, Oriented x3, No Motor/Sensory Deficits, Normal Mood/Affect Skin: Normal Color, Warm/Dry Results/Procedures Lab Laboratory Tests 05/23/19 05:20 Patient resulted labs reviewed. Imaging: Reviewed Imaging Report Assessment/Plan Assessment and Plan Assess & Plan/Chief Complaint Assessment: VDRF s/p extubation AECOPD CHF Pneumonia Volume overload Plan: Extubated but may need to return to ICU for reintubation PT/OT IRF after recovered Diagnosis/Problems Diagnosis/Problems (1) PNA (pneumonia) Status: Acute Qualifiers: Pneumonia type: due to unspecified organism Laterality: unspecified laterality Lung location: unspecified part of lung Qualified Codes: J18.9 - Pneumonia, unspecified organism (2) CHF (congestive heart failure) Status: Chronic Qualifiers: Heart failure type: systolic (3) COPD (chronic obstructive pulmonary disease) Status: Chronic Qualifiers: COPD type: unspecified COPD Qualified Codes: J44.9 - Chronic obstructive pulmonary disease, unspecified (4) Acute and chronic respiratory failure with hypoxia Status: Acute Clinical Quality Measures DVT/VTE Risk/Contraindication: Risk Factor Score Per Nursin RFS Level Per Nursing on Admit: 4+=Very High CE HOBBS DO May 23, 2019 11:32
[2019-05-23 12:55] LABS: ABG BASE EXCESS 14.6 MMOL/L (-2.5-2.5); ABG OXYGEN SATURATION 94 % (94-100); ABG PCO2 58 MMHG (35-45); ABG PH 7.44 (7.37-7.43); ABG PO2 65 MMHG (79-93); ABG TCO2 41.7 MMOL/L (21.0-31.0)
--- NOTE | 2019-05-23 12:57 | Physical Therapy Progress Note ---
Therapy Progress Note Pt in bed, declined to get OOB with PT. Pt reports "They are going to take my catheter out in a bit so I will get up then". Agreeable to up to chair with nursing later this date. ROBERTO BUSTAMANTE DPT May 23, 2019 12:57
[2019-05-23 12:58] LABS: ALLENS TEST YES-POS; INSPIRED O2 85%; PATIENT TEMP 96.7; VENTILATOR NO
--- NOTE | 2019-05-23 13:04 | NUR ---
DR. GUZMAN NOTIFIED OF STAT ABG'S.
--- NOTE | 2019-05-23 13:41 | Cardiology Progress Note ---
Cardiology SOAP Progress Note Subjective: No chest pain. Objective: I&O/Vital Signs 05/23/19 05/23/19 05/23/19 05/23/19 03:25 04:00 07:26 08:00 Temp 96.8 96.0 Pulse 76 88 104 Resp 16 20 20 B/P (MAP) 121/78 (92) 126/59 (81) Pulse Ox 97 98 91 94 O2 Delivery NIV Bilevel Vapotherm Vapotherm O2 Flow Rate 90.00 40.00 80.00 40.00 FiO2 80 05/23/19 05/23/19 05/23/19 05/23/19 09:00 10:19 11:09 13:07 Pulse 101 92 Pulse Ox 90 88 O2 Delivery Vapotherm Vapotherm O2 Flow Rate 40.00 40.00 FiO2 80 80 05/23/19 00:00 Intake Total 880 ml Output Total 1375 ml Balance -495 ml Weight (Pounds): 150 Weight (Ounces): 4.0 Weight (Calculated Kilograms): 68.297702 Constitutional: appears stated age, AAO x 3; No apparent distress; well- developed, well-nourished Respiratory: chest is bilaterally symmetric, lungs clear to auscultation, rhonchi Cardiovascular: regular rate-rhythm; No irregularly irregular, No extra beats, No parasternal heave is noted, No JVD, No edema, No bradycardia, No tachycardia, No point of maximal impulse, No cardiac thrills are palpable; S1 and S2; No gallop/S3, No gallop/S4, No diastolic murmur, No systolic murmur, No friction rub, No click, No other Gastrointestional: No tender, No soft, No round, No distended, No pulsatile mas s, No organomegaly, No guarding, No rebound, No tenderness, No hernia, No mass, No audible bowel sounds, No abnormal bowel sounds, No abdominal bruits, No spleenomegaly, No other Extremities: No normal range of motion, No non-tender, No normal inspection, No pedal edema, No calf tenderness, No normal capillary refill, No pelvis stable, No calf tenderness, No inflammation, No pedal edema, No slow capillary refill, No swelling, No other, No abrasion, No clubbing, No cyanosis, No ecchymosis, No laceration, No no lower extremity edema bilateral, No significant edema, No tenderness, No wound Neurologic/Psychiatric: no motor/sensory deficits, alert, normal mood/affect, oriented x 3, power is 5/5 both on sides Skin: No normal color, No warm/dry, No cyanosis, No cool, No diaphoresis, No damp, No ecchymosis, No jaundice, No mottled, No pallor, No rash, No tattoos/piercings, No ulcerations, No rash on exposed areas, No ulcerations on exposed areas, No other Results/Procedures: Labs Laboratory Tests 05/22/19 18:01: Glucometer 172H 05/22/19 23:42: Glucometer 133H 05/23/19 05:20: White Blood Count 23.3H, Red Blood Count 4.95, Hemoglobin 13.3, Hematocrit 44, Mean Corpuscular Volume 89, Mean Corpuscular Hemoglobin 27, Mean Corpuscular Hemoglobin Concent 30L, Red Cell Distribution Width 17.1H, Platelet Count 326, Mean Platelet Volume 11.5H, Neutrophils (%) (Auto) 91H, Lymphocytes (%) (Auto) 6L, Monocytes (%) (Auto) 3, Eosinophils (%) (Auto) 0, Basophils (%) (Auto) 0, Neutrophils # (Auto) 21.2H, Lymphocytes # (Auto) 1.3, Monocytes # (Auto) 0.8, Eosinophils # (Auto) 0.0, Basophils # (Auto) 0.0, Neutrophils % (Manual) 89, Lymphocytes % (Manual) 9, Monocytes % (Manual) 2, Sodium Level 145, Potassium Level 4.3, Chloride Level 98, Carbon Dioxide Level 35H, Anion Gap 12, Blood Urea Nitrogen 40H, Creatinine 0.86, Estimat Glomerular Filtration Rate > 60, BUN/Creatinine Ratio 47, Glucose Level 138H, Calcium Level 10.4H, Phosphorus Level 3.8, Magnesium Level 1.7, B-Type Natriuretic Peptide 208.4H, Triglycerides Level 251H 05/23/19 05:25: Glucometer 127H 05/23/19 11:02: Glucometer 178H 05/23/19 12:46: Blood Gas Puncture Site LT RADIAL, Blood Gas Patient Temperature 96.7, Arterial Blood pH 7.44H, Arterial Blood Partial Pressure CO2 58H, Arterial Blood Partial Pressure O2 65L, Arterial Blood HCO3 40H, Arterial Blood Total CO2 41.7H, Arterial Blood Oxygen Saturation 94, Arterial Blood Base Excess 14.6H, Александр Test YES-POS, Blood Gas Ventilator Setting NO, Blood Gas Inspired Oxygen 85% Microbiology 05/12/19 Blood Culture - Final, Complete No growth 05/19/19 Mycobacterial Culture - Preliminary, Resulted See Comments A/P: Assessment/Dx: acute respiratory failure, Severe sepsis, Acute systolic and diastolic congestive heart failure, Positive cardiac enzymes, Plan: 1. Acute respiratory failure, extubated. Doing well. On Vapotherm. Defer to Dr. GUZMAN. 2. Sepsis, on broad spectrum antibiotics. Likely source is pneumonia. 3. Positive cardiac enzymes. Coronary angiography done within the last one month did not reveal obstructive CAD. Likely type II myocardial infarction due to severe respiratory failure, sepsis with septic shock. No chest pain. Repeat EKG. No planned for either nuclear imaging or coronary angiography at this point in time. Once respiratory status improves, we will consider at that point in time. 4. Acute systolic and diastolic congestive heart failure. Continue Lasix and Aldactone. 5. Bilateral pleural effusions, Thank you for your consultation. Please call me if you have any questions. Lucius Ross MD, FACP, FACC, FSCAI, FHRS, CCDS Interventional Cardiology Cardiac Electrophysiology Vascular Medicine and Endovascular Interventions Ava ROSS MD May 23, 2019 1:41 pm
[2019-05-23] MEDS: ENOXAPARIN 40 MG/0.4 ML (LOVENOX) SYR SQ SCH (14:35)
[2019-05-23] MEDS ORDERED: RT-ALBUTEROL/IPRATROPIUM 3 ML (DUONEB) VIAL INH PRN (16:00)
[2019-05-23] MEDS ORDERED: FUROSEMIDE 40 MG/4 ML INJ (LASIX) IVP SCH (17:00)
[2019-05-23] MEDS: KCL 20 MEQ POWDER FOR ORAL SOLUTION PO SCH (18:07)
[2019-05-23] MEDS ORDERED: NON-FORMULARY MEDICATION 1 EA EA (Amitriptyline HCl 100 MG) PO SCH (21:00)
[2019-05-23] MEDS: AMITRIPTYLINE 50 MG (ELAVIL) TAB PO SCH (21:24)
[2019-05-24] VITALS (22 sets, daily range): BP systolic 98–149; BP diastolic 40–72
[2019-05-24] MEDS: inSUlin ASPART (NovoLOG) 1 UNIT/0.01 ML (CHARGE PER UNIT) SQ SCH ×5 (01:03→23:59)
[2019-05-24] MEDS: RT-ALBUTEROL/IPRATROPIUM 3 ML (DUONEB) VIAL INH SCH ×6 (01:56→21:53)
[2019-05-24] MEDS: TRIM/SULFAMETH 160/800 (SEPTRA DS) TAB PO SCH ×2 (06:13→17:03)
[2019-05-24] MEDS: CATHETER FLUSH 10 ML SYR IV SCH ×3 (06:14→19:58)
[2019-05-24 06:27] LABS: BASOPHILS % (AUTO) 0 % (0-10); EOSINOPHILS % (AUTO) 0 % (0-10); HEMATOCRIT 44 % (35-52); HEMOGLOBIN 13.1 G/DL (11.5-16.0); LYMPHOCYTES # (AUTO) 1.2 X 10^3 (1.0-4.0); LYMPHOCYTES % (AUTO) 8 % (12-44); MEAN CORPUSCULAR HEMOGLOBIN 27 PG (25-34); MEAN CORPUSCULAR HGB CONC 30 G/DL (32-36); MEAN CORPUSCULAR VOLUME 90 FL (80-99); MEAN PLATELET VOLUME 11.3 FL (7.4-10.4); MONOCYTES # (AUTO) 0.7 X 10^3 (0.0-1.0); MONOCYTES % (AUTO) 4 % (0-12); NEUTROPHILS # (AUTO) 14.3 X 10^3 (1.8-7.8); NEUTROPHILS % (AUTO) 88 % (42-75); PLATELET COUNT 266 10^3/uL (130-400); RED CELL DISTRIBUTION WIDTH 16.6 % (10.0-14.5); WHITE BLOOD COUNT 16.2 10^3/uL (4.3-11.0)
--- NOTE | 2019-05-24 06:30 | Pulmonary Progress Note ---
Subjective Time Seen by a Provider: 06:30 Subjective/Events-last exam Pt is on BiPAP currently Sepsis Event Evaluation Height, Weight, BMI Height: 5'5.00" Weight: 160lbs. 2.6oz. 72.868283gt; 28.3 BMI Method:Stated Exam Exam Vital Signs Date Time Temp Pulse Resp B/P (MAP) Pulse Ox O2 Delivery O2 Flow Rate FiO2 05/24/19 04:00 97.1 87 22 122/70 (87) 96 Vapotherm 85.00 40.00 05/24/19 01:56 76 16 97 90.00 05/24/19 01:00 74 05/24/19 00:00 97.6 75 20 104/63 (77) 93 Vapotherm 85.00 40.00 05/23/19 23:26 78 22 92 90.00 05/23/19 22:25 92 Vapotherm 40.00 85 05/23/19 21:00 92 Vapotherm 40.00 80 05/23/19 19:56 97.0 94 18 121/58 (79) 92 Vapotherm 85.00 40.00 05/23/19 19:00 89 05/23/19 18:47 91 Vapotherm 40.00 85 05/23/19 15:41 97.9 89 22 135/61 (85) 92 Vapotherm 85.00 40.00 05/23/19 14:37 90 Vapotherm 40.00 85 05/23/19 13:07 92 05/23/19 12:00 98.4 70 21 119/57 (77) 92 Vapotherm 85.00 40.00 05/23/19 11:09 103 92 85 05/23/19 11:09 88 Vapotherm 40.00 80 05/23/19 10:19 101 05/23/19 09:00 90 Vapotherm 40.00 80 05/23/19 08:00 96.0 104 20 126/59 (81) 94 Vapotherm 80.00 40.00 05/23/19 07:26 91 Vapotherm 40.00 80 I & O 05/24/19 07:00 Intake Total 1250 ml Output Total 1300 ml Balance -50 ml Height & Weight Height: 5'5.00" Weight: 160lbs. 2.6oz. 72.461707ej; 28.3 BMI Method:Stated General Appearance: WD/WN, Anxious, Chronically ill, Moderate Distress HEENT: PERRL/EOMI, Normal ENT Inspection, Pharynx Normal Neck: Limited Range of Motion Respiratory: Chest Non Tender, Accessory Muscle Use, Decreased Breath Sounds, Respiratory Distress, Wheezing Cardiovascular: Regular Rate, Rhythm, No Edema, No Gallop, No JVD, No Murmur, Normal Peripheral Pulses Capillary Refill: Less Than 3 Seconds Gastrointestinal: soft; No guarding, No rebound Extremity: Pedal Edema Neurologic/Psychiatric: Alert, Oriented x3, No Motor/Sensory Deficits, Normal Mood/Affect Skin: Normal Color, Warm/Dry Lymphatic: No Adenopathy Results Lab Laboratory Tests 05/23/19 05:20 Assessment/Plan Assessment/Plan Acute respiratory failure -Currently on BipPAP switch back to Vapotherm during day -Monitor close today may need to go to ICU if still requiring BiPAP or high Fi02 -Titrate oxygen for Sp02 90-92% -Lasix 40mg IV BID -Spironolactone 50mg PO daily -BiPAP QHS Sepsis with Pneumonia -Sputum is showing Stenotrophomonas -BCTM -MRSA nasal swab Bilateral pleural effusions -Monitor CHF EF 35% with acute pulmonary edema MISTY GUZMAN DO May 24, 2019 06:30
[2019-05-24 06:42] LABS: CALCIUM 10.4 MG/DL (8.5-10.1); CREATININE SERUM 1.12 MG/DL (0.60-1.30); POTASSIUM 4.9 MMOL/L (3.6-5.0)
--- NOTE | 2019-05-24 06:45 | NUR ---
Verbal order rec from Dr. Castillo to transfer pt to ICU. Machinery Mechanic notified.
--- NOTE | 2019-05-24 07:20 | NUR ---
Pt transferred to [facility] via bed accompanied by respiratory therapist (Tabatha) and RN's Abril & Angelique per Dr. Castillo. Bedside report given by MANNIE Samuels to MANNIE Walker.
[2019-05-24 07:30] LABS: MAGNESIUM 1.8 MG/DL (1.6-2.4); PHOSPHORUS 3.9 MG/DL (2.3-4.7)
[2019-05-24] MEDS: FUROSEMIDE 40 MG/4 ML INJ (LASIX) IVP SCH ×2 (08:54→19:58)
[2019-05-24] MEDS: DOCUSATE SODIUM 10 MG/ML 10 ML UDC (COLACE) PO SCH ×2 (08:54→19:59)
[2019-05-24] MEDS: meTOprolol TARTRATE 50 MG (LOPRESSOR) TAB PO SCH ×2 (08:55→19:59)
[2019-05-24] MEDS: lisINopril 5 MG (PRINIVIL) TABLET PO SCH (08:55)
[2019-05-24] MEDS: methylPREDNISolone 40 MG/ML (Solu-MEDROL) VIAL IV SCH ×2 (08:55→19:58)
[2019-05-24] MEDS: ASPIRIN E.C. 81 MG (ECOTRIN) TAB PO SCH (08:55)
[2019-05-24] MEDS: ATORVASTATIN 10 MG (LIPITOR) TABLET PO SCH (08:55)
[2019-05-24] MEDS: PANTOPRAZOLE 40 MG (PROTONIX) TAB PO SCH ×2 (08:55→19:59)
[2019-05-24] MEDS: GABAPENTIN 300 MG (NEURONTIN) CAP PO SCH ×3 (08:58→19:59)
[2019-05-24] MEDS ORDERED: SPIRONOLACTONE 25 MG (ALDACTONE) TAB PO SCH (09:00)
--- NOTE | 2019-05-24 09:20 | Diagnostic Imaging Report ---
Indication: Followup shortness of air. Findings: Bilateral lower lobe infiltrate improved in the interim particularly at the level of the right lower lobe. No adverse development. No pneumothorax. Right IJ at the lower SVC. Impression: Improvements in bibasilar infiltrates with no adverse change. Dictated by: Dictated on workstation # [id number]
--- NOTE | 2019-05-24 12:06 | Progress Note - Hospitalist ---
Subjective HPI/CC On Admission Date Seen by Provider: May 24, 2019 Time Seen by Provider: 11:30 Subjective/Events-last exam Patient transferred to the ICU this morning Remains on BiPAP and it appears that she has better air expansion Denies any pain Overall doing okay but still very severe COPD precludes anything but a poor prognosis Review of Systems General: Fatigue Pulmonary: Dyspnea Objective Exam Vital Signs Vital Signs Date Time Temp Pulse Resp B/P (MAP) Pulse Ox O2 Delivery O2 Flow Rate FiO2 05/24/19 15:53 92 NIV Bilevel 40 05/24/19 15:00 109/59 (76) 40.00 40.00 05/24/19 14:21 98 22 05/24/19 08:00 98.2 Capillary Refill : Less Than 3 SecondsLess Than 3 Seconds General Appearance: No Apparent Distress, WD/WN, Chronically ill, Thin, Other (on biPAP) Respiratory: Chest Non Tender, Lungs Clear, Normal Breath Sounds, No Accessory Muscle Use, No Respiratory Distress Cardiovascular: Regular Rate, Rhythm, No Edema, No Gallop, No JVD, No Murmur, Normal Peripheral Pulses Neurologic/Psychiatric: Alert, Oriented x3, No Motor/Sensory Deficits, Normal Mood/Affect Results/Procedures Lab Laboratory Tests 05/24/19 06:20 Patient resulted labs reviewed. Imaging: Reviewed Imaging Report Assessment/Plan Assessment and Plan Assess & Plan/Chief Complaint Assessment: VDRF s/p extubation now on biPAP and back in ICU AECOPD CHF Pneumonia Volume overload Plan: Extubated but back in ICU on biPAP PT/OT IRF after recovered Diagnosis/Problems Diagnosis/Problems (1) PNA (pneumonia) Status: Acute Qualifiers: Pneumonia type: due to unspecified organism Laterality: unspecified laterality Lung location: unspecified part of lung Qualified Codes: J18.9 - Pneumonia, unspecified organism (2) CHF (congestive heart failure) Status: Chronic Qualifiers: Heart failure type: systolic (3) COPD (chronic obstructive pulmonary disease) Status: Chronic Qualifiers: COPD type: unspecified COPD Qualified Codes: J44.9 - Chronic obstructive pulmonary disease, unspecified (4) Acute and chronic respiratory failure with hypoxia Status: Acute Clinical Quality Measures DVT/VTE Risk/Contraindication: Risk Factor Score Per Nursin RFS Level Per Nursing on Admit: 4+=Very High CE HOBBS DO May 24, 2019 12:06
--- NOTE | 2019-05-24 12:44 | Cardiology Progress Note ---
Cardiology SOAP Progress Note Subjective: worsening shortness of breath and oxygen requirement resulted in transfer to the ICU. Objective: I&O/Vital Signs 05/24/19 05/24/19 05/24/19 05/24/19 01:56 04:00 06:35 07:00 Temp 97.1 Pulse 76 87 97 Resp 16 22 B/P (MAP) 122/70 (87) Pulse Ox 97 96 90 O2 Delivery Vapotherm Vapotherm O2 Flow Rate 90.00 85.00 40.00 40.00 FiO2 80 05/24/19 05/24/19 05/24/19 05/24/19 08:00 08:00 08:00 09:00 Temp 98.2 B/P (MAP) 117/59 (78) 126/72 (90) Pulse Ox 92 94 95 O2 Delivery Vapotherm Vapotherm Vapotherm O2 Flow Rate 40.00 80.00 80.00 40.00 40.00 FiO2 80 05/24/19 05/24/19 05/24/19 05/24/19 10:00 10:27 11:00 12:00 Pulse 78 Resp 19 B/P (MAP) 118/53 (74) 106/58 (74) Pulse Ox 96 97 96 92 O2 Delivery Vapotherm Vapotherm Vapotherm O2 Flow Rate 50.00 60.00 50.00 40.00 40.00 40.00 FiO2 80 05/24/19 12:00 B/P (MAP) 98/40 (59) Pulse Ox 94 O2 Delivery Vapotherm O2 Flow Rate 50.00 40.00 05/24/19 00:00 Intake Total 1250 ml Output Total 1300 ml Balance -50 ml Weight (Pounds): 160 Weight (Ounces): 2.6 Weight (Calculated Kilograms): 72.588609 Constitutional: appears stated age, AAO x 3, apparent distress, well-developed, well-nourished Respiratory: chest is bilaterally symmetric, lungs clear to auscultation, rhonchi Cardiovascular: regular rate-rhythm; No irregularly irregular, No extra beats, No parasternal heave is noted, No JVD, No edema, No bradycardia, No tachycardia, No point of maximal impulse, No cardiac thrills are palpable; S1 and S2; No gallop/S3, No gallop/S4, No diastolic murmur, No systolic murmur, No friction rub, No click, No other Gastrointestional: No tender, No soft, No round, No distended, No pulsatile mass, No organomegaly, No guarding, No rebound, No tenderness, No hernia, No mass, No audible bowel sounds, No abnormal bowel sounds, No abdominal bruits, No spleenomegaly, No other Extremities: No normal range of motion, No non-tender, No normal inspection, No pedal edema, No calf tenderness, No normal capillary refill, No pelvis stable, No calf tenderness, No inflammation, No pedal edema, No slow capillary refill, No swelling, No other, No abrasion, No clubbing, No cyanosis, No ecchymosis, No laceration, No no lower extremity edema bilateral, No significant edema, No tenderness, No wound Neurologic/Psychiatric: no motor/sensory deficits, alert, normal mood/affect, oriented x 3, power is 5/5 both on sides Skin: No normal color, No warm/dry, No cyanosis, No cool, No diaphoresis, No damp, No ecchymosis, No jaundice, No mottled, No pallor, No rash, No tattoos/piercings, No ulcerations, No rash on exposed areas, No ulcerations on exposed areas, No other Results/Procedures: Labs Laboratory Tests 05/23/19 17:56: Glucometer 196H 05/23/19 23:51: Glucometer 179H 05/24/19 06:20: White Blood Count 16.2H, Red Blood Count 4.84, Hemoglobin 13.1, Hematocrit 44, Mean Corpuscular Volume 90, Mean Corpuscular Hemoglobin 27, Mean Corpuscular Hemoglobin Concent 30L, Red Cell Distribution Width 16.6H, Platelet Count 266, Mean Platelet Volume 11.3H, Neutrophils (%) (Auto) 88H, Lymphocytes (%) (Auto) 8L, Monocytes (%) (Auto) 4, Eosinophils (%) (Auto) 0, Basophils (%) (Auto) 0, Neutrophils # (Auto) 14.3H, Lymphocytes # (Auto) 1.2, Monocytes # (Auto) 0.7, Eosinophils # (Auto) 0.0, Basophils # (Auto) 0.0, Sodium Level 142, Potassium Level 4.9, Chloride Level 96L, Carbon Dioxide Level 34H, Anion Gap 12, Blood Urea Nitrogen 45H, Creatinine 1.12, Estimat Glomerular Filtration Rate 49, BUN/Creatinine Ratio 40, Glucose Level 134H, Calcium Level 10.4H, Phosphorus Level 3.9, Magnesium Level 1.8, B-Type Natriuretic Peptide 125.7H 05/24/19 12:23: Glucometer 180H Microbiology 05/12/19 Blood Culture - Final, Complete No growth 05/19/19 Mycobacterial Culture - Preliminary, Resulted See Comments A/P: Assessment/Dx: acute respiratory failure, Severe sepsis, 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 Acute respiratory failure, extubated. worsening shortness of breath requiring transfer to the ICU. Defer to Dr. CASTILLO. 2. Sepsis, on broad spectrum antibiotics. Likely source is pneumonia. 3. Positive cardiac enzymes. Coronary angiography done within the last one month did not reveal obstructive CAD. Likely type II myocardial infarction due to severe respiratory failure, sepsis with septic shock. No chest pain. Repeat EKG. No planned for either nuclear imaging or coronary angiography at this point in time. Once respiratory status improves, we will consider at that point in time. 4. Acute systolic and diastolic congestive heart failure. improving BNP. On admission BNP was over 1000. BNP in the last 24 hours is 100. Significant improvement in congestive heart failure on diuretics. Worsening BUN, suggest intravascular volume depletion. Worsening respiratory failure is more likely pulmonary in origin. Defer to Dr. Castillo. Continue Lasix and Aldactone. 5. Bilateral pleural effusions, Thank you for your consultation. Please call me if you have any questions. Lucius Ross MD, FACP, FACC, FSCAI, FHRS, CCDS Interventional Cardiology Cardiac Electrophysiology Vascular Medicine and Endovascular Interventions Ava ROSS MD May 24, 2019 12:44
[2019-05-24] MEDS: ENOXAPARIN 40 MG/0.4 ML (LOVENOX) SYR SQ SCH (14:25)
[2019-05-24] MEDS: KCL 20 MEQ POWDER FOR ORAL SOLUTION PO SCH (18:25)
[2019-05-24] MEDS: AMITRIPTYLINE 50 MG (ELAVIL) TAB PO SCH (19:59)
[2019-05-25] VITALS (28 sets, daily range): BP systolic 81–135; BP diastolic 43–72
[2019-05-25] MEDS: RT-ALBUTEROL/IPRATROPIUM 3 ML (DUONEB) VIAL INH SCH ×6 (01:49→22:23)
[2019-05-25 03:03] LABS: ABG BASE EXCESS 12.4 MMOL/L (-2.5-2.5); ABG OXYGEN SATURATION 94 % (94-100); ABG PCO2 67 MMHG (35-45); ABG PH 7.37 (7.37-7.43); ABG PO2 73 MMHG (79-93); ABG TCO2 40.2 MMOL/L (21.0-31.0); ALLENS TEST POSITIVE; INSPIRED O2 40%; PATIENT TEMP 97.8; VENTILATOR NO
[2019-05-25 04:07] LABS: BASOPHILS % (AUTO) 0 % (0-10); EOSINOPHILS % (AUTO) 0 % (0-10); HEMATOCRIT 43 % (35-52); HEMOGLOBIN 12.8 G/DL (11.5-16.0); LYMPHOCYTES # (AUTO) 0.9 X 10^3 (1.0-4.0); LYMPHOCYTES % (AUTO) 4 % (12-44); MEAN CORPUSCULAR HEMOGLOBIN 27 PG (25-34); MEAN CORPUSCULAR HGB CONC 30 G/DL (32-36); MEAN CORPUSCULAR VOLUME 89 FL (80-99); MEAN PLATELET VOLUME 11.5 FL (7.4-10.4); MONOCYTES % (AUTO) 4 % (0-12); NEUTROPHILS # (AUTO) 21.7 X 10^3 (1.8-7.8); NEUTROPHILS % (AUTO) 92 % (42-75); PLATELET COUNT 283 10^3/uL (130-400); RED CELL DISTRIBUTION WIDTH 16.6 % (10.0-14.5); WHITE BLOOD COUNT 23.6 10^3/uL (4.3-11.0)
[2019-05-25 04:21] LABS: CALCIUM 9.9 MG/DL (8.5-10.1); CREATININE SERUM 1.55 MG/DL (0.60-1.30); MAGNESIUM 1.3 MG/DL (1.6-2.4); PHOSPHORUS 3.1 MG/DL (2.3-4.7); POTASSIUM 5.3 MMOL/L (3.6-5.0)
[2019-05-25] MEDS: CATHETER FLUSH 10 ML SYR IV SCH ×3 (04:25→20:33)
[2019-05-25] MEDS: inSUlin ASPART (NovoLOG) 1 UNIT/0.01 ML (CHARGE PER UNIT) SQ SCH ×3 (04:25→18:05)
[2019-05-25] MEDS: TRIM/SULFAMETH 160/800 (SEPTRA DS) TAB PO SCH ×2 (06:45→16:51)
--- NOTE | 2019-05-25 06:56 | Pulmonary Progress Note ---
Subjective Time Seen by a Provider: 11:03 Subjective/Events-last exam Transferred to ICU yesterday secondary to worsening hypoxia and respiratory distress. Sepsis Event Evaluation Height, Weight, BMI Height: 5'5.00" Weight: 160lbs. 2.6oz. 72.611436fw; 28.3 BMI Method:Stated Exam Exam Vital Signs Date Time Temp Pulse Resp B/P (MAP) Pulse Ox O2 Delivery O2 Flow Rate FiO2 05/25/19 06:37 Vapotherm 50.00 40.00 05/25/19 06:00 93 124/52 (76) 96 NIV Bilevel 45.00 05/25/19 05:00 81 17 117/48 (71) 98 NIV Bilevel 45.00 05/25/19 04:00 82 15 121/59 (79) 98 NIV Bilevel 40.00 05/25/19 03:00 87 24 106/49 (68) 97 NIV Bilevel 40.00 05/25/19 02:00 79 23 102/48 (66) 93 NIV Bilevel 40.00 05/25/19 01:49 77 20 92 40.00 05/25/19 01:00 80 05/25/19 01:00 81 13 90/45 (60) 93 NIV Bilevel 45.00 05/25/19 00:00 93 NIV Bilevel 45 05/25/19 00:00 81 21 96/43 (60) 95 NIV Bilevel 45.00 05/25/19 00:00 96.9 05/24/19 23:00 92 22 120/54 (76) 96 NIV Bilevel 45.00 05/24/19 22:54 NIV Bilevel 45.00 05/24/19 22:00 101 35 135/61 (85) 90 NIV Bilevel 30.00 05/24/19 21:54 98 30 90 30.00 05/24/19 21:09 NIV Bilevel 30.00 05/24/19 21:00 105 14 137/53 (81) 91 Vapotherm 30.00 40.00 05/24/19 20:00 92 Vapotherm 40.00 50 05/24/19 20:00 107 138/62 (87) Vapotherm 30.00 40.00 05/24/19 19:40 97.3 112 22 149/69 (95) 95 Vapotherm 50.00 40.00 05/24/19 19:00 109 149/69 (95) Vapotherm 30.00 40.00 05/24/19 19:00 109 05/24/19 18:30 Vapotherm 30.00 40.00 05/24/19 18:19 106 23 95 40.00 05/24/19 18:00 107/46 (66) 95 Vapotherm 40.00 40.00 05/24/19 17:00 105/50 (68) 91 Vapotherm 40.00 40.00 05/24/19 16:00 129/63 (85) 93 Vapotherm 40.00 40.00 05/24/19 15:53 92 NIV Bilevel 40 05/24/19 15:00 109/59 (76) 93 Vapotherm 40.00 40.00 05/24/19 14:25 Vapotherm 40.00 40.00 05/24/19 14:21 98 22 93 50.00 05/24/19 14:00 116/55 (75) 92 Vapotherm 50.00 40.00 05/24/19 13:00 95 05/24/19 13:00 118/62 (80) 93 Vapotherm 50.00 40.00 05/24/19 12:00 98/40 (59) 94 Vapotherm 50.00 40.00 05/24/19 12:00 92 Vapotherm 40.00 80 05/24/19 11:00 106/58 (74) 96 Vapotherm 50.00 40.00 05/24/19 10:27 78 19 97 60.00 05/24/19 10:00 118/53 (74) 96 Vapotherm 50.00 40.00 05/24/19 09:00 126/72 (90) 95 Vapotherm 80.00 40.00 05/24/19 08:00 117/59 (78) 94 Vapotherm 80.00 40.00 05/24/19 08:00 98.2 05/24/19 08:00 92 Vapotherm 40.00 80 05/24/19 07:00 97 I & O 05/25/19 07:00 Intake Total 1420 ml Output Total 2400 ml Balance -980 ml Height & Weight Height: 5'5.00" Weight: 160lbs. 2.6oz. 72.363658nt; 28.3 BMI Method:Stated General Appearance: WD/WN, Chronically ill, Mild Distress, Thin, Other (on biPAP) HEENT: PERRL/EOMI, Normal ENT Inspection, Pharynx Normal Neck: Limited Range of Motion Respiratory: Chest Non Tender, No Accessory Muscle Use, No Respiratory Distres s, Crackles, Decreased Breath Sounds Cardiovascular: Regular Rate, Rhythm, No Edema, No Gallop, No JVD, No Murmur, Normal Peripheral Pulses Capillary Refill: Less Than 3 Seconds Gastrointestinal: soft; No guarding, No rebound Extremity: Pedal Edema Neurologic/Psychiatric: Alert, Oriented x3, No Motor/Sensory Deficits, Normal Mood/Affect Skin: Normal Color, Warm/Dry Lymphatic: No Adenopathy Results Lab Laboratory Tests 05/24/19 06:20 05/25/19 04:00 Assessment/Plan Assessment/Plan Acute respiratory failure -Currently on BipPAP switch back to Vapotherm during day -Check CT of chest without contrast and bilateral doppers LE -Monitor close today may need to go to ICU if still requiring BiPAP or high Fi02 -Titrate oxygen for Sp02 90-92% -Lasix 40mg IV BID-- decrease to daily secondary to renal function -Spironolactone-- hold secondary to hyperkalmia -BiPAP QHS Sepsis with Pneumonia -Sputum is showing Stenotrophomonas -BCTM -Add Zosyn secondary to worsening respiratory failure and leukocytosis -MRSA nasal swab Acute renal failure -Hold spironolactone -Decrease lasix to daily Bilateral pleural effusions -Monitor CHF EF 35% with acute pulmonary edema MISTY GUZMAN DO May 25, 2019 06:56
--- NOTE | 2019-05-25 07:09 | Diagnostic Imaging Report ---
INDICATION: Shortness of air. COMPARISON: 05/24/2019 FINDINGS: Single frontal radiographic view of the chest was obtained and demonstrates persistent moderate cardiomegaly. Pulmonary vasculature is within normal limits. Lungs continue to show bibasilar airspace disease suspicious for effusions with associated atelectasis and/or infiltrate. Overall, aeration is not significantly changed. No pneumothorax is seen. Right internal jugular central venous catheter is noted. IMPRESSION: 1. Essentially stable exam of the chest showing cardiomegaly and bibasilar effusions with associated atelectasis and/or infiltrate. Dictated by: Dictated on workstation # [id number]
[2019-05-25] MEDS: methylPREDNISolone 40 MG/ML (Solu-MEDROL) VIAL IV SCH ×2 (07:49→20:30)
[2019-05-25] MEDS: meTOprolol TARTRATE 50 MG (LOPRESSOR) TAB PO SCH ×2 (07:50→20:33)
[2019-05-25] MEDS: ASPIRIN E.C. 81 MG (ECOTRIN) TAB PO SCH (07:50)
[2019-05-25] MEDS: DOCUSATE SODIUM 10 MG/ML 10 ML UDC (COLACE) PO SCH ×2 (07:50→20:33)
[2019-05-25] MEDS: GABAPENTIN 300 MG (NEURONTIN) CAP PO SCH ×3 (07:50→20:31)
[2019-05-25] MEDS: PANTOPRAZOLE 40 MG (PROTONIX) TAB PO SCH ×2 (07:50→20:31)
[2019-05-25] MEDS: lisINopril 5 MG (PRINIVIL) TABLET PO SCH (07:50)
[2019-05-25] MEDS: ATORVASTATIN 10 MG (LIPITOR) TABLET PO SCH (07:53)
[2019-05-25] MEDS: MAGNESIUM 1 GM/100 ML IVPB 100 ML IV SCH ×3 (07:53→09:02)
[2019-05-25 08:21] LABS: BILIRUBIN,URINE NEGATIVE (NEGATIVE); CLARITY,URINE CLEAR; COLOR,URINE YELLOW; GLUCOSE, URINE (UA) NEGATIVE (NEGATIVE); KETONES,URINE NEGATIVE (NEGATIVE); LEUKOCYTE ESTERASE ,URINE 2+ (NEGATIVE); NITRITE,URINE NEGATIVE (NEGATIVE); PH,URINE 6.5 (5-9); PROTEIN,URINE 2+ (NEGATIVE); UROBILINOGEN,URINE 1 MG/DL (NORMAL)
[2019-05-25 08:27] LABS: BACTERIA,URINE NEGATIVE /HPF; RBC,URINE 0-2 /HPF; WBC,URINE 0-2 /HPF; YEAST,URINE MODERATE /HPF
[2019-05-25] MEDS ORDERED: FUROSEMIDE 40 MG/4 ML INJ (LASIX) IVP SCH (09:00)
--- NOTE | 2019-05-25 09:19 | Diagnostic Imaging Report ---
PROCEDURE: US Venous Lower Ext Rishabh. TECHNIQUE: Multiple Real-time grayscale images were obtained over the lower extremities in various projections bilaterally. Additional duplex Doppler and color Doppler images were also obtained. INDICATION: Shortness of breath. FINDINGS: There is no evidence of a right or left lower extremity DVT. Both lower extremity deep venous systems demonstrate normal compressibility with normal response to augmentation and Valsalva. No fluid collection or mass is seen. IMPRESSION: No evidence of right or left lower extremity DVT. Dictated by: Dictated on workstation # [id number]
--- NOTE | 2019-05-25 09:43 | Physical Therapy Progress Note ---
Therapy Progress Note Patient transferred to ICU from [address] [place] [address]. RN notified of PT requiring new orders to continue. SHAMAR GREGORIO PT May 25, 2019 09:43
[2019-05-25] MEDS: PIPERACILLIN/TAZOBACTAM (BULK) 4.5 GM in NS (IVPB) 100 ML IV SCH ×2 (10:04→18:03)
--- NOTE | 2019-05-25 10:05 | Occ Therapy Progress Note ---
Therapy Progress Note Patient transferred to ICU from [address] [place] [address]. OT will require new orders to continue secondary to change in status. RANDI DOVE OT May 25, 2019 10:05
[2019-05-25 13:09] LABS: BASOPHILS % (AUTO) 0 % (0-10); EOSINOPHILS % (AUTO) 0 % (0-10); HEMATOCRIT 43 % (35-52); LYMPHOCYTES # (AUTO) 0.5 X 10^3 (1.0-4.0); LYMPHOCYTES % (AUTO) 3 % (12-44); MEAN CORPUSCULAR HEMOGLOBIN 27 PG (25-34); MEAN CORPUSCULAR HGB CONC 30 G/DL (32-36); MEAN CORPUSCULAR VOLUME 88 FL (80-99); MEAN PLATELET VOLUME 11.6 FL (7.4-10.4); MONOCYTES # (AUTO) 0.2 X 10^3 (0.0-1.0); MONOCYTES % (AUTO) 1 % (0-12); NEUTROPHILS # (AUTO) 19.5 X 10^3 (1.8-7.8); NEUTROPHILS % (AUTO) 97 % (42-75); PLATELET COUNT 286 10^3/uL (130-400); WHITE BLOOD COUNT 20.2 10^3/uL (4.3-11.0)
--- NOTE | 2019-05-25 13:27 | Progress Note ---
Subjective Subjective/Events-last exam Afebrile, on bipap and reports feeling okay but bothered by her mask. Objective Exam Last Set of Vital Signs Vital Signs Date Time Temp Pulse Resp B/P (MAP) Pulse Ox O2 Delivery O2 Flow Rate FiO2 05/25/19 13:00 91 21 130/64 (86) 94 NIV Bilevel 45.00 05/25/19 12:00 45 05/25/19 07:55 97.7 Capillary Refill : Less Than 3 SecondsLess Than 3 Seconds I&O Intake and Output 05/25/19 00:00 Intake Total 1420 ml Output Total 2450 ml Balance -1030 ml Intake Oral 1420 ml Output Urine Total 2450 ml General: Alert, Mild Distress Lungs: Other (decreased air movement bilaterally) Heart: Regular Rate, No Murmurs Abdomen: Normal Bowel Sounds Extremities: No Edema Neuro: Normal Speech Results/Procedures Lab Laboratory Tests 05/24/19 17:45: Glucometer 163H 05/25/19 02:52: Blood Gas Puncture Site RIGHT RADIAL, Blood Gas Patient Temperature 97.8, Arterial Blood pH 7.37, Arterial Blood Partial Pressure CO2 67H, Arterial Blood Partial Pressure O2 73L, Arterial Blood HCO3 38H, Arterial Blood Total CO2 40.2H , Arterial Blood Oxygen Saturation 94, Arterial Blood Base Excess 12.4H, Александр Test POSITIVE, Blood Gas Ventilator Setting NO, Blood Gas Inspired Oxygen 40% 05/25/19 04:00: White Blood Count 23.6H, Red Blood Count 4.80, Hemoglobin 12.8, Hematocrit 43, Mean Corpuscular Volume 89, Mean Corpuscular Hemoglobin 27, Mean Corpuscular Hemoglobin Concent 30L, Red Cell Distribution Width 16.6H, Platelet Count 283, Mean Platelet Volume 11.5H, Neutrophils (%) (Auto) 92H, Lymphocytes (%) (Auto) 4L, Monocytes (%) (Auto) 4, Eosinophils (%) (Auto) 0, Basophils (%) (Auto) 0, Neutrophils # (Auto) 21.7H, Lymphocytes # (Auto) 0.9L, Monocytes # (Auto) 1.0, Eosinophils # (Auto) 0.0, Basophils # (Auto) 0.0, Sodium Level 140, Potassium Level 5.3H, Chloride Level 96L, Carbon Dioxide Level 33H, Anion Gap 11, Blood Urea Nitrogen 50H, Creatinine 1.55H, Estimat Glomerular Filtration Rate 34, BUN/Creatinine Ratio 32, Glucose Level 176H, Calcium Level 9.9, Phosphorus Level 3.1, Magnesium Level 1.3L, B-Type Natriuretic Peptide 103.0H 05/25/19 07:45: Urine Color YELLOW, Urine Clarity CLEAR, Urine pH 6.5, Urine Specific Dunn 1.010L, Urine Protein 2+H, Urine Glucose (UA) NEGATIVE, Urine Ketones NEGATIVE, Urine Nitrite NEGATIVE, Urine Bilirubin NEGATIVE, Urine Urobilinogen 1, Urine Leukocyte Esterase 2+H, Urine RBC (Auto) 2+H, Urine RBC 0-2, Urine WBC 0-2, Urine Crystals NONE, Urine Bacteria NEGATIVE, Urine Casts NONE, Urine Mucus NEGATIVE, Urine Yeast MODERATEH, Urine Culture Indicated NO 05/25/19 12:02: Glucometer 303H 05/25/19 13:02: White Blood Count 20.2H, Red Blood Count 4.88, Hemoglobin 13.0, Hematocrit 43, Mean Corpuscular Volume 88, Mean Corpuscular Hemoglobin 27, Mean Corpuscular Hemoglobin Concent 30L, Red Cell Distribution Width 17.0H, Platelet Count 286, Mean Platelet Volume 11.6H, Neutrophils (%) (Auto) 97H, Lymphocytes (%) (Auto) 3L, Monocytes (%) (Auto) 1, Eosinophils (%) (Auto) 0, Basophils (%) (Auto) 0, Neutrophils # (Auto) 19.5H, Lymphocytes # (Auto) 0.5L, Monocytes # (Auto) 0.2, Eosinophils # (Auto) 0.0, Basophils # (Auto) 0.0 Microbiology 05/12/19 Blood Culture - Final, Complete No growth 05/19/19 Mycobacterial Culture - Preliminary, Resulted See Comments Assessment/Plan Assessment/Plan (1) Acute and chronic respiratory failure with hypoxia Status: Acute Assessment & Plan: 05/13: Intubated 05/14: Breathing over vent, No improvement in CXR, Continue antibiotics and steroids 05/15: Wean per Dr Castillo 05/25- on bipap, continue to wean support as tolerated, on solumedrol [address] 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
[2019-05-25 13:29] LABS: ALBUMIN 4.1 GM/DL (3.2-4.5); BILIRUBIN,TOTAL 0.5 MG/DL (0.1-1.0); CALCIUM 10.3 MG/DL (8.5-10.1); CREATININE SERUM 1.26 MG/DL (0.60-1.30); POTASSIUM 5.4 MMOL/L (3.6-5.0); TOTAL PROTEIN 8.1 GM/DL (6.4-8.2)
--- NOTE | 2019-05-25 13:36 | NUR ---
Palliative Care RN in to se patient. She reports that she was transferred to 4th floor fr"about 10 minutes" and then she came back to the ICU having something to due with the BiPAP in someway . I She is currently on Vapotherm and feeling "pretty good". Sh ehas not needs at this time.
[2019-05-25] MEDS: ENOXAPARIN 40 MG/0.4 ML (LOVENOX) SYR SQ SCH (14:11)
[2019-05-25] MEDS ORDERED: SODIUM BICARB 8.4% 50 MEQ/50 ML VIAL IV ONE (15:00)
[2019-05-25] MEDS ORDERED: inSUlin (REGULAR) HUMAN 1 UNIT/0.01 ML (CHARGE PER UNIT) IV ONE (15:00)
[2019-05-25] MEDS ORDERED: DEXTROSE 50% 50 ML (IMS) SYR IV ONE (15:00)
--- NOTE | 2019-05-25 15:35 | NUR ---
PT TO CT AT THIS TIME VIA BED ACCOMPANIED BY RT AND LETICIA RN.
--- NOTE | 2019-05-25 15:44 | Cardiology Progress Note ---
Cardiology SOAP Progress Note Subjective: Still has shortness of breath. Objective: I&O/Vital Signs 05/25/19 05/25/19 05/25/19 05/25/19 04:00 05:00 06:00 06:37 Pulse 82 81 93 Resp 15 17 B/P (MAP) 121/59 (79) 117/48 (71) 124/52 (76) Pulse Ox 98 98 96 O2 Delivery NIV Bilevel NIV Bilevel NIV Bilevel Vapotherm O2 Flow Rate 40.00 45.00 45.00 50.00 40.00 05/25/19 05/25/19 05/25/19 05/25/19 06:48 07:00 07:00 07:55 Temp 97.7 Pulse 103 108 Resp 19 B/P (MAP) 81/43 (56) Pulse Ox 90 91 O2 Delivery Vapotherm Vapotherm O2 Flow Rate 40.00 50.00 40.00 FiO2 50 05/25/19 05/25/19 05/25/19 05/25/19 08:00 08:00 09:00 09:54 Pulse 108 100 88 Resp 13 32 21 B/P (MAP) 131/68 (89) 135/72 (93) Pulse Ox 93 97 97 97 O2 Delivery NIV Bilevel NIV Bilevel NIV Bilevel O2 Flow Rate 45.00 45.00 40.00 FiO2 45 05/25/19 05/25/19 05/25/19 05/25/19 10:00 11:00 12:00 12:00 Pulse 85 81 85 Resp 21 17 B/P (MAP) 126/70 (88) 105/54 (71) 130/63 (85) Pulse Ox 96 95 93 95 O2 Delivery NIV Bilevel NIV Bilevel NIV Bilevel NIV Bilevel O2 Flow Rate 45.00 45.00 45.00 FiO2 45 05/25/19 05/25/19 05/25/19 05/25/19 12:35 13:00 14:00 14:13 Pulse 84 91 93 Resp 21 18 B/P (MAP) 130/64 (86) 131/66 (87) Pulse Ox 94 94 98 O2 Delivery NIV Bilevel NIV Bilevel Vapotherm O2 Flow Rate 45.00 45.00 40.00 FiO2 50 05/25/19 15:00 Pulse 99 Resp 23 B/P (MAP) 125/62 (83) Pulse Ox 94 O2 Delivery NIV Bilevel O2 Flow Rate 45.00 05/25/19 00:00 Intake Total 940 ml Output Total 1450 ml Balance -510 ml Weight (Pounds): 160 Weight (Ounces): 2.6 Weight (Calculated Kilograms): 72.456070 Constitutional: appears stated age, AAO x 3, apparent distress, well-developed, well-nourished Respiratory: chest is bilaterally symmetric, lungs clear to auscultation, rhonchi Cardiovascular: regular rate-rhythm; No irregularly irregular, No extra beats, No parasternal heave is noted, No JVD, No edema, No bradycardia, No tachycardia, No point of maximal impulse, No cardiac thrills are palpable; S1 and S2; No gallop/S3, No gallop/S4, No diastolic murmur, No systolic murmur, No friction rub, No click, No other Gastrointestional: No tender, No soft, No round, No distended, No pulsatile mass, No organomegaly, No guarding, No rebound, No tenderness, No hernia, No mass, No audible bowel sounds, No abnormal bowel sounds, No abdominal bruits, No spleenomegaly, No other Extremities: No normal range of motion, No non-tender, No normal inspection, No pedal edema, No calf tenderness, No normal capillary refill, No pelvis stable, No calf tenderness, No inflammation, No pedal edema, No slow capillary refill, No swelling, No other, No abrasion, No clubbing, No cyanosis, No ecchymosis, No laceration, No no lower extremity edema bilateral, No significant edema, No tenderness, No wound Neurologic/Psychiatric: no motor/sensory deficits, alert, normal mood/affect, oriented x 3, power is 5/5 both on sides Skin: No normal color, No warm/dry, No cyanosis, No cool, No diaphoresis, No damp, No ecchymosis, No jaundice, No mottled, No pallor, No rash, No tattoos/piercings, No ulcerations, No rash on exposed areas, No ulcerations on exposed areas, No other Results/Procedures: Labs Laboratory Tests 05/24/19 17:45: Glucometer 163H 05/25/19 02:52: Blood Gas Puncture Site RIGHT RADIAL, Blood Gas Patient Temperature 97.8, Arterial Blood pH 7.37, Arterial Blood Partial Pressure CO2 67H, Arterial Blood Partial Pressure O2 73L, Arterial Blood HCO3 38H, Arterial Blood Total CO2 40.2H , Arterial Blood Oxygen Saturation 94, Arterial Blood Base Excess 12.4H, Александр Test POSITIVE, Blood Gas Ventilator Setting NO, Blood Gas Inspired Oxygen 40% 05/25/19 04:00: White Blood Count 23.6H, Red Blood Count 4.80, Hemoglobin 12.8, Hematocrit 43, Mean Corpuscular Volume 89, Mean Corpuscular Hemoglobin 27, Mean Corpuscular Hemoglobin Concent 30L, Red Cell Distribution Width 16.6H, Platelet Count 283, Mean Platelet Volume 11.5H, Neutrophils (%) (Auto) 92H, Lymphocytes (%) (Auto) 4L, Monocytes (%) (Auto) 4, Eosinophils (%) (Auto) 0, Basophils (%) (Auto) 0, Neutrophils # (Auto) 21.7H, Lymphocytes # (Auto) 0.9L, Monocytes # (Auto) 1.0, Eosinophils # (Auto) 0.0, Basophils # (Auto) 0.0, Sodium Level 140, Potassium Level 5.3H, Chloride Level 96L, Carbon Dioxide Level 33H, Anion Gap 11, Blood Urea Nitrogen 50H, Creatinine 1.55H, Estimat Glomerular Filtration Rate 34, BUN/Creatinine Ratio 32, Glucose Level 176H, Calcium Level 9.9, Phosphorus Level 3.1, Magnesium Level 1.3L, B-Type Natriuretic Peptide 103.0H 05/25/19 07:45: Urine Color YELLOW, Urine Clarity CLEAR, Urine pH 6.5, Urine Specific Miller 1.010L, Urine Protein 2+H, Urine Glucose (UA) NEGATIVE, Urine Ketones NEGATIVE, Urine Nitrite NEGATIVE, Urine Bilirubin NEGATIVE, Urine Urobilinogen 1, Urine Leukocyte Esterase 2+H, Urine RBC (Auto) 2+H, Urine RBC 0-2, Urine WBC 0-2, Urine Crystals NONE, Urine Bacteria NEGATIVE, Urine Casts NONE, Urine Mucus NEGATIVE, Urine Yeast MODERATEH, Urine Culture Indicated NO 05/25/19 12:02: Glucometer 303H 05/25/19 13:02: White Blood Count 20.2H, Red Blood Count 4.88, Hemoglobin 13.0, Hematocrit 43, Mean Corpuscular Volume 88, Mean Corpuscular Hemoglobin 27, Mean Corpuscular Hemoglobin Concent 30L, Red Cell Distribution Width 17.0H, Platelet Count 286, Mean Platelet Volume 11.6H, Neutrophils (%) (Auto) 97H, Lymphocytes (%) (Auto) 3L, Monocytes (%) (Auto) 1, Eosinophils (%) (Auto) 0, Basophils (%) (Auto) 0, Neutrophils # (Auto) 19.5H, Lymphocytes # (Auto) 0.5L, Monocytes # (Auto) 0.2, Eosinophils # (Auto) 0.0, Basophils # (Auto) 0.0, Sodium Level 137, Potassium Level 5.4H, Chloride Level 94L, Carbon Dioxide Level 35H, Anion Gap 8, Blood Urea Nitrogen 51H, Creatinine 1.26, Estimat Glomerular Filtration Rate 43, BUN/Creatinine Ratio 40, Glucose Level 222H, Calcium Level 10.3H, Corrected Calcium 10.2H, Total Bilirubin 0.5, Aspartate Amino Transf (AST/SGOT) 17, Alanine Aminotransferase (ALT/SGPT) 24, Alkaline Phosphatase 125, Total Protein 8.1, Albumin 4.1 Microbiology 05/12/19 Blood Culture - Final, Complete No growth 05/19/19 Mycobacterial Culture - Preliminary, Resulted See Comments A/P: Assessment/Dx: acute respiratory failure, Severe sepsis, 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 Acute respiratory failure, extubated. worsening shortness of breath requiring transfer to the ICU. Defer to Dr. CASTILLO. 2. Sepsis, on broad spectrum antibiotics. Likely source is pneumonia. 3. Positive cardiac enzymes. Coronary angiography done within the last one month did not reveal obstructive CAD. Likely type II myocardial infarction due to severe respiratory failure, sepsis with septic shock. No chest pain. Repeat EKG. No planned for either nuclear imaging or coronary angiography at this point in time. Once respiratory status improves, we will consider at that point in time. 4. Acute systolic and diastolic congestive heart failure. improving BNP. On admission BNP was over 1000. BNP in the last 24 hours is 100. Significant improvement in congestive heart failure on diuretics. Worsening BUN, suggest intravascular volume depletion. Worsening respiratory failure is more likely pulmonary in origin. Defer to Dr. Castillo. Continue Lasix and Aldactone. 5. Bilateral pleural effusions, Thank you for your consultation. Please call me if you have any questions. Lucius Ross MD, FACP, FACC, FSCAI, FHRS, CCDS Interventional Cardiology Cardiac Electrophysiology Vascular Medicine and Endovascular Interventions Ava ROSS MD May 25, 2019 3:44 pm
--- NOTE | 2019-05-25 16:47 | Diagnostic Imaging Report ---
INDICATION: Shortness of breath. TECHNIQUE: The CT chest was obtained without IV contrast. COMPARISON: CTA chest of 05/18/2019. FINDINGS: There is a small left pleural effusion and a minimal trace of pleural fluid on the right side. The pleural effusions are much smaller than were seen on 05/18/2019. There is some bibasilar atelectasis and/or consolidation although it appears much improved compared to the previous study. There is fairly extensive emphysematous change. There is calcified parenchymal scarring in the right upper lobe which is stable. There is cardiomegaly. There is no discrete adenopathy in the mediastinum. There are no enlarged axillary nodes. The visualized portions of the upper abdomen show no significant findings. The right IJ catheter tip is in the upper SVC. IMPRESSION: There is a small left pleural effusion and a minimal right pleural effusion although the pleural effusions have shown significant improvement compared to 05/18/2019. There is some bibasilar atelectatic change versus airspace disease which has also improved compared to the prior study but not entirely resolved. There is extensive emphysematous change. There is cardiomegaly. There is no change in the calcified parenchymal scarring in the right apex. Dictated by: Dictated on workstation # [id number]
[2019-05-25] MEDS: AMITRIPTYLINE 50 MG (ELAVIL) TAB PO SCH (20:31)
[2019-05-26] VITALS (26 sets, daily range): BP systolic 89–142; BP diastolic 43–84
[2019-05-26] MEDS: PIPERACILLIN/TAZOBACTAM (BULK) 4.5 GM in NS (IVPB) 100 ML IV SCH (01:04)
[2019-05-26] MEDS: inSUlin ASPART (NovoLOG) 1 UNIT/0.01 ML (CHARGE PER UNIT) SQ SCH ×5 (01:04→20:41)
[2019-05-26] MEDS: RT-ALBUTEROL/IPRATROPIUM 3 ML (DUONEB) VIAL INH SCH ×6 (02:26→21:22)
[2019-05-26 03:45] LABS: BASOPHILS % (AUTO) 0 % (0-10); EOSINOPHILS % (AUTO) 0 % (0-10); HEMATOCRIT 40 % (35-52); HEMOGLOBIN 12.5 G/DL (11.5-16.0); LYMPHOCYTES # (AUTO) 0.7 X 10^3 (1.0-4.0); LYMPHOCYTES % (AUTO) 4 % (12-44); MEAN CORPUSCULAR HEMOGLOBIN 28 PG (25-34); MEAN CORPUSCULAR HGB CONC 31 G/DL (32-36); MEAN CORPUSCULAR VOLUME 89 FL (80-99); MEAN PLATELET VOLUME 11.8 FL (7.4-10.4); MONOCYTES # (AUTO) 0.7 X 10^3 (0.0-1.0); MONOCYTES % (AUTO) 4 % (0-12); NEUTROPHILS # (AUTO) 14.3 X 10^3 (1.8-7.8); NEUTROPHILS % (AUTO) 91 % (42-75); PLATELET COUNT 240 10^3/uL (130-400); RED CELL DISTRIBUTION WIDTH 16.6 % (10.0-14.5); WHITE BLOOD COUNT 15.6 10^3/uL (4.3-11.0)
[2019-05-26 03:45] LABS: ABG BASE EXCESS 9.1 MMOL/L (-2.5-2.5); ABG OXYGEN SATURATION 93 % (94-100); ABG PCO2 59 MMHG (35-45); ABG PH 7.38 (7.37-7.43); ABG PO2 64 MMHG (79-93); ABG TCO2 36.5 MMOL/L (21.0-31.0)
[2019-05-26 03:48] LABS: ALLENS TEST POSITIVE; INSPIRED O2 40% BIPAP; PATIENT TEMP 96.5; VENTILATOR NO
[2019-05-26 04:00] LABS: MAGNESIUM 2.2 MG/DL (1.6-2.4); PHOSPHORUS 3.5 MG/DL (2.3-4.7)
[2019-05-26 04:03] LABS: ALBUMIN 3.8 GM/DL (3.2-4.5); BILIRUBIN,TOTAL 0.3 MG/DL (0.1-1.0); CALCIUM 10.1 MG/DL (8.5-10.1); CREATININE SERUM 1.28 MG/DL (0.60-1.30); POTASSIUM 5.1 MMOL/L (3.6-5.0); TOTAL PROTEIN 7.5 GM/DL (6.4-8.2)
--- NOTE | 2019-05-26 05:59 | Pulmonary Progress Note ---
Subjective Time Seen by a Provider: 07:34 Subjective/Events-last exam Pt is currently on BiPAP. Sepsis Event Evaluation Height, Weight, BMI Height: 5'5.00" Weight: 160lbs. 2.6oz. 72.054519ci; 28.3 BMI Method:Stated Exam Exam Vital Signs Date Time Temp Pulse Resp B/P (MAP) Pulse Ox O2 Delivery O2 Flow Rate FiO2 05/26/19 05:00 84 19 91/55 (67) 97 NIV Bilevel 40.00 05/26/19 04:33 96.5 05/26/19 04:00 90 12 113/63 (80) 97 NIV Bilevel 40.00 05/26/19 03:00 86 16 92/46 (61) 97 NIV Bilevel 40.00 05/26/19 02:26 77 17 96 30.00 05/26/19 02:00 80 11 94/43 (60) 96 NIV Bilevel 40.00 05/26/19 01:00 78 05/26/19 01:00 78 5 103/53 (70) 91 NIV Bilevel 40.00 05/26/19 00:40 NIV/Bilevel 40 05/26/19 00:00 81 18 103/54 (70) 97 NIV Bilevel 40.00 05/26/19 00:00 97.0 05/25/19 23:00 92 17 95/49 (64) 96 NIV Bilevel 40.00 05/25/19 22:23 92 19 99 40.00 05/25/19 22:00 84 18 94/49 (64) 100 NIV Bilevel 40.00 05/25/19 21:00 106 23 111/43 (65) 95 NIV Bilevel 40.00 05/25/19 20:50 97.1 05/25/19 20:40 NIV Bilevel 40.00 05/25/19 20:10 NIV/Bilevel 40 05/25/19 20:00 108 24 108/49 (68) 90 Vapotherm 60.00 30.00 05/25/19 19:42 Vapotherm 60.00 30.00 05/25/19 19:00 103 05/25/19 19:00 103 21 99/62 (74) 98 NIV Bilevel 45.00 05/25/19 18:00 104 32 120/71 (87) 97 NIV Bilevel 45.00 05/25/19 17:58 105 26 98 40.00 05/25/19 17:00 99 22 114/58 (76) 97 NIV Bilevel 45.00 05/25/19 16:00 100 27 115/71 (86) 95 NIV Bilevel 45.00 05/25/19 15:00 99 23 125/62 (83) 94 NIV Bilevel 45.00 05/25/19 14:13 98 Vapotherm 40.00 50 05/25/19 14:00 93 18 131/66 (87) 94 NIV Bilevel 45.00 05/25/19 13:00 91 21 130/64 (86) 94 NIV Bilevel 45.00 05/25/19 12:35 84 05/25/19 12:00 85 17 130/63 (85) 95 NIV Bilevel 45.00 05/25/19 12:00 93 NIV Bilevel 45 05/25/19 11:00 81 21 105/54 (71) 95 NIV Bilevel 45.00 05/25/19 10:00 85 126/70 (88) 96 NIV Bilevel 45.00 05/25/19 09:54 88 21 97 40.00 05/25/19 09:00 100 32 135/72 (93) 97 NIV Bilevel 45.00 05/25/19 08:00 108 13 131/68 (89) 97 NIV Bilevel 45.00 05/25/19 08:00 93 NIV Bilevel 45 05/25/19 07:55 97.7 05/25/19 07:00 108 05/25/19 07:00 103 19 81/43 (56) 91 Vapotherm 50.00 40.00 05/25/19 06:48 90 Vapotherm 40.00 50 05/25/19 06:37 Vapotherm 50.00 40.00 05/25/19 06:00 93 124/52 (76) 96 NIV Bilevel 45.00 I & O 05/26/19 07:00 Intake Total 2932 ml Output Total 2250 ml Balance 682 ml Height & Weight Height: 5'5.00" Weight: 160lbs. 2.6oz. 72.776473nt; 28.3 BMI Method:Stated General Appearance: WD/WN, Chronically ill, Mild Distress, Thin, Other (on biPAP) HEENT: PERRL/EOMI, Normal ENT Inspection, Pharynx Normal Neck: Limited Range of Motion Respiratory: Chest Non Tender, No Accessory Muscle Use, No Respiratory Distress, Crackles, Decreased Breath Sounds Cardiovascular: Regular Rate, Rhythm, No Edema, No Gallop, No JVD, No Murmur, Normal Peripheral Pulses Capillary Refill: Less Than 3 Seconds Gastrointestinal: soft; No guarding, No rebound Extremity: Pedal Edema Neurologic/Psychiatric: Alert, Oriented x3, No Motor/Sensory Deficits, Normal Mood/Affect Skin: Normal Color, Warm/Dry Lymphatic: No Adenopathy Results Lab Laboratory Tests 05/24/19 06:20 05/25/19 04:00 05/25/19 13:02 05/26/19 03:31 Assessment/Plan Assessment/Plan Acute respiratory failure -Currently on BipPAP switch back to Vapotherm during day -CT of chest without contrast - reviewed -Monitor close today may need to go to ICU if still requiring BiPAP or high Fi02 -Titrate oxygen for Sp02 90-92% -Lasix 40mg IV BID -Spironolactone-- hold secondary to hyperkalemia -BiPAP QHS Sepsis with Pneumonia -Sputum is showing Stenotrophomonas -BCTM -Levaquin -MRSA nasal swab Acute renal failure -Hold spironolactone -Decrease lasix to daily Bilateral pleural effusions -Monitor CHF EF 35% with acute pulmonary edema MISTY GUZMAN DO May 26, 2019 05:59
[2019-05-26] MEDS: TRIM/SULFAMETH 160/800 (SEPTRA DS) TAB PO SCH ×2 (06:35→16:15)
[2019-05-26] MEDS: CATHETER FLUSH 10 ML SYR IV SCH ×2 (06:35→14:08)
[2019-05-26] MEDS: methylPREDNISolone 40 MG/ML (Solu-MEDROL) VIAL IV SCH ×3 (06:37→17:55)
[2019-05-26] MEDS: FUROSEMIDE 40 MG/4 ML INJ (LASIX) IVP SCH ×2 (07:46→20:27)
[2019-05-26] MEDS: PANTOPRAZOLE 40 MG (PROTONIX) TAB PO SCH ×2 (07:47→20:27)
[2019-05-26] MEDS: ASPIRIN E.C. 81 MG (ECOTRIN) TAB PO SCH (07:47)
[2019-05-26] MEDS: DOCUSATE SODIUM 100 MG (COLACE) CAP PO SCH ×2 (07:47→20:27)
[2019-05-26] MEDS: meTOprolol TARTRATE 50 MG (LOPRESSOR) TAB PO SCH ×2 (07:47→20:27)
[2019-05-26] MEDS: GABAPENTIN 300 MG (NEURONTIN) CAP PO SCH ×3 (07:47→20:28)
[2019-05-26] MEDS: ATORVASTATIN 10 MG (LIPITOR) TABLET PO SCH (07:47)
--- NOTE | 2019-05-26 07:53 | Physical Therapy Progress Note ---
Therapy Progress Note Due to transfer to ICU, PT will require new orders to continue with skilled therapy. Nursing is aware. SHAMAR GREGORIO PT May 26, 2019 07:53
[2019-05-26] MEDS ORDERED: LEVOFLOXACIN 750 MG/150 ML IV 150 ML IV SCH (09:00)
--- NOTE | 2019-05-26 09:42 | Diagnostic Imaging Report ---
INDICATION: Respiratory distress. FINDINGS: The upright portable chest shows normal heart size and vascularity. There is bibasilar atelectasis with small effusions. The upper lungs are clear. The IJ line tip is in the SVC. These findings are similar to the CT from 05/25/2019. IMPRESSION: Stable chest. Dictated by: Dictated on workstation # [id number]
--- NOTE | 2019-05-26 11:33 | Progress Note ---
Subjective Subjective/Events-last exam Improving, is on vapotherm this morning and feeling better. Afebrile. Objective Exam Last Set of Vital Signs Vital Signs Date Time Temp Pulse Resp B/P (MAP) Pulse Ox O2 Delivery O2 Flow Rate FiO2 05/26/19 11:00 98 46 89/75 (80) 92 Vapotherm 60.00 30.00 05/26/19 10:32 60 05/26/19 04:33 96.5 Capillary Refill : Less Than 3 SecondsLess Than 3 Seconds I&O Intake and Output 05/26/19 00:00 Intake Total 2820 ml Output Total 2650 ml Balance 170 ml Intake Oral 2520 ml IV Total 300 ml Output Urine Total 2650 ml General: Alert, No Acute Distress Lungs: Other (nml air movement in RUL, otherwise decreased air movement) Heart: Regular Rate, No Murmurs Abdomen: Normal Bowel Sounds, Soft Psych/Mental Status: Mental Status NL Results/Procedures Lab Laboratory Tests 05/25/19 12:02: Glucometer 303H 05/25/19 13:02: White Blood Count 20.2H, Red Blood Count 4.88, Hemoglobin 13.0, Hematocrit 43, Mean Corpuscular Volume 88, Mean Corpuscular Hemoglobin 27, Mean Corpuscular Hemoglobin Concent 30L, Red Cell Distribution Width 17.0H, Platelet Count 286, Mean Platelet Volume 11.6H, Neutrophils (%) (Auto) 97H, Lymphocytes (%) (Auto) 3L, Monocytes (%) (Auto) 1, Eosinophils (%) (Auto) 0, Basophils (%) (Auto) 0, Neutrophils # (Auto) 19.5H, Lymphocytes # (Auto) 0.5L, Monocytes # (Auto) 0.2, Eosinophils # (Auto) 0.0, Basophils # (Auto) 0.0, Sodium Level 137, Potassium Level 5.4H, Chloride Level 94L, Carbon Dioxide Level 35H, Anion Gap 8, Blood Urea Nitrogen 51H, Creatinine 1.26, Estimat Glomerular Filtration Rate 43, BUN/Creatinine Ratio 40, Glucose Level 222H, Calcium Level 10.3H, Corrected Calcium 10.2H, Total Bilirubin 0.5, Aspartate Amino Transf (AST/SGOT) 17, Alanine Aminotransferase (ALT/SGPT) 24, Alkaline Phosphatase 125, Total Protein 8.1, Albumin 4.1 05/25/19 18:02: Glucometer 159H 05/26/19 00:41: Glucometer 326H 05/26/19 03:31: White Blood Count 15.6H, Red Blood Count 4.54, Hemoglobin 12.5, Hematocrit 40, Mean Corpuscular Volume 89, Mean Corpuscular Hemoglobin 28, Mean Corpuscular Hemoglobin Concent 31L, Red Cell Distribution Width 16.6H, Platelet Count 240, Mean Platelet Volume 11.8H, Neutrophils (%) (Auto) 91H, Lymphocytes (%) (Auto) 4L, Monocytes (%) (Auto) 4, Eosinophils (%) (Auto) 0, Basophils (%) (Auto) 0, Neutrophils # (Auto) 14.3H, Lymphocytes # (Auto) 0.7L, Monocytes # (Auto) 0.7, Eosinophils # (Auto) 0.0, Basophils # (Auto) 0.0, Sodium Level 140, Potassium Level 5.1H, Chloride Level 96L, Carbon Dioxide Level 31, Anion Gap 13, Blood Urea Nitrogen 53H, Creatinine 1.28, Estimat Glomerular Filtration Rate 42, BUN/Creatinine Ratio 41, Glucose Level 161H, Calcium Level 10.1, Corrected Calcium 10.3H, Phosphorus Level 3.5, Magnesium Level 2.2, Total Bilirubin 0.3, Aspartate Amino Transf (AST/SGOT) 17, Alanine Aminotransferase (ALT/SGPT) 31, Al kaline Phosphatase 121, Total Protein 7.5, Albumin 3.8 05/26/19 03:34: Blood Gas Puncture Site RIGHT RADIAL, Blood Gas Patient Temperature 96.5, Arterial Blood pH 7.38, Arterial Blood Partial Pressure CO2 59H, Arterial Blood Partial Pressure O2 64L, Arterial Blood HCO3 35H, Arterial Blood Total CO2 36.5H , Arterial Blood Oxygen Saturation 93L, Arterial Blood Base Excess 9.1H, Александр Test POSITIVE, Blood Gas Ventilator Setting NO, Blood Gas Inspired Oxygen 40% BIPAP 05/26/19 06:21: Glucometer 118H 05/26/19 10:48: Glucometer 174H Microbiology 05/12/19 Blood Culture - Final, Complete No growth 05/19/19 Mycobacterial Culture - Preliminary, Resulted See Comments Assessment/Plan Assessment/Plan (1) Acute and chronic respiratory failure with hypoxia Status: Acute Assessment & Plan: 05/13: Intubated 05/14: Breathing over vent, No improvement in CXR, Continue antibiotics and steroids 05/15: Wean per Dr Castillo 05/25- on bipap, continue to wean support as tolerated, on solumedrol 40 mg q6 pe r Dr. Castillo 05/26 on vapotherm this am, continuing to improve (2) Severe sepsis Status: Acute Assessment & Plan: - Continue broad spectrum antibiotics, cultures pending, currently on pressors 05/14: Goal to titrate pressors as tolerated today 05/15: Cultures NGTD 05/25- remains on bactrim BID and Zosyn, sputum culture positive for stenotrophomonas 05/26 on Bactrim and levofloxacin (3) PNA (pneumonia) Status: Acute Qualifiers: Qualified Codes: J18.9 - Pneumonia, unspecified organism (4) Acute combined systolic (congestive) and diastolic (congestive) heart failure Status: Acute Assessment & Plan: - Cardiology managing - Echo 05/13 with EF 35-40% 05/25- remains on IV lasix (5) Acute renal insufficiency Status: Acute Assessment & Plan: Possibly related to diuresis, monitor closely 05/26 improving, monitor (6) Hyperkalemia Status: Acute Assessment & Plan: Secondary to ESHA, monitor closely, kayexalate if rising 05/26 improving but persistent, continue to follow potassium (7) DVT prophylaxis Status: Acute Assessment & Plan: - lovenox Clinical Quality Measures DVT/VTE Risk/Contraindication: Risk Factor Score Per Nursin RFS Level Per Nursing on Admit: 4+=Very High GIRISH BINGHAM MD May 26, 2019 11:33
--- NOTE | 2019-05-26 11:49 | Occupational Therapy Eval ---
OT Evaluation-General/PLF Medical Diagnosis Admission Date May 12, 2019 at 18:07 Medical Diagnosis: pneumonia Onset Date: May 12, 2019 Therapy Diagnosis Therapy Diagnosis: impaired ADLs and mobility Height/Weight Height (Feet): 5 Height (Inches): 5.00 Weight (Pounds): 157 Weight (Ounces): 9.0 Precautions Precautions/Isolations: Fall Prevention, Standard Precautions Safety Interventions: Bed Exit Alarm Weight Bear Status Weight Bearing Restriction: Weight Bearing/Tolerated Referral Physician: Anna Referral Reason: Activity Tolerance, Self Care, Evaluation/Treatment Medical History Pertinent Medical History: Arthritis, HTN, Smoking Current History Pt re-evaled secondary to transfer back to ICU Reviewed History: Yes Social History Home: Single Level Current Living Status: Other Family (brother) Entry Into Home: Stairs With Railing Steps Into Home: 4 Pt stated she is having a ramp installed to enter her home. ADL-Prior Level of Function Therapy Code Descriptions/Definitions Functional [place] Measure: 0=Not Assessed/NA 4=Minimal Assistance 1=Total Assistance 5=Supervision or Setup 2=Maximal Assistance 6=Modified [place] 3=Moderate Assistance 7=Complete [place] Therapy Quality Codes: 6 Independent with activity with or without an assistive device 5 Patient requires set up or clean up by helper. Patient completes activity by themselves 4 Supervision or touching assist (CGA). [place] provide cues , steadying assist 3 The helper provides less than half the effort to complete the activity 2 The helper provides more than half the effort to complete the activity 1 Dependent. The helper does all the effort to complete an activity 7 Patient refused to complete or attempt activity 9 The patient did not perform the activity before the current illness or injury 88 Not attempted due to Medical conditions or safety concerns Functional Abilities and Goals: Independent: Patient completed the activities by him/herself, with or without an assistive device, with no assistance from a helper. Needed Some Help: Patient needed partial assistance from another person to complete activities. Dependent: A helper completed the activities for the patient. Unknown: Not Applicable: Self Care: Independent Functional Cognition: Independent DME/Equipment: Tub/Shower DME/Equipment Comments occasionally uses cane Drive Self: Yes OT Current Status Subjective Pt sitting in recliner at start of session, agreed to OT re-evaluation secondary to change in medical status and being transferred back to ICU. OT communicated with nursing prior to tx, nursing stated pt could be seen by OT. Pain Numeric Pain Scale: 0-No Pain Mental Status/Objective Patient Orientation: Person, Place, Time, Situation Attachments: Martinez Catheter, IV, Oxygen (vapotherm), Telemetry Current Glasses/Contacts: Yes Hearing Aids: No Dentures/Partials: Yes Hand Dominance: Right Upper Extremity ROM WFL BUE, pt able to reach back of head with hands. Upper Extremity Coordination WNL finger to nose test and thumb opposition to each finger. Upper Extremity Sensation WNL to light touch BUE Upper Extremity Strength 3+/5 MMT BUE ADL-Treatment Therapy Code Descriptions/Definitions Functional [place] Measure: 0=Not Assessed/NA 4=Minimal Assistance 1=Total Assistance 5=Supervision or Setup 2=Maximal Assistance 6=Modified [place] 3=Moderate Assistance 7=Complete [place] Therapy Quality Codes: 6 Independent with activity with or without an assistive device 5 Patient requires set up or clean up by helper. Patient completes activity by themselves 4 Supervision or touching assist (CGA). [place] provide cues , steadying assist 3 The helper provides less than half the effort to complete the activity 2 The helper provides more than half the effort to complete the activity 1 Dependent. The helper does all the effort to complete an activity 7 Patient refused to complete or attempt activity 9 The patient did not perform the activity before the current illness or injury 88 Not attempted due to Medical conditions or safety concerns Eating (FIM): 6 Grooming (FIM): 5 (with set up pt able to wash face and hands and brush hair.) Lower Body Dressing (FIM): 5 (SBA for safety, pt able to doff/agust[place] BLE socks without AE using figure 4 method) Transfers (B, C, W/C) (FIM): 4 (CGA during sit to stand with RW) Pt able to transfer sit to stand with CGA at RW, and she took 2 steps forward/backward with CGA. Other Treatments At end of eval, pt seated in recliner, call light in reach and needs met. Nursing notified of pt's position. Education OT Patient Education: Correct positioning, Energy conservation, Modified ADL techniques, Progress toward Goal/Update tx plan, Transfer techniques Teaching Recipient: Patient Teaching Methods: Demonstration, Discussion Response to Teaching: Verbalize Understanding, Return Demonstration OT Short Term Goals Short Term Goals Time Frame: May 27, 2019 Grooming(FIM): 5 Bathing(FIM): 4 Lower Body Dressing(FIM): 5 Toileting(FIM): 5 Transfers (B,C,W/C) (FIM): 4 Toilet/Commode Transfer(FIM): 4 1=Demonstrate adherence to instructed precautions during ADL tasks. 2=Patient will verbalize/demonstrate understanding of assistive devices/modifications for ADL. 3=Patient will improve strength/tolerance for activity to enable patient to perform ADL's. OT Coordinate Measuring Machine Operator Goals Skilled Nursing Goals Time Frame: Jun 03, 2019 Eating (FIM): 6 Grooming(FIM): 6 Bathing(FIM): 6 Bathing Location: L Arm, R Arm, L Upper Leg, R Upper Leg, L Lower Leg (including foot), R Lower Leg (including foot), Chest, Abdomen, Buttocks, Perineal Area Upper Body Dressing(FIM): 6 Lower Body Dressing(FIM): 6 Toileting(FIM): 6 Transfers (B,C,W/C) (FIM): 6 Toilet/Commode Transfer(FIM): 6 Additional Goals: 1-Demonstrate ADL Tasks, 2-Verbalize Understanding, 3- ImproveStrength/[place] 1=Demonstrate adherence to instructed precautions during ADL tasks. 2=Patient will verbalize/demonstrate understanding of assistive devices/modifications for ADL. 3=Patient will improve strength/tolerance for activity to enable patient to perform ADL's. OT Education/Plan Problem List/Assessment Assessment: Decreased Activ Tolerance, Decreased UE Strength, Impaired I ADL's, Impaired Self-Care Skills pt presents with functional limitations affecting areas of ADLS and functional transfers with the above mention deficits. pt would benefit from OT services to increase indep with ADLS/ functional transfers. recommend inpt rehab when medical stable to continue address deficits and for safe transition to home. Discharge Recommendations Plan/Recommendations: Continue POC Therapy D/C Recommendations: Acute Rehab Treatment Plan/Plan of Care Treatment,Training & Education: Yes Patient would benefit from OT for education, treatment and training to promote independence in ADL's, mobility, safety and/or upper extremity function for ADL's. Plan of Care: ADL Retraining, Functional Mobility, Group Exercise/Act as Ind, UE Funct Exercise/Act Treatment Duration: Jun 09, 2019 Frequency: 5 times per week Estimated Hrs Per Day: .25 hour per day Agreement: Yes Rehab Potential: Fair Time/GCodes Start Time: 11:27 Stop Time: 11:37 Billed Treatment Time EVM, 10 min OG FORDE OT May 26, 2019 11:49
--- NOTE | 2019-05-26 11:58 | Physical Therapy Evaluation ---
PT Evaluation-General Medical Diagnosis Admission Date May 12, 2019 at 18:07 Medical Diagnosis: pneumonia/SOA Onset Date: May 12, 2019 Therapy Diagnosis Therapy Diagnosis: debility Height/Weight Height (Feet): 5 Height (Inches): 5.00 Weight (Pounds): 157 Weight (Ounces): 9.0 Precautions Precautions/Isolations: Fall Prevention, Standard Precautions Weight Bear Status Right Lower Extremity: Right Weight Bearing/Tolerated Left Lower Extremity: Left Weight Bearing/Tolerated Referral Physician: Anna Reason for Referral: Evaluation/Treatment Medical History Pertinent Medical History: Arthritis, HTN, Smoking Current History transfer from [address] [place] [address] to ICU secondary to respiratory distress and is currently on vapotherm Reviewed History: Yes Social History Home: Single Level Current Living Status: Other Family (brother) Entry Into Home: Stairs With Railing PT Steps Into Home: 4 Prior/Core FIM Prior Level of Function Therapy Code Descriptions/Definitions Functional [place] Measure: 0=Not Assessed/NA 4=Minimal Assistance 1=Total Assistance 5=Supervision or Setup 2=Maximal Assistance 6=Modified [place] 3=Moderate Assistance 7=Complete [place] Therapy Quality Codes: 6 Independent with activity with or without an assistive device 5 Patient requires set up or clean up by helper. Patient completes activity by themselves 4 Supervision or touching assist (CGA). [place] provide cues , steadying assist 3 The helper provides less than half the effort to complete the activity 2 The helper provides more than half the effort to complete the activity 1 Dependent. The helper does all the effort to complete an activity 7 Patient refused to complete or attempt activity 9 The patient did not perform the activity before the current illness or injury 88 Not attempted due to Medical conditions or safety concerns Functional Abilities and Goals: Independent: Patient completed the activities by him/herself, with or without an assistive device, with no assistance from a helper. Needed Some Help: Patient needed partial assistance from another person to complete activities. Dependent: A helper completed the activities for the patient. Unknown: Not Applicable: Bed Mobility: 7 Transfers (B,C,W/C) (FIM): 7 Gait: 7 Stairs: 7 Indoor Mobility (Ambulation): Independent Stairs: Independent Prior Devices Use: None PT Evaluation-Current Subjective Patient is very ready to participate with therapy. She reports she is feeling better and stronger. Pain Numeric Pain Scale: 0-No Pain Location: No Pain Reported Objective Patient Orientation: Normal For Age Problem Solving: Fair Attachments: Oxygen (vapotherm 30/60), Martinez Catheter, IV ROM/Strength ROM Lower Extremities bilateral LE WFL Strength Lower Extremities 4/5 grossly bilateral LE Integumentary/Posture Integumentary refer to nursing notes Bladder Incontinence: Martinez Cath Posture WFL Neuromuscular (Tone, Coordination, Reflexes) grossly intact Sensory Vision: Wears Glasses Hearing: Functional Hand Dominance: Right Sensation Right Lower Extremit: Intact Sensation Left Lower Extremity: Intact Transfers Therapy Code Descriptions/Definitions Functional [place] Measure: 0=Not Assessed/NA 4=Minimal Assistance 1=Total Assistance 5=Supervision or Setup 2=Maximal Assistance 6=Modified [place] 3=Moderate Assistance 7=Complete [place] Transfers (B, C, W/C) (FIM): 5 Scootin Rollin Supine to/from Sit: 7 Sit to/from Stand: 5 Gait Mode of Locomotion: Walk Anticipated Mode of Locomotion: Walk Gait (FIM): 1 Distance (FIM): 1=up to 49 ft Distance: 5' Gait Level of Assist: 5 Gait Assistive Device: FWW Comments/Gait Description limited by vapotherm attachment Balance Sitting Static: Normal Sitting Dynamic: Normal Standing Static: Normal Standing Dynamic: Normal Treatment bilateral LE exercises 20 reps x 3 sets seated LAQ, AP, hip flexion/standing marching with FWW use Assessment/Needs 59 y.o. female, will benefit from skilled PT to address pulmonary functional with functional mobility and strengthening. Patient is currently limited only by vapotherm. SAO2 maintained >95% during treatment with seated and standing exercises. Rehab Potential: Fair PT Short Term Goals Short Term Goals Time Frame: May 28, 2019 Transfers (B,C,W/C) (FIM): 4 Gait (FIM): 2 Gait Distance Comment: 50' Gait Level of Assist: 4 Gait Assistive Device: FWW PT Auto Repair Technician Goals Auto Repair Technician Goals PT Jail Goals Time Frame: Jun 20, 2019 Transfers (B,C,W/C) (FIM): 7 Gait (FIM): 7 Gait distance (FIM): 3=150 ft Distance: >300' Gait Level of Assist: 7 Gait Assistive Device: None Stairs (FIM): 7 # of Steps: 12 Stairs Level Of Assist: 7 PT Plan Treatment/Plan Treatment Plan: Continue Plan of Care Treatment Plan: Bed Mobility, Education, Functional Activity [place], Functional Strength, Gait, Safety, Therapeutic Exercise, Transfers Treatment Duration: Jun 20, 2019 Frequency: 6 times per week Estimated Hrs Per Day: .25 hour per day Patient and/or Family Agrees t: Yes Discharge Recommendations Therapy D/C Recommendations: Acute Rehab (when off vapotherm and on NC) Time/GCodes Time In: 1040 Time Out: 1107 Total Billed Treatment Time: 27 Total Billed Treatment 1 visit EVModC 15 min EX 12 min SHAMAR GREGORIO PT May 26, 2019 11:58
--- NOTE | 2019-05-26 13:27 | Cardiology Progress Note ---
Cardiology SOAP Progress Note Subjective: Improved shortness of breath. Objective: I&O/Vital Signs 05/26/19 05/26/19 05/26/19 05/26/19 02:00 02:26 03:00 04:00 Pulse 80 77 86 90 Resp 11 17 16 12 B/P (MAP) 94/43 (60) 92/46 (61) 113/63 (80) Pulse Ox 96 96 97 97 O2 Delivery NIV Bilevel NIV Bilevel NIV Bilevel O2 Flow Rate 40.00 30.00 40.00 40.00 05/26/19 05/26/19 05/26/19 05/26/19 04:33 05:00 06:00 06:45 Temp 96.5 Pulse 84 81 Resp 19 18 B/P (MAP) 91/55 (67) 93/45 (61) Pulse Ox 97 95 O2 Delivery NIV Bilevel NIV Bilevel Vapotherm O2 Flow Rate 40.00 40.00 30.00 FiO2 60 05/26/19 05/26/19 05/26/19 05/26/19 07:00 07:00 07:35 08:00 Pulse 103 99 99 Resp 18 B/P (MAP) 130/70 (90) Pulse Ox 99 99 92 O2 Delivery Vapotherm O2 Flow Rate 60.00 30.00 30.00 FiO2 60 05/26/19 05/26/19 05/26/19 05/26/19 08:00 09:00 10:00 10:32 Pulse 103 90 84 Resp 20 18 20 B/P (MAP) 142/80 (100) 130/62 (84) 123/68 (86) Pulse Ox 98 97 97 95 O2 Delivery Vapotherm Vapotherm Vapotherm Vapotherm O2 Flow Rate 60.00 60.00 60.00 30.00 30.00 30.00 30.00 FiO2 60 05/26/19 05/26/19 05/26/19 05/26/19 11:00 12:00 12:00 12:10 Pulse 98 102 101 Resp 46 9 B/P (MAP) 89/75 (80) 100/84 (89) Pulse Ox 92 99 93 O2 Delivery Vapotherm Vapotherm Vapotherm O2 Flow Rate 60.00 60.00 30.00 30.00 30.00 FiO2 60 05/26/19 00:00 Intake Total 1560 ml Output Total 1050 ml Balance 510 ml Weight (Pounds): 157 Weight (Ounces): 9.0 Weight (Calculated Kilograms): 71.864967 Constitutional: appears stated age, AAO x 3, apparent distress, well-developed, well-nourished Respiratory: chest is bilaterally symmetric, lungs clear to auscultation, rhonchi Cardiovascular: regular rate-rhythm; No irregularly irregular, No extra beats, No parasternal heave is noted, No JVD, No edema, No bradycardia, No tachycardia, No point of maximal impulse, No cardiac thrills are palpable; S1 and S2; No gallop/S3, No gallop/S4, No diastolic murmur, No systolic murmur, No friction rub, No click, No other Gastrointestional: No tender, No soft, No round, No distended, No pulsatile mass, No organomegaly, No guarding, No rebound, No tenderness, No hernia, No mass, No audible bowel sounds, No abnormal bowel sounds, No abdominal bruits, No spleenomegaly, No other Extremities: No normal range of motion, No non-tender, No normal inspection, No pedal edema, No calf tenderness, No normal capillary refill, No pelvis stable, No calf tenderness, No inflammation, No pedal edema, No slow capillary refill, No swelling, No other, No abrasion, No clubbing, No cyanosis, No ecchymosis, No laceration, No no lower extremity edema bilateral, No significant edema, No tenderness, No wound Neurologic/Psychiatric: no motor/sensory deficits, alert, normal mood/affect, oriented x 3, power is 5/5 both on sides Skin: No normal color, No warm/dry, No cyanosis, No cool, No diaphoresis, No damp, No ecchymosis, No jaundice, No mottled, No pallor, No rash, No tattoos/piercings, No ulcerations, No rash on exposed areas, No ulcerations on exposed areas, No other Results/Procedures: Labs Laboratory Tests 05/25/19 18:02: Glucometer 159H 05/26/19 00:41: Glucometer 326H 05/26/19 03:31: White Blood Count 15.6H, Red Blood Count 4.54, Hemoglobin 12.5, Hematocrit 40, Mean Corpuscular Volume 89, Mean Corpuscular Hemoglobin 28, Mean Corpuscular Hemoglobin Concent 31L, Red Cell Distribution Width 16.6H, Platelet Count 240, Mean Platelet Volume 11.8H, Neutrophils (%) (Auto) 91H, Lymphocytes (%) (Auto) 4L, Monocytes (%) (Auto) 4, Eosinophils (%) (Auto) 0, Basophils (%) (Auto) 0, Neutrophils # (Auto) 14.3H, Lymphocytes # (Auto) 0.7L, Monocytes # (Auto) 0.7, Eosinophils # (Auto) 0.0, Basophils # (Auto) 0.0, Sodium Level 140, Potassium Level 5.1H, Chloride Level 96L, Carbon Dioxide Level 31, Anion Gap 13, Blood Urea Nitrogen 53H, Creatinine 1.28, Estimat Glomerular Filtration Rate 42, BUN/C reatinine Ratio 41, Glucose Level 161H, Calcium Level 10.1, Corrected Calcium 10.3H, Phosphorus Level 3.5, Magnesium Level 2.2, Total Bilirubin 0.3, Aspartate Amino Transf (AST/SGOT) 17, Alanine Aminotransferase (ALT/SGPT) 31, Alkaline Phosphatase 121, Total Protein 7.5, Albumin 3.8 05/26/19 03:34: Blood Gas Puncture Site RIGHT RADIAL, Blood Gas Patient Temperature 96.5, Arterial Blood pH 7.38, Arterial Blood Partial Pressure CO2 59H, Arterial Blood Partial Pressure O2 64L, Arterial Blood HCO3 35H, Arterial Blood Total CO2 36.5H , Arterial Blood Oxygen Saturation 93L, Arterial Blood Base Excess 9.1H, Александр Test POSITIVE, Blood Gas Ventilator Setting NO, Blood Gas Inspired Oxygen 40% BIPAP 05/26/19 06:21: Glucometer 118H 05/26/19 10:48: Glucometer 174H Microbiology 05/12/19 Blood Culture - Final, Complete No growth 05/19/19 Mycobacterial Culture - Preliminary, Resulted See Comments A/P: Assessment/Dx: acute respiratory failure, Severe sepsis, 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 Acute respiratory failure, extubated. Currently in the ICU. Improved shortness of breath. Defer to Dr. CASTILLO. 2. Sepsis, on broad spectrum antibiotics. Likely source is pneumonia. 3. Positive cardiac enzymes. Coronary angiography done within the last one month did not reveal obstructive CAD. Likely type II myocardial infarction due to severe respiratory failure, sepsis with septic shock. No chest pain. No planned for either nuclear imaging or coronary angiography at this point in time. Once respiratory status improves, we will consider at that point in time. 4. Acute systolic and diastolic congestive heart failure. improving BNP. On admission BNP was over 1000. BNP in the last 24 hours is 100. Significant improvement in congestive heart failure on diuretics. Worsening BUN, suggest intravascular volume depletion. Worsening respiratory failure is more likely pulmonary in origin. Defer to Dr. Castillo. Continue Lasix and Aldactone. 5. Bilateral pleural effusions, Thank you for your consultation. Please call me if you have any questions. Lucius Ross MD, FACP, FACC, FSCAI, FHRS, CCDS Interventional Cardiology Cardiac Electrophysiology Vascular Medicine and Endovascular Interventions Ava ROSS MD May 26, 2019 13:27
[2019-05-26] MEDS: ENOXAPARIN 40 MG/0.4 ML (LOVENOX) SYR SQ SCH (16:15)
[2019-05-26] MEDS: AMITRIPTYLINE 50 MG (ELAVIL) TAB PO SCH (20:27)
[2019-05-27] VITALS (20 sets, daily range): BP systolic 95–152; BP diastolic 47–120
[2019-05-27] MEDS: CATHETER FLUSH 10 ML SYR IV SCH ×4 (00:20→21:07)
[2019-05-27] MEDS: methylPREDNISolone 40 MG/ML (Solu-MEDROL) VIAL IV SCH ×4 (00:20→17:34)
[2019-05-27] MEDS: RT-ALBUTEROL/IPRATROPIUM 3 ML (DUONEB) VIAL INH SCH ×6 (02:47→22:15)
[2019-05-27 03:22] LABS: BASOPHILS % (AUTO) 0 % (0-10); EOSINOPHILS % (AUTO) 0 % (0-10); HEMATOCRIT 40 % (35-52); HEMOGLOBIN 12.2 G/DL (11.5-16.0); LYMPHOCYTES # (AUTO) 2.5 X 10^3 (1.0-4.0); LYMPHOCYTES % (AUTO) 15 % (12-44); MEAN CORPUSCULAR HEMOGLOBIN 27 PG (25-34); MEAN CORPUSCULAR HGB CONC 31 G/DL (32-36); MEAN CORPUSCULAR VOLUME 87 FL (80-99); MEAN PLATELET VOLUME 11.7 FL (7.4-10.4); MONOCYTES # (AUTO) 1.3 X 10^3 (0.0-1.0); MONOCYTES % (AUTO) 8 % (0-12); NEUTROPHILS # (AUTO) 13.4 X 10^3 (1.8-7.8); NEUTROPHILS % (AUTO) 78 % (42-75); PLATELET COUNT 271 10^3/uL (130-400); RED CELL DISTRIBUTION WIDTH 16.8 % (10.0-14.5); WHITE BLOOD COUNT 17.2 10^3/uL (4.3-11.0)
[2019-05-27 03:22] LABS: ABG BASE EXCESS 10.6 MMOL/L (-2.5-2.5); ABG OXYGEN SATURATION 92 % (94-100); ABG PCO2 61 MMHG (35-45); ABG PH 7.38 (7.37-7.43); ABG PO2 63 MMHG (79-93); ABG TCO2 38.1 MMOL/L (21.0-31.0)
[2019-05-27 03:23] LABS: ALLENS TEST POSTIVIE 40% BIPAP; INSPIRED O2 N; PATIENT TEMP 97.2; VENTILATOR NO
[2019-05-27 03:50] LABS: ALBUMIN 3.9 GM/DL (3.2-4.5); BILIRUBIN,TOTAL 0.4 MG/DL (0.1-1.0); CREATININE SERUM 1.05 MG/DL (0.60-1.30); MAGNESIUM 1.3 MG/DL (1.6-2.4); PHOSPHORUS 3.3 MG/DL (2.3-4.7); POTASSIUM 4.8 MMOL/L (3.6-5.0); TOTAL PROTEIN 7.5 GM/DL (6.4-8.2)
[2019-05-27] MEDS: POTASSIUM CL 10MEQ/50ML IVPB 50 ML IV SCH (04:01)
[2019-05-27] MEDS: KCL 20 MEQ TAB (K-DUR) PO SCH (04:01)
[2019-05-27] MEDS ORDERED: MAGNESIUM 1 GM/100 ML IVPB 100 ML IV ONE (04:15)
[2019-05-27] MEDS: MAGNESIUM 1 GM/100 ML IVPB 100 ML IV SCH (05:13)
[2019-05-27] MEDS: inSUlin ASPART (NovoLOG) 1 UNIT/0.01 ML (CHARGE PER UNIT) SQ SCH ×4 (05:18→20:05)
--- NOTE | 2019-05-27 06:29 | Pulmonary Progress Note ---
Subjective Time Seen by a Provider: 09:57 Sepsis Event Evaluation Height, Weight, BMI Height: 5'5.00" Weight: 157lbs. 9.0oz. [id number]; 28.3 BMI Method:Stated Exam Exam Vital Signs Date Time Temp Pulse Resp B/P (MAP) Pulse Ox O2 Delivery O2 Flow Rate FiO2 05/27/19 04:03 97.2 05/27/19 02:47 70 16 97 30.00 05/27/19 01:00 92 05/27/19 00:30 93 Vapotherm 30.00 60 05/27/19 00:30 96.9 05/26/19 23:40 5 18 97 30.00 05/26/19 21:22 93 Vapotherm 30.00 60 05/26/19 20:20 97.8 05/26/19 20:08 93 Vapotherm 30.00 60 05/26/19 19:00 112 05/26/19 18:50 94 Vapotherm 30.00 60 05/26/19 18:00 112 18 130/62 (84) 96 Vapotherm 60.00 30.00 05/26/19 17:00 117 21 141/76 (97) 98 Vapotherm 60.00 30.00 05/26/19 16:00 93 Vapotherm 30.00 60 05/26/19 16:00 97.9 05/26/19 16:00 110 15 128/66 (86) 95 Vapotherm 60.00 30.00 05/26/19 15:00 105 23 124/64 (84) 92 Vapotherm 60.00 30.00 05/26/19 14:06 95 Vapotherm 30.00 60 05/26/19 14:00 98 7 122/56 (78) 95 Vapotherm 60.00 30.00 05/26/19 13:00 99 21 114/47 (69) 96 Vapotherm 60.00 30.00 05/26/19 12:10 101 05/26/19 12:00 93 Vapotherm 30.00 60 05/26/19 12:00 98.3 05/26/19 12:00 102 9 100/84 (89) 99 Vapotherm 60.00 30.00 05/26/19 11:00 98 46 89/75 (80) 92 Vapotherm 60.00 30.00 05/26/19 10:32 95 Vapotherm 30.00 60 05/26/19 10:00 84 20 123/68 (86) 97 Vapotherm 60.00 30.00 05/26/19 09:00 90 18 130/62 (84) 97 Vapotherm 60.00 30.00 05/26/19 08:00 103 20 142/80 (100) 98 Vapotherm 60.00 30.00 05/26/19 08:00 92 30.00 60 05/26/19 07:35 99 99 05/26/19 07:00 99 18 130/70 (90) 99 Vapotherm 60.00 30.00 05/26/19 07:00 103 05/26/19 06:45 Vapotherm 30.00 60 I & O 05/27/19 07:00 Intake Total 1770 ml Output Total 3350 ml Balance -1580 ml Height & Weight Height: 5'5.00" Weight: 157lbs. 9.0oz. 71.240686ap; 28.3 BMI Method:Stated General Appearance: WD/WN, Anxious, Chronically ill, Moderate Distress HEENT: PERRL/EOMI, Normal ENT Inspection, Pharynx Normal Neck: Limited Range of Motion Respiratory: Chest Non Tender, Accessory Muscle Use, Decreased Breath Sounds, Respiratory Distress, Wheezing Cardiovascular: Regular Rate, Rhythm, No Edema, No Gallop, No JVD, No Murmur, Normal Peripheral Pulses Capillary Refill: Less Than 3 Seconds Gastrointestinal: soft; No guarding, No rebound Extremity: Pedal Edema Neurologic/Psychiatric: Alert, Oriented x3, No Motor/Sensory Deficits, Normal Mood/Affect Skin: Normal Color, Warm/Dry Lymphatic: No Adenopathy Results Lab Laboratory Tests 05/25/19 13:02 05/26/19 03:31 05/27/19 03:10 Assessment/Plan Assessment/Plan Acute respiratory failure -Currently on BipPAP switch back to Vapotherm during day -CT of chest without contrast - reviewed -Monitor close today may need to go to ICU if still requiring BiPAP or high Fi02 -Titrate oxygen for Sp02 90-92% -Lasix 40mg IV BID -Spironolactone-- hold secondary to hyperkalemia -BiPAP QHS Sepsis with Pneumonia -Sputum is showing Stenotrophomonas -BCTM -Levaquin -MRSA nasal swab Acute renal failure -Hold spironolactone -Decrease lasix to daily Bilateral pleural effusions -Monitor CHF EF 35% with acute pulmonary edema MISTY GUZMAN DO May 27, 2019 06:29
--- NOTE | 2019-05-27 07:42 | Diagnostic Imaging Report ---
EXAM: CHEST 1 VIEW, AP/PA ONLY INDICATION: Respiratory distress. COMPARISON: Chest radiograph 05/26/2019. FINDINGS: Low lung volumes accentuate heart size. Normal central pulmonary vascularity. Persistent bibasilar atelectasis or infiltrate, greater on the right. No definite pleural effusion or pneumothorax. Right IJ CVC tip mid SVC. IMPRESSION: 1. Low lung volumes with persistent bibasilar atelectasis or infiltrate, greater on the right. Dictated by: Dictated on workstation # [id number]
[2019-05-27] MEDS: ATORVASTATIN 10 MG (LIPITOR) TABLET PO SCH (08:02)
[2019-05-27] MEDS: GABAPENTIN 300 MG (NEURONTIN) CAP PO SCH ×3 (08:03→20:05)
[2019-05-27] MEDS: FUROSEMIDE 40 MG/4 ML INJ (LASIX) IVP SCH ×2 (08:03→20:05)
[2019-05-27] MEDS: TRIM/SULFAMETH 160/800 (SEPTRA DS) TAB PO SCH ×2 (08:03→17:34)
[2019-05-27] MEDS: DOCUSATE SODIUM 100 MG (COLACE) CAP PO SCH ×2 (08:03→20:06)
[2019-05-27] MEDS: meTOprolol TARTRATE 50 MG (LOPRESSOR) TAB PO SCH ×2 (08:03→20:06)
[2019-05-27] MEDS: ASPIRIN E.C. 81 MG (ECOTRIN) TAB PO SCH (08:03)
[2019-05-27] MEDS: PANTOPRAZOLE 40 MG (PROTONIX) TAB PO SCH ×2 (08:03→20:06)
--- NOTE | 2019-05-27 10:05 | Occupational Ther Daily Note ---
OT Current Status-Daily Note Subjective OT communicated with nursing who said pt could be seen for tx. Pt laying in bed at start of sesson, agreeing to OT tx focusing on ADLs. Mental Status/Objective Patient Orientation: Normal For Age Therapy Code Descriptions/Definitions Functional [place] Measure: 0=Not Assessed/NA 4=Minimal Assistance 1=Total Assistance 5=Supervision or Setup 2=Maximal Assistance 6=Modified [place] 3=Moderate Assistance 7=Complete [place] Attachments: Martinez Catheter, IV, Oxygen (vapotherm), Telemetry ADL-Treatment Grooming (FIM): 4 (Pt able to wash face, hands, hair with set up. Pt could brush the top and sides of hair but required slight assistance reaching the very back of her head.) Bathing (FIM): 5 (Pt completed sponge bath at EOB, pt able to wash areas with SBA for assistance with lines. ) Bathing Location: L Arm, R Arm, L Upper Leg, R Upper Leg, L Lower Leg (including foot), R Lower Leg (including foot), Chest, Abdomen, Buttocks, Perineal Area Upper Body (FIM): 4 (Pt doffed/donned hospital gown with assistance with threading around wires/cords, and assist with tying gown) Lower Body Dressing (FIM): 5 (SBA for safety, pt able to doff/agustín BLE socks) Transfers (B, C, W/C) (FIM): 5 (Pt transfered supine to sitting EOB with SBA) Other Treatment Pt laying in bed at start of session, completed ADLs laying in bed/sitting EOB. Pt laying in bed at end of session, call light in reach and needs met. Nursing notified of pt's position post OT tx. Education OT Patient Education: Correct positioning, Energy conservation, Progress toward Goal/Update tx plan, Purpose of tx/functional activities Teaching Recipient: Patient Teaching Methods: Demonstration, Discussion Response to Teaching: Verbalize Understanding, Return Demonstration OT Short Term Goals Short Term Goals Time Frame: May 27, 2019 Grooming(FIM): 5 Bathing(FIM): 4 Lower Body Dressing(FIM): 5 Toileting(FIM): 5 Transfers (B,C,W/C) (FIM): 4 Toilet/Commode Transfer(FIM): 4 1=Demonstrate adherence to instructed precautions during ADL tasks. 2=Patient will verbalize/demonstrate understanding of assistive devices/modifications for ADL. 3=Patient will improve strength/tolerance for activity to enable patient to perform ADL's. OT [facility] Goals Senior Clinician Goals Time Frame: Jun 03, 2019 Eating (FIM): 6 Grooming(FIM): 6 Bathing(FIM): 6 Bathing Location: L Arm, R Arm, L Upper Leg, R Upper Leg, L Lower Leg (including foot), R Lower Leg (including foot), Chest, Abdomen, Buttocks, Perineal Area Upper Body Dressing(FIM): 6 Lower Body Dressing(FIM): 6 Toileting(FIM): 6 Transfers (B,C,W/C) (FIM): 6 Toilet/Commode Transfer(FIM): 6 Additional Goals: 1-Demonstrate ADL Tasks, 2-Verbalize Understanding, 3- ImproveStrength/[place] 1=Demonstrate adherence to instructed precautions during ADL tasks. 2=Patient will verbalize/demonstrate understanding of assistive devices/modifications for ADL. 3=Patient will improve strength/tolerance for activity to enable patient to perform ADL's. OT Education/Plan Problem List/Assessment Assessment: Decreased Activ Tolerance, Decreased UE Strength, Impaired I ADL's, Impaired Self-Care Skills pt presents with functional limitations affecting areas of ADLS and functional transfers with the above mention deficits. pt would benefit from OT services to increase indep with ADLS/ functional transfers. Discharge Recommendations Plan/Recommendations: Continue POC Therapy D/C Recommendations: Home w/ Family Support, Occupational Therapy Home Care Comment pt will need walker Treatment Plan/Plan of Care Treatment,Training & Education: Yes Patient would benefit from OT for education, treatment and training to promote independence in ADL's, mobility, safety and/or upper extremity function for ADL's. Plan of Care: ADL Retraining, Functional Mobility, Group Exercise/Act as Ind, UE Funct Exercise/Act Treatment Duration: Jun 09, 2019 Frequency: 5 times per week Estimated Hrs Per Day: .25 hour per day Agreement: Yes Rehab Potential: Fair Time/GCodes Start Time: 09:35 Stop Time: 09:53 Total Time Billed (hr/min): 18 Billed Treatment Time 1, ADL X18 min OG FORDE OT May 27, 2019 10:04
--- NOTE | 2019-05-27 10:34 | NUR ---
PALLIATIVE CARE RN to ICU to see patient. She is sitting up in bed and wishing she could get up and walk. She is currently still on VAPOTHERM and is hoping to be able to wean off of this to a regular canula. Spoke to Dr. Castillo about the above. He is possibly going to wean VAPOTHERM over the next couple days and transition t the floor maybe tomorrow. Palliative Care RN is following patient for support.
--- NOTE | 2019-05-27 13:20 | Cardiology Progress Note ---
Cardiology SOAP Progress Note Subjective: Improved shortness of breath. Objective: I&O/Vital Signs 05/27/19 05/27/19 05/27/19 05/27/19 02:47 03:00 04:00 04:03 Temp 97.2 Pulse 70 85 87 Resp 16 30 16 B/P (MAP) 95/47 (63) 108/55 (72) Pulse Ox 97 96 93 O2 Delivery Vapotherm Vapotherm O2 Flow Rate 30.00 60.00 60.00 30.00 30.00 05/27/19 05/27/19 05/27/19 05/27/19 05:00 06:00 06:36 07:00 Pulse 88 90 89 Resp 16 20 B/P (MAP) 112/58 (76) 126/60 (82) Pulse Ox 91 91 95 O2 Delivery Vapotherm Vapotherm Vapotherm O2 Flow Rate 60.00 60.00 30.00 30.00 30.00 FiO2 60 05/27/19 05/27/19 05/27/19 05/27/19 07:00 07:30 08:00 08:00 Temp 97.7 Pulse 90 97 Resp 16 19 B/P (MAP) 128/54 (78) 129/58 (81) Pulse Ox 97 97 94 O2 Delivery Vapotherm High Flow N/C Vapotherm O2 Flow Rate 60.00 10.00 60.00 30.00 30.00 05/27/19 05/27/19 05/27/19 05/27/19 09:00 10:00 10:23 10:32 Pulse 85 88 Resp 17 21 B/P (MAP) 125/63 (83) 126/59 (81) Pulse Ox 98 97 95 O2 Delivery Vapotherm Vapotherm Vapotherm High Flow N/C O2 Flow Rate 60.00 60.00 20.00 10.00 30.00 30.00 FiO2 60 05/27/19 05/27/19 05/27/19 10:32 11:00 13:55 Pulse 90 Resp 20 B/P (MAP) 136/65 (88) Pulse Ox 97 96 92 O2 Delivery High Flow N/C High Flow N/C High Flow N/C O2 Flow Rate 10.00 10.00 6.00 05/27/19 00:00 Intake Total 820 ml Output Total 1950 ml Balance -1130 ml Weight (Pounds): 159 Weight (Ounces): 2.0 Weight (Calculated Kilograms): 72.359972 Constitutional: appears stated age, AAO x 3, apparent distress, well-developed, well-nourished Respiratory: chest is bilaterally symmetric, lungs clear to auscultation, rhonchi Cardiovascular: regular rate-rhythm; No irregularly irregular, No extra beats, No parasternal heave is noted, No JVD, No edema, No bradycardia, No tachycardia, No point of maximal impulse, No cardiac thrills are palpable; S1 and S2; No gallop/S3, No gallop/S4, No diastolic murmur, No systolic murmur, No friction rub, No click, No other Gastrointestional: No tender, No soft, No round, No distended, No pulsatile mass, No organomegaly, No guarding, No rebound, No tenderness, No hernia, No mass, No audible bowel sounds, No abnormal bowel sounds, No abdominal bruits, No spleenomegaly, No other Extremities: No normal range of motion, No non-tender, No normal inspection, No pedal edema, No calf tenderness, No normal capillary refill, No pelvis stable, No calf tenderness, No inflammation, No pedal edema, No slow capillary refill, No swelling, No other, No abrasion, No clubbing, No cyanosis, No ecchymosis, No laceration, No no lower extremity edema bilateral, No significant edema, No tenderness, No wound Neurologic/Psychiatric: no motor/sensory deficits, alert, normal mood/affect, oriented x 3, power is 5/5 both on sides Skin: No normal color, No warm/dry, No cyanosis, No cool, No diaphoresis, No damp, No ecchymosis, No jaundice, No mottled, No pallor, No rash, No tattoos/piercings, No ulcerations, No rash on exposed areas, No ulcerations on exposed areas, No other Results/Procedures: Labs Laboratory Tests 05/26/19 16:15: Glucometer 200H 05/26/19 20:38: Glucometer 221H 05/27/19 03:10: White Blood Count 17.2H, Red Blood Count 4.55, Hemoglobin 12.2, Hematocrit 40, Mean Corpuscular Volume 87, Mean Corpuscular Hemoglobin 27, Mean Corpuscular Hemoglobin Concent 31L, Red Cell Distribution Width 16.8H, Platelet Count 271, Mean Platelet Volume 11.7H, Neutrophils (%) (Auto) 78H, Lymphocytes (%) (Auto) 15, Monocytes (%) (Auto) 8, Eosinophils (%) (Auto) 0, Basophils (%) (Auto) 0, Neutrophils # (Auto) 13.4H, Lymphocytes # (Auto) 2.5, Monocytes # (Auto) 1.3H, Eosinophils # (Auto) 0.0, Basophils # (Auto) 0.0, Sodium Level 136, Potassium Le neri 4.8, Chloride Level 93L, Carbon Dioxide Level 32, Anion Gap 11, Blood Urea Nitrogen 37H, Creatinine 1.05, Estimat Glomerular Filtration Rate 53, BUN/Creatinine Ratio 35, Glucose Level 113H, Calcium Level 10.0, Corrected Calcium 10.1, Phosphorus Level 3.3, Magnesium Level 1.3L, Total Bilirubin 0.4, Aspartate Amino Transf (AST/SGOT) 16, Alanine Aminotransferase (ALT/SGPT) 27, Alkaline Phosphatase 106, Total Protein 7.5, Albumin 3.9 05/27/19 03:12: Blood Gas Puncture Site RIGHT RADIAL, Blood Gas Patient Temperature 97.2, Arterial Blood pH 7.38, Arterial Blood Partial Pressure CO2 61H, Arterial Blood Partial Pressure O2 63L, Arterial Blood HCO3 36H, Arterial Blood Total CO2 38.1H , Arterial Blood Oxygen Saturation 92L, Arterial Blood Base Excess 10.6H, Александр Test POSTIVIE 40% BIPAP, Blood Gas Ventilator Setting NO, Blood Gas Inspired Oxygen N 05/27/19 05:12: Glucometer 174H 05/27/19 11:05: Glucometer 289H Microbiology 05/25/19 Blood Culture - Preliminary, Resulted Staphylococcus epidermidis 05/25/19 Gram Stain - Final, Complete 05/25/19 Sputum Culture - Final, Complete Usual upper respiratory zi YEAST A/P: Assessment/Dx: acute respiratory failure, Severe sepsis, 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 Acute respiratory failure, extubated. Currently in the ICU. Improved shortness of breath. Defer to Dr. CASTILLO. 2. Sepsis, on broad spectrum antibiotics. Likely source is pneumonia. 3. Positive cardiac enzymes. Coronary angiography done within the last one month did not reveal obstructive CAD. Likely type II myocardial infarction due to severe respiratory failure, sepsis with septic shock. No chest pain. No plan for either nuclear imaging or coronary angiography at this point in time. Once respiratory status improves, we will consider at that point in time. 4. Acute systolic and diastolic congestive heart failure. improving BNP. On admission BNP was over 1000. BNP in the last 24 hours is 100. Significant improvement in congestive heart failure on diuretics. Worsening BUN, suggest intravascular volume depletion. Worsening respiratory failure is more likely pulmonary in origin. Defer to Dr. Castillo. Continue Lasix and Aldactone. 5. Bilateral pleural effusions, Thank you for your consultation. Please call me if you have any questions. Lucius Ross MD, FACP, FACC, FSCAI, FHRS, CCDS Interventional Cardiology Cardiac Electrophysiology Vascular Medicine and Endovascular Interventions Ava ROSS MD May 27, 2019 13:20
--- NOTE | 2019-05-27 13:54 | Progress Note ---
Subjective Subjective/Events-last exam Afebrile, feeling improved. Is on 10 lpm nasal cannula currently. Objective Exam Last Set of Vital Signs Vital Signs Date Time Temp Pulse Resp B/P (MAP) Pulse Ox O2 Delivery O2 Flow Rate FiO2 05/27/19 11:00 90 20 136/65 (88) 96 High Flow N/C 10.00 05/27/19 10:23 60 05/27/19 07:30 97.7 Capillary Refill : Less Than 3 SecondsLess Than 3 Seconds I&O Intake and Output 05/27/19 00:00 Intake Total 1462 ml Output Total 3350 ml Balance -1888 ml Intake Oral 1180 ml IV Total 282 ml Output Urine Total 3350 ml General: Alert, No Acute Distress Lungs: Clear to Auscultation, Normal Air Movement Heart: Regular Rate, No Murmurs Neuro: Normal Speech Psych/Mental Status: Mental Status NL Results/Procedures Lab Laboratory Tests 05/26/19 16:15: Glucometer 200H 05/26/19 20:38: Glucometer 221H 05/27/19 03:10: White Blood Count 17.2H, Red Blood Count 4.55, Hemoglobin 12.2, Hematocrit 40, Mean Corpuscular Volume 87, Mean Corpuscular Hemoglobin 27, Mean Corpuscular Hemoglobin Concent 31L, Red Cell Distribution Width 16.8H, Platelet Count 271, Mean Platelet Volume 11.7H, Neutrophils (%) (Auto) 78H, Lymphocytes (%) (Auto) 15, Monocytes (%) (Auto) 8, Eosinophils (%) (Auto) 0, Basophils (%) (Auto) 0, Neutrophils # (Auto) 13.4H, Lymphocytes # (Auto) 2.5, Monocytes # (Auto) 1.3H, Eosinophils # (Auto) 0.0, Basophils # (Auto) 0.0, Sodium Level 136, Potassium Level 4.8, Chloride Level 93L, Carbon Dioxide Level 32, Anion Gap 11, Blood Urea Nitrogen 37H, Creatinine 1.05, Estimat Glomerular Filtration Rate 53, BUN/Creatinine Ratio 35, Glucose Level 113H, Calcium Level 10.0, Corrected Calcium 10.1, Phosphorus Level 3.3, Magnesium Level 1.3L, Total Bilirubin 0.4, Aspartate Amino Transf (AST/SGOT) 16, Alanine Aminotransferase (ALT/SGPT) 27, Alkaline Phosphatase 106, Total Protein 7.5, Albumin 3.9 05/27/19 03:12: Blood Gas Puncture Site RIGHT RADIAL, Blood Gas Patient Temperature 97.2, Arterial Blood pH 7.38, Arterial Blood Partial Pressure CO2 61H, Arterial Blood Partial Pressure O2 63L, Arterial Blood HCO3 36H, Arterial Blood Total CO2 38.1H , Arterial Blood Oxygen Saturation 92L, Arterial Blood Base Excess 10.6H, Александр Test POSTIVIE 40% BIPAP, Blood Gas Ventilator Setting NO, Blood Gas Inspired Oxygen N 05/27/19 05:12: Glucometer 174H 05/27/19 11:05: Glucometer 289H Microbiology 05/25/19 Blood Culture - Preliminary, Resulted Staphylococcus epidermidis 05/25/19 Gram Stain - Final, Complete 05/25/19 Sputum Culture - Final, Complete Usual upper respiratory zi YEAST Assessment/Plan Assessment/Plan (1) Acute and chronic respiratory failure with hypoxia Status: Acute Assessment & Plan: 05/13: Intubated 05/14: Breathing over vent, No improvement in CXR, Continue antibiotics and steroids 05/15: Wean per Dr Castillo 05/25- on bipap, continue to wean support as tolerated, on solumedrol [address] Castillo 05/26 on vapotherm this am, continuing to improve 05/27- transitioning to nasal cannula, may be able to transfer to floor later today (2) Severe sepsis Status: Acute Assessment & Plan: - Continue broad spectrum antibiotics, cultures pending, currently on pressors 05/14: Goal to titrate pressors as tolerated today 05/15: Cultures NGTD 05/25- remains on bactrim BID and Zosyn, sputum culture positive for stenotrophomonas 05/27 on Bactrim and levofloxacin (3) PNA (pneumonia) Status: Acute Qualifiers: Qualified Codes: J18.9 - Pneumonia, unspecified organism (4) Acute combined systolic (congestive) and diastolic (congestive) heart failure Status: Acute Assessment & Plan: - Cardiology managing - Echo 05/13 with EF 35-40% 05/27- remains on IV lasix (5) Acute renal insufficiency Status: Resolved Assessment & Plan: Possibly related to diuresis, monitor closely 05/26 improving, monitor (6) Hyperkalemia Status: Resolved Assessment & Plan: Secondary to ESHA, monitor closely, kayexalate if rising 05/26 improving but persistent, continue to follow potassium (7) DVT prophylaxis Status: Acute Assessment & Plan: - lovenox Clinical Quality Measures DVT/VTE Risk/Contraindication: Risk Factor Score Per Nursin RFS Level Per Nursing on Admit: 4+=Very High GIRISH BINGHAM MD May 27, 2019 13:54
--- NOTE | 2019-05-27 14:21 | Physical Therapy Daily Note ---
PT Daily Note-Current Subjective Patient in bed pre tx, agrees to PT, has no complaints of pain. Patient is now on nasal canula at 6L. Appearance Patient in bed post tx with nurse call, phone, tray, all needs met. Mental Status Patient Orientation: Normal For Age Attachments: Oxygen, Martinez Catheter Transfers Therapy Code Descriptions/Definitions Functional [place] Measure: 0=Not Assessed/NA 4=Minimal Assistance 1=Total Assistance 5=Supervision or Setup 2=Maximal Assistance 6=Modified [place] 3=Moderate Assistance 7=Complete [place] Therapy Quality Codes: 6 Independent with activity with or without an assistive device 5 Patient requires set up or clean up by helper. Patient completes activity by themselves 4 Supervision or touching assist (CGA). Mccrory provide cues , steadying assist 3 The helper provides less than half the effort to complete the activity 2 The helper provides more than half the effort to complete the activity 1 Dependent. The helper does all the effort to complete an activity 7 Patient refused to complete or attempt activity 9 The patient did not perform the activity before the current illness or injury 88 Not attempted due to Medical conditions or safety concerns Transfers (B, C, W/C) (FIM): 5 Scootin Rollin Supine to/from Sit: 5 Sit to/from Stand: 5 Weight Bearing Right Lower Extremity: Right Weight Bearing/Tolerated Left Lower Extremity: Left Weight Bearing/Tolerated Gait Training Gait (FIM): 4 Distance: 150' Gait Level of Assist: 4 Gait Assistive Device: FWW Patient has unsteady moments but no sharon LOB. Needs cues to ambulate slowly and carefully. O2 was 97% after getting back to her room. Cues for purse lip breathing. Treatments bed mobility, ambulation Assessment Current Status: Fair Progress improving ambulation and endurance PT Short Term Goals Short Term Goals Time Frame: May 28, 2019 Transfers (B,C,W/C) (FIM): 4 Gait (FIM): 2 Gait Distance Comment: 50' Gait Level of Assist: 4 Gait Assistive Device: FWW PT Wellness Coordinator Goals Wellness Coordinator Goals PT Wellness Coordinator Goals Time Frame: Jun 20, 2019 Transfers (B,C,W/C) (FIM): 7 Gait (FIM): 7 Gait distance (FIM): 3=150 ft Distance: >300' Gait Level of Assist: 7 Gait Assistive Device: None Stairs (FIM): 7 # of Steps: 12 Stairs Level Of Assist: 7 PT Plan Problem List Problem List: Activity Tolerance, Functional Strength, Safety, Balance, Gait, Transfer, Bed Mobility, ROM Treatment/Plan Treatment Plan: Continue Plan of Care Treatment Plan: Bed Mobility, Education, Functional Activity Bryant, Functional Strength, Gait, Safety, Therapeutic Exercise, Transfers Treatment Duration: Jun 20, 2019 Frequency: 6 times per week Estimated Hrs Per Day: .25 hour per day Patient and/or Family Agrees t: Yes Safety Risks/Education Patient Education: Gait Training, Transfer Techniques, Correct Positioning, Safety Issues Teaching Recipient: Patient Teaching Methods: Demonstration, Discussion Response to Teaching: Reinforcement Needed Time/GCodes Time In: 1400 Time Out: 1415 Total Billed Treatment Time: 15 Total Billed Treatment 1 visit GT 15' LEIGH RABAGO PT May 27, 2019 14:21
[2019-05-27] MEDS: ENOXAPARIN 40 MG/0.4 ML (LOVENOX) SYR SQ SCH (16:02)
[2019-05-27] MEDS: AMITRIPTYLINE 50 MG (ELAVIL) TAB PO SCH (20:06)
[2019-05-28] VITALS (13 sets, daily range): BP systolic 89–139; BP diastolic 46–77
[2019-05-28] MEDS: methylPREDNISolone 40 MG/ML (Solu-MEDROL) VIAL IV SCH ×3 (00:16→17:45)
[2019-05-28] MEDS: RT-ALBUTEROL/IPRATROPIUM 3 ML (DUONEB) VIAL INH SCH ×6 (02:28→21:45)
[2019-05-28 03:27] LABS: BASOPHILS % (AUTO) 0 % (0-10); EOSINOPHILS % (AUTO) 0 % (0-10); HEMATOCRIT 40 % (35-52); HEMOGLOBIN 12.4 G/DL (11.5-16.0); LYMPHOCYTES # (AUTO) 0.4 X 10^3 (1.0-4.0); LYMPHOCYTES % (AUTO) 3 % (12-44); MEAN CORPUSCULAR HEMOGLOBIN 27 PG (25-34); MEAN CORPUSCULAR HGB CONC 31 G/DL (32-36); MEAN CORPUSCULAR VOLUME 87 FL (80-99); MEAN PLATELET VOLUME 11.8 FL (7.4-10.4); MONOCYTES # (AUTO) 0.3 X 10^3 (0.0-1.0); MONOCYTES % (AUTO) 2 % (0-12); NEUTROPHILS # (AUTO) 13.9 X 10^3 (1.8-7.8); NEUTROPHILS % (AUTO) 95 % (42-75); PLATELET COUNT 260 10^3/uL (130-400); RED CELL DISTRIBUTION WIDTH 16.4 % (10.0-14.5); WHITE BLOOD COUNT 14.6 10^3/uL (4.3-11.0)
[2019-05-28 04:06] LABS: ALBUMIN 3.9 GM/DL (3.2-4.5); BILIRUBIN,TOTAL 0.4 MG/DL (0.1-1.0); CALCIUM 9.9 MG/DL (8.5-10.1); CREATININE SERUM 1.09 MG/DL (0.60-1.30); PHOSPHORUS 3.7 MG/DL (2.3-4.7); POTASSIUM 4.7 MMOL/L (3.6-5.0); TOTAL PROTEIN 7.4 GM/DL (6.4-8.2)
--- NOTE | 2019-05-28 04:44 | Pulmonary Progress Note ---
Subjective Time Seen by a Provider: 05:00 Subjective/Events-last exam Currently on BiPAP. Sepsis Event Evaluation Height, Weight, BMI Height: 5'5.00" Weight: 159lbs. 2.0oz. 72.328004dx; 28.3 BMI Method:Stated Exam Exam Vital Signs Date Time Temp Pulse Resp B/P (MAP) Pulse Ox O2 Delivery O2 Flow Rate FiO2 05/28/19 03:00 86 15 89/46 (60) 95 High Flow N/C 10.00 05/28/19 02:28 90 26 95 30.00 05/28/19 02:00 91 19 122/58 (79) 93 High Flow N/C 10.00 05/28/19 01:00 90 05/28/19 01:00 90 21 106/51 (69) 96 High Flow N/C 10.00 05/28/19 00:18 80 15 110/58 (75) 96 High Flow N/C 10.00 05/27/19 22:22 86 28 96 30.00 05/27/19 22:14 97 High Flow N/C 6.00 05/27/19 20:00 97.7 05/27/19 20:00 95 High Flow N/C 6.00 05/27/19 20:00 113 20 139/72 (94) 94 High Flow N/C 10.00 05/27/19 19:00 111 05/27/19 18:37 95 High Flow N/C 6.00 05/27/19 18:00 111 20 136/66 (89) 94 High Flow N/C 10.00 05/27/19 17:00 118 28 152/120 (131) 94 High Flow N/C 10.00 05/27/19 16:00 106 21 140/70 (93) 93 High Flow N/C 10.00 05/27/19 16:00 93 High Flow N/C 6.00 05/27/19 15:00 102 27 128/56 (80) 94 High Flow N/C 10.00 05/27/19 14:00 99 10 123/55 (77) 96 High Flow N/C 10.00 05/27/19 13:55 92 High Flow N/C 6.00 05/27/19 13:00 98 05/27/19 13:00 98 24 117/59 (78) 92 High Flow N/C 10.00 05/27/19 12:00 98 28 114/69 (84) 93 High Flow N/C 10.00 05/27/19 12:00 93 High Flow N/C 6.00 05/27/19 11:00 90 20 136/65 (88) 96 High Flow N/C 10.00 05/27/19 10:32 97 High Flow N/C 10.00 05/27/19 10:32 High Flow N/C 10.00 05/27/19 10:23 95 Vapotherm 20.00 60 05/27/19 10:00 88 21 126/59 (81) 97 Vapotherm 60.00 30.00 05/27/19 09:00 85 17 125/63 (83) 98 Vapotherm 60.00 30.00 05/27/19 08:00 97 19 129/58 (81) 94 Vapotherm 60.00 30.00 05/27/19 08:00 97 High Flow N/C 10.00 05/27/19 07:30 97.7 05/27/19 07:00 90 16 128/54 (78) 97 Vapotherm 60.00 30.00 05/27/19 07:00 89 05/27/19 06:36 95 Vapotherm 30.00 60 05/27/19 06:00 90 20 126/60 (82) 91 Vapotherm 60.00 30.00 05/27/19 05:00 88 16 112/58 (76) 91 Vapotherm 60.00 30.00 I & O 05/28/19 07:00 Intake Total 3550 ml Output Total 3900 ml Balance -350 ml Height & Weight Height: 5'5.00" Weight: 159lbs. 2.0oz. 72.168576qt; 28.3 BMI Method:Stated General Appearance: WD/WN, Anxious, Chronically ill, Mild Distress HEENT: PERRL/EOMI, Normal ENT Inspection, Pharynx Normal Neck: Limited Range of Motion Respiratory: Chest Non Tender, Accessory Muscle Use, Decreased Breath Sounds, Respiratory Distress, Wheezing Cardiovascular: Regular Rate, Rhythm, No Edema, No Gallop, No JVD, No Murmur, Normal Peripheral Pulses Capillary Refill: Less Than 3 Seconds Gastrointestinal: soft; No guarding, No rebound Extremity: Pedal Edema Neurologic/Psychiatric: Alert, Oriented x3, No Motor/Sensory Deficits, Normal Mood/Affect Skin: Normal Color, Warm/Dry Lymphatic: No Adenopathy Results Lab Laboratory Tests 05/27/19 03:10 05/28/19 03:15 Assessment/Plan Assessment/Plan Acute respiratory failure -Currently on BipPAP switch back to Vapotherm during day -CT of chest without contrast - reviewed -Monitor close today may need to go to ICU if still requiring BiPAP or high Fi02 -Titrate oxygen for Sp02 90-92% -Lasix 40mg IV BID -Spironolactone-- hold secondary to hyperkalemia -BiPAP QHS Sepsis with Pneumonia -Sputum is showing Stenotrophomonas -BCTM -Levaquin -MRSA nasal swab Acute renal failure -Hold spironolactone -Decrease lasix to daily Bilateral pleural effusions -Monitor CHF EF 35% with acute pulmonary edema MISTY GUZMAN DO May 28, 2019 04:44
[2019-05-28] MEDS: MAGNESIUM 1 GM/100 ML IVPB 100 ML IV SCH (04:47)
[2019-05-28] MEDS: POTASSIUM CL 10MEQ/50ML IVPB 50 ML IV SCH (04:47)
[2019-05-28] MEDS: KCL 20 MEQ TAB (K-DUR) PO SCH (04:47)
[2019-05-28] MEDS: inSUlin ASPART (NovoLOG) 1 UNIT/0.01 ML (CHARGE PER UNIT) SQ SCH ×4 (06:14→21:14)
[2019-05-28] MEDS: CATHETER FLUSH 10 ML SYR IV SCH ×3 (06:14→21:15)
[2019-05-28] MEDS: TRIM/SULFAMETH 160/800 (SEPTRA DS) TAB PO SCH ×2 (06:14→17:45)
--- NOTE | 2019-05-28 07:44 | Diagnostic Imaging Report ---
INDICATION: Respiratory distress. Portable chest 3:56 AM FINDINGS: Right IJ central line tip projects over the SVC. There is some right basilar atelectasis. Lungs otherwise clear. There are no effusions or pneumothoraces. IMPRESSION: Right basilar atelectasis. No significant change from previous day. Dictated by: Dictated on workstation # [id number]
[2019-05-28] MEDS: GABAPENTIN 300 MG (NEURONTIN) CAP PO SCH ×3 (08:55→21:15)
[2019-05-28] MEDS: meTOprolol TARTRATE 50 MG (LOPRESSOR) TAB PO SCH ×2 (08:55→21:15)
[2019-05-28] MEDS: DOCUSATE SODIUM 100 MG (COLACE) CAP PO SCH ×2 (08:55→21:15)
[2019-05-28] MEDS: FUROSEMIDE 40 MG/4 ML INJ (LASIX) IVP SCH (08:55)
[2019-05-28] MEDS: ASPIRIN E.C. 81 MG (ECOTRIN) TAB PO SCH (08:55)
[2019-05-28] MEDS: ATORVASTATIN 10 MG (LIPITOR) TABLET PO SCH (08:55)
[2019-05-28] MEDS: PANTOPRAZOLE 40 MG (PROTONIX) TAB PO SCH ×2 (08:55→21:15)
[2019-05-28] MEDS ORDERED: LEVOFLOXACIN 750 MG/150 ML IV 150 ML IV SCH (09:00)
--- NOTE | 2019-05-28 10:50 | NUR ---
Pastoral care visit.
--- NOTE | 2019-05-28 11:37 | Progress Note ---
Subjective Subjective/Events-last exam Afebrile, continuing to improve, is on 5 lpm nasal cannula at time of my exam. Reports she got up to bedside commode without difficulty yesterday. Objective Exam Last Set of Vital Signs Vital Signs Date Time Temp Pulse Resp B/P (MAP) Pulse Ox O2 Delivery O2 Flow Rate FiO2 05/28/19 10:50 High Flow N/C 4.00 05/28/19 10:43 93 05/28/19 10:12 98.6 05/28/19 08:00 21 128/65 (86) 05/28/19 07:00 101 05/27/19 10:23 60 Capillary Refill : Less Than 3 SecondsLess Than 3 Seconds I&O Intake and Output 05/28/19 00:00 Intake Total 4070 ml Output Total 3500 ml Balance 570 ml Intake Oral 3550 ml IV Total 520 ml Output Urine Total 3500 ml General: Alert, No Acute Distress Lungs: Clear to Auscultation, Normal Air Movement Heart: Regular Rate, No Murmurs Extremities: No Edema Neuro: Normal Speech Psych/Mental Status: Mental Status NL Results/Procedures Lab Laboratory Tests 05/27/19 16:03: Glucometer 261H 05/27/19 19:56: Glucometer 282H 05/28/19 03:15: White Blood Count 14.6H, Red Blood Count 4.58, Hemoglobin 12.4, Hematocrit 40, Mean Corpuscular Volume 87, Mean Corpuscular Hemoglobin 27, Mean Corpuscular Hemoglobin Concent 31L, Red Cell Distribution Width 16.4H, Platelet Count 260, Mean Platelet Volume 11.8H, Neutrophils (%) (Auto) 95H, Lymphocytes (%) (Auto) 3L, Monocytes (%) (Auto) 2, Eosinophils (%) (Auto) 0, Basophils (%) (Auto) 0, Neutrophils # (Auto) 13.9H, Lymphocytes # (Auto) 0.4L, Monocytes # (Auto) 0.3, Eosinophils # (Auto) 0.0, Basophils # (Auto) 0.0, Sodium Level 135, Potassium Level 4.7, Chloride Level 92L, Carbon Dioxide Level 30, Anion Gap 13, Blood Urea Nitrogen 38H, Creatinine 1.09, Estimat Glomerular Filtration Rate 51, BUN/Creatinine Ratio 35, Glucose Level 207H, Calcium Level 9.9, Corrected Calcium 10.0, Phosphorus Level 3.7, Magnesium Level 2.0, Total Bilirubin 0.4, Aspartate Amino Transf (AST/SGOT) 14, Alanine Aminotransferase (ALT/SGPT) 33, Alkaline Phosphatase 114, Total Protein 7.4, Albumin 3.9 Microbiology 05/25/19 Blood Culture - Final, Complete Staphylococcus epidermidis 05/25/19 Gram Stain - Final, Complete 05/25/19 Sputum Culture - Final, Complete Usual upper respiratory zi YEAST Assessment/Plan Assessment/Plan (1) Acute and chronic respiratory failure with hypoxia Status: Acute Assessment & Plan: 05/13: Intubated 05/14: Breathing over vent, No improvement in CXR, Continue antibiotics and steroids 05/15: Wean per Dr Castillo 05/25- on bipap, continue to wean support as tolerated, on solumedrol [address] 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 of 2 lpm), will transfer to floor, consult rehab (2) Severe sepsis Status: Acute Assessment & Plan: - Continue broad spectrum antibiotics, cultures pending, currently on pressors 05/14: Goal to titrate pressors as tolerated today 05/15: Cultures NGTD 05/25- remains on bactrim BID and Zosyn, sputum culture positive for stenotrophomonas 05/27 on Bactrim (day 8, scheduled to d/c Saturday) and levofloxacin (day 12/11) (3) PNA (pneumonia) Status: Acute Qualifiers: Qualified Codes: J18.9 - Pneumonia, unspecified organism (4) Acute combined systolic (congestive) and diastolic (congestive) heart failure Status: Acute Assessment & Plan: - Cardiology managing - Echo 05/13 with EF 35-40% 05/27- remains on IV lasix 05/28 decrease IV lasix to daily (5) Acute renal insufficiency Status: Resolved Assessment & Plan: Possibly related to diuresis, monitor closely 05/26 improving, monitor (6) Hyperkalemia Status: Resolved Assessment & Plan: Secondary to ESHA, monitor closely, kayexalate if rising 05/26 improving but persistent, continue to follow potassium (7) DVT prophylaxis Status: Acute Assessment & Plan: - lovenox Clinical Quality Measures DVT/VTE Risk/Contraindication: Risk Factor Score Per Nursin RFS Level Per Nursing on Admit: 4+=Very High GIRISH BINGHAM MD May 28, 2019 11:37
--- NOTE | 2019-05-28 11:38 | Physical Therapy Daily Note ---
PT Daily Note-Current Subjective Patient reports she is feeling much better and agrees to PT. Mental Status Patient Orientation: Normal For Age Attachments: Oxygen (5L HF NC), Martinez Catheter Transfers Therapy Code Descriptions/Definitions Functional [place] Measure: 0=Not Assessed/NA 4=Minimal Assistance 1=Total Assistance 5=Supervision or Setup 2=Maximal Assistance 6=Modified [place] 3=Moderate Assistance 7=Complete [place] Therapy Quality Codes: 6 Independent with activity with or without an assistive device 5 Patient requires set up or clean up by helper. Patient completes activity by themselves 4 Supervision or touching assist (CGA). [place] provide cues , steadying assist 3 The helper provides less than half the effort to complete the activity 2 The helper provides more than half the effort to complete the activity 1 Dependent. The helper does all the effort to complete an activity 7 Patient refused to complete or attempt activity 9 The patient did not perform the activity before the current illness or injury 88 Not attempted due to Medical conditions or safety concerns Transfers (B, C, W/C) (FIM): 7 Scootin Rollin Supine to/from Sit: 7 Sit to/from Stand: 7 Bed to/from Chair: 7 Weight Bearing Right Lower Extremity: Right Weight Bearing/Tolerated Left Lower Extremity: Left Weight Bearing/Tolerated Gait Training Gait (FIM): 4 Distance (FIM): 3=150 ft Distance: 225' Gait Level of Assist: 4 Gait Persons Needed: 1 Gait Assistive Device: FWW multiple standing recovery periods due to SOA with activity. Patient gait sequence in NBOS and slight shuffle gait sequence/CGA for safety Exercises Supine Ex: Ankle pumps, Quad Set, Heel Slides, Straight leg raise Supine Reps: 12 Seated Therapy Exercises: Long arc quads Seated Reps: 15 Assessment Patient HR elevated to 130's during treatment. Patient up in recliner with needs met. PT Short Term Goals Short Term Goals Time Frame: May 28, 2019 Transfers (B,C,W/C) (FIM): 4 Gait (FIM): 2 Gait Distance Comment: 50' Gait Level of Assist: 4 Gait Assistive Device: FWW PT Research Manager Goals Research Manager Goals PT Research Manager Goals Time Frame: Jun 20, 2019 Transfers (B,C,W/C) (FIM): 7 Gait (FIM): 7 Gait distance (FIM): 3=150 ft Distance: >300' Gait Level of Assist: 7 Gait Assistive Device: None Stairs (FIM): 7 # of Steps: 12 Stairs Level Of Assist: 7 PT Plan Treatment/Plan Treatment Plan: Continue Plan of Care Treatment Plan: Bed Mobility, Education, Functional Activity Bryant, Functional Strength, Gait, Safety, Therapeutic Exercise, Transfers Treatment Duration: Jun 20, 2019 Frequency: 6 times per week Estimated Hrs Per Day: .25 hour per day Patient and/or Family Agrees t: Yes Time/GCodes Time In: 1048 Time Out: 1111 Total Billed Treatment Time: 23 Total Billed Treatment 1 visit GT 15 min EX 8 min SHAMAR GREGORIO PT May 28, 2019 11:38
--- NOTE | 2019-05-28 12:05 | NUR ---
Report received from Mariluz CHAND, patient transferred into 407, patient sitting up in chair, call light within reach, voices no complaints at this time. Will assume care of patient at this time.
--- NOTE | 2019-05-28 12:10 | NUR ---
PT TRANSFERRED BY THIS RN TO ROOM 407. BEDSIDE REPORT GIVEN TO MANNIE HOBBS. PT TRANSFERRED WITH ALL PERSONAL BELONGINGS, VIA W/C.
--- NOTE | 2019-05-28 12:50 | Occupational Ther Daily Note ---
OT Current Status-Daily Note Subjective Pt alert, sitting in recliner. Pt agrees to therapy. No c/o pain. Mental Status/Objective Patient Orientation: Person, Place, Time, Situation Therapy Code Descriptions/Definitions Functional [place] Measure: 0=Not Assessed/NA 4=Minimal Assistance 1=Total Assistance 5=Supervision or Setup 2=Maximal Assistance 6=Modified [place] 3=Moderate Assistance 7=Complete [place] Attachments: IV, Oxygen, Telemetry ADL-Treatment Pt completed sponge bath with supervision after set up while sitting in recliner. CGA in standing while pt cleanses buttocks. Pt able to don/doff socks by self. After therapy, pt sitting in recliner with call light/phone in reach. Nrsg and physician in room. Bathing (FIM): 4 Bathing Location: L Arm, R Arm, L Upper Leg, R Upper Leg, L Lower Leg (including foot), R Lower Leg (including foot), Chest, Abdomen, Buttocks, Perineal Area Lower Body Dressing (FIM): 4 OT Short Term Goals Short Term Goals Time Frame: May 27, 2019 Grooming(FIM): 5 Bathing(FIM): 4 Lower Body Dressing(FIM): 5 Toileting(FIM): 5 Transfers (B,C,W/C) (FIM): 4 Toilet/Commode Transfer(FIM): 4 1=Demonstrate adherence to instructed precautions during ADL tasks. 2=Patient will verbalize/demonstrate understanding of assistive devices/modifications for ADL. 3=Patient will improve strength/tolerance for activity to enable patient to perform ADL's. OT Alf Goals Still Pump Operator Goals Time Frame: Jun 03, 2019 Eating (FIM): 6 Grooming(FIM): 6 Bathing(FIM): 6 Bathing Location: L Arm, R Arm, L Upper Leg, R Upper Leg, L Lower Leg (including foot), R Lower Leg (including foot), Chest, Abdomen, Buttocks, Perineal Area Upper Body Dressing(FIM): 6 Lower Body Dressing(FIM): 6 Toileting(FIM): 6 Transfers (B,C,W/C) (FIM): 6 Toilet/Commode Transfer(FIM): 6 Additional Goals: 1-Demonstrate ADL Tasks, 2-Verbalize Understanding, 3- ImproveStrength/[place] 1=Demonstrate adherence to instructed precautions during ADL tasks. 2=Patient will verbalize/demonstrate understanding of assistive devices/modifications for ADL. 3=Patient will improve strength/tolerance for activity to enable patient to perform ADL's. OT Education/Plan Problem List/Assessment Assessment: Decreased Activ Tolerance, Decreased UE Strength, Impaired Self- Care Skills pt presents with functional limitations affecting areas of ADLS and functional transfers with the above mention deficits. pt would benefit from OT services to increase indep with ADLS/ functional transfers. Discharge Recommendations Plan/Recommendations: Continue POC Treatment Plan/Plan of Care Patient would benefit from OT for education, treatment and training to promote i ndependence in ADL's, mobility, safety and/or upper extremity function for ADL's. Plan of Care: ADL Retraining, Functional Mobility, Group Exercise/Act as Ind, UE Funct Exercise/Act Treatment Duration: Jun 09, 2019 Frequency: 5 times per week Estimated Hrs Per Day: .25 hour per day Agreement: Yes Rehab Potential: Fair Time/GCodes Start Time: 11:15 Stop Time: 11:30 Total Time Billed (hr/min): 15 Billed Treatment Time 1 visit-ADL 1 (15 min) DEVORAH MORELOS May 28, 2019 12:50
[2019-05-28] MEDS: ENOXAPARIN 40 MG/0.4 ML (LOVENOX) SYR SQ SCH (14:20)
--- NOTE | 2019-05-28 14:42 | NUR ---
IRF Evaluation Order received to evaluate patient for the ARU. Chart review complete and findings discussed with Dr. Pack - patient accepted for admission. It is noted patient's primary insurance provider is [employer] [place]; therefore, a prior authorization will need to be obtained prior to admission. Prior authorization process initiated. Will continue to follow. Thank you for this referral.
--- NOTE | 2019-05-28 19:16 | Cardiology Progress Note ---
Cardiology SOAP Progress Note Subjective: improving shortness of breath. Objective: I&O/Vital Signs 05/28/19 05/28/19 05/28/19 05/28/19 07:22 07:33 08:00 08:00 Resp 21 B/P (MAP) 128/65 (86) Pulse Ox 93 93 95 O2 Delivery High Flow N/C High Flow N/C High Flow N/C High Flow N/C O2 Flow Rate 6.00 5.00 5.00 5.50 05/28/19 05/28/19 05/28/19 05/28/19 10:12 10:43 10:50 12:00 Temp 98.6 98.4 Pulse 110 Resp 18 B/P (MAP) 135/65 (88) Pulse Ox 93 91 O2 Delivery High Flow N/C High Flow N/C High Flow N/C O2 Flow Rate 5.00 4.00 4.00 05/28/19 05/28/19 05/28/19 15:48 16:00 18:28 Temp 98.3 Pulse 102 Resp 18 B/P (MAP) 120/68 (85) Pulse Ox 90 94 88 O2 Delivery High Flow N/C High Flow N/C High Flow N/C O2 Flow Rate 5.00 4.00 4.00 05/28/19 00:00 Intake Total 2550 ml Output Total 2200 ml Balance 350 ml Weight (Pounds): 158 Weight (Ounces): 0.2 Weight (Calculated Kilograms): 71.727974 Constitutional: appears stated age, AAO x 3, apparent distress, well-developed, well-nourished Respiratory: chest is bilaterally symmetric, lungs clear to auscultation, rhonchi Cardiovascular: regular rate-rhythm; No irregularly irregular, No extra beats, No parasternal heave is noted, No JVD, No edema, No bradycardia, No tachycardia, No point of maximal impulse, No cardiac thrills are palpable; S1 and S2; No gallop/S3, No gallop/S4, No diastolic murmur, No systolic murmur, No friction rub, No click, No other Gastrointestional: No tender, No soft, No round, No distended, No pulsatile mass, No organomegaly, No guarding, No rebound, No tenderness, No hernia, No mass, No audible bowel sounds, No abnormal bowel sounds, No abdominal bruits, No spleenomegaly, No other Extremities: No normal range of motion, No non-tender, No normal inspection, No pedal edema, No calf tenderness, No normal capillary refill, No pelvis stable, No calf tenderness, No inflammation, No pedal edema, No slow capillary refill, No swelling, No other, No abrasion, No clubbing, No cyanosis, No ecchymosis, No laceration, No no lower extremity edema bilateral, No significant edema, No tenderness, No wound Neurologic/Psychiatric: no motor/sensory deficits, alert, normal mood/affect, oriented x 3, power is 5/5 both on sides Skin: No normal color, No warm/dry, No cyanosis, No cool, No diaphoresis, No damp, No ecchymosis, No jaundice, No mottled, No pallor, No rash, No tattoos/piercings, No ulcerations, No rash on exposed areas, No ulcerations on exposed areas, No other Results/Procedures: Labs Laboratory Tests 05/27/19 19:56: Glucometer 282H 05/28/19 03:15: White Blood Count 14.6H, Red Blood Count 4.58, Hemoglobin 12.4, Hematocrit 40, Mean Corpuscular Volume 87, Mean Corpuscular Hemoglobin 27, Mean Corpuscular Hemoglobin Concent 31L, Red Cell Distribution Width 16.4H, Platelet Count 260, Mean Platelet Volume 11.8H, Neutrophils (%) (Auto) 95H, Lymphocytes (%) (Auto) 3L, Monocytes (%) (Auto) 2, Eosinophils (%) (Auto) 0, Basophils (%) (Auto) 0, Neutrophils # (Auto) 13.9H, Lymphocytes # (Auto) 0.4L, Monocytes # (Auto) 0.3, Eosinophils # (Auto) 0.0, Basophils # (Auto) 0.0, Sodium Level 135, Potassium Level 4.7, Chloride Level 92L, Carbon Dioxide Level 30, Anion Gap 13, Blood Urea Nitrogen 38H, Creatinine 1.09, Estimat Glomerular Filtration Rate 51, BUN/Creatinine Ratio 35, Glucose Level 207H, Calcium Level 9.9, Corrected Calcium 10.0, Phosphorus Level 3.7, Magnesium Level 2.0, Total Bilirubin 0.4, Aspartate Amino Transf (AST/SGOT) 14, Alanine Aminotransferase (ALT/SGPT) 33, Alkaline Phosphatase 114, Total Protein 7.4, Albumin 3.9 05/28/19 11:31: Glucometer 389H 05/28/19 15:59: Glucometer 138H Microbiology 05/25/19 Blood Culture - Final, Complete Staphylococcus epidermidis 05/25/19 Gram Stain - Final, Complete 05/25/19 Sputum Culture - Final, Complete Usual upper respiratory zi YEAST A/P: Assessment/Dx: acute respiratory failure, Severe sepsis, 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 Acute respiratory failure, extubated. Currently in the ICU. Improved shortness of breath. Defer to Dr. CASTILLO. 2. Sepsis, on broad spectrum antibiotics. Likely source is pneumonia. 3. Positive cardiac enzymes. Coronary angiography done within the last one month did not reveal obstructive CAD. Likely type II myocardial infarction due to severe respiratory failure, sepsis with septic shock. No chest pain. No plan for either nuclear imaging or coronary angiography at this point in time. Once respiratory status improves, we will consider at that point in time. 4. Acute systolic and diastolic congestive heart failure. improving BNP. On admission BNP was over 1000. BNP in the last 24 hours is 100. Significant improvement in congestive heart failure on diuretics. Worsening BUN, suggest intravascular volume depletion. Worsening respiratory failure is more likely pulmonary in origin. Defer to Dr. Castillo. Continue Lasix and Aldactone. 5. Bilateral pleural effusions, Thank you for your consultation. Please call me if you have any questions. Lucius Ross MD, FACP, FACC, FSCAI, FHRS, CCDS Interventional Cardiology Cardiac Electrophysiology Vascular Medicine and Endovascular Interventions Ava ROSS MD May 28, 2019 19:16
--- NOTE | 2019-05-28 21:10 | NUR ---
SPOKE WITH DR. BINGHAM AT THIS TIME AND INFORMED HER THAT PTS BLOOD SUGAR WAS 495. TELEPHONE ORDERS RECEIVED TO GIVE PT 18 UNITS OF NOVOLOG. WILL CARRY OUT ORDERS AND CONTINUE TO MONITOR PT.
[2019-05-28] MEDS: AMITRIPTYLINE 50 MG (ELAVIL) TAB PO SCH (21:15)
--- NOTE | 2019-05-28 22:35 | NUR ---
221-BLOOD SUGAR RECHECKED AND WAS 416. 2235-SPOKE WITH DR. BINGHAM AND INFORMED HER OF PTS CONDITION. TELEPHONE ORDERS RECEIVED FOR 1X DOSE OF NOVOLOG 15 UNITS. WILL CARRY OUT ORDERS AND CONTINUE TO MONITOR PT.
[2019-05-28] MEDS ORDERED: inSUlin ASPART (NovoLOG) 1 UNIT/0.01 ML (CHARGE PER UNIT) SC ONE (22:45)
[2019-05-29] MEDS: RT-ALBUTEROL/IPRATROPIUM 3 ML (DUONEB) VIAL INH SCH ×5 (02:15→21:32)
[2019-05-29 04:01] VITALS: BP 123/73
--- NOTE | 2019-05-29 05:52 | Pulmonary Progress Note ---
Subjective Time Seen by a Provider: 09:58 Sepsis Event Evaluation Height, Weight, BMI Height: 5'5.00" Weight: 160lbs. 1.6oz. 72.374126vv; 28.3 BMI Method:Stated Exam Exam Vital Signs Date Time Temp Pulse Resp B/P (MAP) Pulse Ox O2 Delivery O2 Flow Rate FiO2 05/29/19 04:01 96.7 94 21 123/73 (90) 94 NIV Bilevel 30.00 05/29/19 02:17 94 26 94 30.00 05/29/19 01:00 110 05/28/19 23:21 98.1 119 16 113/64 (80) 92 High Flow N/C 5.50 05/28/19 21:45 86 High Flow N/C 7.00 05/28/19 20:00 98.3 110 16 116/70 (85) 92 High Flow N/C 5.50 05/28/19 20:00 High Flow N/C 6.00 05/28/19 19:00 108 05/28/19 18:28 88 High Flow N/C 4.00 05/28/19 16:00 98.3 102 18 120/68 (85) 94 High Flow N/C 4.00 05/28/19 15:48 90 High Flow N/C 5.00 05/28/19 12:00 98.4 110 18 135/65 (88) 91 High Flow N/C 4.00 05/28/19 10:50 High Flow N/C 4.00 05/28/19 10:43 93 High Flow N/C 5.00 05/28/19 10:12 98.6 05/28/19 08:00 95 High Flow N/C 5.50 05/28/19 08:00 21 128/65 (86) 93 High Flow N/C 5.00 05/28/19 07:33 High Flow N/C 5.00 05/28/19 07:22 93 High Flow N/C 6.00 05/28/19 07:00 101 19 138/68 (91) 95 High Flow N/C 5.50 05/28/19 07:00 101 05/28/19 06:00 94 24 93/51 (65) 96 High Flow N/C 5.50 I & O 05/29/19 07:00 Intake Total 2080 ml Output Total 500 ml Balance 1580 ml Height & Weight Height: 5'5.00" Weight: 160lbs. 1.6oz. 72.361331dx; 28.3 BMI Method:Stated General Appearance: WD/WN, Anxious, Chronically ill, Mild Distress HEENT: PERRL/EOMI, Normal ENT Inspection, Pharynx Normal Neck: Limited Range of Motion Respiratory: Chest Non Tender, Accessory Muscle Use, Decreased Breath Sounds, Respiratory Distress, Wheezing Cardiovascular: Regular Rate, Rhythm, No Edema, No Gallop, No JVD, No Murmur, Normal Peripheral Pulses Capillary Refill: Less Than 3 Seconds Gastrointestinal: soft; No guarding, No rebound Extremity: Pedal Edema Neurologic/Psychiatric: Alert, Oriented x3, No Motor/Sensory Deficits, Normal Mood/Affect Skin: Normal Color, Warm/Dry Lymphatic: No Adenopathy Results Lab Laboratory Tests 05/28/19 03:15 Assessment/Plan Assessment/Plan Acute respiratory failure -Currently on BipPAP switch back to Vapotherm during day -CT of chest without contrast - reviewed -Monitor close today may need to go to ICU if still requiring BiPAP or high Fi02 -Titrate oxygen for Sp02 90-92% -Lasix 40mg IV BID -Spironolactone-- hold secondary to hyperkalemia -BiPAP QHS Sepsis with Pneumonia -Sputum is showing Stenotrophomonas -BCTM -Levaquin -Add eraxis -MRSA nasal swab Acute renal failure Bilateral pleural effusions -Monitor CHF EF 35% with acute pulmonary edema MISTY GUZMAN DO May 29, 2019 05:52
[2019-05-29] MEDS: inSUlin ASPART (NovoLOG) 1 UNIT/0.01 ML (CHARGE PER UNIT) SQ SCH ×4 (06:05→20:20)
[2019-05-29] MEDS: methylPREDNISolone 40 MG/ML (Solu-MEDROL) VIAL IV SCH (06:11)
[2019-05-29] MEDS: CATHETER FLUSH 10 ML SYR IV SCH ×3 (06:11→20:20)
[2019-05-29] MEDS: TRIM/SULFAMETH 160/800 (SEPTRA DS) TAB PO SCH ×2 (06:11→17:13)
[2019-05-29 06:23] LABS: BASOPHILS % (AUTO) 0 % (0-10); EOSINOPHILS % (AUTO) 0 % (0-10); HEMATOCRIT 39 % (35-52); LYMPHOCYTES # (AUTO) 1.8 X 10^3 (1.0-4.0); LYMPHOCYTES % (AUTO) 10 % (12-44); MEAN CORPUSCULAR HEMOGLOBIN 27 PG (25-34); MEAN CORPUSCULAR HGB CONC 31 G/DL (32-36); MEAN CORPUSCULAR VOLUME 87 FL (80-99); MEAN PLATELET VOLUME 11.9 FL (7.4-10.4); MONOCYTES # (AUTO) 1.4 X 10^3 (0.0-1.0); MONOCYTES % (AUTO) 8 % (0-12); NEUTROPHILS % (AUTO) 82 % (42-75); PLATELET COUNT 264 10^3/uL (130-400); WHITE BLOOD COUNT 17.1 10^3/uL (4.3-11.0)
[2019-05-29 06:40] LABS: ALANINE AMINOTRANSFERASE 30 U/L (0-55); ALBUMIN 3.8 GM/DL (3.2-4.5); ALKALINE PHOSPHATASE 151 U/L (40-136); BILIRUBIN,TOTAL 0.3 MG/DL (0.1-1.0); BUN/CREATININE RATIO 41; CALCIUM 9.8 MG/DL (8.5-10.1); CARBON DIOXIDE 29 MMOL/L (21-32); CHLORIDE 97 MMOL/L (98-107); CREATININE SERUM 0.91 MG/DL (0.60-1.30); GFR ESTIMATED > 60; GLUCOSE 115 MG/DL (70-105); MAGNESIUM 1.3 MG/DL (1.6-2.4); PHOSPHORUS 2.9 MG/DL (2.3-4.7); POTASSIUM 4.5 MMOL/L (3.6-5.0); SODIUM 137 MMOL/L (135-145); TOTAL PROTEIN 7.1 GM/DL (6.4-8.2)
[2019-05-29] MEDS: POTASSIUM CL 10MEQ/50ML IVPB 50 ML IV SCH (06:43)
[2019-05-29] MEDS: KCL 20 MEQ TAB (K-DUR) PO SCH (06:43)
[2019-05-29] MEDS ORDERED: ANIDULAFUNGIN INJECTION 200 MG in NS (IVPB) 250 ML IV NR (06:58)
--- NOTE | 2019-05-29 07:20 | NUR ---
PTS POT/MAG PROTOCOL CALLS FOR 4GMS MAG SULFATE BUT PTS BUN IS 37. SPOKE WITH DR. GUZMAN AND RECEIVED THE OKAY TO GO AHEAD AND GIVE THE MAG SULFATE ANYWAYS. WILL CARRY OUT ORDERS.
[2019-05-29] MEDS: MAGNESIUM 1 GM/100 ML IVPB 100 ML IV SCH ×5 (07:23→13:19)
[2019-05-29 08:00] VITALS: BP 139/63
[2019-05-29] MEDS: PANTOPRAZOLE 40 MG (PROTONIX) TAB PO SCH ×2 (08:53→20:20)
[2019-05-29] MEDS: ASPIRIN E.C. 81 MG (ECOTRIN) TAB PO SCH (08:53)
[2019-05-29] MEDS: ATORVASTATIN 10 MG (LIPITOR) TABLET PO SCH (08:53)
[2019-05-29] MEDS: DOCUSATE SODIUM 100 MG (COLACE) CAP PO SCH ×2 (08:53→20:19)
[2019-05-29] MEDS: FUROSEMIDE 40 MG/4 ML INJ (LASIX) IVP SCH (08:53)
[2019-05-29] MEDS: GABAPENTIN 300 MG (NEURONTIN) CAP PO SCH ×3 (08:53→20:19)
[2019-05-29] MEDS: meTOprolol TARTRATE 50 MG (LOPRESSOR) TAB PO SCH ×2 (08:53→20:19)
--- NOTE | 2019-05-29 09:52 | Occupational Ther Daily Note ---
OT Current Status-Daily Note Subjective Pt alert, sitting EOB. Pt agrees to therapy. No c/o pain at this time. Mental Status/Objective Patient Orientation: Person, Place, Time, Situation Therapy Code Descriptions/Definitions Functional [place] Measure: 0=Not Assessed/NA 4=Minimal Assistance 1=Total Assistance 5=Supervision or Setup 2=Maximal Assistance 6=Modified [place] 3=Moderate Assistance 7=Complete [place] Attachments: IV (midline), Oxygen (6L), Telemetry ADL-Treatment Mod I for bed mobility. Lengthened O2 tubing so it could reach to bathroom. Pt able to manipulate O2 tubing, assist only to manipulate IV tubing and pole while ambulating to bathroom using FWW. Pt transferred to toilet with assist only to manipulate IV tubing and pole. Manipulated clothing and cleanse self using FWW and grabbars. Ambulated to sink to complete hand washing and washing face. Pt then ambulated back to bed and completed own bed mobility. Pt takes increased time due to decreased activity tolerance and SOA. After therapy, pt sitting EOB with call light/phone in reach. All needs met in room. Grooming (FIM): 5 Toileting (FIM): 5 OT Short Term Goals Short Term Goals Time Frame: May 27, 2019 Grooming(FIM): 5 Bathing(FIM): 4 Lower Body Dressing(FIM): 5 Toileting(FIM): 5 Transfers (B,C,W/C) (FIM): 4 Toilet/Commode Transfer(FIM): 4 1=Demonstrate adherence to instructed precautions during ADL tasks. 2=Patient will verbalize/demonstrate understanding of assistive devices/modifications for ADL. 3=Patient will improve strength/tolerance for activity to enable patient to perform ADL's. OT [facility] Goals Bi Lead Goals Time Frame: Jun 03, 2019 Eating (FIM): 6 Grooming(FIM): 6 Bathing(FIM): 6 Bathing Location: L Arm, R Arm, L Upper Leg, R Upper Leg, L Lower Leg (including foot), R Lower Leg (including foot), Chest, Abdomen, Buttocks, Perineal Area Upper Body Dressing(FIM): 6 Lower Body Dressing(FIM): 6 Toileting(FIM): 6 Transfers (B,C,W/C) (FIM): 6 Toilet/Commode Transfer(FIM): 6 Additional Goals: 1-Demonstrate ADL Tasks, 2-Verbalize Understanding, 3- ImproveStrength/[place] 1=Demonstrate adherence to instructed precautions during ADL tasks. 2=Patient will verbalize/demonstrate understanding of assistive devices/modifications for ADL. 3=Patient will improve strength/tolerance for activity to enable patient to perform ADL's. OT Education/Plan Problem List/Assessment Assessment: Decreased Activ Tolerance pt presents with functional limitations affecting areas of ADLS and functional transfers with the above mention deficits. pt would benefit from OT services to increase indep with ADLS/ functional transfers. Discharge Recommendations Plan/Recommendations: Continue POC Treatment Plan/Plan of Care Patient would benefit from OT for education, treatment and training to promote independence in ADL's, mobility, safety and/or upper extremity function for ADL's. Plan of Care: ADL Retraining, Functional Mobility, Group Exercise/Act as Ind, UE Funct Exercise/Act Treatment Duration: Jun 09, 2019 Frequency: 5 times per week Estimated Hrs Per Day: .25 hour per day Agreement: Yes Rehab Potential: Fair Time/GCodes Start Time: 09:00 Stop Time: 09:15 Total Time Billed (hr/min): 15 Billed Treatment Time 1 visit-ADL 1 (15 min) DEVORAH MORELOS May 29, 2019 09:52
--- NOTE | 2019-05-29 11:10 | Physical Therapy Daily Note ---
PT Daily Note-Current Subjective Patient is up independently in room. Agrees to PT. Mental Status Patient Orientation: Normal For Age Attachments: Oxygen, IV Transfers Therapy Code Descriptions/Definitions Functional [place] Measure: 0=Not Assessed/NA 4=Minimal Assistance 1=Total Assistance 5=Supervision or Setup 2=Maximal Assistance 6=Modified [place] 3=Moderate Assistance 7=Complete [place] Therapy Quality Codes: 6 Independent with activity with or without an assistive device 5 Patient requires set up or clean up by helper. Patient completes activity by themselves 4 Supervision or touching assist (CGA). Central provide cues , steadying assist 3 The helper provides less than half the effort to complete the activity 2 The helper provides more than half the effort to complete the activity 1 Dependent. The helper does all the effort to complete an activity 7 Patient refused to complete or attempt activity 9 The patient did not perform the activity before the current illness or injury 88 Not attempted due to Medical conditions or safety concerns Transfers (B, C, W/C) (FIM): 7 Scootin Supine to/from Sit: 7 Sit to/from Stand: 7 Weight Bearing Right Lower Extremity: Right Weight Bearing/Tolerated Left Lower Extremity: Left Weight Bearing/Tolerated Gait Training Gait (FIM): 5 Distance (FIM): 3=150 ft Distance: 275' Gait Level of Assist: 5 Gait Assistive Device: FWW safe and functional with FWW Exercises Supine Ex: Ankle pumps, Quad Set, Heel Slides, Straight leg raise Supine Reps: 15 Seated Therapy Exercises: Ankle pumps, Long arc quads Seated Reps: 15 Assessment Patient progressing with treatment plan and is highly motivated with progress. PT Short Term Goals Short Term Goals Time Frame: May 28, 2019 Transfers (B,C,W/C) (FIM): 4 Gait (FIM): 2 Gait Distance Comment: 50' Gait Level of Assist: 4 Gait Assistive Device: FWW PT [employer] Electric[employer] Goals Nursing Home Goals PT Nursing Home Goals Time Frame: Jun 20, 2019 Transfers (B,C,W/C) (FIM): 7 Gait (FIM): 7 Gait distance (FIM): 3=150 ft Distance: >300' Gait Level of Assist: 7 Gait Assistive Device: None Stairs (FIM): 7 # of Steps: 12 Stairs Level Of Assist: 7 PT Plan Treatment/Plan Treatment Plan: Continue Plan of Care Treatment Plan: Bed Mobility, Education, Functional Activity [place], Functional Strength, Gait, Safety, Therapeutic Exercise, Transfers Treatment Duration: Jun 20, 2019 Frequency: 6 times per week Estimated Hrs Per Day: .25 hour per day Patient and/or Family Agrees t: Yes Time/GCodes Time In: 1023 Time Out: 1046 Total Billed Treatment Time: 23 Total Billed Treatment 1 visit FA 12 min EX 11 min SHAMAR GREGORIO PT May 29, 2019 11:10
--- NOTE | 2019-05-29 11:39 | Cardiology Progress Note ---
Cardiology SOAP Progress Note Subjective: Improving shortness of breath. Objective: I&O/Vital Signs 05/29/19 05/29/19 05/29/19 05/29/19 01:00 02:17 04:01 07:00 Temp 96.7 Pulse 110 94 94 90 Resp 26 21 B/P (MAP) 123/73 (90) Pulse Ox 94 94 O2 Delivery NIV Bilevel O2 Flow Rate 30.00 30.00 05/29/19 05/29/19 05/29/19 08:00 08:09 09:05 Temp 98.3 Pulse 97 Resp 18 B/P (MAP) 139/63 (88) Pulse Ox 91 92 O2 Delivery High Flow N/C High Flow N/C Nasal Cannula O2 Flow Rate 5.50 4.00 6.00 05/29/19 00:00 Intake Total 930 ml Balance 930 ml Weight (Pounds): 160 Weight (Ounces): 1.6 Weight (Calculated Kilograms): 72.014038 Constitutional: appears stated age, AAO x 3, apparent distress, well-developed, well-nourished Respiratory: chest is bilaterally symmetric, lungs clear to auscultation, rhonchi Cardiovascular: regular rate-rhythm; No irregularly irregular, No extra beats, No parasternal heave is noted, No JVD, No edema, No bradycardia, No tachycardia, No point of maximal impulse, No cardiac thrills are palpable; S1 and S2; No gallop/S3, No gallop/S4, No diastolic murmur, No systolic murmur, No friction rub, No click, No other Gastrointestional: No tender, No soft, No round, No distended, No pulsatile mass, No organomegaly, No guarding, No rebound, No tenderness, No hernia, No mass, No audible bowel sounds, No abnormal bowel sounds, No abdominal bruits, No spleenomegaly, No other Extremities: No normal range of motion, No non-tender, No normal inspection, No pedal edema, No calf tenderness, No normal capillary refill, No pelvis stable, No calf tenderness, No inflammation, No pedal edema, No slow capillary refill, No swelling, No other, No abrasion, No clubbing, No cyanosis, No ecchymosis, No laceration, No no lower extremity edema bilateral, No significant edema, No tenderness, No wound Neurologic/Psychiatric: no motor/sensory deficits, alert, normal mood/affect, oriented x 3, power is 5/5 both on sides Skin: No normal color, No warm/dry, No cyanosis, No cool, No diaphoresis, No damp, No ecchymosis, No jaundice, No mottled, No pallor, No rash, No tattoos/piercings, No ulcerations, No rash on exposed areas, No ulcerations on exposed areas, No other Results/Procedures: Labs Laboratory Tests 05/28/19 15:59: Glucometer 138H 05/28/19 21:04: Glucometer 495*H 05/28/19 22:15: Glucometer 416*H 05/29/19 05:54: Glucometer 109 05/29/19 05:56: White Blood Count 17.1H, Red Blood Count 4.51, Hemoglobin 12.0, Hematocrit 39, Mean Corpuscular Volume 87, Mean Corpuscular Hemoglobin 27, Mean Corpuscular Hemoglobin Concent 31L, Red Cell Distribution Width 17.0H, Platelet Count 264, Mean Platelet Volume 11.9H, Neutrophils (%) (Auto) 82H, Lymphocytes (%) (Auto) 10L, Monocytes (%) (Auto) 8, Eosinophils (%) (Auto) 0, Basophils (%) (Auto) 0, Neutrophils # (Auto) 14.0H, Lymphocytes # (Auto) 1.8, Monocytes # (Auto) 1.4H, Eosinophils # (Auto) 0.0, Basophils # (Auto) 0.0, Sodium Level 137, Potassium Level 4.5, Chloride Level 97L, Carbon Dioxide Level 29, Anion Gap 11, Blood Urea Nitrogen 37H, Creatinine 0.91, Estimat Glomerular Filtration Rate > 60, BUN/Creatinine Ratio 41, Glucose Level 115H, Calcium Level 9.8, Corrected Calcium 10.0, Phosphorus Level 2.9, Magnesium Level 1.3L, Total Bilirubin 0.3, Aspartate Amino Transf (AST/SGOT) 17, Alanine Aminotransferase (ALT/SGPT) 30, Alkaline Phosphatase 151H, Total Protein 7.1, Albumin 3.8 Microbiology 05/25/19 Blood Culture - Final, Complete Staphylococcus epidermidis 05/25/19 Gram Stain - Final, Complete 05/25/19 Sputum Culture - Final, Complete Usual upper respiratory zi YEAST A/P: Assessment/Dx: acute respiratory failure, Severe sepsis, 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 Acute respiratory failure, extubated. Currently on fourth floor. Improved shortness of breath. Defer to Dr. CASTILLO. 2. Sepsis, on broad spectrum antibiotics. Likely source is pneumonia. Improving gradually. 3. Positive cardiac enzymes. Coronary angiography done within the last one month did not reveal obstructive CAD. Likely type II myocardial infarction due to severe respiratory failure, sepsis with septic shock. No chest pain. No plan for either nuclear imaging or coronary angiography at this point in time. Once respiratory status improves, we will consider at that point in time. 4. Acute systolic and diastolic congestive heart failure. improving BNP. On admission BNP was over 1000. BNP in the last 24 hours is 100. Significant impr ovement in congestive heart failure on diuretics. Worsening BUN, suggest intravascular volume depletion. Worsening respiratory failure is more likely pulmonary in origin. Defer to Dr. Castillo. Continue Lasix and Aldactone. Significantly improved. 5. Bilateral pleural effusions, Thank you for your consultation. Please call me if you have any questions. Lucius Ross MD, FACP, FACC, FSCAI, FHRS, CCDS Interventional Cardiology Cardiac Electrophysiology Vascular Medicine and Endovascular Interventions Ava ROSS MD May 29, 2019 11:39
[2019-05-29 12:00] VITALS: BP 120/59
[2019-05-29] MEDS: ENOXAPARIN 40 MG/0.4 ML (LOVENOX) SYR SQ SCH (13:19)
--- NOTE | 2019-05-29 14:05 | NUR ---
Pastoral care visit.
[2019-05-29 14:27] VITALS: BP 120/59
--- NOTE | 2019-05-29 14:42 | NUR ---
[facility] Insurance has denied admission. CM/SS notified.
[2019-05-29 16:10] VITALS: BP 116/68
--- NOTE | 2019-05-29 16:16 | Progress Note ---
Subjective Subjective/Events-last exam Afebrile, no acute events. Is hoping to get out of the hospital soon. Objective Exam Last Set of Vital Signs Vital Signs Date Time Temp Pulse Resp B/P (MAP) Pulse Ox O2 Delivery O2 Flow Rate FiO2 05/29/19 14:27 93 90 05/29/19 14:26 High Flow N/C 6.00 05/29/19 12:00 98.2 20 120/59 (79) 05/27/19 10:23 60 Capillary Refill : Less Than 3 SecondsLess Than 3 Seconds I&O Intake and Output 05/29/19 00:00 Intake Total 2230 ml Output Total 1050 ml Balance 1180 ml Intake Oral 2080 ml IV Total 150 ml Output Urine Total 1050 ml # Voids 2 # Bowel Movements 1 General: Alert, No Acute Distress Lungs: Clear to Auscultation, Normal Air Movement Heart: Regular Rate, No Murmurs Extremities: No Edema Neuro: Normal Speech Psych/Mental Status: Mood NL Results/Procedures Lab Laboratory Tests 05/28/19 21:04: Glucometer 495*H 05/28/19 22:15: Glucometer 416*H 05/29/19 05:54: Glucometer 109 05/29/19 05:56: White Blood Count 17.1H, Red Blood Count 4.51, Hemoglobin 12.0, Hematocrit 39, Mean Corpuscular Volume 87, Mean Corpuscular Hemoglobin 27, Mean Corpuscular Hemoglobin Concent 31L, Red Cell Distribution Width 17.0H, Platelet Count 264, Mean Platelet Volume 11.9H, Neutrophils (%) (Auto) 82H, Lymphocytes (%) (Auto) 10L, Monocytes (%) (Auto) 8, Eosinophils (%) (Auto) 0, Basophils (%) (Auto) 0, Neutrophils # (Auto) 14.0H, Lymphocytes # (Auto) 1.8, Monocytes # (Auto) 1.4H, Eosinophils # (Auto) 0.0, Basophils # (Auto) 0.0, Sodium Level 137, Potassium Level 4.5, Chloride Level 97L, Carbon Dioxide Level 29, Anion Gap 11, Blood Urea Nitrogen 37H, Creatinine 0.91, Estimat Glomerular Filtration Rate > 60, BUN/Creatinine Ratio 41, Glucose Level 115H, Calcium Level 9.8, Corrected Home cium 10.0, Phosphorus Level 2.9, Magnesium Level 1.3L, Total Bilirubin 0.3, Aspartate Amino Transf (AST/SGOT) 17, Alanine Aminotransferase (ALT/SGPT) 30, Alkaline Phosphatase 151H, Total Protein 7.1, Albumin 3.8 05/29/19 11:04: Glucometer 263H 05/29/19 16:02: Glucometer 157H Microbiology 05/25/19 Blood Culture - Final, Complete Staphylococcus epidermidis 05/25/19 Gram Stain - Final, Complete 05/25/19 Sputum Culture - Final, Complete Usual upper respiratory zi YEAST Assessment/Plan Assessment/Plan (1) Acute and chronic respiratory failure with hypoxia Status: Acute Assessment & Plan: 05/13: Intubated 05/14: Breathing over vent, No improvement in CXR, Continue antibiotics and brian roids 05/15: Wean per Dr Castillo 05/25- on bipap, continue to wean support as tolerated, on solumedrol [address] 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 Waiting on insurance determination for rehab. (2) Severe sepsis Status: Acute Assessment & Plan: - Continue broad spectrum antibiotics, cultures pending, currently on pressors 05/14: Goal to titrate pressors as tolerated today 05/15: Cultures NGTD 05/25- remains on bactrim BID and Zosyn, sputum and bronch washing culture positive for stenotrophomonas 05/19 05/29 on Bactrim (day 9, scheduled to d/c Saturday) and levofloxacin (day 01/11), started on anidulafungin per Dr. Castillo, yeast in expectorated sputum 05/25. (3) PNA (pneumonia) Status: Acute Qualifiers: Qualified Codes: J18.9 - Pneumonia, unspecified organism (4) Acute combined systolic (congestive) and diastolic (congestive) heart failure Status: Acute Assessment & Plan: - Cardiology managing - Echo 05/13 with EF 35-40% 05/27- remains on IV lasix 05/28 decrease IV lasix to daily 05/29- change to PO (5) Acute renal insufficiency Status: Resolved Assessment & Plan: Possibly related to diuresis, monitor closely 05/26 improving, monitor (6) Hyperkalemia Status: Resolved Assessment & Plan: Secondary to ESHA, monitor closely, kayexalate if rising 05/26 improving but persistent, continue to follow potassium (7) DVT prophylaxis Status: Acute Assessment & Plan: - lovenox Clinical Quality Measures DVT/VTE Risk/Contraindication: Risk Factor Score Per Nursin RFS Level Per Nursing on Admit: 4+=Very High GIRISH BINGHAM MD May 29, 2019 16:16
[2019-05-29] MEDS: predniSONE 10 MG TAB PO SCH (17:13)
[2019-05-29 19:50] VITALS: BP 149/81
[2019-05-29] MEDS: AMITRIPTYLINE 50 MG (ELAVIL) TAB PO SCH (20:19)
[2019-05-30] VITALS: BP 119/59
[2019-05-30] MEDS: RT-ALBUTEROL/IPRATROPIUM 3 ML (DUONEB) VIAL INH SCH ×5 (02:40→19:10)
[2019-05-30 04:00] VITALS: BP 137/63
[2019-05-30] MEDS: CATHETER FLUSH 10 ML SYR IV SCH ×3 (05:28→21:22)
[2019-05-30 05:30] LABS: HEMOGLOBIN 12.2 G/DL (11.5-16.0); MEAN PLATELET VOLUME 11.6 FL (7.4-10.4); RED CELL DISTRIBUTION WIDTH 16.6 % (10.0-14.5); WHITE BLOOD COUNT 14.1 10^3/uL (4.3-11.0)
[2019-05-30 05:46] LABS: BUN/CREATININE RATIO 35; CALCIUM 9.3 MG/DL (8.5-10.1); CARBON DIOXIDE 22 MMOL/L (21-32); CHLORIDE 97 MMOL/L (98-107); CREATININE SERUM 0.85 MG/DL (0.60-1.30); GFR ESTIMATED > 60; GLUCOSE 204 MG/DL (70-105); MAGNESIUM 1.8 MG/DL (1.6-2.4); PHOSPHORUS 2.6 MG/DL (2.3-4.7); POTASSIUM 5.1 MMOL/L (3.6-5.0); SODIUM 135 MMOL/L (135-145)
[2019-05-30] MEDS: POTASSIUM CL 10MEQ/50ML IVPB 50 ML IV SCH (05:50)
[2019-05-30] MEDS: KCL 20 MEQ TAB (K-DUR) PO SCH (05:51)
[2019-05-30] MEDS: MAGNESIUM 1 GM/100 ML IVPB 100 ML IV SCH (05:51)
[2019-05-30] MEDS: inSUlin ASPART (NovoLOG) 1 UNIT/0.01 ML (CHARGE PER UNIT) SQ SCH (06:10)
[2019-05-30] MEDS: TRIM/SULFAMETH 160/800 (SEPTRA DS) TAB PO SCH ×2 (06:12→16:21)
[2019-05-30 07:57] VITALS: BP 133/59
[2019-05-30] MEDS: DOCUSATE SODIUM 100 MG (COLACE) CAP PO SCH ×2 (08:32→21:18)
[2019-05-30] MEDS: meTOprolol TARTRATE 50 MG (LOPRESSOR) TAB PO SCH ×2 (08:32→21:18)
[2019-05-30] MEDS: PANTOPRAZOLE 40 MG (PROTONIX) TAB PO SCH ×2 (08:32→21:18)
[2019-05-30] MEDS: ATORVASTATIN 10 MG (LIPITOR) TABLET PO SCH (08:32)
[2019-05-30] MEDS: ASPIRIN E.C. 81 MG (ECOTRIN) TAB PO SCH (08:32)
[2019-05-30] MEDS: ANIDULAFUNGIN INJECTION 100 MG in NS (IVPB) 100 ML IV SCH (08:32)
[2019-05-30] MEDS: FUROSEMIDE 40 MG (LASIX) TAB PO SCH (08:32)
[2019-05-30] MEDS: GABAPENTIN 300 MG (NEURONTIN) CAP PO SCH ×3 (08:32→21:20)
--- NOTE | 2019-05-30 09:13 | Pulmonary Progress Note ---
Subjective Time Seen by a Provider: 09:58 Sepsis Event Evaluation Height, Weight, BMI Height: 5'." Weight: 160lbs. 9.6oz. 72.797542ip; 28.3 BMI Method:Stated Exam Exam Vital Signs Date Time Temp Pulse Resp B/P (MAP) Pulse Ox O2 Delivery O2 Flow Rate FiO2 05/30/19 07:57 97.9 104 18 133/59 (83) 92 High Flow N/C 5.50 05/30/19 07:00 103 05/30/19 06:31 94 High Flow N/C 6.00 05/30/19 04:00 97.9 95 14 137/63 (87) 93 High Flow N/C 5.50 05/30/19 02:40 92 High Flow N/C 7.00 05/30/19 01:00 79 05/30/19 00:00 97.8 100 18 119/59 (79) 92 High Flow N/C 5.50 05/29/19 21:32 91 High Flow N/C 6.50 05/29/19 20:00 High Flow N/C 6.00 05/29/19 19:50 98.5 97 20 149/81 (103) 93 High Flow N/C 5.50 05/29/19 19:00 98 05/29/19 16:10 97.8 92 20 116/68 (84) 92 High Flow N/C 5.50 05/29/19 14:27 93 90 05/29/19 14:26 90 High Flow N/C 6.00 05/29/19 13:00 93 05/29/19 12:00 98.2 105 20 120/59 (79) 90 High Flow N/C 5.50 I & O 05/30/19 07:00 Intake Total 2781 ml Output Total 3050 ml Balance -269 ml Height & Weight Height: 5'.00" Weight: 160lbs. 9.6oz. 72.586903hs; 28.3 BMI Method:Stated General Appearance: WD/WN, Anxious, Chronically ill, Mild Distress HEENT: PERRL/EOMI, Normal ENT Inspection, Pharynx Normal Neck: Limited Range of Motion Respiratory: Chest Non Tender, Accessory Muscle Use, Decreased Breath Sounds, Respiratory Distress, Wheezing Cardiovascular: Regular Rate, Rhythm, No Edema, No Gallop, No JVD, No Murmur, Normal Peripheral Pulses Capillary Refill: Less Than 3 Seconds Gastrointestinal: soft; No guarding, No rebound Extremity: Pedal Edema Neurologic/Psychiatric: Alert, Oriented x3, No Motor/Sensory Deficits, Normal Mood/Affect Skin: Normal Color, Warm/Dry Lymphatic: No Adenopathy Results Lab Laboratory Tests 05/29/19 05:56 05/30/19 05:20 Assessment/Plan Assessment/Plan Acute respiratory failure -Currently on regular NC at 5 liters -Titrate oxygen for Sp02 90-92% -Lasix -BiPAP QHS Sepsis with Pneumonia -Sputum is showing Stenotrophomonas -BCTM -Levaquin -Diflucan -MRSA nasal swab Acute renal failure Bilateral pleural effusions -Monitor CHF EF 35% with acute pulmonary edema MISTY GUZMAN DO May 30, 2019 09:13
--- NOTE | 2019-05-30 10:16 | Physical Therapy Progress Note ---
Therapy Progress Note Unsuccessful attempted visits x3 this morning as pt was unavailable for PT session MAHENDRA POTTER [employer] May 30, 2019 10:16
[2019-05-30] MEDS ORDERED: LEVOFLOXACIN 750 MG TAB (LEVAQUIN) PO SCH (11:00)
[2019-05-30] MEDS: predniSONE 10 MG TAB PO SCH (11:24)
[2019-05-30] MEDS: inSUlin ASPART (NovoLOG) 1 UNIT/0.01 ML (CHARGE PER UNIT) SC SCH ×3 (11:24→21:21)
[2019-05-30 11:36] VITALS: BP 139/66
--- NOTE | 2019-05-30 12:58 | Progress Note - Hospitalist ---
Subjective HPI/CC On Admission Date Seen by Provider: May 30, 2019 Time Seen by Provider: 12:54 Patient reports she feels she is about back to baseline activity level able to get to the bathroom and back with her walker with standby assistance from family who were present at home with her report. She reports baseline sputum produc tion denies shortness of breath at rest. Objective Exam Vital Signs Vital Signs Date Time Temp Pulse Resp B/P (MAP) Pulse Ox O2 Delivery O2 Flow Rate FiO2 05/30/19 12:30 108 05/30/19 11:36 98.2 20 139/66 (90) 91 5.50 05/30/19 10:32 High Flow N/C 05/27/19 10:23 60 Capillary Refill : Less Than 3 SecondsLess Than 3 Seconds General Appearance: No Apparent Distress, Chronically ill Respiratory: Chest Non Tender, No Accessory Muscle Use, No Respiratory Distress, Other (Diminished breath sounds especially in both bases few fine rales no rhonchi or wheezing noted.) Cardiovascular: Regular Rate, Rhythm, No Edema Gastrointestinal: Normal Bowel Sounds, No Organomegaly, No Pulsatile Mass, Non Tender, Soft Results/Procedures Lab Laboratory Tests 05/30/19 05:20 Patient resulted labs reviewed. Imaging: Reviewed Imaging Report Assessment/Plan Assessment and Plan Assess & Plan/Chief Complaint (1) Acute and chronic respiratory failure with hypoxia Status: Acute Assessment & Plan: 05/13: Intubated 05/14: Breathing over vent, No improvement in CXR, Continue antibiotics and steroi ds 05/15: Wean per Dr Castillo 05/25- on bipap, continue to wean support as tolerated, on solumedrol [address] 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 Waiting on insurance determination for rehab. 05/30 no decline on by mouth steroids. Insurance will not cover acute rehabilitation possible discharge in the morning. (2) Severe sepsis Status: Acute Assessment & Plan: - Continue broad spectrum antibiotics, cultures pending, currently on pressors 05/14: Goal to titrate pressors as tolerated today 05/15: Cultures NGTD 05/25- remains on bactrim BID and Zosyn, sputum and bronch washing culture positive for stenotrophomonas 05/19 05/29 on Bactrim (day 9, scheduled to d/c Saturday) and levofloxacin (day 01/11), started on anidulafungin per Dr. Castillo, yeast in expectorated sputum 05/25. (3) PNA (pneumonia) Status: Acute Qualifiers: Qualified Codes: J18.9 - Pneumonia, unspecified organism (4) Acute combined systolic (congestive) and diastolic (congestive) heart failure Status: Acute Assessment & Plan: - Cardiology managing - Echo 05/13 with EF 35-40% 05/27- remains on IV lasix 05/28 decrease IV lasix to daily 05/29- change to PO (5) Acute renal insufficiency Status: Resolved Assessment & Plan: Possibly related to diuresis, monitor closely 05/26 improving, monitor (6) Hyperkalemia Status: Resolved Assessment & Plan: Secondary to ESHA, monitor closely, kayexalate if rising 05/26 improving but persistent, continue to follow potassium (7) DVT prophylaxis Status: Acute Assessment & Plan: - lovenox Clinical Quality Measures DVT/VTE Risk/Contraindication: Risk Factor Score Per Nursin RFS Level Per Nursing on Admit: 4+=Very High KAYAL GAMINO MD May 30, 2019 12:58
[2019-05-30] MEDS: ENOXAPARIN 40 MG/0.4 ML (LOVENOX) SYR SQ SCH (14:11)
--- NOTE | 2019-05-30 14:54 | Progress Note - Cardiology ---
Cardiology SO Progress Note Objective: I&O/Vital Signs 05/30/19 05/30/19 05/30/19 05/30/19 04:00 06:31 07:00 07:57 Temp 97.9 97.9 Pulse 95 103 104 Resp 14 18 B/P (MAP) 137/63 (87) 133/59 (83) Pulse Ox 93 94 92 O2 Delivery High Flow N/C High Flow N/C High Flow N/C O2 Flow Rate 5.50 6.00 5.50 05/30/19 05/30/19 05/30/19 05/30/19 08:00 10:32 11:36 12:30 Temp 98.2 Pulse 106 108 Resp 20 B/P (MAP) 139/66 (90) Pulse Ox 91 91 O2 Delivery High Flow N/C High Flow N/C O2 Flow Rate 6.00 6.00 5.50 05/30/19 00:00 Intake Total 2040 ml Output Total 3050 ml Balance -1010 ml Weight (Pounds): 160 Weight (Ounces): 9.6 Weight (Calculated Kilograms): 72.839469 Constitutional: appears stated age, AAO x 3, apparent distress, well-developed, well-nourished Respiratory: chest is bilaterally symmetric, lungs clear to auscultation, rhonchi Cardiovascular: regular rate-rhythm; No irregularly irregular, No extra beats, No parasternal heave is noted, No JVD, No edema, No bradycardia, No tachycardia, No point of maximal impulse, No cardiac thrills are palpable; S1 and S2; No gallop/S3, No gallop/S4, No diastolic murmur, No systolic murmur, No friction rub, No click, No other Gastrointestional: No tender, No soft, No round, No distended, No pulsatile mass, No organomegaly, No guarding, No rebound, No tenderness, No hernia, No mass, No audible bowel sounds, No abnormal bowel sounds, No abdominal bruits, No spleenomegaly, No other Extremities: No normal range of motion, No non-tender, No normal inspection, No pedal edema, No calf tenderness, No normal capillary refill, No pelvis stable, No calf tenderness, No inflammation, No pedal edema, No slow capillary refill, No swelling, No other, No abrasion, No clubbing, No cyanosis, No ecchymosis, No laceration, No no lower extremity edema bilateral, No significant edema, No tenderness, No wound Neurologic/Psychiatric: no motor/sensory deficits, alert, normal mood/affect, oriented x 3, power is 5/5 both on sides Results/Procedures: Labs Laboratory Tests 05/29/19 16:02: Glucometer 157H 05/29/19 20:08: Glucometer 186H 05/30/19 05:20: White Blood Count 14.1H, Red Blood Count 4.55, Hemoglobin 12.2, Hematocrit 39, Mean Corpuscular Volume 87, Mean Corpuscular Hemoglobin 27, Mean Corpuscular Hemoglobin Concent 31L, Red Cell Distribution Width 16.6H, Platelet Count 252, Mean Platelet Volume 11.6H, Sodium Level 135, Potassium Level 5.1H, Chloride Level 97L, Carbon Dioxide Level 22, Anion Gap 16H, Blood Urea Nitrogen 30H, Creatinine 0.85, Estimat Glomerular Filtration Rate > 60, BUN/Creatinine Ratio 35, Glucose Level 204H, Calcium Level 9.3, Phosphorus Level 2.6, Magnesium Level 1.8 05/30/19 05:23: Glucometer 188H 05/30/19 10:43: Glucometer 325H Microbiology 05/25/19 Blood Culture - Final, Complete Staphylococcus epidermidis 05/25/19 Gram Stain - Final, Complete 05/25/19 Sputum Culture - Final, Complete Usual upper respiratory zi YEAST A/P: Assessment: Acute, Type 1, resp failure, multifactorial (see below) Ac systolic and diastolic CHF. Echo of 05/13/19: LVEF 35-40%, PASP 25 mmHg; card cath of 04/18/19: mild CAD, normal LV systolic function, LVEDP 25 mmHg Pneumonia and sepsis Acute Kidney Injury 2 on 05/25/19, likely due to vol depletion due to diuretics, improving Plan: * I reviewed her records, interviewed her, and examined her * Continue current regimen * Monitor labs * I answered her CV-related questions GAVINO MARTINEZ MD FACP FAC CCDS May 30, 2019 14:54
[2019-05-30 16:00] VITALS: BP 140/63
[2019-05-30 20:53] VITALS: BP 126/55
[2019-05-30] MEDS: AMITRIPTYLINE 50 MG (ELAVIL) TAB PO SCH (21:18)
[2019-05-31] VITALS: BP 131/59
[2019-05-31] MEDS: RT-ALBUTEROL/IPRATROPIUM 3 ML (DUONEB) VIAL INH SCH ×6 (00:35→20:12)
[2019-05-31 04:00] VITALS: BP 116/62
[2019-05-31] MEDS: inSUlin ASPART (NovoLOG) 1 UNIT/0.01 ML (CHARGE PER UNIT) SC SCH ×6 (05:23→21:56)
[2019-05-31] MEDS: CATHETER FLUSH 10 ML SYR IV SCH ×3 (05:23→21:56)
[2019-05-31 05:50] LABS: BUN/CREATININE RATIO 33; CALCIUM 9.2 MG/DL (8.5-10.1); CARBON DIOXIDE 26 MMOL/L (21-32); CHLORIDE 96 MMOL/L (98-107); CREATININE SERUM 0.84 MG/DL (0.60-1.30); GFR ESTIMATED > 60; GLUCOSE 119 MG/DL (70-105); POTASSIUM 4.5 MMOL/L (3.6-5.0); SODIUM 134 MMOL/L (135-145)
[2019-05-31] MEDS: TRIM/SULFAMETH 160/800 (SEPTRA DS) TAB PO SCH ×2 (06:01→16:05)
[2019-05-31 08:00] VITALS: BP 163/90
[2019-05-31] MEDS: DOCUSATE SODIUM 100 MG (COLACE) CAP PO SCH ×2 (08:49→21:55)
[2019-05-31] MEDS: FUROSEMIDE 40 MG (LASIX) TAB PO SCH (08:49)
[2019-05-31] MEDS: ASPIRIN E.C. 81 MG (ECOTRIN) TAB PO SCH (08:50)
[2019-05-31] MEDS: ATORVASTATIN 10 MG (LIPITOR) TABLET PO SCH (08:50)
[2019-05-31] MEDS: meTOprolol TARTRATE 50 MG (LOPRESSOR) TAB PO SCH ×2 (08:50→21:55)
[2019-05-31] MEDS: GABAPENTIN 300 MG (NEURONTIN) CAP PO SCH ×3 (08:50→21:55)
[2019-05-31] MEDS: PANTOPRAZOLE 40 MG (PROTONIX) TAB PO SCH ×2 (08:50→21:55)
[2019-05-31] MEDS: ANIDULAFUNGIN INJECTION 100 MG in NS (IVPB) 100 ML IV SCH (08:57)
--- NOTE | 2019-05-31 09:48 | Pulmonary Progress Note ---
Subjective Time Seen by a Provider: 09:58 Sepsis Event Evaluation Height, Weight, BMI Height: 5'5.00" Weight: 159lbs. 15.0oz. 72.050509vv; 28.3 BMI Method:Stated Exam Exam Vital Signs Date Time Temp Pulse Resp B/P (MAP) Pulse Ox O2 Delivery O2 Flow Rate FiO2 05/31/19 08:00 97.4 114 21 163/90 (114) 94 6.00 05/31/19 08:00 High Flow N/C 6.00 05/31/19 07:00 103 05/31/19 06:59 88 Nasal Cannula 6.00 05/31/19 04:00 98.4 93 18 116/62 (80) 91 6.00 05/31/19 01:42 88 High Flow N/C 6.00 05/31/19 01:00 94 05/31/19 00:00 97.6 96 20 131/59 (83) 91 6.00 05/30/19 20:53 98.2 112 22 126/55 (78) 92 6.00 05/30/19 20:00 High Flow N/C 6.00 05/30/19 19:10 88 High Flow N/C 5.00 05/30/19 19:00 106 05/30/19 16:00 98.2 109 20 140/63 (88) 88 6.00 05/30/19 15:02 92 High Flow N/C 6.00 05/30/19 12:30 108 05/30/19 11:36 98.2 106 20 139/66 (90) 91 5.50 05/30/19 10:32 91 High Flow N/C 6.00 I & O 05/31/19 07:00 Intake Total 2360 ml Output Total 2450 ml Balance -90 ml Height & Weight Height: 5'5.00" Weight: 159lbs. 15.0oz. 72.257281fa; 28.3 BMI Method:Stated General Appearance: No Apparent Distress, Chronically ill HEENT: PERRL/EOMI, Normal ENT Inspection, Pharynx Normal Neck: Limited Range of Motion Respiratory: Chest Non Tender, No Accessory Muscle Use, No Respiratory Distress, Other (Diminished breath sounds especially in both bases few fine rales no rhonchi or wheezing noted.) Cardiovascular: Regular Rate, Rhythm, No Edema Capillary Refill: Less Than 3 Seconds Gastrointestinal: soft; No guarding, No rebound Extremity: Pedal Edema Neurologic/Psychiatric: Alert, Oriented x3, No Motor/Sensory Deficits, Normal Mood/Affect Skin: Normal Color, Warm/Dry Lymphatic: No Adenopathy Results Lab Laboratory Tests 05/30/19 05:20 05/31/19 05:15 Assessment/Plan Assessment/Plan Acute respiratory failure -Currently on regular NC at 5 liters -Titrate oxygen for Sp02 90-92% -Lasix -BiPAP QHS Sepsis with Pneumonia -Sputum is showing Stenotrophomonas -BCTM -Levaquin -Diflucan -MRSA nasal swab Acute renal failure Bilateral pleural effusions -Monitor CHF EF 35% with acute pulmonary edema MISTY GUZMAN DO May 31, 2019 09:48
--- NOTE | 2019-05-31 10:01 | NUR ---
DR GUZMAN ON THE FLOOR. HE WANTS TO TRY TO TITRATE THE OXYGEN DOWN TODAY. SHE MAY HAVE SOME SLEEP APNEA SO IT IS POSSIBLE SHE WILL NEED MORE OXYGEN DURING THE NIGHT AND LESS DURING THE DAY. RESPIRATORY THERAPIST RAYMOND NOTIFIED.
[2019-05-31 11:20] VITALS: BP 127/76
--- NOTE | 2019-05-31 12:20 | Progress Note - Cardiology ---
Cardiology SOAP Progress Note Subjective: No cp or palp or syncope Shortness of breath with mild to mod activity Objective: I&O/Vital Signs 05/31/19 05/31/19 05/31/19 05/31/19 01:00 01:42 04:00 06:59 Temp 98.4 Pulse 94 93 Resp 18 B/P (MAP) 116/62 (80) Pulse Ox 88 91 88 O2 Delivery High Flow N/C Nasal Cannula O2 Flow Rate 6.00 6.00 6.00 05/31/19 05/31/19 05/31/19 05/31/19 07:00 08:00 08:00 10:33 Temp 97.4 Pulse 103 114 Resp 21 B/P (MAP) 163/90 (114) Pulse Ox 94 92 O2 Delivery High Flow N/C Nasal Cannula O2 Flow Rate 6.00 6.00 6.00 05/31/19 11:20 Temp 97.6 Pulse 97 Resp 20 B/P (MAP) 127/76 (93) Pulse Ox 89 O2 Delivery High Flow N/C O2 Flow Rate 6.00 05/31/19 00:00 Intake Total 2130 ml Output Total 2450 ml Balance -320 ml Weight (Pounds): 159 Weight (Ounces): 15.0 Weight (Calculated Kilograms): 72.486198 Constitutional: appears stated age, AAO x 3, apparent distress, well-developed, well-nourished Respiratory: chest is bilaterally symmetric, other (diminished air entry bilat, prolonged exp phase) Cardiovascular: regular rate-rhythm, S1 and S2, systolic murmur (soft CASH at card bse) Gastrointestional: No tender; soft; No guarding, No rebound; audible bowel sounds Extremities: No clubbing, No cyanosis, No significant edema Neurologic/Psychiatric: oriented x 3, other (moves all limbs equally) Skin: No rash on exposed areas, No ulcerations on exposed areas Results/Procedures: Labs Laboratory Tests 05/30/19 15:51: Glucometer 209H 05/30/19 19:55: Glucometer 276H 05/31/19 05:15: Sodium Level 134L, Potassium Level 4.5, Chloride Level 96L, Carbon Dioxide Level 26, Anion Gap 12, Blood Urea Nitrogen 28H, Creatinine 0.84, Estimat Glomerular Filtration Rate > 60, BUN/Creatinine Ratio 33, Glucose Level 119H, Calcium Level 9.2 05/31/19 05:18: Glucometer 112H 05/31/19 10:30: Glucometer 137H Microbiology 05/25/19 Blood Culture - Final, Complete Staphylococcus epidermidis 05/25/19 Gram Stain - Final, Complete 05/25/19 Sputum Culture - Final, Complete Usual upper respiratory zi YEAST Laboratory Tests 05/30/19 05:20 05/31/19 05:15 A/P: Assessment: Acute, Type 1, resp failure, multifactorial (see below) Ac systolic and diastolic CHF. Echo of 05/13/19: LVEF 35-40%, PASP 25 mmHg; card cath of 04/18/19: mild CAD, normal LV systolic function, LVEDP 25 mmHg Pneumonia and sepsis Acute Kidney Injury 2 on 05/25/19, likely due to vol depletion due to diuretics, improving Plan: * Continue current regimen * Monitor labs * I answered her CV-related questions GAVINO MARTINEZ MD FACP FAC CCDS May 31, 2019 12:20
[2019-05-31] MEDS: predniSONE 10 MG TAB PO SCH (12:24)
--- NOTE | 2019-05-31 13:22 | Progress Note - Hospitalist ---
Subjective HPI/CC On Admission Date Seen by Provider: May 31, 2019 Time Seen by Provider: 13:18 Patient reports she feels she is about back to baseline activity level able to get to the bathroom and back with her walker with standby assistance from family who were present at home with her report. She reports baseline sputum produc tion denies shortness of breath at rest. Subjective/Events-last exam She reports less shortness of breath and increased ability with ambulation. She was hoping to go home today with Dr. Castillo as requested another day and we'll see if she can be titrated lower from her current 5 L of oxygen per nasal cannula. She denies sputum production chills fever or chest pain. Objective Exam Vital Signs Vital Signs Date Time Temp Pulse Resp B/P (MAP) Pulse Ox O2 Delivery O2 Flow Rate FiO2 05/31/19 11:20 97.6 97 20 127/76 (93) 89 High Flow N/C 6.00 05/27/19 10:23 60 Capillary Refill : Less Than 3 SecondsLess Than 3 Seconds General Appearance: No Apparent Distress Respiratory: Lungs Clear (Breath sounds posteriorly however diminished unchanged from yesterday.), No Accessory Muscle Use, No Respiratory Distress Cardiovascular: No Edema, No Gallop, No JVD, Systolic Murmur (1-2/6 heard best over there are Flow track with no evidence for pulsus parvus or tardus. No diastolic murmurs noted.) Extremity: Normal Range of Motion, No Pedal Edema Results/Procedures Lab Laboratory Tests 05/31/19 05:15 Patient resulted labs reviewed. Imaging: Reviewed Imaging Report Assessment/Plan Assessment and Plan Assess & Plan/Chief Complaint (1) Acute and chronic respiratory failure with hypoxia Status: Acute Assessment & Plan: 05/13: Intubated 05/14: Breathing over vent, No improvement in CXR, Continue antibiotics and steroids 05/15: Wean per Dr Castillo 05/25- on bipap, continue to wean support as tolerated, on solumedrol [address] 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 Waiting on insurance determination for rehab. 05/30 no decline on by mouth steroids. Insurance will not cover acute rehabi litation possible discharge in the morning. 05/31 continued improvement and rest are status attempt to decrease nasal cannula oxygen from current [address] Castillo's recommendation to keep saturations at 92 percent or greater. (2) Severe sepsis Status: Acute Assessment & Plan: - Continue broad spectrum antibiotics, cultures pending, currently on pressors 05/14: Goal to titrate pressors as tolerated today 05/15: Cultures NGTD 05/25- remains on bactrim BID and Zosyn, sputum and bronch washing culture positive for stenotrophomonas 05/19 05/29 on Bactrim (day 9, scheduled to d/c Saturday) and levofloxacin (day 01/11), started on anidulafungin per Dr. Castillo, yeast in expectorated sputum 05/25. (3) PNA (pneumonia) Status: Acute Qualifiers: Qualified Codes: J18.9 - Pneumonia, unspecified organism (4) Acute combined systolic (congestive) and diastolic (congestive) heart failure Status: Acute Assessment & Plan: - Cardiology managing - Echo 05/13 with EF 35-40% 05/27- remains on IV lasix 05/28 decrease IV lasix to daily 05/29- change to PO (5) Acute renal insufficiency Status: Resolved Assessment & Plan: Possibly related to diuresis, monitor closely 05/26 improving, monitor (6) Hyperkalemia Status: Resolved Assessment & Plan: Secondary to ESHA, monitor closely, kayexalate if rising 05/26 improving but persistent, continue to follow potassium (7) DVT prophylaxis Status: Acute Assessment & Plan: - lovenox Clinical Quality Measures DVT/VTE Risk/Contraindication: Risk Factor Score Per Nursin RFS Level Per Nursing on Admit: 4+=Very High KAYLA GAMINO MD May 31, 2019 13:22
[2019-05-31] MEDS: ENOXAPARIN 40 MG/0.4 ML (LOVENOX) SYR SQ SCH (15:09)
[2019-05-31 16:33] VITALS: BP 124/74
[2019-05-31 20:42] VITALS: BP 121/65
[2019-05-31] MEDS: AMITRIPTYLINE 50 MG (ELAVIL) TAB PO SCH (21:55)
[2019-06-01] VITALS: BP 119/57
[2019-06-01] MEDS: RT-ALBUTEROL/IPRATROPIUM 3 ML (DUONEB) VIAL INH SCH ×3 (01:16→11:04)
[2019-06-01 02:12] VITALS: BP 119/57
[2019-06-01 04:00] VITALS: BP 130/64
[2019-06-01 05:27] LABS: BASOPHILS % (AUTO) 0 % (0-10); EOSINOPHILS % (AUTO) 0 % (0-10); HEMATOCRIT 39 % (35-52); HEMOGLOBIN 12.3 G/DL (11.5-16.0); LYMPHOCYTES # (AUTO) 1.9 X 10^3 (1.0-4.0); LYMPHOCYTES % (AUTO) 12 % (12-44); MEAN CORPUSCULAR HEMOGLOBIN 27 PG (25-34); MEAN CORPUSCULAR HGB CONC 32 G/DL (32-36); MEAN CORPUSCULAR VOLUME 86 FL (80-99); MEAN PLATELET VOLUME 11.5 FL (7.4-10.4); MONOCYTES # (AUTO) 0.6 X 10^3 (0.0-1.0); MONOCYTES % (AUTO) 4 % (0-12); NEUTROPHILS # (AUTO) 13.2 X 10^3 (1.8-7.8); NEUTROPHILS % (AUTO) 84 % (42-75); PLATELET COUNT 268 10^3/uL (130-400); RED CELL DISTRIBUTION WIDTH 16.7 % (10.0-14.5); WHITE BLOOD COUNT 15.7 10^3/uL (4.3-11.0)
[2019-06-01] MEDS: CATHETER FLUSH 10 ML SYR IV SCH (05:33)
[2019-06-01] MEDS: inSUlin ASPART (NovoLOG) 1 UNIT/0.01 ML (CHARGE PER UNIT) SC SCH ×2 (05:36→11:32)
[2019-06-01] MEDS: TRIM/SULFAMETH 160/800 (SEPTRA DS) TAB PO SCH (05:40)
[2019-06-01 05:56] LABS: BUN/CREATININE RATIO 44; CALCIUM 9.6 MG/DL (8.5-10.1); CARBON DIOXIDE 27 MMOL/L (21-32); CHLORIDE 98 MMOL/L (98-107); CREATININE SERUM 0.86 MG/DL (0.60-1.30); GFR ESTIMATED > 60; GLUCOSE 127 MG/DL (70-105); MAGNESIUM 1.7 MG/DL (1.6-2.4); PHOSPHORUS 3.4 MG/DL (2.3-4.7); POTASSIUM 4.5 MMOL/L (3.6-5.0); SODIUM 136 MMOL/L (135-145)
--- NOTE | 2019-06-01 06:22 | NUR ---
when RT entered the patients room she was on 6 L NC and O2 was decreased to 4 L NC, patient was sitting in bed and doing good; she performed her EZPAP inline with her SVN Breathing tx. No issues at this time. Patient states she is really not even coughing any more.
--- NOTE | 2019-06-01 07:53 | Diagnostic Imaging Report ---
INDICATION: Dyspnea. EXAMINATION: Chest 06/01/2019. COMPARISON: 05/28/2019. FINDINGS: Small bilateral effusions left greater than right with bibasilar atelectasis versus developing infiltrates. Heart is stable. Pulmonary vasculature unchanged. There is no pneumothorax. Right jugular line tip is stable. IMPRESSION: 1. Persistent bibasilar atelectasis or infiltrates, overall stable chest. Dictated by: Dictated on workstation # [id number]
[2019-06-01 08:00] VITALS: BP 126/70
[2019-06-01] MEDS: GABAPENTIN 300 MG (NEURONTIN) CAP PO SCH ×2 (08:13→12:08)
[2019-06-01] MEDS: PANTOPRAZOLE 40 MG (PROTONIX) TAB PO SCH (08:13)
[2019-06-01] MEDS: ATORVASTATIN 10 MG (LIPITOR) TABLET PO SCH (08:13)
[2019-06-01] MEDS: FUROSEMIDE 40 MG (LASIX) TAB PO SCH (08:13)
[2019-06-01] MEDS: meTOprolol TARTRATE 50 MG (LOPRESSOR) TAB PO SCH (08:13)
[2019-06-01] MEDS: ASPIRIN E.C. 81 MG (ECOTRIN) TAB PO SCH (08:13)
[2019-06-01] MEDS: DOCUSATE SODIUM 100 MG (COLACE) CAP PO SCH (08:13)
--- NOTE | 2019-06-01 08:57 | Physical Therapy Daily Note ---
PT Daily Note-Current Subjective Patient states she hopes to go home soon. Agrees to PT. Mental Status Patient Orientation: Normal For Age Attachments: Oxygen (4L) Transfers Therapy Code Descriptions/Definitions Functional [place] Measure: 0=Not Assessed/NA 4=Minimal Assistance 1=Total Assistance 5=Supervision or Setup 2=Maximal Assistance 6=Modified [place] 3=Moderate Assistance 7=Complete [place] Therapy Quality Codes: 6 Independent with activity with or without an assistive device 5 Patient requires set up or clean up by helper. Patient completes activity by themselves 4 Supervision or touching assist (CGA). [place] provide cues , steadying assist 3 The helper provides less than half the effort to complete the activity 2 The helper provides more than half the effort to complete the activity 1 Dependent. The helper does all the effort to complete an activity 7 Patient refused to complete or attempt activity 9 The patient did not perform the activity before the current illness or injury 88 Not attempted due to Medical conditions or safety concerns Transfers (B, C, W/C) (FIM): 7 Scootin Rollin Supine to/from Sit: 7 Sit to/from Stand: 7 Bed to/from Chair: 7 Weight Bearing Right Lower Extremity: Right Weight Bearing/Tolerated Left Lower Extremity: Left Weight Bearing/Tolerated Gait Training Gait (FIM): 6 Distance (FIM): 3=150 ft Distance: 500' Gait Level of Assist: 6 Gait Assistive Device: FWW steady gait sequence with no deviation Assessment Patient returned to room with needs met. FORMULATION CHEMIST in to set up patient for shower. PT Short Term Goals Short Term Goals Time Frame: May 28, 2019 Transfers (B,C,W/C) (FIM): 4 Gait (FIM): 2 Gait Distance Comment: 50' Gait Level of Assist: 4 Gait Assistive Device: FWW PT Custodial Goals Custodial Goals PT Photovoltaic Installation Technician Goals Time Frame: Jun 20, 2019 Transfers (B,C,W/C) (FIM): 7 Gait (FIM): 7 Gait distance (FIM): 3=150 ft Distance: >300' Gait Level of Assist: 7 Gait Assistive Device: None Stairs (FIM): 7 # of Steps: 12 Stairs Level Of Assist: 7 PT Plan Treatment/Plan Treatment Plan: Continue Plan of Care Treatment Plan: Bed Mobility, Education, Functional Activity Bryant, Functional Strength, Gait, Safety, Therapeutic Exercise, Transfers Treatment Duration: Jun 20, 2019 Frequency: 6 times per week Estimated Hrs Per Day: .25 hour per day Patient and/or Family Agrees t: Yes Time/GCodes Time In: 825 Time Out: 834 Total Billed Treatment Time: 9 Total Billed Treatment 1 visit FA 9 min SHAMAR GREGORIO PT Jun 01, 2019 08:57
[2019-06-01] MEDS ORDERED: fluCOnazole (DIFLUCAN) 100 MG TAB PO SCH (09:00)
--- NOTE | 2019-06-01 10:09 | Occupational Ther Daily Note ---
OT Current Status-Daily Note Subjective pt laying in bed upon ot arrival. pt reports no pain. pt stated "i hope I discharge today." pt agreed to OT TX session with focus on ADLs and HEP. Pain Numeric Pain Scale: 0-No Pain Mental Status/Objective Therapy Code Descriptions/Definitions Functional [place] Measure: 0=Not Assessed/NA 4=Minimal Assistance 1=Total Assistance 5=Supervision or Setup 2=Maximal Assistance 6=Modified [place] 3=Moderate Assistance 7=Complete [place] Attachments: Oxygen ADL-Treatment Eating (FIM): 6 Grooming (FIM): 7 (standing at sink) Bathing (FIM): 6 (per pt and nursing report. ) Bathing Location: L Arm, R Arm, L Upper Leg, R Upper Leg, L Lower Leg (including foot), R Lower Leg (including foot), Chest, Abdomen, Buttocks, Perineal Area Upper Body (FIM): 7 (sheeting puller shirt ) Lower Body Dressing (FIM): 7 (underpants, sarita socks ) Toileting (FIM): 7 (3/3 toielting tasks ) Transfers (B, C, W/C) (FIM): 6 (use of RW ) Toilet/Commode Transfer (FIM): 6 (use of RW ) Shower Transfer(FIM): 6 (per NSG reports/ pt report. use of RW ) pt demo ability to perform ADL tasks with good safety awareness of O2 tubing. pt demo ability to pick items off of floor when dropped during grooming tasks. Other Treatment pt education on HEP with use of red graded theraband. pt perform 5X2 indep using handout. pt stated no concerns. all needs met. Education OT Patient Education: Exercise program, Purpose of tx/functional activities Teaching Recipient: Patient Teaching Methods: Demonstration, Handout, Discussion Response to Teaching: Verbalize Understanding, Return Demonstration OT Short Term Goals Short Term Goals Time Frame: May 27, 2019 Grooming(FIM): 5 Bathing(FIM): 4 Lower Body Dressing(FIM): 5 Toileting(FIM): 5 Transfers (B,C,W/C) (FIM): 4 Toilet/Commode Transfer(FIM): 4 1=Demonstrate adherence to instructed precautions during ADL tasks. 2=Patient will verbalize/demonstrate understanding of assistive devices/modifications for ADL. 3=Patient will improve strength/tolerance for activity to enable patient to perform ADL's. OT Fpc Goals Fpc Goals Time Frame: Jun 03, 2019 Eating (FIM): 6 (MET ) Grooming(FIM): 6 (MET ) Bathing(FIM): 6 (MET ) Bathing Location: L Arm, R Arm, L Upper Leg, R Upper Leg, L Lower Leg (including foot), R Lower Leg (including foot), Chest, Abdomen, Buttocks, Nivia colette Area Upper Body Dressing(FIM): 6 (MET ) Lower Body Dressing(FIM): 6 (MET ) Toileting(FIM): 6 (MET ) Transfers (B,C,W/C) (FIM): 6 (MET ) Toilet/Commode Transfer(FIM): 6 (MET ) Additional Goals: 1-Demonstrate ADL Tasks, 2-Verbalize Understanding, 3- ImproveStrength/Bryant 1=Demonstrate adherence to instructed precautions during ADL tasks. 2=Patient will verbalize/demonstrate understanding of assistive devices/modifications for ADL. 3=Patient will improve strength/tolerance for activity to enable patient to perform ADL's. OT Education/Plan Problem List/Assessment Assessment: No Skilled OT Needs ID'd pt has made great progress while being seen by OT services. pt is currently indep/ MOD I with all ADLS/ functional transfers with no safety concerns. pt is safe to discharge home with family support from OT standpoint. d/c OT services at this time secondary to pt meeting all goals. Discharge Recommendations Plan/Recommendations: Discharge/Goals Met Therapy D/C Recommendations: Home w/ Family Support Equpiment Recommendations-D/C: None Treatment Plan/Plan of Care Treatment,Training & Education: Yes Plan of Care: ADL Retraining, Functional Mobility, Group Exercise/Act as Ind, UE Funct Exercise/Act Treatment Duration: Jun 09, 2019 Frequency: 5 times per week (d/c) Estimated Hrs Per Day: .25 hour per day (d/c) Agreement: Yes Rehab Potential: Fair Time/GCodes Start Time: 09:40 Stop Time: 10:10 Billed Treatment Time ADL 25 minutes. 2 units EX 5 minutes RANDI DOVE OT Jun 01, 2019 10:09
[2019-06-01] MEDS ORDERED: PRED10TA22 PO (10:22)
[2019-06-01] MEDS ORDERED: FLUC100T6 PO (10:22)
--- NOTE | 2019-06-01 10:23 | NUR ---
CM/DISCHARGE PLANNING: Patient being dismissed to home today self care. She has previously had oxygen continuous at home at 2LPM. She is currently using o2 at 4LPM continuous here et so she will be retested for continued need at that liter flow. She uses [facility] for her oxygen needs et will also need a new FWW that she would like to use them as well. She is from [place] et can pickling grader her equipment when she gets home. Her will bring her a portable tank to transport home. She denies any other needs or concerns at this time. She denies the need for HHC.
--- NOTE | 2019-06-01 10:25 | Discharge Summary ---
Diagnosis/Chief Complaint Date of Admission May 12, 2019 at 18:07 Date of Discharge Discharge Date: Jun 01, 2019 Primary Care Jose Meek MD Discharge Diagnosis (1) PNA (pneumonia) Status: Acute (2) CHF (congestive heart failure) Status: Chronic (3) COPD (chronic obstructive pulmonary disease) Status: Chronic (4) Acute and chronic respiratory failure with hypoxia Status: Acute Discharge Summary Discharge Physical Exam Allergies: Coded Allergies: No Known Drug Allergies (Unverified , 05/13/19) Vitals & I&Os Vital Signs Date Time Temp Pulse Resp B/P (MAP) Pulse Ox O2 Delivery O2 Flow Rate FiO2 06/01/19 13:20 101 22 122/70 91 Nasal Cannula 5.00 06/01/19 12:06 97.6 05/27/19 10:23 60 General Appearance: No Apparent Distress, WD/WN Respiratory: Chest Non Tender, Lungs Clear, Normal Breath Sounds, No Accessory Muscle Use, No Respiratory Distress, Decreased Breath Sounds Cardiovascular: Regular Rate, Rhythm, No Edema, No Gallop, No JVD, No Murmur, Normal Peripheral Pulses Neurologic/Psychiatric: Alert, Oriented x3, No Motor/Sensory Deficits, Normal Mood/Affect Hospital Course Was the Problem List Reviewed?: Yes Hospital Course: Pt had a lengthy hospital course for 21 days, 3 weeks, after she was admitted for respiratory failure placed on BiPAP, IV steroids, moved from ICU to 4th floor and then required transfer back up to ICU due to impending reparatory failure. She continued to have respiratory issues and was diagnosed with pneumonia, completed appropriate antibiotics in addition to Diflucan for Yeast Pneumonitis and improved immensely but very slowly. Inpatient rehab was not approved so she continued working with PT and maintained at 5 liters of oxygen instead of her usual 2 liters at home. She was able to be strong enough to go home, declined any home health and Dr. Castillo was in agreement with this plan so she was planning for a close follow-up with Dr. Meek, Pharmacy was [facility] so all medications were sent to the pharmacy and the pt overall was agreeable for DC and requested that and all in agreement with the plan. Labs (last 24 hrs) Laboratory Tests 06/01/19 05:15: White Blood Count 15.7H, Red Blood Count 4.55, Hemoglobin 12.3, Hematocrit 39, Mean Corpuscular Volume 86, Mean Corpuscular Hemoglobin 27, Mean Corpuscular Hemoglobin Concent 32, Red Cell Distribution Width 16.7H, Platelet Count 268, Mean Platelet Volume 11.5H, Neutrophils (%) (Auto) 84H, Lymphocytes (%) (Auto) 12, Monocytes (%) (Auto) 4, Eosinophils (%) (Auto) 0, Basophils (%) (Auto) 0, Neutrophils # (Auto) 13.2H, Lymphocytes # (Auto) 1.9, Monocytes # (Auto) 0.6, Eosinophils # (Auto) 0.0, Basophils # (Auto) 0.0, Sodium Level 136, Potassium Level 4.5, Chloride Level 98, Carbon Dioxide Level 27, Anion Gap 11, Blood Urea Nitrogen 38H, Creatinine 0.86, Estimat Glomerular Filtration Rate > 60, BUN/Creatinine Ratio 44, Glucose Level 127H, Calcium Level 9.6, Phosphorus Level 3.4, Magnesium Level 1.7 06/01/19 05:16: Glucometer 122H 06/01/19 11:20: Glucometer 112H Microbiology 05/25/19 Blood Culture - Final, Complete Staphylococcus epidermidis 05/25/19 Gram Stain - Final, Complete 05/25/19 Sputum Culture - Final, Complete Usual upper respiratory zi YEAST Patient resulted labs reviewed. Pending Labs Imaging: Reviewed Imaging Report Discussion & Recommendations Discharge Planning: <30 minutes discharge planning Discharge Home Medications: Active Scripts Active Prednisone 10 Mg Tab.ds.pk 10 Mg PO DAILY Take 4 tabs(40mg)daily,decrease by 1 tab(10mg)every other day. Fluconazole 100 Mg Tablet 100 Mg PO DAILY Reported Aspirin EC (Aspirin) 81 Mg Tablet.dr 81 Mg PO DAILY Omeprazole 20 Mg Capsule.dr 20 Mg PO DAILY Furosemide 20 Mg Tablet 20 Mg PO DAILY Glyburide 1.25 Mg Tablet 1.25 Mg PO DAILY Metoprolol Tartrate 50 Mg Tablet 50 Mg PO BID Lisinopril 5 Mg Tablet 5 Mg PO DAILY Albuterol Sulfate 2.5 Mg/3 Ml Vial.neb 2.5 Mg NEB TID PRN Women's 50 Plus Multivit Tab (Mv-Mn/Folic Acid/Calcium/Vit K) 1 Each Tablet 1 Tab PO DAILY Atorvastatin Calcium 10 Mg Tablet 10 Mg PO DAILY Amitriptyline HCl 100 Mg Tablet 100 Mg PO HS Gabapentin 300 Mg Capsule 300 Mg PO TID Metformin HCl 500 Mg Tablet 1,000 Mg PO BID TAKES 2 (500MG) TABLETS Instructions to patient/family Please see electronic discharge instructions given to patient. Clinical Quality Measures DVT/VTE Risk/Contraindication: Risk Factor Score Per Nursin RFS Level Per Nursing on Admit: 4+=Very High Problem Qualifiers (1) PNA (pneumonia): Pneumonia type: due to unspecified organism Laterality: unspecified laterality Lung location: unspecified part of lung Qualified Codes: J18.9 - Pneumonia, unspecified organism (2) CHF (congestive heart failure): Heart failure type: systolic (3) COPD (chronic obstructive pulmonary disease): COPD type: unspecified COPD Qualified Codes: J44.9 - Chronic obstructive pulmonary disease, unspecified CE HOBBS DO Jun 01, 2019 10:25
--- NOTE | 2019-06-01 10:59 | NUR ---
Patient was on 4 L sat of 90%; O2 was removed and rechecked 11 mins after and she was at 81%; O2 was added and it took 5 L to get patients O2 to be at 90%. Patient required 5 L to get sat up to and to stay at 90%
--- NOTE | 2019-06-01 11:51 | NUR ---
CALLED KALEB'S BROTHER JOSIAH TO LET HIM KNOW SHE IS BEING DISCHARGED TODAY AND WILL NEED HER PORTABLE OXYGEN TANKS
[2019-06-01 12:06] VITALS: BP 122/70
[2019-06-01] MEDS: predniSONE 10 MG TAB PO SCH (12:08)
--- NOTE | 2019-06-01 13:10 | NUR ---
CM/SS spoke with the patient as she will discharge this day. Patient will need a FWW and new liter amount for her oxygen. Her oxygen provider is [facility] in [place], information for FWW and oxygen faxed to them. Patient's brother will transport her home and will pickling drum operator her FWW from the DME on the way.
[2019-06-01 13:20] VITALS: BP 122/70
--- NOTE | 2019-06-03 10:45 | Pulmonary Procedures ---
Pulmonary Procedures Date of Procedure Date of Service: May 13, 2019 Lumen: triple Central Line Procedure: betadine prep, sterile drapes applied, sterile dressing applied Position: internal jugular (R) Anesthesia: Lidocaine Volume Anesthetic (ccs): 3 Complications: none Post Position: sutured, good blood return, position confirmed w/ CXR MISTY GUZMAN DO Jun 03, 2019 10:45
--- NOTE | 2019-06-03 10:45 | Pulmonary Procedures ---
Pulmonary Procedures Date of Procedure Date of Service: May 13, 2019 Reason for Intubation: Acute respiratory failure Time of Intubation: 10:44 Intubation Method: orotracheal Tube Size: 8 Medications: Fentanyl, Propofol, Versed Positive End Tide CO2: Yes Breath Sounds after Intubation: bilateral-equal Intubation Complications: no complications Post Intubation Xray: Yes MISTY GUZMAN DO Jun 03, 2019 10:45
== END 2019-06-01 13:22 | disposition home or self-care (01) | DRG 870 ==
LOC: EDUNIT# 15:27 → ER FS 15:28 → 4TH 18:07 → ICU 05-13 06:05 → 4TH 05-22 14:02 → ICU 05-24 07:27 → 4TH 05-28 12:00
PROVIDERS: ADMIT Family Medicine; ATTEND Family Medicine
PROC: 5A1955Z Respiratory Ventilation, Greater than 96 Consecutive Hours (ICD-10-PCS; principal; 2019-05-13)
PROC: 0BH17EZ Insertion of Endotracheal Airway into Trachea, Via Natural or Artificial Opening (ICD-10-PCS; 2019-05-13)
PROC: 0BC38ZZ Extirpation of Matter from Right Main Bronchus, Via Natural or Artificial Opening Endoscopic (ICD-10-PCS; 2019-05-19)
PROC: 0BC78ZZ Extirpation of Matter from Left Main Bronchus, Via Natural or Artificial Opening Endoscopic (ICD-10-PCS; 2019-05-19)
DX: A41.59 Other Gram-negative sepsis (principal); R65.21 Severe sepsis with septic shock; J15.6 Pneumonia due to other Gram-negative bacteria; B37.1 Pulmonary candidiasis; J96.21 Acute and chronic respiratory failure with hypoxia; I11.0 Hypertensive heart disease with heart failure; I50.41 Acute combined systolic (congestive) and diastolic (congestive) heart failure; I21.A1 Myocardial infarction type 2; J44.0 Chronic obstructive pulmonary disease with (acute) lower respiratory infection; N17.9 Acute kidney failure, unspecified; J98.11 Atelectasis; E11.9 Type 2 diabetes mellitus without complications; F17.210 Nicotine dependence, cigarettes, uncomplicated; Z79.84 Long term (current) use of oral hypoglycemic drugs; E87.6 Hypokalemia; E83.42 Hypomagnesemia; J98.09 Other diseases of bronchus, not elsewhere classified
CPT/HCPCS: 36415; 36600; 70470; 71045; 71250; 71275; 74178; 80048; 80053; 81000; 82150; 82805; 82962; 83605; 83690; 83735; 83880; 84100; 84132; 84478; 84484; 85007; 85025; 85027; 85610; 85730; 87015; 87040; 87070; 87077; 87081; 87101; 87116; 87186; 87205; 87206; 93005; 93306; 93970; 94002; 94003; 94640; 94660; 94664; 94760; 94761; 94799; 96365; 96375

== ENCOUNTER → 2019-10-05 | Outpatient (CLI) | payer MEDICARE ==
[~2019-10-05] MED LIST changes: +ALBU2.5V4 NEB; +FLUC100T6 PO; +FURO20TA4 PO; +HOLD METFORMIN - RECEIVED CONTRAST 20 ML VIAL IV SCH; +IOHEXOL 350 MG/ML 100 ML (OMNIPAQUE 350) VIAL IV ONE; +LISI-556 PO; +METO50TA15 PO; +NS 100 ML (IVPB) BAG IV ONE; +OMEP20CA13 PO; +PRED10TA22 PO; +RT-ALBUTEROL SULF 2.5 MG/3 ML PRE-MIX VIAL INH ONE
[2019-10-05 08:02] LABS: CREATININE SERUM 0.97 MG/DL (0.60-1.30)
--- NOTE | 2019-10-05 10:27 | Diagnostic Imaging Report ---
PROCEDURE: CT chest with contrast only. TECHNIQUE: Multiple contiguous axial images were obtained through the chest after administration of intravenous contrast. Auto Exposure Controls were utilized during the CT exam to meet ALARA standards for radiation dose reduction. INDICATION: Advanced COPD, hypoxia, and dyspnea. COMPARISON: Correlation is made with prior chest CT from 05/25/2019. No axillary lymphadenopathy is detected. There are normal-sized lymph nodes in the mediastinum and lester. Coronary arterial calcifications are noted. Heart does appear to be enlarged. There is no pericardial or pleural fluid identified. Bullous emphysematous changes in both lungs are again noted. There is right apical pleural-parenchymal scarring, similar to prior exam. No discrete mass or infiltrate is identified. The upper abdomen demonstrates hepatic steatosis. No other significant abnormality is seen. IMPRESSION: Resolution of previously noted pleural effusions. There are emphysematous changes in both lungs. No parenchymal mass or thoracic lymphadenopathy is detected. Dictated by: Dictated on workstation # [id number]
== END ==
LOC: RT 07:36
PROVIDERS: ATTEND Nurse Practitioner Family
DX: J44.9 Chronic obstructive pulmonary disease, unspecified (principal); R91.8 Other nonspecific abnormal finding of lung field; Z87.891 Personal history of nicotine dependence
CPT/HCPCS: 36415; 71260; 82565; 84520; 94060; 94726; 94729

== ENCOUNTER 2020-07-27 12:39 | Emergency (ER) | payer MEDICARE ==
[~2020-07-27] VITALS: Ht 165.1 cm; Wt 83.2 kg
[~2020-07-27 12:39] MED LIST changes: +ASPI-1238 PO; -ASPI-983 PO; -HOLD METFORMIN - RECEIVED CONTRAST 20 ML VIAL IV SCH; -IOHEXOL 350 MG/ML 100 ML (OMNIPAQUE 350) VIAL IV ONE; -NS 100 ML (IVPB) BAG IV ONE; -OMEP20CA13 PO; +OMEP20CA18 PO; -RT-ALBUTEROL SULF 2.5 MG/3 ML PRE-MIX VIAL INH ONE
[2020-07-27 12:44] VITALS: BP 154/106
--- NOTE | 2020-07-27 13:02 | ED Upper Extremity ---
General Chief Complaint: Upper Extremity Stated Complaint: LT SHOULDER INJ Nursing Triage Note: Patient presents to the ED from for an evaluation of left humeral fracture. Patient reports that she was walking down the stairs when she misstepped and fell down the last two stairs landing on her left arm. She was seen at [facility] [place] [place] [facility] and sent to the ED for further evaluation. Nursing Sepsis Screen: No Definite Risk Source: patient, RN/MD, RN notes reviewed, old records Exam Limitations: no limitations History of Present Illness Date Seen by Provider: Jul 27, 2020 Time Seen by Provider: 12:55 Initial Comments This patient is a 60-year-old female presents to the emergency department with the left shoulder injury. Patient states she was coming off a portion stepped down 2 steps and fell. Patient was seen in local urgent care placed in a sling and sent to the emergency department. Given the mechanism of injury concerning for possible proximal left humeral fracture. Pain/Injury Location: left shoulder, left arm Method of Injury: fell Allergies and Home Medications Allergies Coded Allergies: No Known Drug Allergies (Unverified , 05/13/19) Home Medications Albuterol Sulfate 2.5 Mg/3 Ml Vial.neb, 2.5 MG NEB TID PRN for SHORTNESS OF BREATH, (Reported) Amitriptyline HCl 100 Mg Tablet, 100 MG PO HS, (Reported) Aspirin 81 Mg Tablet.dr, 81 MG PO DAILY, (Reported) Atorvastatin Calcium 10 Mg Tablet, 10 MG PO DAILY, (Reported) Fluconazole 100 Mg Tablet, 100 MG PO DAILY Prescribed by: CE HOBBS on 06/01/19 1022 Furosemide 20 Mg Tablet, 20 MG PO DAILY, (Reported) Gabapentin 300 Mg Capsule, 300 MG PO TID, (Reported) Glyburide 1.25 Mg Tablet, 1.25 MG PO DAILY, (Reported) Lisinopril 5 Mg Tablet, 5 MG PO DAILY, (Reported) Metformin HCl 500 Mg Tablet, 1,000 MG PO BID, (Reported) TAKES 2 (500MG) TABLETS Metoprolol Tartrate 50 Mg Tablet, 50 MG PO BID, (Reported) Mv-Mn/Folic Acid/Calcium/Vit K 1 Each Tablet, 1 TAB PO DAILY, (Reported) Omeprazole 20 Mg Capsule.dr, 20 MG PO DAILY, (Reported) Prednisone 10 Mg Tab.ds.pk, 10 MG PO DAILY Take 4 tabs(40mg)daily,decrease by 1 tab(10mg)every other day. Prescribed by: CE HOBBS on 06/01/19 1022 Patient Home Medication List Home Medication List Reviewed: Yes Review of Systems Constitutional: No no symptoms reported, No see HPI, No chills, No diaphoresis, No dizziness, No fever, No malaise, No weakness, No weight gain, No weight loss, No other EENTM: No see HPI, No no symptoms reported, No ear discharge, No hearing loss, No ear pain, No blurred vision, No double vision, No eye pain, No tearing, No vision loss, No dental problems, No hoarseness, No mouth pain, No mouth swelling, No epistaxis, No nose congestion, No nose pain, No throat pain, No throat swelling, No other Respiratory: No no symptoms reported, No see HPI, No cough, No dyspnea on exertion, No hemoptysis, No orthopnea, No phlegm, No short of breath, No stridor, No wheezing, No other Cardiovascular: No no symptoms reported, No see HPI, No chest pain, No edema, No Hx of Intervention, No palpitations, No syncope, No vascular heart diseas, No other Gastrointestinal: No RUQ, No LUQ, No RLQ, No LLQ, No no symptoms reported, No see HPI, No abdominal pain, No constipation, No diarrhea, No dysphagia, No hematemesis, No heartburn, No jaundice, No loss of appetite, No melena, No nausea, No vomiting, No other Genitourinary: No no symptoms reported, No see HPI, No decreased output, No discharge, No dysuria, No frequency, No hematuria, No hesitancy, No incontinence, No nocturia, No pain, No other Musculoskeletal: No no symptoms reported; see HPI; No back pain, No gout; joint pain; No joint swelling, No muscle pain, No muscle stiffness, No muscle cramps, No muscle twitching, No muscle weakness, No neck pain, No other All Other Systems Reviewed Negative Unless Noted: Yes Past Wvphovi-Crhgsr-Yogoop Hx Patient Social History Alcohol Use: Denies Use Recreational Drug Use: No Smoking Status: Former Smoker Type Used: Cigars, Cigarettes Former Smoker, Quit: Apr 17, 2019 Recent Foreign Travel: No Contact w/Someone Who Travel: No Recent Infectious Disease Expo: No Recent Hopitalizations: No Physical Abuse: No Sexual Abuse: No Mistreated: No Fear: No Immunizations Up To Date Date of Pneumonia Vaccine: May 13, 2017 Seasonal Allergies Seasonal Allergies: No Past Medical History Surgeries: No Respiratory: Yes COPD Cardiac: Yes Chronic Edema/Swelling Neurological: No Genitourinary: No Gastrointestinal: No Musculoskeletal: No Endocrine: Yes Diabetes, Non-Insulin dep HEENT: No Cancer: No Psychosocial: No Integumentary: No Blood Disorders: No Family Medical History Bone cancer 19 MOTHER Diabetes mellitus G8 BROTHER G8 BROTHER FH: lung cancer 19 FATHER No Pertinent Family Hx Physical Exam Vital Signs Vital Signs - First Documented 07/27/20 12:44 Temp 36.9 Pulse 98 Resp 16 B/P (MAP) 154/106 (122) Pulse Ox 16 O2 Delivery Room Air Capillary Refill : Less Than 3 Seconds Height, Weight, BMI Height: 5'5.00" Weight: 158lbs. 2.9oz. 71.933291td; 30.00 BMI Method:Stated General Appearance: WD/WN, no apparent distress Neck: non-tender, full range of motion, supple, normal inspection Cardiovascular: normal peripheral pulses, regular rate, rhythm, no edema, no gallop, no JVD, no murmur Respiratory: chest non-tender, lungs clear, normal breath sounds, no respiratory distress, no accessory muscle use Gastrointestinal: normal bowel sounds, non tender, soft, no organomegaly, no pulsatile mass Back: normal inspection, no CVA tenderness, no vertebral tenderness Shoulder: limited ROM, pain Procedures/Interventions Date of ETT Placement: May 18, 2019 Time of ETT Placement: 1019 Progress/Results/Core Measures Results/Orders My Orders Orders - MAURY HALL MD Humerus 2 View Left (07/27/20 12:58) Vital Signs/I&O 07/27/20 12:44 Temp 36.9 Pulse 98 Resp 16 B/P (MAP) 154/106 (122) Pulse Ox 16 O2 Delivery Room Air Blood Pressure Mean: 122 Progress Progress Note : Time: 13:37 Progress Note Xray FINDINGS: There is a comminuted fracture of the left humeral head and neck, without evidence of dislocation. There is mild impaction of the fracture fragments. The mid and distal portions of the humeral shaft are intact. IMPRESSION: Comminuted left humeral head and neck fracture, as above. I did discuss length with Dr. Camacho orthopedics. He agrees to see the patient as an outpatient in a week to 10 days. Call his office for an appointment. Call Dr. Camacho's office for an appointment to have a follow-up appointment within a week. Continue sling as instructed. Take medications as needed for pain. Rest ice and elevation of the affected joint as instructed. Follow-up with PCP if needed additional medications for pain Departure Impression Primary Impression: Proximal humeral fracture Disposition: 01 HOME, SELF-CARE Condition: Stable Departure-Patient Inst. Decision time for Depature: 13:39 Referrals: VINAY CARRILLO MD (PCP/Family) Primary Care Physician MITRA CAMACHO MD Patient Instructions: Shoulder Fracture (DC) Add. Discharge Instructions: Call Dr. Camacho's office for an appointment to have a follow-up appointment within a week. Continue sling as instructed. Take medications as needed for pain. Rest ice and elevation of the affected joint as instructed. Follow-up with PCP if needed additional medications for pain All discharge instructions reviewed with patient and/or family. Voiced understanding. Scripts Hydrocodone/Acetaminophen (Hydrocodone-Acetamin 5-325 mg) 1 Each Tablet 1 EACH PO TID PRN for PAIN-MODERATE (5-7), #10 TAB 0 Refills Prov: MAURY HALL MD 07/27/20 Diclofenac Sodium (Diclofenac Sodium) 75 Mg Tablet. 75 MG PO BID for 10 Days, #20 TAB 0 Refills Prov: MAURY HALL MD 07/27/20 MAURY HALL MD Jul 27, 2020 13:02
--- NOTE | 2020-07-27 13:27 | Diagnostic Imaging Report ---
INDICATION: Injury to left arm and shoulder. TECHNIQUE: AP and lateral views of the left humerus are obtained at 01:05 p.m. FINDINGS: There is a comminuted fracture of the left humeral head and neck, without evidence of dislocation. There is mild impaction of the fracture fragments. The mid and distal portions of the humeral shaft are intact. IMPRESSION: Comminuted left humeral head and neck fracture, as above. Dictated by: Dictated on workstation # [id number]
[2020-07-27] MEDS ORDERED: DICL75TA2 PO (13:40)
[2020-07-27] MEDS ORDERED: ACHD5005 PO (13:40)
[2020-07-27] MEDS ORDERED: HYDROcodone/APAP 5 MG/325 MG (LORTAB) TAB PO ONE (13:45)
== END 2020-07-27 13:51 | disposition home or self-care (01) ==
LOC: EDUNIT# 12:39 → ER FS 12:41
DX: S42.292A Other displaced fracture of upper end of left humerus, initial encounter for closed fracture (principal); J44.9 Chronic obstructive pulmonary disease, unspecified; E11.9 Type 2 diabetes mellitus without complications; Z80.3 Family history of malignant neoplasm of breast; Z83.3 Family history of diabetes mellitus; Z80.1 Family history of malignant neoplasm of trachea, bronchus and lung; Z87.891 Personal history of nicotine dependence; Z79.4 Long term (current) use of insulin; Z79.52 Long term (current) use of systemic steroids; Z79.82 Long term (current) use of aspirin; W10.9XXA Fall (on) (from) unspecified stairs and steps, initial encounter
CPT/HCPCS: 73060

== ENCOUNTER → 2020-08-03 | Outpatient (CLI) | payer MEDICARE ==
[~2020-08-03] MED LIST changes: +ACHD5005 PO; +DICL75TA2 PO
--- NOTE | 2020-08-03 10:26 | Diagnostic Imaging Report ---
INDICATION: Fall with left shoulder injury. TIME OF EXAM: 10:01 AM. TECHNIQUE: Two views of the left shoulder were obtained. FINDINGS: There is an acute impacted fracture of the proximal humerus. The humeral head appears to be rotated and displaced slightly inferior with marked widening of the acromiohumeral space. The distal humerus fracture fragment does show some slight displacement laterally. The acromioclavicular alignment is normal. No other fractures are seen. IMPRESSION: Comminuted, impacted, and displaced proximal humerus fracture. Dictated by: Dictated on workstation # [id number]
== END ==
LOC: ORTHO 09:44
PROVIDERS: ATTEND Orthopaedic Surgery
DX: S42.352A Displaced comminuted fracture of shaft of humerus, left arm, initial encounter for closed fracture (principal); X58.XXXA Exposure to other specified factors, initial encounter
CPT/HCPCS: 73030; G0463; 99203

== ENCOUNTER → 2020-09-12 | Outpatient (CLI) | payer MEDICARE ==
[~2020-09-12] MED LIST changes: +CATHETER FLUSH 10 ML SYR IV PRN; +HOLD METFORMIN - RECEIVED CONTRAST 20 ML VIAL IV SCH; +IOHEXOL 350 MG/ML 100 ML (OMNIPAQUE 350) VIAL IV ONE; +NS 100 ML (IVPB) BAG IV ONE
[2020-09-12 10:19] LABS: CREATININE SERUM 1.02 MG/DL (0.60-1.30)
--- NOTE | 2020-09-12 11:54 | Diagnostic Imaging Report ---
PROCEDURE: CT chest with contrast only. TECHNIQUE: Multiple contiguous axial images were obtained through the chest after administration of intravenous contrast. Auto Exposure Controls were utilized during the CT exam to meet ALARA standards for radiation dose reduction. INDICATION: COPD with history of dyspnea and hypoxia. CORRELATION: 10/05/2019 FINDINGS: There is again demonstration of a few scattered shotty mediastinal and hilar lymph nodes. No definitive pathologically enlarged lymphadenopathy. Heart is enlarged with a prominent severity coronary artery calcification. There is calcification of the ascending thoracic aorta aortic arch. Additional mild plaque-like formation. Mild prominence of ascending aorta at 3.5 cm. Rather prominent bullous change about the lung apices are again demonstrated. Asymmetric right apical pleural parenchymal density likely scarring overall appears generally stable. There has been development of consolidation about both lower lobes particularly in the medial distribution. Some of these do have slightly tree-in-bud appearance. Additional minimal tree-in-bud appearance about the right middle lobe and lingula left upper lobe. Very small, 6 mm nodule adjacent pleura of the left upper lobe medially. Apparent change from prior. Small area of a herniated fat through the posterior left diaphragm, stable. No significant effusion. There does appear to be at least mild generalized hepatic steatosis. Advanced degenerative changes throughout the spine. Surgical change of the left humerus. IMPRESSION: 1. Rather advanced bullous emphysematous lung disease. 2. Superimposed areas of consolidation particular at the lower lobes in the posterior medial aspect. Given distribution can be seen with aspiration. Additional tree-in-bud type infiltrate is also present, can be seen with atypical-type pneumonitis. 3. Suggestion of slightly more prominent nodule left upper lobe. 4. Given the overall findings, short-term followup imaging is recommended for reassessment to document the resolution and/or clearance. Dictated by: Dictated on workstation # [id number]
== END ==
LOC: RAD FS 09:46
PROVIDERS: ATTEND Nurse Practitioner Family
DX: J44.9 Chronic obstructive pulmonary disease, unspecified (principal)
CPT/HCPCS: 36415; 71260; 82565; 84520

== ENCOUNTER → 2020-11-24 | Outpatient (CLI) | payer MEDICARE ==
[~2020-11-24] MED LIST changes: -CATHETER FLUSH 10 ML SYR IV PRN; -HOLD METFORMIN - RECEIVED CONTRAST 20 ML VIAL IV SCH; -IOHEXOL 350 MG/ML 100 ML (OMNIPAQUE 350) VIAL IV ONE; -LISI-556 PO; +LISI-729 PO; -NS 100 ML (IVPB) BAG IV ONE
--- NOTE | 2020-11-24 13:55 | Diagnostic Imaging Report ---
INDICATION: Pneumonia, cough, follow-up. TECHNIQUE: Two view chest 1:16 PM CORRELATION STUDY: 06/01/2019 FINDINGS: Right IJ Vdnlde-d-Uxvm catheter has been removed. Heart size and mediastinum are generally stable. Vasculature however slightly increased. Scattered pulmonary parenchymal densities along with fibrobullous emphysematous changes are present. However, definitive focal consolidating infiltrate is not demonstrated. Density at the posterior costophrenic angles likely associated Bochdalek hernia with herniated fat. No significant effusion. Surgical change the left proximal humerus. Mildly advanced degenerative changes thoracic spine. IMPRESSION: 1. Largely chronic change about lung parenchyma. Definitive superimposed infiltrate is not suggested. Dictated by: Dictated on workstation # [id number]
== END ==
LOC: RAD FS 13:02
PROVIDERS: ATTEND Nurse Practitioner Family
DX: J18.9 Pneumonia, unspecified organism (principal)
CPT/HCPCS: 71046

== ENCOUNTER → 2020-12-06 | Outpatient (CLI) | payer MEDICARE ==
[~2020-12-06] MED LIST changes: +CATHETER FLUSH 10 ML SYR IV PRN; +HOLD METFORMIN - RECEIVED CONTRAST 20 ML VIAL IV SCH; +IOHEXOL 350 MG/ML 100 ML (OMNIPAQUE 350) VIAL IV ONE; +NS 100 ML (IVPB) BAG IV ONE
[2020-12-06 10:43] LABS: BUN/CREATININE RATIO 16; CREATININE SERUM 0.79 MG/DL (0.60-1.30); GFR ESTIMATED > 60
--- NOTE | 2020-12-06 12:12 | Diagnostic Imaging Report ---
EXAMINATION: CT Chest with intravenous contrast. TECHNIQUE: Multiple contiguous axial images were obtained through the chest after the uneventful administration of intravenous contrast. All CT scans use one or more of the following dose optimizing techniques: automated exposure control, MA and/or KvP adjustment based on a patient size and exam type, or iterative reconstruction. HISTORY: COPD COMPARISON: 09/12/2020 FINDINGS: There is moderate upper lobe predominant bullous emphysema. There are multifocal areas of centrilobular groundglass with more central solid nodularity. There is bibasilar atelectasis. These areas are new from prior exam. No pleural effusion. No pneumothorax. There is no axillary or supraclavicular lymphadenopathy. A 12 mm right hilar lymph node is unchanged. Heart size is normal. There are moderate coronary artery calcifications. No pericardial effusion. Aorta is normal in caliber. Limited views of the upper abdomen are unremarkable. There are no suspicious osseous lesions. IMPRESSION: 1. Moderate upper lobe predominant bullous emphysema. 2. Multifocal areas of centrilobular groundglass and nodularity which are mild in severity and most consistent with a mild infection. Dictated by: Dictated on workstation # [id number]
== END ==
LOC: RAD FS 09:58
PROVIDERS: ATTEND Nurse Practitioner Family
DX: J43.9 Emphysema, unspecified (principal); R91.8 Other nonspecific abnormal finding of lung field
CPT/HCPCS: 36415; 71260; 82565; 84520

== ENCOUNTER → 2021-02-15 | Outpatient (CLI) | payer MEDICARE ==
[~2021-02-15] MED LIST changes: -CATHETER FLUSH 10 ML SYR IV PRN; -HOLD METFORMIN - RECEIVED CONTRAST 20 ML VIAL IV SCH; -IOHEXOL 350 MG/ML 100 ML (OMNIPAQUE 350) VIAL IV ONE; -NS 100 ML (IVPB) BAG IV ONE
== END ==
LOC: CARD 13:53
PROVIDERS: ATTEND Nurse Practitioner Family
DX: I42.0 Dilated cardiomyopathy (principal)
CPT/HCPCS: 93306

== ENCOUNTER 2021-05-01 12:48 | Emergency (ER) | payer MEDICARE ==
[~2021-05-01] VITALS: Ht 164 cm; Wt 78.0 kg
--- NOTE | 2021-05-01 13:51 | Diagnostic Imaging Report ---
INDICATION: Fever and shortness of breath. COMPARISON: 11/24/2020. FINDINGS: The 5 lobed interstitial disease in the lungs radiographically is stable. No new pulmonary opacity. The heart size is stable. There is no overt vascular congestion. No effusion or pneumothorax. Post surgical changes in the left humerus are chronic. IMPRESSION: Unchanged interstitial disease. No new or acute appearing abnormality. Dictated by: Dictated on workstation # [id number]
[2021-05-01 13:57] LABS: BASOPHILS % (AUTO) 0 % (0-10); EOSINOPHILS % (AUTO) 0 % (0-10); HEMATOCRIT 42 % (35-52); HEMOGLOBIN 13.2 G/DL (11.5-16.0); LYMPHOCYTES % (AUTO) 9 % (12-44); MEAN CORPUSCULAR HEMOGLOBIN 27 PG (25-34); MEAN CORPUSCULAR HGB CONC 32 G/DL (32-36); MEAN CORPUSCULAR VOLUME 87 FL (80-99); MEAN PLATELET VOLUME 11.3 FL (7.4-10.4); MONOCYTES # (AUTO) 1.9 X 10^3 (0.0-1.0); MONOCYTES % (AUTO) 8 % (0-12); NEUTROPHILS # (AUTO) 18.1 X 10^3 (1.8-7.8); NEUTROPHILS % (AUTO) 82 % (42-75); PLATELET COUNT 239 10^3/uL (130-400); WHITE BLOOD COUNT 22.2 10^3/uL (4.3-11.0)
[2021-05-01 14:04] LABS: NEUTROPHILS % (MANUAL) 76 %
[2021-05-01 14:05] LABS: ATYPICAL LYMPHOCYTES 1 %; BAND NEUTROPHILS 9 %; EOSINOPHILS % (MANUAL) 1 %; LYMPHOCYTES % (MANUAL) 7 %; MONOCYTES % (MANUAL) 6 %; RBC MORPH NORMAL
[2021-05-01 14:08] LABS: ALBUMIN 4.2 GM/DL (3.2-4.5); BILIRUBIN,TOTAL 0.4 MG/DL (0.1-1.0); CALCIUM 9.6 MG/DL (8.5-10.1); CREATININE SERUM 0.9 MG/DL (0.60-1.30); POTASSIUM 4.7 MMOL/L (3.6-5.0); TOTAL PROTEIN 8.2 GM/DL (6.4-8.2)
[2021-05-01 14:12] LABS: BACTERIA,URINE FEW /HPF; BILIRUBIN,URINE NEGATIVE (NEGATIVE); CLARITY,URINE SL CLOUDY; COLOR,URINE YELLOW; GLUCOSE, URINE (UA) NEGATIVE (NEGATIVE); KETONES,URINE NEGATIVE (NEGATIVE); LEUKOCYTE ESTERASE ,URINE 1+ (NEGATIVE); NITRITE,URINE NEGATIVE (NEGATIVE); PROTEIN,URINE NEGATIVE (NEGATIVE); RBC,URINE 0-2 /HPF; WBC,URINE 25-50 /HPF
[2021-05-01] MEDS ORDERED: predniSONE 20 MG TAB PO ONE (14:15)
--- NOTE | 2021-05-01 14:16 | ED General ---
General Chief Complaint: Fever-Adult/Adol Stated Complaint: FEVER; SOB Nursing Triage Note: NEGATIVE COVID TEST AT URGENT CARE. PT REPORTS SHE IS ALWAYS SHORT OF BREATH WITH HER COPD AND ON 6L OF OXYGEN DAULY. SHE REPORTS SHE JUST HAD A FEVER OF 101 THIS AM, SHE DID NOT TREAT WITH ANTIPYRETICS. Source of Information: Patient History of Present Illness Date Seen by Provider: May 01, 2021 Time Seen by Provider: 13:00 Initial Comments Patient is 61-year-old female with history of COPD and chronic respiratory failure requiring 6 L of supplemental oxygen at baseline and BiPAP during the evening who presents with generalized weakness fatigue and fever of 101.1 this morning. Patient's fatigue weakness and fever have since resolved. She was evaluated at urgent care and had a negative Covid swab. She was referred to the emergency department for further evaluation. She reports deep cough this morning which has since improved. She denies recent antibiotics, sore throat, body aches, chest pain, nausea or vomiting. Denies urinary frequency urgency or burning. No leg pain swelling or rash. No other acute symptoms or complaints. Patient has not received the Covid vaccination. Timing/Duration: 4-6 Hours Severity: Mild Modifying Factors: improves with Other Associated Systoms: Other Allergies and Home Medications Allergies Coded Allergies: No Known Drug Allergies (Unverified , 05/13/19) Home Medications Albuterol Sulfate 2.5 Mg/3 Ml Vial.neb, 2.5 MG NEB TID PRN for SHORTNESS OF BREATH, (Reported) Amitriptyline HCl 100 Mg Tablet, 100 MG PO HS, (Reported) Aspirin 81 Mg Tablet.dr, 81 MG PO DAILY, (Reported) Atorvastatin Calcium 10 Mg Tablet, 10 MG PO DAILY, (Reported) Diclofenac Sodium 75 Mg Tablet.dr, 75 MG PO BID Prescribed by: MAURY HALL on 07/27/20 1340 Fluconazole 100 Mg Tablet, 100 MG PO DAILY Prescribed by: CE HOBBS on 06/01/19 1022 Furosemide 20 Mg Tablet, 20 MG PO DAILY, (Reported) Gabapentin 300 Mg Capsule, 300 MG PO TID, (Reported) Glyburide 1.25 Mg Tablet, 1.25 MG PO DAILY, (Reported) Hydrocodone/Acetaminophen 1 Each Tablet, 1 EACH PO TID PRN for PAIN-MODERATE (5- 7) Prescribed by: MAURY HALL on 07/27/20 1340 Lisinopril 5 Mg Tablet, 5 MG PO DAILY, (Reported) Metformin HCl 500 Mg Tablet, 1,000 MG PO BID, (Reported) TAKES 2 (500MG) TABLETS Metoprolol Tartrate 50 Mg Tablet, 50 MG PO BID, (Reported) Mv-Mn/Folic Acid/Calcium/Vit K 1 Each Tablet, 1 TAB PO DAILY, (Reported) Omeprazole 20 Mg Capsule.dr, 20 MG PO DAILY, (Reported) Prednisone 10 Mg Tab.ds.pk, 10 MG PO DAILY Take 4 tabs(40mg)daily,decrease by 1 tab(10mg)every other day. Prescribed by: CE HOBBS on 06/01/19 1022 Patient Home Medication List Home Medication List Reviewed: Yes Review of Systems Review of Systems Constitutional: see HPI EENTM: see HPI Respiratory: see HPI Gastrointestinal: see HPI Genitourinary: see HPI Musculoskeletal: see HPI Skin: see HPI Psychiatric/Neurological: See HPI Hematologic/Lymphatic: See HPI Immunological/Allergic: see HPI All Other Systems Reviewed Negative Unless Noted: Yes Past Arcupsc-Khxibl-Mdzfjs Hx Patient Social History Tobacco Use?: No Tobacco type used: Cigarettes Smoking Status: Former Smoker Use of E-Cig and/or Vaping dev: No Substance use?: No Alcohol Use?: No Pt feels they are or have been: No Seasonal Allergies Seasonal Allergies: No Past Medical History Surgeries: No Respiratory: Yes COPD Cardiac: Yes Chronic Edema/Swelling Neurological: No Genitourinary: No Gastrointestinal: No Musculoskeletal: No Endocrine: Yes Diabetes, Non-Insulin dep HEENT: No Cancer: No Psychosocial: No Integumentary: No Blood Disorders: No Family Medical History Bone cancer 19 MOTHER Diabetes mellitus G8 BROTHER G8 BROTHER FH: lung cancer 19 FATHER No Pertinent Family Hx Physical Exam Vital Signs Vital Signs - First Documented 05/01/21 13:00 Temp 36.5 Pulse 112 Resp 22 B/P (MAP) 158/77 (104) Pulse Ox 94 O2 Delivery Nasal Cannula O2 Flow Rate 6.00 Capillary Refill : Less Than 3 Seconds Height, Weight, BMI Height: 5'5.00" Weight: 158lbs. 2.9oz. 71.663435wl; 29.00 BMI Method:Stated General Appearance: No Apparent Distress, WD/WN Eyes: Bilateral Eye Normal Inspection, Bilateral Eye PERRL, Bilateral Eye EOMI HEENT: PERRL/EOMI, Pharynx Normal Neck: Non Tender, Supple Respiratory: Decreased Breath Sounds, Rhonci Cardiovascular: Regular Rate, Rhythm, No Edema, No Murmur Gastrointestinal: Soft, Other (Obesity compromising exam) Extremity: Normal Capillary Refill Neurologic/Psychiatric: Alert, Oriented x3 Skin: Normal Color Procedures/Interventions Date of ETT Placement: May 18, 2019 Time of ETT Placement: 1019 Progress/Results/Core Measures Suspected Sepsis SIRS Temperature: Pulse: 112 Respiratory Rate: 22 Laboratory Tests 05/01/21 13:26: White Blood Count 22.2H Blood Pressure 158 /77 Mean: 104 Laboratory Tests 05/01/21 13:26: Creatinine 0.90, Platelet Count 239, Total Bilirubin 0.4 Results/Orders Lab Results Laboratory Tests Test 05/01/21 13:00 05/01/21 13:26 Range/Units White Blood Count 22.2 H 4.3-11.0 10^3/uL Red Blood Count 4.82 4.35-5.85 10^6/uL Hemoglobin 13.2 11.5-16.0 G/DL Hematocrit 42 35-52 % Mean Corpuscular Volume 87 80-99 FL Mean Corpuscular Hemoglobin 27 25-34 PG Mean Corpuscular Hemoglobin Concent 32 32-36 G/DL Red Cell Distribution Width 15.2 H 10.0-14.5 % Platelet Count 239 130-400 10^3/uL Mean Platelet Volume 11.3 H 7.4-10.4 FL Immature Granulocyte % (Auto) 1 % Neutrophils (%) (Auto) 82 H 42-75 % Lymphocytes (%) (Auto) 9 L 12-44 % Monocytes (%) (Auto) 8 0-12 % Eosinophils (%) (Auto) 0 0-10 % Basophils (%) (Auto) 0 0-10 % Neutrophils # (Auto) 18.1 H 1.8-7.8 X 10^3 Lymphocytes # (Auto) 2.0 1.0-4.0 X 10^3 Monocytes # (Auto) 1.9 H 0.0-1.0 X 10^3 Eosinophils # (Auto) 0.0 0.0-0.3 10^3/uL Basophils # (Auto) 0.0 0.0-0.1 10^3/uL Immature Granulocyte # (Auto) 0.1 0.0-0.1 10^3/uL Neutrophils % (Manual) 76 % Lymphocytes % (Manual) 7 % Monocytes % (Manual) 6 % Eosinophils % (Manual) 1 % Band Neutrophils 9 % Atypical Lymphocytes 1 % Blood Morphology Comment NORMAL Sodium Level 136 135-145 MMOL/L Potassium Level 4.7 3.6-5.0 MMOL/L Chloride Level 97 L 98-107 MMOL/L Carbon Dioxide Level 24 21-32 MMOL/L Anion Gap 15 H 5-14 MMOL/L Blood Urea Nitrogen 16 7-18 MG/DL Creatinine 0.90 0.60-1.30 MG/DL Estimat Glomerular Filtration Rate 63 BUN/Creatinine Ratio 18 Glucose Level 105 70-105 MG/DL Calcium Level 9.6 8.5-10.1 MG/DL Corrected Calcium 9.4 8.5-10.1 MG/DL Total Bilirubin 0.4 0.1-1.0 MG/DL Aspartate Amino Transf (AST/SGOT) 73 H 5-34 U/L Alanine Aminotransferase (ALT/SGPT) 22 0-55 U/L Alkaline Phosphatase 134 40-136 U/L Total Protein 8.2 6.4-8.2 GM/DL Albumin 4.2 3.2-4.5 GM/DL Micro Results Microbiology 05/01/21 Influenza Types A,B Antigen ([facility]) - Final, Complete My Orders Orders - JUAN HALL DO Cbc With Automated Diff (05/01/21 13:17) Comprehensive Metabolic Panel (05/01/21 13:17) Chest 1 View Ap/Pa Only (05/01/21 13:17) Urinalysis (05/01/21 13:19) Influenza A And B Antigens (05/01/21 13:19) Manual Differential (05/01/21 13:26) Prednisone Tablet (Deltasone Tablet) (05/01/21 14:15) Vital Signs/I&O 05/01/21 13:00 Temp 36.5 Pulse 112 Resp 22 B/P (MAP) 158/77 (104) Pulse Ox 94 O2 Delivery Nasal Cannula O2 Flow Rate 6.00 Capillary Refill : Less Than 3 Seconds Blood Pressure Mean: 104 Departure Communication (Admissions) Chest x-ray: No acute cardiopulmonary disease per radiology report Impression Primary Impression: Bronchial pneumonia Additional Impressions: Chronic respiratory failure COPD (chronic obstructive pulmonary disease) Disposition: 01 HOME, SELF-CARE Condition: Stable Departure-Patient Inst. Decision time for Depature: 14:14 Referrals: VINAY CARRILLO MD (PCP/Family) Primary Care Physician Patient Instructions: Pneumonia, Adult ED, Chronic Obstructive Pulmonary Disease (COPD) (DC) Add. Discharge Instructions: Please take newly prescribed medications as directed and follow-up with your PCP for reevaluation in 2 to 3 days. Use albuterol inhaler 2 puffs every 4-6 hours while awake for the next 2 days. Return to the ED if new or worsening symptoms. All discharge instructions reviewed with patient and/or family. Voiced understanding. Scripts Levofloxacin (Levofloxacin) 750 Mg Tablet 750 MG PO DAILY for 7 Days, TAB Prov: JUAN HALL DO 05/01/21 Prednisone (Prednisone) 20 Mg Tab 40 MG PO DAILY, #5 TAB 0 Refills Prov: JUAN HALL DO 05/01/21 JUAN HALL DO May 01, 2021 14:16
[2021-05-01] MEDS ORDERED: PRD20T PO (14:17)
[2021-05-01] MEDS ORDERED: LEVO750T39 PO (14:17)
[2021-05-01 14:21] VITALS: BP 121/88
== END 2021-05-01 14:27 | disposition home or self-care (01) ==
LOC: EDUNIT# 12:48 → ER FS 12:50
DX: J18.0 Bronchopneumonia, unspecified organism (principal); J96.10 Chronic respiratory failure, unspecified whether with hypoxia or hypercapnia; J44.9 Chronic obstructive pulmonary disease, unspecified; E11.9 Type 2 diabetes mellitus without complications; Z87.891 Personal history of nicotine dependence; Z79.82 Long term (current) use of aspirin; Z79.52 Long term (current) use of systemic steroids; Z79.84 Long term (current) use of oral hypoglycemic drugs; Z79.899 Other long term (current) drug therapy
CPT/HCPCS: 36415; 71045; 80053; 81000; 85007; 85027; 87088; 87804

== ENCOUNTER → 2021-05-18 | Outpatient (CLI) | payer MEDICARE ==
[~2021-05-18] MED LIST changes: +LEVO750T39 PO; +PRD20T PO; +RT-ALBUTEROL SULF 2.5 MG/3 ML PRE-MIX VIAL INH ONE
== END ==
LOC: RT 09:30
PROVIDERS: ATTEND Nurse Practitioner Family
DX: J44.9 Chronic obstructive pulmonary disease, unspecified (principal)
CPT/HCPCS: 94060; 94726; 94729

== ENCOUNTER 2021-10-09 17:41 | Inpatient (IN) | payer MEDICARE ==
[~2021-10-09] VITALS: Ht 165.1 cm; Wt 77.3 kg
[~2021-10-09 17:41] MED LIST changes: -LISI-729 PO; +LISI5TAB20 PO; -RT-ALBUTEROL SULF 2.5 MG/3 ML PRE-MIX VIAL INH ONE
[2021-10-09] MEDS ORDERED: ACETAMINOPHEN 325 MG TABLET PO STA (18:07)
[2021-10-09] MEDS ORDERED: NS IV 1000 ML 1,000 ML IV STA ×2 (18:07→20:32)
--- NOTE | 2021-10-09 18:40 | Diagnostic Imaging Report ---
INDICATION: Fever and cough Frontal chest obtained at 0623 p.m. and compared to 05/01/2021. Heart is mildly enlarged. There is central vascular prominence. There is extensive chronic interstitial disease. There appears to be some new infiltrate in the left midlung laterally. There is no pneumothorax or pleural fluid. IMPRESSION: Mild cardiomegaly. Extensive chronic interstitial changes. There appears to be some new infiltrate in the left midlung laterally, which may represent superimposed pneumonia. Follow-up is recommended. Dictated by: Dictated on workstation # [id number]
[2021-10-09 18:44] LABS: HEMATOCRIT 41 % (35-52); HEMOGLOBIN 13.3 g/dL (11.5-16.0); MEAN CORPUSCULAR HEMOGLOBIN 28 pg (25-34); MEAN CORPUSCULAR HGB CONC 32 g/dL (32-36); MEAN CORPUSCULAR VOLUME 86 fL (80-99); MEAN PLATELET VOLUME 11.5 fL (9.0-12.2); PLATELET COUNT 250 10^3/uL (130-400); WHITE BLOOD COUNT 25.9 10^3/uL (4.3-11.0)
[2021-10-09 18:45] LABS: BASOPHILS # (AUTO) 0.1 10^3/uL (0.0-0.1); BASOPHILS % (AUTO) 0 % (0-10); EOSINOPHILS % (AUTO) 0 % (0-10); LYMPHOCYTES # (AUTO) 1.8 X 10^3 (1.0-4.0); LYMPHOCYTES % (AUTO) 7 % (12-44); MONOCYTES % (AUTO) 8 % (0-12); NEUTROPHILS # (AUTO) 21.8 X 10^3 (1.8-7.8); NEUTROPHILS % (AUTO) 84 % (42-75)
[2021-10-09 18:46] LABS: PROTHROMBIN TIME PATIENT 13.6 SEC (12.2-14.7)
[2021-10-09 19:32] LABS: POTASSIUM 4.5 MMOL/L (3.6-5.0); SODIUM 137 MMOL/L (135-145)
[2021-10-09 19:33] LABS: ALANINE AMINOTRANSFERASE 18 U/L (0-55); ALBUMIN 4.5 GM/DL (3.2-4.5); ALKALINE PHOSPHATASE 128 U/L (40-136); BILIRUBIN,TOTAL 0.5 MG/DL (0.1-1.0); BUN/CREATININE RATIO 16; CALCIUM 9.6 MG/DL (8.5-10.1); CARBON DIOXIDE 24 MMOL/L (21-32); CHLORIDE 96 MMOL/L (98-107); CREATININE SERUM 1.28 MG/DL (0.60-1.30); GFR ESTIMATED 42; GLUCOSE 112 MG/DL (70-105); TOTAL PROTEIN 8.6 GM/DL (6.4-8.2)
[2021-10-09 19:48] LABS: ANISOCYTOSIS MODERATE; BAND NEUTROPHILS 10 %; LYMPHOCYTES % (MANUAL) 12 %; METAMYELOCYTES % 1 %; MONOCYTES % (MANUAL) 7 %; NEUTROPHILS % (MANUAL) 70 %; PLATELET ESTIMATE NORMAL; RBC MORPH NORMAL
[2021-10-09 19:49] LABS: POLYCHROMASIA SLIGHT
[2021-10-09 20:00] LABS: BILIRUBIN,URINE NEGATIVE (NEGATIVE); CLARITY,URINE CLEAR; COLOR,URINE YELLOW; GLUCOSE, URINE (UA) NEGATIVE (NEGATIVE); KETONES,URINE NEGATIVE (NEGATIVE); LEUKOCYTE ESTERASE ,URINE NEGATIVE (NEGATIVE); NITRITE,URINE NEGATIVE (NEGATIVE); PROTEIN,URINE TRACE (NEGATIVE)
[2021-10-09 20:08] LABS: BACTERIA,URINE FEW /HPF
--- NOTE | 2021-10-09 20:22 | ED General ---
General Chief Complaint: Fever-Adult/Adol Stated Complaint: O2 LOW, BLOOD SUGAR HIGH Nursing Triage Note: Patient presents to the ED with c/o high blood sugar and low oxygen saturation. Patient brother reports that he checked the patient blood sugar when she woke up due to her being jittery and it was reportedly 260 and her oxygen saturation was in the 80s. The patient reports feeling dizzy, weak, and has a migraine behind her right eye. Patient also reports a change in her cough. Source of Information: Patient, Caregiver History of Present Illness Date Seen by Provider: Oct 09, 2021 Time Seen by Provider: 19:11 Initial Comments 61-year-old female presenting with her brother to the emergency department. She has been having increased shortness of breath and cough over the last few days. She has been having elevated blood sugars in the 260 range as well as oxygen levels down into the 80s. She has been feeling more weak and dizzy. She has felt like her cough has changed over the last few days. She has chronic oxygen requirement due to COPD and is on 6 L/min all the time. She has been feeling unsteady when she was walking. She has not had anything to eat all day because she had been sleeping and weak. On arrival to the ED she was running a fever of 101 Fahrenheit. Her heart rate is up in the 120-130 range. Timing/Duration: 3-4 Days Severity: Moderate Modifying Factors: worse with Movement Associated Systoms: No Chest Pain; Cough, Diaphoresis, Fever/Chills, Headaches, Loss of Appetite, Malaise; No Nausea/Vomiting, No Rash, No Seizure; Shortness of Air (Chronic but seems to be worse in the last few days); No Syncope; Weakness (Generalized) Allergies and Home Medications Allergies Coded Allergies: No Known Drug Allergies (Unverified , 05/13/19) Patient Home Medication List Home Medication List Reviewed: Yes Albuterol Sulfate (Albuterol Sulfate) 2.5 Mg/3 Ml Vial.neb, 2.5 MG NEB TID PRN for SHORTNESS OF BREATH, (Reported) Entered as Reported by: YOGI SHARP on 05/13/19 1057 Amitriptyline HCl (Amitriptyline HCl) 100 Mg Tablet, 100 MG PO HS, (Reported) Entered as Reported by: YOGI SHARP on 04/20/19 0914 Aspirin (Aspirin EC) 81 Mg Tablet.dr, 81 MG PO DAILY, (Reported) Entered as Reported by: YOGI SHARP on 05/13/19 1238 Atorvastatin Calcium (Atorvastatin Calcium) 10 Mg Tablet, 10 MG PO DAILY, (Reported) Entered as Reported by: YOGI SHARP on 04/20/19 09 Diclofenac Sodium (Diclofenac Sodium) 75 Mg Tablet.dr, 75 MG PO BID Prescribed by: MAURY HALL on 07/27/20 1340 Fluconazole (Fluconazole) 100 Mg Tablet, 100 MG PO DAILY Prescribed by: CE HOBBS on 06/01/19 1022 Furosemide (Furosemide) 20 Mg Tablet, 20 MG PO DAILY, (Reported) Entered as Reported by: YOGI SHARP on 05/13/19 105 Gabapentin (Gabapentin) 300 Mg Capsule, 300 MG PO TID, (Reported) Entered as Reported by: YOGI SHARP on 04/20/19 09 Glyburide (Glyburide) 1.25 Mg Tablet, 1.25 MG PO DAILY, (Reported) Entered as Reported by: YOGI SHARP on 05/13/19 105 Hydrocodone/Acetaminophen (Hydrocodone-Acetamin 5-325 mg) 1 Each Tablet, 1 EACH PO TID PRN for PAIN-MODERATE (5-7) Prescribed by: MAURY HALL on 07/27/20 1340 Levofloxacin (Levofloxacin) 750 Mg Tablet, 750 MG PO DAILY Prescribed by: JUAN HALL on 05/01/21 1417 Lisinopril (Lisinopril) 5 Mg Tablet, 5 MG PO DAILY, (Reported) Entered as Reported by: YOGI SHARP on 05/13/19 105 Metformin HCl (Metformin HCl) 500 Mg Tablet, 1,000 MG PO BID, (Reported) Entered as Reported by: YOGI SHARP on 04/20/19 09 Metoprolol Tartrate (Metoprolol Tartrate) 50 Mg Tablet, 50 MG PO BID, (Reported) Entered as Reported by: YOGI SHARP on 05/13/19 1057 Mv-Mn/Folic Acid/Calcium/Vit K (Women's 50 Plus Multivit Tab) 1 Each Tablet, 1 TAB PO DAILY, (Reported) Entered as Reported by: YOGI SHARP on 04/20/19 09 Omeprazole (Omeprazole) 20 Mg Capsule.dr, 20 MG PO DAILY, (Reported) Entered as Reported by: YOGI SHARP on 05/13/19 1057 Prednisone (Prednisone) 10 Mg Tab.ds.pk, 10 MG PO DAILY Prescribed by: CE HOBBS on 06/01/19 1022 Prednisone (Prednisone) 20 Mg Tab, 40 MG PO DAILY Prescribed by: JUAN HALL on 05/01/21 1417 Review of Systems Review of Systems Constitutional: see HPI EENTM: nose congestion; No epistaxis Respiratory: cough, dyspnea on exertion, short of breath; No stridor, No wheezing Cardiovascular: palpitations; No syncope Gastrointestinal: No abdominal pain Genitourinary: No dysuria Musculoskeletal: No back pain Skin: No rash Psychiatric/Neurological: Headache, Weakness (Generalized) Past Hoidnxt-Kndast-Oizenp Hx Seasonal Allergies Seasonal Allergies: No Past Medical History Surgery/Hospitalization HX: COPD, chronic edema Surgeries: No Respiratory: Yes COPD Cardiac: Yes Chronic Edema/Swelling Neurological: No Genitourinary: No Gastrointestinal: No Musculoskeletal: No Endocrine: Yes Diabetes, Non-Insulin dep HEENT: No Cancer: No Psychosocial: No Integumentary: No Blood Disorders: No Family Medical History Bone cancer 19 MOTHER Diabetes mellitus G8 BROTHER G8 BROTHER FH: lung cancer 19 FATHER No Pertinent Family Hx Physical Exam Vital Signs Vital Signs - First Documented 10/09/21 18:01 Temp 38.4 Pulse 129 Resp 18 B/P (MAP) 113/65 (81) Pulse Ox 92 O2 Delivery Nasal Cannula O2 Flow Rate 6.00 Capillary Refill : Less Than 3 Seconds Height, Weight, BMI Height: 5'5.00" Weight: 158lbs. 2.9oz. [id number]; 28.00 BMI Method:Stated General Appearance: Chronically ill, Mild Distress HEENT: PERRL/EOMI, Pharynx Normal Neck: Full Range of Motion, Non Tender, Supple Respiratory: Chest Non Tender, Accessory Muscle Use, Decreased Breath Sounds Cardiovascular: Normal Peripheral Pulses, Tachycardia Gastrointestinal: Normal Bowel Sounds, No Pulsatile Mass, Non Tender, Soft Rectal: Deferred Extremity: Normal Capillary Refill, No Calf Tenderness, Pedal Edema (1+ pitting bilateral edema) Neurologic/Psychiatric: Alert, Oriented x3 Skin: Normal Color, Warm/Dry Focused Exam Lactate Level 10/09/21 18:08: Lactic Acid Level 2.57*H 10/09/21 21:18: Lactic Acid Level 1.29 Lactic Acid Level Laboratory Tests Test 10/09/21 18:08 10/09/21 21:18 Lactic Acid Level 2.57 MMOL/L (0.50-2.00) *H 1.29 MMOL/L (0.50-2.00) Procedures/Interventions Date of ETT Placement: May 18, 2019 Time of ETT Placement: 1019 Progress/Results/Core Measures Suspected Sepsis SIRS Temperature: Pulse: 129 Respiratory Rate: 18 Laboratory Tests 10/09/21 18:08: White Blood Count 25.9H Blood Pressure 113 /65 Mean: 81 10/09/21 18:08: Lactic Acid Level 2.57*H 10/09/21 21:18: Lactic Acid Level 1.29 Laboratory Tests 10/09/21 18:08: Creatinine 1.28, INR Comment 1.0, Platelet Count 250, Total Bilirubin 0.5 Results/Orders Lab Results Laboratory Tests Test 10/09/21 18:06 10/09/21 18:08 10/09/21 18:10 10/09/21 19:29 Range/Units Glucometer 105 70-110 MG/DL White Blood Count 25.9 H 4.3-11.0 10^3/uL Red Blood Count 4.77 3.80-5.11 10^6/uL Hemoglobin 13.3 11.5-16.0 g/dL Hematocrit 41 35-52 % Mean Corpuscular Volume 86 80-99 fL Mean Corpuscular Hemoglobin 28 25-34 pg Mean Corpuscular Hemoglobin Concent 32 32-36 g/dL Red Cell Distribution Width 15.8 H 10.0-14.5 % Platelet Count 250 130-400 10^3/uL Mean Platelet Volume 11.5 9.0-12.2 fL Immature Granulocyte % (Auto) 1 % Neutrophils (%) (Auto) 84 H 42-75 % Lymphocytes (%) (Auto) 7 L 12-44 % Monocytes (%) (Auto) 8 0-12 % Eosinophils (%) (Auto) 0 0-10 % Basophils (%) (Auto) 0 0-10 % Neutrophils # (Auto) 21.8 H 1.8-7.8 X 10^3 Lymphocytes # (Auto) 1.8 1.0-4.0 X 10^3 Monocytes # (Auto) 2.0 H 0.0-1.0 X 10^3 Eosinophils # (Auto) 0.0 0.0-0.3 10^3/uL Basophils # (Auto) 0.1 0.0-0.1 10^3/uL Immature Granulocyte # (Auto) 0.2 H 0.0-0.1 10^3/uL Neutrophils % (Manual) 70 % Lymphocytes % (Manual) 12 % Monocytes % (Manual) 7 % Metamyelocytes % 1 % Band Neutrophils 10 % Platelet Estimate NORMAL Polychromasia SLIGHT Anisocytosis MODERATE Blood Morphology Comment NORMAL Prothrombin Time 13.6 12.2-14.7 SEC INR Comment 1.0 0.8-1.4 Activated Partial Thromboplast Time 32 24-35 SEC Sodium Level 137 135-145 MMOL/L Potassium Level 4.5 3.6-5.0 MMOL/L Chloride Level 96 L 98-107 MMOL/L Carbon Dioxide Level 24 21-32 MMOL/L Anion Gap 17 H 5-14 MMOL/L Blood Urea Nitrogen 21 H 7-18 MG/DL Creatinine 1.28 0.60-1.30 MG/DL Estimat Glomerular Filtration Rate 42 BUN/Creatinine Ratio 16 Glucose Level 112 H 70-105 MG/DL Lactic Acid Level 2.57 *H 0.50-2.00 MMOL/L Calcium Level 9.6 8.5-10.1 MG/DL Corrected Calcium 9.2 8.5-10.1 MG/DL Total Bilirubin 0.5 0.1-1.0 MG/DL Aspartate Amino Transf (AST/SGOT) 27 5-34 U/L Alanine Aminotransferase (ALT/SGPT) 18 0-55 U/L Alkaline Phosphatase 128 40-136 U/L Troponin I < 0.30 <0.30 NG/ML C-Reactive Protein 26.71 H <0.50 MG/DL Pro-B-Type Natriuretic Peptide 144.6 H <75.0 PG/ML Total Protein 8.6 H 6.4-8.2 GM/DL Albumin 4.5 3.2-4.5 GM/DL Lipase 15 8-78 U/L Influenza Type A Antigen NEGATIVE NEGATIVE Influenza Type B Antigen POSITIVE H NEGATIVE Urine Color YELLOW Urine Clarity CLEAR Urine pH 6.0 5-9 Urine Specific [place] 1.015 L 1.016-1.022 Urine Protein TRACE H NEGATIVE Urine Glucose (UA) NEGATIVE NEGATIVE Urine Ketones NEGATIVE NEGATIVE Urine Nitrite NEGATIVE NEGATIVE Urine Bilirubin NEGATIVE NEGATIVE Urine Urobilinogen 0.2 < = 1.0 MG/DL Urine Leukocyte Esterase NEGATIVE NEGATIVE Urine RBC (Auto) NEGATIVE NEGATIVE Urine RBC NONE /HPF Urine WBC 2-5 /HPF Urine Squamous Epithelial Cells 5-10 /HPF Urine Crystals NONE /LPF Urine Bacteria FEW H /HPF Urine Casts PRESENT /LPF Urine Hyaline Casts 2-5 H /LPF Urine Mucus SMALL H /LPF Urine Culture Indicated NO Test 10/09/21 21:18 Range/Units Lactic Acid Level 1.29 0.50-2.00 MMOL/L My Orders Orders - PRIYA HODGSON MD Monitor-Rhythm Ecg Trace Only (10/09/21 18:07) Ed Iv/Invasive Line Start (10/09/21 18:07) Cbc With Automated Diff (10/09/21 18:07) Comprehensive Metabolic Panel (10/09/21 18:07) Crp Fs (10/09/21 18:07) Troponin I Fs (10/09/21 18:07) Protime With Inr (10/09/21 18:07) Partial Thromboplastin Time (10/09/21 18:07) Ekg Tracing (10/09/21 18:07) Blood Culture (10/09/21 18:07) Covid 19 Inhouse Test (10/09/21 18:07) Influenza A & B Antigens (10/09/21 18:07) Ua Culture If Indicated (10/09/21 18:07) Lipase (10/09/21 18:07) Lactic Acid Analyzer (10/09/21 18:07) Isolation Central Supply Req (10/09/21 18:07) O2 (10/09/21 18:07) Acetaminophen Tablet/Caplet (Tylenol T (10/09/21 18:07) Ns Iv 1000 Ml (Sodium Chloride 0.9%) (10/09/21 18:07) Probnp Fs (10/09/21 18:07) Chest 1 View Ap/Pa Only (10/09/21 18:07) Manual Differential (10/09/21 18:08) Ns Iv 1000 Ml (Sodium Chloride 0.9%) (10/09/21 20:32) Ceftriaxone 1 Gm Pre-Mix (Rocephin 1 Gm (10/09/21 20:32) Azithromycin Injection (Zithromax Inject (10/09/21 20:32) Oseltamivir 75 Mg Capsule (Tamiflu 75 (10/09/21 20:32) Ed Admission (Communication) (10/09/21 20:33) Vital Signs/I&O 10/09/21 10/09/21 10/09/21 18:01 18:49 22:11 Temp 38.4 38.4 Pulse 129 105 Resp 18 23 B/P (MAP) 113/65 (81) 112/46 Pulse Ox 92 98 O2 Delivery Nasal Cannula Nasal Cannula O2 Flow Rate 6.00 6.00 Capillary Refill : Less Than 3 Seconds Blood Pressure Mean: 81 Progress Note #1: Progress Note Obtain basic labs including blood cultures and lactic acid. Check a Covid swab including influenza swab. Chest x-ray to look for signs of pneumonia. Give IV fluids for hydration and tachycardia, acetaminophen for fever. Progress Note #2: Progress Note Labs showed elevated white blood cell count at 25.9. The lactic acid came back elevated at 2.57. Her chest x-ray shows diffuse patchy infiltrate that appears chronic but then has a new left-sided middle lobe infiltrate. She has influenza B that came back positive. Her oxygen and blood pressures are staying stable. Her heart rate is improving as she is getting fluids and hydration. Will discuss with Dr. Quintero for the [facility] service about admission for influenza B, pneumonia, sepsis ECG Initial ECG Impression Date: Oct 09, 2021 Initial ECG Impression Time: 18:03 Initial ECG Rate: 125 Initial ECG Rhythm: S.Tach Initial ECG Comparisson: Unchanged Comment Sinus tachycardia with heart rate of 125 bpm. Left atrial enlargement. ID interval 144 ms. Repolarization changes. QT interval 275 ms with a QTc interval [address] elevation. Appears similar to prior tracings. Diagnostic Imaging Diagonstic Imaging: Xray Plain Films/CT/US/NM/MRI: chest Comments [facility] [place] [place] NAME: [facility] REC#: [id number] PT STATUS: REG ER : 1960 PHYSICIAN: PRIYA HODGSON MD ADMIT DATE: 10/09/21/ER FS Signed Date of Exam:10/09/21 CHEST 1 VIEW AP/PA ONLY INDICATION: Fever and cough Frontal chest obtained at 0623 p.m. and compared to 05/01/2021. Heart is mildly enlarged. There is central vascular prominence. There is extensive chronic interstitial disease. There appears to be some new infiltrate in the left midlung laterally. There is no pneumothorax or pleural fluid. IMPRESSION: Mild cardiomegaly. Extensive chronic interstitial changes. There appears to be some new infiltrate in the left midlung laterally, which may represent superimposed pneumonia. Follow-up is recommended. Dictated by: Dictated on workstation # [id number] Dict: 10/09/21 1835 Trans: 10/09/21 1944 G[place]ETT [id number] Interpreted by: EDWIN HOLT MD Electronically signed by: EDWIN HOLT MD 10/09/214 Reviewed: Reviewed by Me Departure Communication (Admissions) Time/Spoke to Admitting Phy: 20:[address] Quintero and she accepted patient for admission to the [facility] service. Will start with IV antibiotics to cover for possible atypical pneumonia and Tamiflu Impression Primary Impression: Influenza B Additional Impressions: Pneumonia involving left lung Qualified Codes: J18.9 - Pneumonia, unspecified organism Sepsis Qualified Codes: A41.9 - Sepsis, unspecified organism Disposition: 30 STILL A PATIENT Condition: Stable Admissions Decision to Admit Reason: Admit from ER (General) Decision to Admit/Date: Oct 09, 2021 Time/Decision to Admit Time: 20:30 Departure-Patient Inst. Referrals: VINAY CARRILLO MD (PCP/Family) Primary Care Physician PRIYA HODGSON MD Oct 09, 2021 20:22
[2021-10-09] MEDS ORDERED: AZITHROMYCIN INJECTION 500 MG in NS (IVPB) 250 ML IV STA (20:32)
[2021-10-09] MEDS ORDERED: OSELTAMIVIR 75 MG (TAMIFLU) CAPSULE PO STA (20:32)
[2021-10-09] MEDS ORDERED: cefTRIAXone 1 GM PRE-MIX 50 ML IV STA (20:32)
[2021-10-09 23:00] VITALS: BP 107/66
[2021-10-09] MEDS ORDERED: NS IV 1000 ML 1,000 ML ONE (23:01)
[2021-10-09] MEDS: NS IV 1000 ML 1,000 ML IV SCH (23:29)
[2021-10-10 04:00] VITALS: BP 135/71
[2021-10-10] MEDS: NS IV 1000 ML 1,000 ML IV SCH ×5 (06:09→20:11)
[2021-10-10 06:38] LABS: BASOPHILS % (AUTO) 0 % (0-10); EOSINOPHILS # (AUTO) 0.1 10^3/uL (0.0-0.3); EOSINOPHILS % (AUTO) 0 % (0-10); HEMATOCRIT 36 % (35-52); LYMPHOCYTES # (AUTO) 2.4 10^3/uL (1.0-4.0); LYMPHOCYTES % (AUTO) 16 % (12-44); MEAN CORPUSCULAR HEMOGLOBIN 28 pg (25-34); MEAN CORPUSCULAR HGB CONC 31 g/dL (32-36); MEAN CORPUSCULAR VOLUME 91 fL (80-99); MONOCYTES # (AUTO) 1.1 10^3/uL (0.0-1.0); MONOCYTES % (AUTO) 8 % (0-12); NEUTROPHILS # (AUTO) 11.2 10^3/uL (1.8-7.8); NEUTROPHILS % (AUTO) 75 % (42-75); PLATELET COUNT 184 10^3/uL (130-400); WHITE BLOOD COUNT 14.9 10^3/uL (4.3-11.0)
[2021-10-10 07:02] LABS: ALBUMIN 3.5 GM/DL (3.2-4.5)
[2021-10-10 07:03] LABS: CALCIUM 8.6 MG/DL (8.5-10.1)
[2021-10-10 07:04] LABS: TOTAL PROTEIN 6.8 GM/DL (6.4-8.2)
[2021-10-10 07:06] LABS: BILIRUBIN,TOTAL 0.4 MG/DL (0.1-1.0)
[2021-10-10 07:08] LABS: CREATININE SERUM 0.84 MG/DL (0.60-1.30)
[2021-10-10 08:00] VITALS: BP_SYST 110; BP_SYST 150; BP_DIAS 66; BP_DIAS 70
[2021-10-10] MEDS: OSELTAMIVIR 75 MG (TAMIFLU) CAPSULE PO SCH ×2 (11:26→20:06)
[2021-10-10 12:00] VITALS: BP 128/81
--- NOTE | 2021-10-10 12:40 | History & Physical ---
HPI History of Present Illness: Weak and shaky x 2-3 days, fever up to 100. Mild cough not much different than her normal from COPD. Denies chest pain, shortness of breath. Source: patient Date seen by provider: Oct 10, 2021 Time Seen by Provider: 12:35 Attending Physician Girish Quintero MD PCP Jose Meek MD Consult Date of Admission Oct 09, 2021 at 20:55 Home Medications Home Medications Reviewed patient Home Medication Reconciliation performed by pharmacy medication reconciliations material handling technician and/or nursing. Patients Allergies have been reviewed. Allergies Coded Allergies: No Known Drug Allergies (Unverified , 05/13/19) VFU-Ycuqpg-Dyfajy Hx Patient Social History Smoking Status: Former Smoker (quit around 2017) Recent Hopitalizations: No Alcohol Use?: No Tobacco type used: Cigarettes Have you traveled recently?: No Immunizations Up To Date Influenza Vaccine Up-to-Date: Yes; Up-to-Date First/Initial COVID19 Vaccinat: 3 weeks ago (approx) - Around september Past Medical History PMHx: COPD Diastolic CHF DM Fibromyalgia SurgHx: Left arm fracture repair Family Medical History Family History: Bone cancer 19 MOTHER Diabetes mellitus G8 BROTHER G8 BROTHER FH: lung cancer 19 FATHER Review of Systems ([facility]) Constitutional: fever, malaise, weakness Respiratory: see HPI Cardiovascular: No chest pain Gastrointestinal: No abdominal pain, No constipation, No diarrhea, No nausea, No vomiting Genitourinary: No dysuria Musculoskeletal: No muscle pain Skin: No rash Reviewed Test Results Reviewed Test Results Lab Laboratory Tests Test 10/09/21 18:06 10/09/21 18:08 10/09/21 18:10 10/09/21 19:29 Range/Units Glucometer 105 70-110 MG/DL White Blood Count 25.9 H 4.3-11.0 10^3/uL Red Blood Count 4.77 3.80-5.11 10^6/uL Hemoglobin 13.3 11.5-16.0 g/dL Hematocrit 41 35-52 % Mean Corpuscular Volume 86 80-99 fL Mean Corpuscular Hemoglobin 28 25-34 pg Mean Corpuscular Hemoglobin Concent 32 32-36 g/dL Red Cell Distribution Width 15.8 H 10.0-14.5 % Platelet Count 250 130-400 10^3/uL Mean Platelet Volume 11.5 9.0-12.2 fL Immature Granulocyte % (Auto) 1 % Neutrophils (%) (Auto) 84 H 42-75 % Lymphocytes (%) (Auto) 7 L 12-44 % Monocytes (%) (Auto) 8 0-12 % Eosinophils (%) (Auto) 0 0-10 % Basophils (%) (Auto) 0 0-10 % Neutrophils # (Auto) 21.8 H 1.8-7.8 X 10^3 Lymphocytes # (Auto) 1.8 1.0-4.0 X 10^3 Monocytes # (Auto) 2.0 H 0.0-1.0 X 10^3 Eosinophils # (Auto) 0.0 0.0-0.3 10^3/uL Basophils # (Auto) 0.1 0.0-0.1 10^3/uL Immature Granulocyte # (Auto) 0.2 H 0.0-0.1 10^3/uL Neutrophils % (Manual) 70 % Lymphocytes % (Manual) 12 % Monocytes % (Manual) 7 % Metamyelocytes % 1 % Band Neutrophils 10 % Platelet Estimate NORMAL Polychromasia SLIGHT Anisocytosis MODERATE Blood Morphology Comment NORMAL Prothrombin Time 13.6 12.2-14.7 SEC INR Comment 1.0 0.8-1.4 Activated Partial Thromboplast Time 32 24-35 SEC Sodium Level 137 135-145 MMOL/L Potassium Level 4.5 3.6-5.0 MMOL/L Chloride Level 96 L 98-107 MMOL/L Carbon Dioxide Level 24 21-32 MMOL/L Anion Gap 17 H 5-14 MMOL/L Blood Urea Nitrogen 21 H 7-18 MG/DL Creatinine 1.28 0.60-1.30 MG/DL Estimat Glomerular Filtration Rate 42 BUN/Creatinine Ratio 16 Glucose Level 112 H 70-105 MG/DL Lactic Acid Level 2.57 *H 0.50-2.00 MMOL/L Calcium Level 9.6 8.5-10.1 MG/DL Corrected Calcium 9.2 8.5-10.1 MG/DL Total Bilirubin 0.5 0.1-1.0 MG/DL Aspartate Amino Transf (AST/SGOT) 27 5-34 U/L Alanine Aminotransferase (ALT/SGPT) 18 0-55 U/L Alkaline Phosphatase 128 40-136 U/L Troponin I < 0.30 <0.30 NG/ML C-Reactive Protein 26.71 H <0.50 MG/DL Pro-B-Type Natriuretic Peptide 144.6 H <75.0 PG/ML Total Protein 8.6 H 6.4-8.2 GM/DL Albumin 4.5 3.2-4.5 GM/DL Lipase 15 8-78 U/L Influenza Type A Antigen NEGATIVE NEGATIVE Influenza Type B Antigen POSITIVE H NEGATIVE SARS-CoV-2 RNA (RT-PCR) Negative Negative Urine Color YELLOW Urine Clarity CLEAR Urine pH 6.0 5-9 Urine Specific [place] 1.015 L 1.016-1.022 Urine Protein TRACE H NEGATIVE Urine Glucose (UA) NEGATIVE NEGATIVE Urine Ketones NEGATIVE NEGATIVE Urine Nitrite NEGATIVE NEGATIVE Urine Bilirubin NEGATIVE NEGATIVE Urine Urobilinogen 0.2 < = 1.0 MG/DL Urine Leukocyte Esterase NEGATIVE NEGATIVE Urine RBC (Auto) NEGATIVE NEGATIVE Urine RBC NONE /HPF Urine WBC 2-5 /HPF Urine Squamous Epithelial Cells 5-10 /HPF Urine Crystals NONE /LPF Urine Bacteria FEW H /HPF Urine Casts PRESENT /LPF Urine Hyaline Casts 2-5 H /LPF Urine Mucus SMALL H /LPF Urine Culture Indicated NO Test 10/09/21 21:18 10/10/21 06:35 Range/Units Lactic Acid Level 1.29 0.50-2.00 MMOL/L White Blood Count 14.9 H 4.3-11.0 10^3/uL Red Blood Count 3.91 3.80-5.11 10^6/uL Hemoglobin 11.0 L 11.5-16.0 g/dL Hematocrit 36 35-52 % Mean Corpuscular Volume 91 80-99 fL Mean Corpuscular Hemoglobin 28 25-34 pg Mean Corpuscular Hemoglobin Concent 31 L 32-36 g/dL Red Cell Distribution Width 15.7 H 10.0-14.5 % Platelet Count 184 130-400 10^3/uL Mean Platelet Volume 11.0 9.0-12.2 fL Immature Granulocyte % (Auto) 0 % Neutrophils (%) (Auto) 75 42-75 % Lymphocytes (%) (Auto) 16 12-44 % Monocytes (%) (Auto) 8 0-12 % Eosinophils (%) (Auto) 0 0-10 % Basophils (%) (Auto) 0 0-10 % Neutrophils # (Auto) 11.2 H 1.8-7.8 10^3/uL Lymphocytes # (Auto) 2.4 1.0-4.0 10^3/uL Monocytes # (Auto) 1.1 H 0.0-1.0 10^3/uL Eosinophils # (Auto) 0.1 0.0-0.3 10^3/uL Basophils # (Auto) 0.0 0.0-0.1 10^3/uL Immature Granulocyte # (Auto) 0.1 0.0-0.1 10^3/uL Sodium Level 139 135-145 MMOL/L Potassium Level 4.0 3.6-5.0 MMOL/L Chloride Level 105 98-107 MMOL/L Carbon Dioxide Level 23 21-32 MMOL/L Anion Gap 11 5-14 MMOL/L Blood Urea Nitrogen 17 7-18 MG/DL Creatinine 0.84 0.60-1.30 MG/DL Estimat Glomerular Filtration Rate 68 BUN/Creatinine Ratio 20 Glucose Level 122 H 70-105 MG/DL Calcium Level 8.6 8.5-10.1 MG/DL Corrected Calcium 9.0 8.5-10.1 MG/DL Total Bilirubin 0.4 0.1-1.0 MG/DL Aspartate Amino Transf (AST/SGOT) 17 5-34 U/L Alanine Aminotransferase (ALT/SGPT) 15 0-55 U/L Alkaline Phosphatase 83 40-136 U/L Total Protein 6.8 6.4-8.2 GM/DL Albumin 3.5 3.2-4.5 GM/DL Radiology CXR 10/09/21: IMPRESSION: Mild cardiomegaly. Extensive chronic interstitial changes. There appears to be s ome new infiltrate in the left midlung laterally,which may represent superimposed pneumonia. Follow-up is recommended. Physical Exam-([facility]) Physical Exam Vital Signs VS - Last 72 Hours, by Label 10/09/21 10/09/21 10/09/21 10/09/21 18:01 18:49 22:11 22:55 Temp 38.4 38.4 Pulse 129 105 Resp 18 23 B/P (MAP) 113/65 (81) 112/46 Pulse Ox 92 98 O2 Delivery Nasal Cannula Nasal Cannula Nasal Cannula O2 Flow Rate 6.00 6.00 5.00 10/09/21 10/09/21 10/10/21 10/10/21 23:00 23:00 04:00 08:00 Temp 36.4 36.4 36.4 36.6 Pulse 109 110 109 Resp 20 22 20 B/P (MAP) 107/66 (80) 135/71 (92) 150/66 (94) Pulse Ox 93 94 96 O2 Delivery Nasal Cannula Nasal Cannula Nasal Cannula O2 Flow Rate 5.00 5.00 5.00 10/10/21 10/10/21 10/10/21 10/10/21 08:00 08:00 12:00 14:54 Temp 36.2 Pulse 117 Resp 24 B/P (MAP) () 128/81 (97) Pulse Ox 96 O2 Delivery Room Air Nasal Cannula Nasal Cannula Nasal Cannula O2 Flow Rate 5.00 5.00 5.00 10/10/21 16:00 Temp 36.1 Pulse 117 Resp 20 B/P (MAP) 145/73 (97) Pulse Ox 94 O2 Delivery Nasal Cannula O2 Flow Rate 5.00 Capillary Refill : Less Than 3 Seconds General Appearance: WD/WN, no apparent distress Respiratory: decreased breath sounds (left), rhonchi (left) Cardiovascular: regular rate, rhythm, no murmur Gastrointestinal: normal bowel sounds, non tender, soft Neurologic/Psychiatric: normal mood/affect Skin: normal color Assessment/Plan Assessment/Plan Admission Status: Inpatient Order (span 2 midnights) Reason for Inpatient Admission: Influenza with severe comorbidities at high risk of decompensation (1) Influenza B Status: Acute Assessment & Plan: Oseltemavir (2) Pneumonia involving left lung Status: Acute Assessment & Plan: Azithromycin and ceftriaxone Qualifiers: Qualified Codes: J18.9 - Pneumonia, unspecified organism (3) HTN (hypertension) Status: Chronic (4) Sepsis Status: Acute Assessment & Plan: Secondary to pneumonia, Lactic acid elevated initially, now normal, leukocytosis improving today. Qualifiers: Qualified Codes: A41.9 - Sepsis, unspecified organism (5) COPD (chronic obstructive pulmonary disease) Status: Chronic (6) Chronic respiratory failure Status: Chronic Assessment & Plan: Stable, on home supplemental oxygen. Qualifiers: Qualified Codes: J96.11 - Chronic respiratory failure with hypoxia (7) Diabetes mellitus, type 2 Status: Chronic Assessment & Plan: Diabetic diet, sliding scale insulin Qualifiers: (8) CHF (congestive heart failure) Status: Chronic Assessment & Plan: History of acute systolic and diastolic, last echo 03/2021 with normal EF. Resume home lasix. Qualifiers: (9) CAD (coronary artery disease) Status: Chronic Assessment & Plan: Resume home aspirin (10) DVT prophylaxis Status: Acute Assessment & Plan: Enoxaparin GIRISH QUINTERO MD Oct 10, 2021 12:40
[2021-10-10] MEDS ORDERED: METO50TA15 PO (15:54)
[2021-10-10] MEDS ORDERED: FURO40TA4 PO (15:54)
[2021-10-10] MEDS ORDERED: OMEG-154 PO (15:54)
[2021-10-10] MEDS ORDERED: ALLO100T PO (15:54)
[2021-10-10] MEDS ORDERED: HYDR-3817 PO (15:54)
[2021-10-10] MEDS ORDERED: GLYB1.253 PO (15:54)
[2021-10-10] MEDS ORDERED: FLUT1BLS3 IH (15:54)
[2021-10-10] MEDS ORDERED: LISI10TA25 PO (15:54)
[2021-10-10] MEDS ORDERED: GABA300C PO (15:54)
[2021-10-10] MEDS ORDERED: RT-ALBUINH IH (15:56)
[2021-10-10 16:00] VITALS: BP 145/73
[2021-10-10] MEDS ORDERED: ENOXAPARIN 40 MG/0.4 ML (LOVENOX) SYR SQ SCH (18:00)
[2021-10-10] MEDS ORDERED: RT-ALBUTEROL SULF 2.5 MG/3 ML PRE-MIX VIAL IH PRN (18:00)
[2021-10-10] MEDS ORDERED: HYDROcodone/APAP 7.5 MG/325 MG (LORTAB, LORCET PLUS) TABLET PO PRN (18:00)
[2021-10-10] MEDS ORDERED: ACETAMINOPHEN 500 MG TAB (TYLENOL) PO PRN (18:00)
[2021-10-10 20:00] VITALS: BP 163/82
[2021-10-10] MEDS: meTOprolol TARTRATE 50 MG (LOPRESSOR) TAB PO SCH (20:06)
[2021-10-10] MEDS: GABAPENTIN 300 MG (NEURONTIN) CAP PO SCH (20:06)
[2021-10-10] MEDS ORDERED: cefTRIAXone 1 GM PRE-MIX 50 ML IV SCH (21:00)
[2021-10-10] MEDS ORDERED: AZITHROMYCIN INJECTION 500 MG in NS (IVPB) 250 ML IV SCH (21:00)
[2021-10-10] MEDS ORDERED: AMITRIPTYLINE 50 MG (ELAVIL) TAB PO SCH (21:00)
[2021-10-10] MEDS: RT--FLUTICASONE/SALMETEROL 232-14 (AIRDUO RespiCLICK) IH SCH (21:28)
[2021-10-10 23:46] VITALS: BP 146/79
[2021-10-11 03:55] VITALS: BP 126/78
[2021-10-11] MEDS: NS IV 1000 ML 1,000 ML IV SCH ×2 (03:59→05:20)
[2021-10-11 05:07] LABS: BASOPHILS % (AUTO) 0 % (0-10); EOSINOPHILS # (AUTO) 0.1 10^3/uL (0.0-0.3); EOSINOPHILS % (AUTO) 1 % (0-10); HEMATOCRIT 35 % (35-52); LYMPHOCYTES % (AUTO) 16 % (12-44); MEAN CORPUSCULAR HEMOGLOBIN 28 pg (25-34); MEAN CORPUSCULAR HGB CONC 32 g/dL (32-36); MEAN CORPUSCULAR VOLUME 88 fL (80-99); MONOCYTES % (AUTO) 8 % (0-12); NEUTROPHILS # (AUTO) 9.3 10^3/uL (1.8-7.8); NEUTROPHILS % (AUTO) 75 % (42-75); PLATELET COUNT 203 10^3/uL (130-400); WHITE BLOOD COUNT 12.5 10^3/uL (4.3-11.0)
[2021-10-11 05:21] LABS: ALBUMIN 3.4 GM/DL (3.2-4.5); POTASSIUM 4.3 MMOL/L (3.6-5.0)
[2021-10-11 05:22] LABS: CALCIUM 8.8 MG/DL (8.5-10.1)
[2021-10-11 05:24] LABS: TOTAL PROTEIN 6.9 GM/DL (6.4-8.2)
[2021-10-11 05:25] LABS: BILIRUBIN,TOTAL 0.4 MG/DL (0.1-1.0)
[2021-10-11 05:27] LABS: CREATININE SERUM 0.69 MG/DL (0.60-1.30)
[2021-10-11 08:00] VITALS: BP 152/68
[2021-10-11] MEDS ORDERED: UMECLIDINIUM BROMIDE (INCRUSE ELLIPTA) 7'S IH SCH (08:00)
[2021-10-11] MEDS ORDERED: FUROSEMIDE 40 MG (LASIX) TAB PO SCH (09:00)
[2021-10-11] MEDS ORDERED: PANTOPRAZOLE 20 MG TABLET (PROTONIX) PO SCH (09:00)
[2021-10-11] MEDS ORDERED: ASPIRIN E.C. 81 MG (ECOTRIN) TAB PO SCH (09:00)
[2021-10-11] MEDS ORDERED: ALLOPURINOL 100 MG (ZYLOPRIM) TAB PO SCH (09:00)
[2021-10-11] MEDS ORDERED: AtorvaSTATin TABLET 10 MG TABLET PO SCH (09:00)
[2021-10-11] MEDS ORDERED: lisINopril 10 MG (PRINIVIL) TABLET PO SCH (09:00)
[2021-10-11] MEDS: RT--FLUTICASONE/SALMETEROL 232-14 (AIRDUO RespiCLICK) IH SCH (09:06)
[2021-10-11] MEDS: OSELTAMIVIR 75 MG (TAMIFLU) CAPSULE PO SCH (10:04)
[2021-10-11] MEDS: GABAPENTIN 300 MG (NEURONTIN) CAP PO SCH (10:05)
[2021-10-11] MEDS: meTOprolol TARTRATE 50 MG (LOPRESSOR) TAB PO SCH (10:05)
[2021-10-11] MEDS ORDERED: CEFD300C3 PO (10:42)
--- NOTE | 2021-10-11 10:45 | Discharge Summary ---
Discharge Summary Hospital Course Problems/Diagnosis: (1) Influenza B Status: Acute Assessment & Plan: Discharged with Oseltemavir to complete course. Remained on home supplemental oxygen. (2) Pneumonia involving left lung Status: Acute Assessment & Plan: Azithromycin and ceftriaxone inpatient, discharged with cefdinir to complete course. Qualifiers: Qualified Codes: J18.9 - Pneumonia, unspecified organism (3) HTN (hypertension) Status: Chronic (4) Sepsis Status: Resolved Resolution Date/Time: 10/11/21 @ 10:43 Assessment & Plan: Secondary to pneumonia, Lactic acid elevated initially, now normal, leukocytosis improved to near normal by d/c. Qualifiers: Qualified Codes: A41.9 - Sepsis, unspecified organism (5) COPD (chronic obstructive pulmonary disease) Status: Chronic (6) Chronic respiratory failure Status: Chronic Assessment & Plan: Stable, on home supplemental oxygen. Qualifiers: Qualified Codes: J96.11 - Chronic respiratory failure with hypoxia (7) Diabetes mellitus, type 2 Status: Chronic Assessment & Plan: Diabetic diet, sliding scale insulin Qualifiers: (8) CHF (congestive heart failure) Status: Chronic Assessment & Plan: History of acute systolic and diastolic, last echo 03/2021 with normal EF. Resume home lasix. Qualifiers: (9) CAD (coronary artery disease) Status: Chronic Assessment & Plan: Resume home aspirin Hospital Course Date of Admission: Oct 09, 2021 at 20:55 Admission Diagnosis : Family Physician/Provider: Jose Meek MD Date of Discharge: 10/11/21 Discharge Diagnosis: See discharge diagnosis Hospital Course: See discharged diagnosis Labs and Pending Lab Test: Laboratory Tests 10/11/21 04:45: White Blood Count 12.5H, Red Blood Count 3.94, Hemoglobin 11.0L, Hematocrit 35, Mean Corpuscular Volume 88, Mean Corpuscular Hemoglobin 28, Mean Corpuscular Hemoglobin Concent 32, Red Cell Distribution Width 15.1H, Platelet Count 203, Mean Platelet Volume 11.0, Immature Granulocyte % (Auto) 0, Neutrophils (%) (Auto) 75, Lymphocytes (%) (Auto) 16, Monocytes (%) (Auto) 8, Eosinophils (%) (Auto) 1, Basophils (%) (Auto) 0, Neutrophils # (Auto) 9.3H, Lymphocytes # (Auto) 2.0, Monocytes # (Auto) 1.0, Eosinophils # (Auto) 0.1, Basophils # (Auto) 0.0, Immature Granulocyte # (Auto) 0.1, Sodium Level 139, Potassium Level 4.3, Chloride Level 107, Carbon Dioxide Level 22, Anion Gap 10, Blood Urea Nitrogen 6L, Creatinine 0.69, Estimat Glomerular Filtration Rate 86, BUN/Creatinine Ratio 9, Glucose Level 101, Calcium Level 8.8, Corrected Calcium 9.3, Total Bilirubin 0.4, Aspartate Amino Transf (AST/SGOT) 25, Alanine Aminotransferase (ALT/SGPT) 17, Alkaline Phosphatase 86, Total Protein 6.9, Albumin 3.4 Microbiology 10/09/21 Blood Culture - Preliminary, Resulted No growth Home Meds Active Cefdinir 300 Mg Capsule 300 Mg PO BID 5 Days Reported Proair Hfa (Albuterol Sulfate) 1 Puff Puff 2 Puff IH Q4H PRN Fish Oil [place]-3 Softgel ([place]-3S/Dha/Epa/Fish Oil) 1 Each Capsule.dr 1 Each PO BID Neurontin (Gabapentin) 300 Mg Capsule 300 Mg PO TID Metoprolol Tartrate 50 Mg Tablet 50 Mg PO BID Lisinopril 10 Mg Tablet 10 Mg PO DAILY Allopurinol 100 Mg Tablet 100 Mg PO DAILY Glyburide 1.25 Mg Tablet 1.25 Mg PO DAILY Furosemide 40 Mg Tablet 40 Mg PO DAILY Trelegy Ellipta 100-62.5-25 (Fluticasone/Umeclidin/Vilanter) 1 Each Blst.w.dev 1 Each IH DAILY Hydrocodone-Acetamin 7.5-325 (Hydrocodone/Acetaminophen) 1 Each Tablet 1 Each PO Q6H PRN Aspirin EC (Aspirin) 81 Mg Tablet. 81 Mg PO DAILY Omeprazole 20 Mg Capsule. 20 Mg PO DAILY Women's 50 Plus Multivit Tab (Mv-Mn/Folic Acid/Calcium/Vit K) 1 Each Tablet 1 Tab PO DAILY Atorvastatin Calcium 10 Mg Tablet 10 Mg PO DAILY Amitriptyline HCl 100 Mg Tablet 100 Mg PO HS Metformin HCl 500 Mg Tablet 1,000 Mg PO BID WITH MEALS TAKES 2 (500MG) TABLETS Assessment/Pt DC Instructions Follow up with Dr. Meek within a week of discharge. Discharge Diet: ADA Diet Activity as Tolerated: Yes Discharge Physical Examination Allergies: Coded Allergies: No Known Drug Allergies (Unverified , 8/7/19) General Appearance: No Apparent Distress Respiratory: No Accessory Muscle Use, Crackles (left); No Wheezing Cardiovascular: Regular Rate, Rhythm, No Murmur Extremity: No Pedal Edema Skin: Normal Color, Warm/Dry Neurologic/Psychiatric: Alert, Normal Mood/Affect GIRISH BINGHAM MD Oct 11, 2021 10:45
[2021-10-11] MEDS ORDERED: OSEL75CA15 PO (10:56)
[2021-10-11 12:45] VITALS: BP 152/68
[2021-10-11 12:55] VITALS: BP 152/68
[2021-10-11] MEDS ORDERED: AZITHROMYCIN 250 MG TAB (ZITHROMAX) PO SCH (21:00)
== END 2021-10-11 12:45 | disposition home or self-care (01) | DRG 871 ==
LOC: EDUNIT# 17:41 → ER FS 17:42 → 4TH 20:34 → UNDOADMIN 20:34 → 4TH 20:55
PROVIDERS: ADMIT Family Medicine; ATTEND Family Medicine
DX: A41.9 Sepsis, unspecified organism (principal); J10.00 Influenza due to other identified influenza virus with unspecified type of pneumonia; J18.9 Pneumonia, unspecified organism; J44.0 Chronic obstructive pulmonary disease with (acute) lower respiratory infection; I50.30 Unspecified diastolic (congestive) heart failure; J96.10 Chronic respiratory failure, unspecified whether with hypoxia or hypercapnia; E11.9 Type 2 diabetes mellitus without complications; Z20.822 Contact with and (suspected) exposure to COVID-19; I25.10 Atherosclerotic heart disease of native coronary artery without angina pectoris; M79.7 Fibromyalgia; Z99.81 Dependence on supplemental oxygen; Z79.84 Long term (current) use of oral hypoglycemic drugs; Z79.82 Long term (current) use of aspirin; Z79.52 Long term (current) use of systemic steroids; Z83.3 Family history of diabetes mellitus
CPT/HCPCS: 36415; 71045; 80053; 81000; 82947; 83605; 83690; 83880; 84484; 85007; 85025; 85027; 85610; 85730; 86141; 87040; 87635; 87636; 87804; 93005; 93041; 94640; 94760

== ENCOUNTER 2023-03-06 05:34 | Outpatient (CLI) | payer MEDICARE ==
[~2023-03-06] VITALS: Ht 165.1 cm; Wt 74.5 kg
[~2023-03-06 05:34] MED LIST changes: +ALBU8.5H6 IH; +ALLO100T PO; +FLUC100T10 PO; -FLUC100T6 PO; +FLUT1BLS3 IH; +FURO40TA4 PO; +GABA300C PO; +HYDR-3817 PO; +LEVA0.6334 INH; +LEVO750T PO; -LEVO750T39 PO; +LISI10TA25 PO; +OMEG-154 PO; +OMEP40CA6 PO; +OSEL75CA15 PO; -QUIN10TA14 PO; +QUIN10TA31 PO
== END 2023-03-06 11:32 | disposition home or self-care (01) ==
LOC: PREOP 05:34
PROVIDERS: ATTEND Surgery
DX: Z01.818 Encounter for other preprocedural examination (principal)

== ENCOUNTER 2023-03-13 12:20 | Day surgery (SDC) | payer MEDICARE ==
[~2023-03-13] VITALS: Ht 165.1 cm; Wt 74.5 kg
[2023-03-13] MEDS ORDERED: LACTATED RINGERS 1,000 ML IV STA (12:28)
[2023-03-13] MEDS ORDERED: HURRICAINE EXT TUBE (BENZOCAINE) XX PRN (12:30)
[2023-03-13] MEDS ORDERED: LIDOCAINE JELLY 2% 6 ML SYRINGE MM PRN (12:30)
[2023-03-13 12:45] VITALS: BP 144/58
--- NOTE | 2023-03-13 13:08 | Progress Note-Pre Operative ---
Pre-Operative Progress Note Date of Available H&P: Mar 13, 2023 Date H&P Reviewed: Mar 13, 2023 Time H&P Reviewed: 13:00 History & Physical: No changes noted Pre-Operative Diagnosis: dysphagia with hx esoph stricture NYA HERMAN MD Mar 13, 2023 13:08
--- NOTE | 2023-03-13 13:09 | Discharge Inst-Surgical ---
D/C Lap Instructions-BATSHEVA Follow Up Activity as tolerated High Fiber Diet 25g or more per day Avoid Alcohol, Caffeine, Spicy [address] and Acid foods. Drink 64 fluid oz or more of fluids per day. Symptoms to Report: Fever over 101 degree F, Nausea/Vomiting If any problems/questions: Contact your physician or go to Emergency Room NYA HERMAN MD Mar 13, 2023 13:09
[2023-03-13] MEDS ORDERED: ONDANSETRON 4 MG (ZOFRAN) ORAL DISSOLVE TAB PO PRN (13:15)
[2023-03-13] MEDS ORDERED: ONDANSETRON 4 MG/2 ML (SDV) Z0FRAN IVP PRN (13:15)
[2023-03-13] MEDS ORDERED: PROPOFOL INJECTION 50 ML IV ONE (13:39)
[2023-03-13] MEDS ORDERED: KETAMINE 50 MG/5 ML SYRINGE ONE (13:39)
[2023-03-13] MEDS ORDERED: LIDOCAINE JELLY 2% 6 ML SYRINGE ONE (13:45)
[2023-03-13 14:05] VITALS: BP 128/62
--- NOTE | 2023-03-13 14:08 | Anesthesia-General Post-Op ---
MAC Patient Condition Mental Status/LOC: Same as Preop Cardiovascular: Satisfactory Nausea/Vomiting: Absent Respiratory: Satisfactory Pain: Controlled Complications: Absent Post Op Complications Complications None Follow Up Care/Instructions Patient Instructions None needed. Anesthesiology Discharge Order Discharge Order Patient is doing well, no complaints, stable vital signs, no apparent adverse anesthesia problems. No complications reported per nursing. BUTCH CERRATO CRNA Mar 13, 2023 14:08
[2023-03-13 14:10] VITALS: BP 124/62
--- NOTE | 2023-03-13 14:14 | Progress Note-Post Operative ---
Post-Operative Progess Note Surgeon (s)/Records Management Clerk (s) Surgeon NYA HERMAN MD Records Management Clerk: none Pre-Operative Diagnosis dysphagia with hx esoph stricture Post-Operative Diagnosis reflux esophagitis(grade B-C), mild dist esoph stricture, moderate HH(2.5-3cm), moderate gastritis. Procedure & Operative Findings Date of Procedure 03/13/23 Procedure Performed/Findings EGD with bx and balloon dilatation. Anesthesia Type mac Estimated Blood Loss Estimated blood loss (mL): minimal Specimens/Packing Specimens Removed ge jxn, antrum NYA HERMAN MD Mar 13, 2023 14:14
[2023-03-13 14:42] VITALS: BP 124/62
--- NOTE | 2023-03-13 16:47 | OPERATIVE REPORT ---
DATE OF SERVICE: 03/13/2023 ATTENDING PRIMARY CARE PHYSICIAN: Dr. Meek. PREOPERATIVE DIAGNOSES: History of esophageal foreign body, dysphagia and distal esophageal stricture. POSTOPERATIVE DIAGNOSES: Reflux esophagitis between [place] grade B to C, mild distal esophageal stricture, moderate size hiatal hernia 2.5-3 cm in size, moderate gastritis, no distal obstructions. PROCEDURE: EGD with biopsy and balloon dilatation. SURGEON: Dr. Herman. ANESTHESIA: Monitored anesthesia care. ESTIMATED BLOOD LOSS: Minimal. FINDINGS: Reflux esophagitis between [place] grade B to C, mild distal esophageal stricture, moderate size hiatal hernia 2.5-3 cm in size, moderate gastritis, no distal obstructions. DISPOSITION: The patient tolerated the procedure well. INDICATIONS: The patient is a 63-year-old female who developed significant dysphagia after a meat bolus. This was then followed by substernal pressure sensation and worsening difficulty swallowing of any liquids. On that day she had reported a history of mild peptic ulcer disease; however, did not report any major issues with gastroesophageal reflux disease. On 01/10/2023, she underwent an EGD and removal of esophageal foreign body and balloon dilatation to 16.5 mm in luminal diameter. Biopsies were negative for H. pylori as well as negative for Carney's esophagus. Due to the inflammation, we were conservative on the dilatation and she is now here for followup and a repeat dilatation in hopes of rectifying the stricture and prevent any further reoccurrence of dysphagia. DESCRIPTION OF PROCEDURE: The patient was brought to the endoscopy suite and laid in the left lateral decubitus position. After adequate IV pain and sedative medications and monitored anesthesia care, the mouthpiece was applied. The endoscope was placed in the mouth, visualizing the pharynx and hypopharyngeal region. Vocal cords, epiglottis and vallecula identified and appeared to be normal. The endoscope was then gently intubated into the esophageal opening and esophagus insufflated. The endoscope was then advanced into the first, second and third portion of esophagus at the level of the GE junction, a reflux esophagitis, [place] between grade B to C identified. There was a mild distal esophageal stricture and a biopsy was taken with forceps with visualization of good hemostasis. The endoscope was then advanced into the stomach. The endoscope retroflexed visualizing a moderate size hiatal hernia of approximately 2.5-3 cm in size. There was a moderate severity gastritis. No ulcers, polyps, or any neoplasms. A biopsy was taken of the antrum to rule out H. pylori with visualization of good hemostasis. The endoscope was then advanced through the pylorus and the first and second portion of the duodenum, which appeared normal with no distal obstructions. The balloon was then placed in the stomach and pulled back to the area of the stricture. We then proceeded with graded dilatation from 2, 4, then eventually 6 atmospheres of pressure or 20 mm in luminal diameter with moderate resistance and left this in place for approximately 120 seconds. The balloon was then desufflated and removed with visualization of good hemostasis as well as no mucosal tears. The endoscope was then slowly withdrawn while taking a second look and suctioning of residual air with no additional findings. The patient tolerated the procedure well. We will recommend continued medical management with the necessary lifestyle and dietary accommodation including small and more frequent meals, avoidance of eating at night as well as head elevation while lying supine. She will also need to avoid caffeinated beverages, spicy, greasy and acidic foods and continue to take her omeprazole daily. Job ID: [id number] DocumentID: [id number] Dictated Date: 03/13/2023 14:08:46 Channel [employer]er [employer] Date: 03/13/2023 16:44:00 Dictated By: NYA HERMAN MD MTDJames
== END 2023-03-13 14:45 | disposition home or self-care (01) ==
LOC: ENDO 12:20
PROVIDERS: ATTEND Surgery
DX: K22.2 Esophageal obstruction (principal); K21.00 Gastro-esophageal reflux disease with esophagitis, without bleeding; K44.9 Diaphragmatic hernia without obstruction or gangrene; K29.30 Chronic superficial gastritis without bleeding; K31.89 Other diseases of stomach and duodenum; E11.9 Type 2 diabetes mellitus without complications; Z87.891 Personal history of nicotine dependence; Z79.84 Long term (current) use of oral hypoglycemic drugs; Z87.11 Personal history of peptic ulcer disease

== ENCOUNTER 2023-04-17 21:23 | Emergency (ER) | payer MEDICARE ==
--- NOTE | 2023-04-17 22:05 | ED Fall/Injury ---
General Chief Complaint: Trauma-Non Activation Stated Complaint: FALL/RIGHT LEG/RIGHT WRIST INJURY Nursing Triage Note: PT TO RM 4 BY WC WITH CC OF FALL FROM STANDING POSITION AROUND 2100. PT REPORTS PAIN IN R ARM AND LEG. PT REPORTS BILAT LEG NUMBNESS WHEN STANDING. PT DENIES HITTING HEAD AND LOC. Source: patient Exam Limitations: no limitations History of Present Illness Date Seen by Provider: Apr 17, 2023 Time Seen by Provider: 21:25 Initial Comments 63yoF with PMH of COPD and DM most notably presenting after a fall this morning after her legs gave out. Hit her head, did not pass out, no significant headache, confusion, chest pain, SOB, abd pain, n/v/d, dysuria. Does have a slightly elevated temp. Last November fell similarly and broke her shoulder. Allergies and Home Medications Allergies Coded Allergies: No Known Drug Allergies (Unverified , 05/13/19) Patient Home Medication List Home Medication List Reviewed: Yes Albuterol Sulfate (Ventolin Hfa) 1 Puff Puff, 2 PUFF IH Q4H PRN for SHORTNESS OF BREATH, (Reported) Entered as Reported by: NICHOLAS TILLEY on 10/10/21 1556 Allopurinol (Allopurinol) 100 Mg Tablet, 100 MG PO DAILY, (Reported) Entered as Reported by: NICHOLAS TILLEY on 10/10/21 1554 Amitriptyline HCl (Amitriptyline HCl) 100 Mg Tablet, 100 MG PO DAILY, (Reported) Entered as Reported by: YOGI SHARP on 04/20/19 0914 Aspirin (Aspirin EC) 81 Mg Tablet.dr, 81 MG PO DAILY, (Reported) Entered as Reported by: YOGI SHARP on 05/13/19 1238 Atorvastatin Calcium (Atorvastatin Calcium) 10 Mg Tablet, 10 MG PO DAILY, (Reported) Entered as Reported by: YOGI SHARP on 04/20/19 0914 Doxycycline Hyclate (Doxycycline Hyclate) 100 Mg Tablet, 100 MG PO BID Prescribed by: CHRISTEN REILLY on 04/17/23 2329 Fluticasone/Umeclidin/Vilanter (Trelegy Ellipta 100-62.5-25) 1 Each Blst.w.dev, 1 EACH IH DAILY, (Reported) Entered as Reported by: INCHOLAS TILLEY on 1/4/22 1554 Furosemide (Furosemide) 40 Mg Tablet, 40 MG PO DAILY, (Reported) Entered as Reported by: NICHOLAS TILLEY on 10/10/211553 Gabapentin (Neurontin) 300 Mg Capsule, 300 MG PO TID, (Reported) Entered as Reported by: NICHOLAS TILLEY on 10/10/211553 Levalbuterol HCl (Levalbuterol HCl) 0.63 Mg/3 Ml Vial.neb, 3 ML INH Q6H PRN for SHORTNESS OF BREATH, (Reported) Entered as Reported by: JULES TERRY on 01/10/23 0812 Lisinopril (Lisinopril) 10 Mg Tablet, 10 MG PO DAILY, (Reported) Entered as Reported by: NICHOLAS TILLEY on 10/10/211553 Methylprednisolone (Methylprednisolone Dose Pack) 4 Mg Tab.ds.pk, 4 MG PO UD Prescribed by: CHRISTEN REILLY on 04/17/23 2329 Metoprolol Tartrate (Metoprolol Tartrate) 50 Mg Tablet, 50 MG PO BID, (Reported) Entered as Reported by: NICHOLAS TILLEY on 10/10/211553 Mv-Mn/Folic Acid/Calcium/Vit K (Women's 50 Plus Multivit Tab) 1 Each Tablet, 1 TAB PO DAILY, (Reported) Entered as Reported by: YOGI SHARP on 04/20/19 0914 [place]-3S/Dha/Epa/Fish Oil (Fish Oil [place]-3 Softgel) 1 Each Capsule.dr, 1 EACH PO BID, (Reported) Entered as Reported by: NICHOLAS TILLEY on 10/10/211553 Omeprazole (Omeprazole) 40 Mg Capsule.dr, 40 MG PO DAILY Prescribed by: CARMINE COSBY on 01/10/23 1536 Review of Systems Review of Systems Constitutional: fever, malaise Eyes: No Symptoms Reported Ears, Nose, Mouth, Throat: no symptoms reported Respiratory: no symptoms reported Cardiovascular: no symptoms reported Gastrointestinal: no symptoms reported Genitourinary: no symptoms reported Musculoskeletal: see HPI Skin: no symptoms reported Psychiatric/Neurological: No Symptoms Reported Past Qhfneuf-Dykfia-Hckpge Hx Patient Social History Tobacco Use?: No Smoking Status: Former Smoker Substance use?: No Alcohol Use?: No Pt feels they are or have been: No Immunizations Up To Date First/Initial COVID19 Vaccinat: 2020 Second COVID19 Vaccination Bar: 2020 Third COVID19 Vaccination Date: 2021 Seasonal Allergies Seasonal Allergies: No Past Medical History Surgery/Hospitalization HX: COPD, chronic edema, DIABETES 2, HTN, Surgeries: Yes (Heart cath) Respiratory: Yes COPD Currently Using CPAP: No Currently Using BIPAP: No Cardiac: Yes Chronic Edema/Swelling Neurological: No Genitourinary: No Gastrointestinal: No Musculoskeletal: No Endocrine: Yes Diabetes, Non-Insulin dep HEENT: No Cancer: No Psychosocial: No Integumentary: No Blood Disorders: No Family Medical History Bone cancer 19 MOTHER Diabetes mellitus G8 BROTHER G8 BROTHER FH: lung cancer 19 FATHER Physical Exam Vital Signs Vital Signs - First Documented 04/17/23 21:29 Pulse 106 Resp 22 B/P (MAP) 140/66 (90) Pulse Ox 98 O2 Delivery Nasal Cannula O2 Flow Rate 4.00 Capillary Refill : Less Than 3 Seconds Height, Weight, BMI Height: 5'5.00" Weight: 158lbs. 2.9oz. [id number]; 27.33 BMI Method:Stated General Appearance: WD/WN, mild distress HEENT: PERRL/EOMI, normal ENT inspection, pharynx normal Neck: non-tender, full range of motion, supple, normal inspection Cardiovascular: regular rate, rhythm, no edema, no murmur Respiratory: chest non-tender, lungs clear, normal breath sounds, no respiratory distress, no accessory muscle use Gastrointestinal: normal bowel sounds, non tender, soft; No distended, No guarding, No rebound Back: normal inspection, no CVA tenderness, no vertebral tenderness Extremities: normal range of motion, normal inspection, no pedal edema, no calf tenderness, normal capillary refill, other (left calf tenderness and right wrist, no scaphoid tenderness) Neurologic/Psychiatric: shot polisher and inspector II-XII nml as tested, no motor/sensory deficits, alert, normal mood/affect, oriented x 3 Skin: normal color, warm/dry Lela Coma Score Best Eye Response: (4) Open Spontaneously Best Verbal Response: (5) Oriented Best Motor Response: (6) Obeys Commands Procedures/Interventions Date of ETT Placement: May 18, 2019 Time of ETT Placement: 1019 Progress/Results/Core Measures Results/Orders My Orders Orders - CHRISTEN REILLY MD Chest 1 View, Ap/Pa Only (04/17/23 22:11) Wrist, Right, 3 Views Or More (04/17/23 22:11) Knee, Right, 3 Views (04/17/23 22:11) Ct Head/Cervical Spine Wo (04/17/23 22:11) Hydrocodone/Apap 5/325 Tablet (Lortab 5 (04/17/23 22:15) Gabapentin Capsule/Tablet (Neurontin Cap (04/17/23 22:15) Medications Given in ED Current Medications Medications Dose Ordered Sig/Ulises Route Start Time Stop Time Status Last Admin Dose Admin Acetaminophen/ Hydrocodone Bitart 1 ea ONCE ONCE PO 04/17/23 22:15 04/17/23 22:16 DC 04/17/23 22:25 1 EA Gabapentin 300 mg ONCE ONCE PO 04/17/23 22:15 04/17/23 22:16 DC 04/17/23 22:25 300 MG Vital Signs/I&O 04/17/23 21:29 Pulse 106 Resp 22 B/P (MAP) 140/66 (90) Pulse Ox 98 O2 Delivery Nasal Cannula O2 Flow Rate 4.00 Blood Pressure Mean: 90 Progress Progress Note : Progress Note 63-year-old female presenting after a ground-level fall after her knees gave out. ABCs were intact, GCS 15, vital stable on presentation. Physical exam with right knee tenderness, right wrist tenderness with no pain over the scaphoid. Right wrist x-ray and knee x-ray ordered and interpreted by me showing no fracture or dislocation. CT head and cervical spine also ordered due to her age, and no obvious fracture or dislocation, no internal bleeding on my interpretation. Per the CT read by stat rad, she does have an incidental nodule on her right upper lobe of her lung. I did discuss this with the patient and she needs outpatient follow-up regarding this. She does have an increasing productive cough with her history of COPD, she will be given a prescription for antibiotics and steroids to help with that. I believe she is otherwise stable for discharge with outpatient follow-up. She was sent home with strict return precautions. Diagnostic Imaging Diagonstic Imaging: Xray (knee, chest, right wrist), CT (head and c spine) Departure Impression Primary Impression: Fall Qualified Codes: W19.XXXA - Unspecified fall, initial encounter Additional Impressions: Wrist pain Qualified Codes: M25.531 - Pain in right wrist Knee pain Qualified Codes: M25.561 - Pain in right knee; M25.562 - Pain in left knee COPD exacerbation Pulmonary nodule Disposition: 01 HOME, SELF-CARE Condition: Stable Departure-Patient Inst. Decision time for Depature: 23:45 Referrals: VINAY CARRILLO MD (PCP/Family) Primary Care Physician Patient Instructions: Wrist Sprain ED, Preventing Falls ED Add. Discharge Instructions: Fortunately nothing is broken, dislocated, and there is no signs of internal bleeding. Your chest x-ray looks clear with no obvious pneumonia. Given the more productive cough with your COPD, it would be a good idea to be on an antibiotic. This will be sent to your pharmacy. Use your nebulizers at home, and you will also be on a steroid to help with the COPD. Please follow back up with your regular doctor if you are not seeing improvement in the next week or so. Take your hydrocodone as needed at home for pain, you can also use ice or heating pad, whichever feels better. You also have a 0.4 cm nodule on the right upper part of your lung. This needs to be followed up by your regular doctor if they do not know about it and they likely need to do a dedicated CT of your chest as an outpatient if this has not been done already. Scripts Methylprednisolone (Methylprednisolone Dose Pack) 4 Mg Tab.ds.pk 4 MG PO UD for 6 Days, #21 PKG PER DOSE PACK INSTRUCTIONS Prov: CHRISTEN REILLY MD 04/17/23 Doxycycline Hyclate (Doxycycline Hyclate) 100 Mg Tablet 100 MG PO BID for 7 Days, #14 TAB 0 Refills Prov: CHRISTEN REILLY MD 04/17/23 CHRISTEN REILLY MD Apr 17, 2023 22:05
[2023-04-17] MEDS ORDERED: HYDROcodone/APAP 5 MG/325 MG (LORTAB) TAB PO ONE (22:15)
[2023-04-17] MEDS ORDERED: GABAPENTIN 300 MG (NEURONTIN) CAP PO ONE (22:15)
[2023-04-17] MEDS ORDERED: DOXYCYCLINE 100 MG (VIBRAMYCIN) TABLET PO STA (23:29)
[2023-04-17] MEDS ORDERED: DOXY100T2 PO (23:29)
[2023-04-17] MEDS ORDERED: METH4TAB10 PO (23:29)
[2023-04-17 23:40] VITALS: BP 113/64
--- NOTE | 2023-04-18 07:42 | Diagnostic Imaging Report ---
PROCEDURE: CT head and CT cervical spine without contrast. TECHNIQUE: Multiple contiguous axial images were obtained through the brain and cervical spine without the use of intravenous contrast. Sagittal and coronal reformations through the cervical spine were then performed. Auto Exposure Controls were utilized during the CT exam to meet ALARA standards for radiation dose reduction. INDICATION: 63-year-old female injured in fall presents with headache and neck pain Comparisons: None FINDINGS: CT head without contrast: FINDINGS: The midline structures are nondisplaced. There are senescent changes in the brain with involutional changes and generalized atrophy slightly advanced for age. 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 Background chronic areas of microvascular ischemic change seen. Corona-white differentiation is maintained and there is no sulcal effacement. There are no abnormal extra-axial fluid collections or hemorrhage. Basilar cisterns appear normal. Sinuses, orbits and mastoid air cells are unremarkable. Bone windows show no calvarial changes IMPRESSION: Senescent brain with involutional changes generalized atrophy with background chronic areas of microvascular ischemic change. There is an old the right posterior frontal infarct but no acute findings identified by nonenhanced CT criteria. CT cervical spine with reconstructions: FINDINGS: Axial images in sagittal and coronal reconstructions of the cervical spine demonstrate moderate cervical spondylosis. There is endplate sclerosis at multiple levels. There is also vertebral osteophytes at multiple levels. Multilevel hypertrophic facet changes are seen. Vertebral bodies otherwise appear well aligned and vertebral body heights are well-maintained. Prevertebral soft tissue as well as relationship of the dens the lateral mass of C1 is normal. There is no evidence of acute fracture or acute subluxation seen. Lung apices show bullous emphysematous changes. There is a focal nodule with some calcifications in the right lung apex measuring approximately 1.8 cm x 1.1 cm. There is a adjacent daughter nodule measuring approximately 4 mm. The superior mediastinum is grossly unremarkable. Parapharyngeal and paraspinous soft tissues are also grossly normal. There is some calcific atherosclerosis in the common carotid arteries as well as the carotid bifurcations. IMPRESSION: 1. Moderate cervical spondylosis with multilevel hypertrophic facet changes as well as multilevel uncovertebral osteophytes. No evidence of acute fracture or subluxation seen by CT criteria. 2. Bullous emphysematous changes seen in the upper lobes of both lungs. There is a 1.8 cm x 1.1 cm right upper lobe lung nodule with an adjacent daughter 4 mm pulmonary nodule. These findings are unchanged from CT chest from 12/06/2020. Agree with Beckk report. Dictated by: Dictated on workstation # [id number]
--- NOTE | 2023-04-18 08:47 | Diagnostic Imaging Report ---
CLINICAL INDICATION: Patient status post fall. EXAM: X-ray of the right knee, 3 views. COMPARISON: None. FINDINGS: There are hypertrophic patella spurs at the quadriceps attachment region. There is slight cortical irregularity involving the patella facet region seen on lateral view which may be related to osteochondral defect. Otherwise, there is no acute fracture dislocation. There is mild medial compartment narrowing and small spurs involving the medial lateral compartment. IMPRESSION: 1: There is a small chondral defect involving the patellar facet region which may represent osteochondral defect. This may possibly be a chronic finding. There is no significant knee effusion. There is no loose body seen. 2: Otherwise, there is no acute fracture or dislocation. 3: There is degenerative disease of the right knee. Dictated by: Dictated on workstation # [id number]
--- NOTE | 2023-04-18 08:58 | Diagnostic Imaging Report ---
EXAMINATION: Chest 1 view HISTORY: Cough and shortness of breath. COMPARISON: 01/09/2023. FINDINGS: There is mild edema. No pleural effusion or pneumothorax. Heart size is normal. IMPRESSION: 1. Mild edema. Dictated by: Dictated on workstation # [id number]
--- NOTE | 2023-04-18 09:03 | Diagnostic Imaging Report ---
EXAMINATION: Right wrist radiographs, 3 views. COMPARISON: None. HISTORY: 63-year-old female, right wrist pain. FINDINGS: There is moderate to severe osteoarthritis of the first carpometacarpal joint. 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 There is no identified acute fracture. Bone mineralization and alignment is unremarkable. IMPRESSION: 1. No identified acute bony abnormality of the right wrist. Dictated by: Dictated on workstation # [id number]
== END 2023-04-17 23:40 | disposition home or self-care (01) ==
LOC: EDUNIT# 21:23 → ER 21:25
DX: M25.561 Pain in right knee (principal); M25.531 Pain in right wrist; J44.1 Chronic obstructive pulmonary disease with (acute) exacerbation; Z87.891 Personal history of nicotine dependence; W18.30XA Fall on same level, unspecified, initial encounter
CPT/HCPCS: 70450; 71045; 72125; 73110; 73562